=== PATIENT | male | born 1950 | race Caucasian/White ===

== ENCOUNTER 2022-09-22 05:49 | Emergency (ER) | payer MEDICARE, SELFPAY ==
[2022-09-22] VITALS (14 sets, daily range): BP systolic 133–162; BP diastolic 79–97; PULSE 65–88; RESP 12–24; TEMP 36.6; O2SAT 93–98; BMI 45.6
--- NOTE | 2022-09-22 06:15 | ECG_ITS ---
The [facility] Test Date: 2022-09-22 Pat Name: MARILY CARDOSO Department: Room: - Gender: Male Iridologist: : 1950 Requested By: [id number] Order Number: [id number] Reading MD: ELEONORA FLORIAN Measurements Intervals [place] Rate: 70 P: 51 [place]: 158 QRS: -50 QRSD: 110 T: 7 QT: 384 QTc: 406 Interpretive Statements 1100 Sinus rhythm 2440 Incomplete right bundle branch block 2630 Left anterior fascicular block 8003 Consistent with pulmonary disease 9150 abnormal ECG No previous ECG available for comparison Electronically Signed On 09-23-2022 6:56:20 EDT by ELEONORA FLORIAN
--- NOTE | 2022-09-22 06:27 | ED_ITS ---
Documented by User: Denice Llamas MD 09/23/22 04:42 HPI - Abdominal Pain General Chief Complaint: Abdominal Pain Time Seen by Provider: 09/22/22 06:21 Source: patient Mode of arrival: walk-in History of Present Illness HPI narrative: This 71-year-old male presents for evaluation of left upper quadrant abdominal pain And distention. The symptoms started in the middle of the night Around 3 AM.. He states that he has a history of a hiatal hernia and also had a twisted got . They twisted got was released with an NG tube. He has never had any abdominal surgery besides an umbilical hernia. He states that he took omeprazole and Maalox and Pepto-Bismol throughout the night. Pain is mostly located in the epigastrium and left upper quadrant with radiation into his back. He denies any chest pain. He denies shortness of breath but states he is breathing heavily because due to his abdominal pain. He had a normal bowel movement in the small bowel movement throughout the night and is passing small amounts of gas at this time. She denies any history of alcohol use or diabetes. He states he did recently start a GoLo diet which includes taking a dietary enzyme and following their diet. He hasnt lost any weight on this diet and in fact has gained weight. He has not had any diarrhea or dark tarry stools. PCP is Dr Marino Triana MD elicited complaint: Reports abdominal pain Onset (ago): hour(s) (3) Pain Consistency: Reports constant Location: Reports LUQ Quality: Reports fullness Radiation: Reports L flank Relieving factors: Reports nothing Associated symptoms: Reports nausea Related Data Home Medications Medication Instructions Recorded Confirmed aspirin 81 mg tablet,delayed 81 mg PO DAILY 09/22/22 09/22/22 release (Adult Aspirin Regimen) Previous Rx's Medication Instructions Recorded dicyclomine 10 mg capsule 10 mg PO TID #20 caps 09/22/22 ondansetron 4 mg disintegrating 4 mg PO Q6H PRN nausea and 09/22/22 tablet vomiting #20 tabs Allergies Allergy/AdvReac Type Severity Reaction Status Date / Time Unable to Assess Allergy Verified 09/22/22 06:02 Review of Systems ROS Status of ROS 10 or more systems reviewed and unremarkable except as noted in history and below PFSH PFSH Social History Smoking status: Former smoker Exam Constitutional Vital Signs - 24 hr 09/22/22 05:53 09/22/22 07:24 09/22/22 06:20 Temperature 97.9 F Pulse Rate 85 Pulse Rate [Monitor] 88 Respiratory Rate 18 20 Blood Pressure Blood Pressure [Right Arm] 145/97 H Pulse Oximetry 98 94 L Oxygen Delivery Method Room Air Nasal Cannula Oxygen Delivery Flow Rate 2 09/22/22 06:30 09/22/22 06:40 09/22/22 06:50 Temperature Pulse Rate 71 70 67 Pulse Rate [Monitor] Respiratory Rate 24 12 12 Blood Pressure Blood Pressure [Right Arm] Pulse Oximetry Oxygen Delivery Method Oxygen Delivery Flow Rate 09/22/22 07:00 09/22/22 07:09 09/22/22 07:10 Temperature Pulse Rate 78 70 65 Pulse Rate [Monitor] Respiratory Rate 20 13 15 Blood Pressure 133/86 H Blood Pressure [Right Arm] Pulse Oximetry 93 L 93 L Oxygen Delivery Method Oxygen Delivery Flow Rate 09/22/22 07:30 09/22/22 07:30 09/22/22 07:50 Temperature Pulse Rate 81 Pulse Rate [Monitor] Respiratory Rate 17 Blood Pressure 140/91 H 140/91 H 147/91 H Blood Pressure [Right Arm] Pulse Oximetry 95 Oxygen Delivery Method Oxygen Delivery Flow Rate 09/22/22 08:00 09/22/22 08:51 09/22/22 08:31 Temperature Pulse Rate 88 Pulse Rate [Monitor] Respiratory Rate 14 Blood Pressure 162/92 H 137/79 H Blood Pressure [Right Arm] Pulse Oximetry 96 95 96 Oxygen Delivery Method Room Air Oxygen Delivery Flow Rate Documenting provider has reviewed patient's vital signs: yes Common normals: oriented x3 and no limitations General appearance: cooperative and in distress Nutritional appearance: obese HENMT Common normals: normocephalic and head/scalp atraumatic Eye Common normals: PERRL, EOMs intact bilaterally, conjunctivae normal and no scleral icterus Chest Common normals: inspection of chest normal Respiratory Common normals: normal respiratory effort, no retractions, no use of accessory muscles and clear to auscultation bilaterally Effort & inspection: able to speak in complete sentences Cardio Common normals: regular rate, regular rhythm, S1 normal heart sound, S2 normal heart sound, no gallops, no clicks, no murmurs and no rub GI Common normals: soft to palpation (Abd is distended, soft with left upper quadrant and epigastric tendernes) and non-tender (LUQ and epigastric tenderness) Inspection: abdominal distension (Abdomen is distended with decreased bowel sounds) Auscultation: hypoactive bowel sounds Palpation: tender Details: epigastric and LUQ and pulsatile mass (Little distention and girth precludes evaluation of aorta) Back & Pelvis Common normals: no CVA tenderness and thoracic and lumbar spine normal to inspection Extremity Common normals: normal to inspection, full ROM, no clubbing, cyanosis or edema and no calf tenderness Neuro Common normals: oriented x3, CN's II-XII intact bilaterally, moves all extremities, no focal motor deficits and no sensory deficits noted Psych Common normals: mental status grossly normal Course Course Hospital Course: Patient presents for evaluation of acute onset of generalized abdominal pain and abdominal distention around 3 AM. He does have a history of a bowel of direction in the past that was treated conservatively with an NG tube. He has had an umbilical hernia repair but no other abdominal surgery. His abdomen is soft but distended. He is passing gas and has had 2 bowel movements. He is tender in the left upper quadrant. An IV was placed upon arrival and medicated with IV fluids, Zofran, Pepcid and Dilaudid. Routine labs and CT scan is pending at the time of signout. He will be signed out to Dr. Head at 7 AM. Vital Signs Vital signs: Vital Signs Temperature 97.9 F 09/22/22 05:53 Pulse Rate 88 09/22/22 05:53 Respiratory Rate 18 09/22/22 05:53 Blood Pressure 145/97 H 09/22/22 05:53 Pulse Oximetry 98 09/22/22 05:53 Oxygen Delivery Method Room Air 09/22/22 05:53 Temperature 97.9 F 09/22/22 05:53 Pulse Rate 88 09/22/22 08:00 Respiratory Rate 14 09/22/22 08:00 Blood Pressure 137/79 H 09/22/22 08:31 Pulse Oximetry 95 09/22/22 08:51 Oxygen Delivery Method Room Air 09/22/22 08:51 Oxygen Delivery Flow Rate 2 09/22/22 07:24 MDM - Abdominal Pain Lab Data Labs: Lab Results 09/22/22 Range/Units 06:05 WBC 7.1 (4.0-11.0) 10^3/uL RBC 4.68 L (4.70-6.10) 10^6/uL Hgb 14.3 (14.0-18.0) g/dL Hct 43.1 (42.0-54.0) % MCV 92.1 (80.0-94.0) fL MCH 30.6 (25.9-34.0) pg MCHC 33.2 (29.9-35.2) g/dL RDW 12.6 (11.0-15.0) % Plt Count 236 (150-450) 10^3/uL MPV 9.1 L (9.5-13.5) fL Neut % (Auto) 72.6 (43.0-75.0) % Lymph % (Auto) 17.0 L (20.5-60.0) % [place] % (Auto) 8.9 (1.7-12.0) % Eos % (Auto) 0.8 L (0.9-7.0) % Baso % (Auto) 0.6 (0.2-2.0) % Neut # (Auto) 5.1 (1.4-6.5) 10^3/uL Lymph # (Auto) 1.2 (1.2-3.8) 10^3/uL [place] # (Auto) 0.6 (0.3-0.8) 10^3/uL Eos # (Auto) 0.1 (0.0-0.7) 10^3/uL Baso # (Auto) 0.0 (0.0-0.1) 10^3/uL Abs Immat Gran (auto) 0.01 (0.00-0.03) 10^3/uL Imm/Tot Granulo (auto) 0.1 (0.0-0.5) % Sodium 141 (136-145) mmol/L Potassium 4.0 (3.5-5.1) mmol/L Chloride 104 (98-107) mmol/L Carbon Dioxide 30.7 (21.0-32.0) mmol/L Anion Gap 10.3 BUN 14.0 (7.0-18.0) mg/dL Creatinine 0.82 (0.70-1.30) mg/dL Est GFR ( Amer) >60 (>=60) Est GFR (Non-Af Amer) >60 (>=60) BUN/Creatinine Ratio 17.1 Glucose 136 H (74-106) mg/dL Lactate 2.0 (0.4-2.0) mmol/L Calcium 9.6 (8.5-10.1) mg/dL Total Bilirubin 0.3 (0.2-1.0) mg/dL Direct Bilirubin 0.1 (0.0-0.2) mg/dL AST 15 (15-37) U/L ALT 29 (16-63) U/L Alkaline Phosphatase 97 (46-116) U/L Troponin I High Sens 5.7 (4.0-76.1) pg/mL Total Protein 7.5 (6.4-8.2) g/dL Albumin 3.5 (3.4-5.0) g/dL Globulin 4.0 g/dL Albumin/Globulin Ratio 0.9 Lipase 158.0 (73.0-393.0) U/L ECG Data Attestation: I personally reviewed and interpreted this ECG as follows: (Sinus rhythm, complete right bundle-branch block, left anterior hemiblock, nonspecific ST changes, interpretation limited by patient movement, no acute ST segment heather vation or T-wave inversion) Discharge Plan Discharge Chief Complaint: Abdominal Pain Clinical Impression: Abdominal pain Patient Disposition: Home, Self-Care Time of Disposition Decision: 08:27 Condition: Good Mode of Transportation: Private Vehicle Prescriptions / Home Meds: New ondansetron 4 mg tablet,disintegrating 4 mg PO Q6H PRN (Reason: nausea and vomiting) Qty: 20 0RF dicyclomine 10 mg capsule 10 mg PO TID Qty: 20 0RF No Action aspirin [Adult Aspirin Regimen] 81 mg tablet,delayed release (DR/EC) 81 mg PO DAILY Print Language: New Zealander Instructions: Abdominal Pain (ED) Stand Alone Forms: Portal Instructions Referrals: MARINO TRIANA [Primary Care Provider] - 1 week Discharge Date/Time: 09/22/22 08:52 Documented by User: New Head MD 09/22/22 08:31 HPI - Abdominal Pain General Chief Complaint: Abdominal Pain Time Seen by Provider: 09/22/22 06:21 Related Data Home Medications Medication Instructions Recorded Confirmed aspirin 81 mg tablet,delayed 81 mg PO DAILY 09/22/22 09/22/22 release (Adult Aspirin Regimen) Previous Rx's Medication Instructions Recorded dicyclomine 10 mg capsule 10 mg PO TID #20 caps 09/22/22 ondansetron 4 mg disintegrating 4 mg PO Q6H PRN nausea and 09/22/22 tablet vomiting #20 tabs Allergies Allergy/AdvReac Type Severity Reaction Status Date / Time Unable to Assess Allergy Verified 09/22/22 06:02 PFS PFS Social History Smoking status: Former smoker Exam Constitutional Vital Signs - 24 hr 09/22/22 05:53 09/22/22 07:24 09/22/22 06:20 Temperature 97.9 F Pulse Rate 85 Pulse Rate [Monitor] 88 Respiratory Rate 18 20 Blood Pressure Blood Pressure [Right Arm] 145/97 H Pulse Oximetry 98 94 L Oxygen Delivery Method Room Air Nasal Cannula Oxygen Delivery Flow Rate 2 09/22/22 06:30 09/22/22 06:40 09/22/22 06:50 Temperature Pulse Rate 71 70 67 Pulse Rate [Monitor] Respiratory Rate 24 12 12 Blood Pressure Blood Pressure [Right Arm] Pulse Oximetry Oxygen Delivery Method Oxygen Delivery Flow Rate 09/22/22 07:00 09/22/22 07:09 09/22/22 07:10 Temperature Pulse Rate 78 70 65 Pulse Rate [Monitor] Respiratory Rate 20 13 15 Blood Pressure 133/86 H Blood Pressure [Right Arm] Pulse Oximetry 93 L 93 L Oxygen Delivery Method Oxygen Delivery Flow Rate 09/22/22 07:30 09/22/22 07:30 09/22/22 07:50 Temperature Pulse Rate 81 Pulse Rate [Monitor] Respiratory Rate 17 Blood Pressure 140/91 H 140/91 H 147/91 H Blood Pressure [Right Arm] Pulse Oximetry 95 Oxygen Delivery Method Oxygen Delivery Flow Rate 09/22/22 08:00 09/22/22 08:51 09/22/22 08:31 Temperature Pulse Rate 88 Pulse Rate [Monitor] Respiratory Rate 14 Blood Pressure 162/92 H 137/79 H Blood Pressure [Right Arm] Pulse Oximetry 96 95 96 Oxygen Delivery Method Room Air Oxygen Delivery Flow Rate Course Course Hospital Course: Patient presents for evaluation of acute onset of generalized abdominal pain and abdominal distention around 3 AM. He does have a history of a bowel of direction in the past that was treated conservatively with an NG tube. He has had an umbilical hernia repair but no other abdominal surgery. His abdomen is soft but distended. He is passing gas and has had 2 bowel movements. He is tender in the left upper quadrant. An IV was placed upon arrival and medicated with IV fluids, Zofran, Pepcid and Dilaudid. Routine labs and CT scan is pending at the time of signout. He will be signed out to Dr. Head at 7 AM. Vital Signs Vital signs: Vital Signs Temperature 97.9 F 09/22/22 05:53 Pulse Rate 88 09/22/22 05:53 Respiratory Rate 18 09/22/22 05:53 Blood Pressure 145/97 H 09/22/22 05:53 Pulse Oximetry 98 09/22/22 05:53 Oxygen Delivery Method Room Air 09/22/22 05:53 Temperature 97.9 F 09/22/22 05:53 Pulse Rate 88 09/22/22 08:00 Respiratory Rate 14 09/22/22 08:00 Blood Pressure 137/79 H 09/22/22 08:31 Pulse Oximetry 95 09/22/22 08:51 Oxygen Delivery Method Room Air 09/22/22 08:51 Oxygen Delivery Flow Rate 2 09/22/22 07:24 MDM - Abdominal Pain MDM Narrative Medical decision making narrative: CT scan shows incidental gallstones and no bowel obstruction. Blood work is all normal. He'll be treated symptomatically with Zofran and Bentyl. Treatment diagnosis and follow-up were discussed with the patient. Differential Diagnosis Differential diagnosis: Likely abdominal pain, constipation, diverticulitis, gastroenteritis, pancreatitis and small bowel obstruction Lab Data Attestation: I reviewed the patient's lab results. Labs: Lab Results 09/22/22 Range/Units 06:05 WBC 7.1 (4.0-11.0) 10^3/uL RBC 4.68 L (4.70-6.10) 10^6/uL Hgb 14.3 (14.0-18.0) g/dL Hct 43.1 (42.0-54.0) % MCV 92.1 (80.0-94.0) fL MCH 30.6 (25.9-34.0) pg MCHC 33.2 (29.9-35.2) g/dL RDW 12.6 (11.0-15.0) % Plt Count 236 (150-450) 10^3/uL MPV 9.1 L (9.5-13.5) fL Neut % (Auto) 72.6 (43.0-75.0) % Lymph % (Auto) 17.0 L (20.5-60.0) % [place] % (Auto) 8.9 (1.7-12.0) % Eos % (Auto) 0.8 L (0.9-7.0) % Baso % (Auto) 0.6 (0.2-2.0) % Neut # (Auto) 5.1 (1.4-6.5) 10^3/uL Lymph # (Auto) 1.2 (1.2-3.8) 10^3/uL [place] # (Auto) 0.6 (0.3-0.8) 10^3/uL Eos # (Auto) 0.1 (0.0-0.7) 10^3/uL Baso # (Auto) 0.0 (0.0-0.1) 10^3/uL Abs Immat Gran (auto) 0.01 (0.00-0.03) 10^3/uL Imm/Tot Granulo (auto) 0.1 (0.0-0.5) % Sodium 141 (136-145) mmol/L Potassium 4.0 (3.5-5.1) mmol/L Chloride 104 (98-107) mmol/L Carbon Dioxide 30.7 (21.0-32.0) mmol/L Anion Gap 10.3 BUN 14.0 (7.0-18.0) mg/dL Creatinine 0.82 (0.70-1.30) mg/dL Est GFR ( Amer) >60 (>=60) Est GFR (Non-Af Amer) >60 (>=60) BUN/Creatinine Ratio 17.1 Glucose 136 H (74-106) mg/dL Lactate 2.0 (0.4-2.0) mmol/L Calcium 9.6 (8.5-10.1) mg/dL Total Bilirubin 0.3 (0.2-1.0) mg/dL Direct Bilirubin 0.1 (0.0-0.2) mg/dL AST 15 (15-37) U/L ALT 29 (16-63) U/L Alkaline Phosphatase 97 (46-116) U/L Troponin I High Sens 5.7 (4.0-76.1) pg/mL Total Protein 7.5 (6.4-8.2) g/dL Albumin 3.5 (3.4-5.0) g/dL Globulin 4.0 g/dL Albumin/Globulin Ratio 0.9 Lipase 158.0 (73.0-393.0) U/L Discharge Plan Discharge Chief Complaint: Abdominal Pain Clinical Impression: Abdominal pain Patient Disposition: Home, Self-Care Time of Disposition Decision: 08:27 Condition: Good Mode of Transportation: Private Vehicle Prescriptions / Home Meds: New ondansetron 4 mg tablet,disintegrating 4 mg PO Q6H PRN (Reason: nausea and vomiting) Qty: 20 0RF dicyclomine 10 mg capsule 10 mg PO TID Qty: 20 0RF No Action aspirin [Adult Aspirin Regimen] 81 mg tablet,delayed release (DR/EC) 81 mg PO DAILY Print Language: [place]alander Instructions: Abdominal Pain (ED) Stand Alone Forms: Portal Instructions Referrals: MARINO TRIANA [Primary Care Provider] - 1 week Discharge Date/Time: 09/22/22 08:52
--- NOTE | 2022-09-22 06:27 | CT_ITS ---
[address] [address] Patient Name: MARILY CARDOSO MRN: [id number] date: 1950 Sex: M Assigned Patient Location: ER Current Patient Location: Accession/Order Number: [id number] Exam Date: 09/22/2022 07:30 Report Date: 09/22/2022 08:05 At the request of: MINNIE MARKER Procedure: CT abdomen pelvis w con EXAMINATION: CT abdomen pelvis w con HISTORY: abd pain, distention ; acute left upper quadrant pain radiating to back COMPARISON: CT abdomen pelvis 11/07/2021 TECHNIQUE: Axial, Coronal, and Sagittal images were obtained without and/or with IV contrast as indicated by examination type. Dose reduction techniques were achieved by using automated exposure control and/or adjustment of mA and/or kV according to patient size and/or use of iterative reconstruction technique. FINDINGS: LUNG BASES: No visible pulmonary or pleural disease. LIVER: No enlargement, atrophy, suspicious density, or significant focal lesion. BILIARY: A few tiny stones within noninflamed gallbladder. PANCREAS: No lesion, fluid collection, or abnormal duct dilatation. SPLEEN: No enlargement or focal lesion. ADRENALS: No mass or enlargement. KIDNEYS: Benign-appearing renal cysts bilaterally. No mass, obstruction, or calcification. BOWEL/MESENTERY: Small diverticula involving the sigmoid colon without acute inflammatory changes. No visible mass, obstruction, or bowel wall thickening. Normal appendix. AORTA/VASCULAR: No aneurysm or dissection. RETROPERITONEUM: No mass or adenopathy. LYMPH NODES: No adenopathy. URINARY BLADDER: No visible focal wall thickening, lesion, or calculus. PELVIC ORGANS: No visible mass. Pelvic organs appropriate for patient age. ABDOMINAL WALL: No mass or hernia. BONES: Scoliotic curvature and multilevel degenerative disc disease of thoracic and lumbar spine. OTHER: Negative. IMPRESSION: 1. No acute or suspicious findings to account for patient's left upper quadrant pain. 2. Cholelithiasis. 3. Noninflamed mild sigmoid diverticulosis. 4.Multilevel degenerative disc disease and scoliotic curvature of thoracic and lumbar spine. Electronically authenticated by: SEKOU GATES Date: 09/22/2022 08:05
[2022-09-22 06:44] LABS: Basophils Percent Auto 0.6 % (0.2-2.0); Eosinophils Absolute Auto 0.1 10^3/uL (0.0-0.7); Eosinophils Percent Auto 0.8 % (0.9-7.0); Hematocrit 43.1 % (42.0-54.0); Hemoglobin 14.3 g/dL (14.0-18.0); Immature Granulocytes Abs Auto 0.01 10^3/uL (0.00-0.03); Immature Granulocytes Pct Auto 0.1 % (0.0-0.5); Lymphocytes Absolute Auto 1.2 10^3/uL (1.2-3.8); Mean Corpuscular HGB Conc 33.2 g/dL (29.9-35.2); Mean Corpuscular Hemoglobin 30.6 pg (25.9-34.0); Mean Corpuscular Volume 92.1 fL (80.0-94.0); Mean Platelet Volume 9.1 fL (9.5-13.5); Monocytes Absolute Auto 0.6 10^3/uL (0.3-0.8); Monocytes Percent Auto 8.9 % (1.7-12.0); Neutrophils Absolute Auto 5.1 10^3/uL (1.4-6.5); Neutrophils Percent Auto 72.6 % (43.0-75.0); Platelet Count 236 10^3/uL (150-450); Red Blood Count 4.68 10^6/uL (4.70-6.10); Red Cell Distribution Width 12.6 % (11.0-15.0); White Blood Count 7.1 10^3/uL (4.0-11.0)
[2022-09-22] MEDS: FAMOTIDINE/PF 20 MG/2 ML VIAL IV (07:03)
[2022-09-22] MEDS: HYDROMORPHONE HCL 1 MG/ML CARTRIDGE IVP (07:03)
[2022-09-22] MEDS: ONDANSETRON PF 4 MG/2 ML VIAL IV (07:03)
[2022-09-22] MEDS: 0.9 % SODIUM CHLORIDE 1,000 ML 100 ML IV (07:03)
[2022-09-22 07:09] LABS: Alanine Aminotransferase 29 U/L (16-63); Albumin Globulin Ratio 0.9; Albumin Level 3.5 g/dL (3.4-5.0); Alkaline Phosphatase 97 U/L (46-116); Anion Gap 10.3; Aspartate Amino Transferase 15 U/L (15-37); BUN Creatinine Ratio 17.1; Bilirubin Direct 0.1 mg/dL (0.0-0.2); Bilirubin Total 0.3 mg/dL (0.2-1.0); Calcium 9.6 mg/dL (8.5-10.1); Carbon Dioxide 30.7 mmol/L (21.0-32.0); Chloride 104 mmol/L (98-107); Estimated GFR (African America >60 (>=60); Estimated GFR (Non-African Ame >60 (>=60); Glucose 136 mg/dL (74-106); Sodium 141 mmol/L (136-145); Total Protein 7.5 g/dL (6.4-8.2); Troponin I High Sensitivity 5.7 pg/mL (4.0-76.1)
== END 2022-09-22 08:52 | disposition home or self-care (01) ==
PROVIDERS: Emergency Medicine; Emergency Provider Emergency Medicine; PCP Family Medicine
DX: R10.9 Unspecified abdominal pain (principal); Z87.891 Personal history of nicotine dependence; Z79.82 Long term (current) use of aspirin
CPT/HCPCS: 36415; 74177; 80053; 80076; 83605; 83690; 84484; 84703; 85025; 93005; 96374; 96375; 99285; J1170; Q9967

== ENCOUNTER 2023-02-10 22:09 | Emergency (ER) | payer MEDICARE, SELFPAY ==
[2023-02-10] VITALS (16 sets, daily range): BP systolic 104–139; BP diastolic 59–92; PULSE 115–147; RESP 14–35; TEMP 36.6; O2SAT 88–96; BMI 43.2
--- NOTE | 2023-02-10 22:17 | ED_ITS ---
HPI - SOB/Dyspnea General Chief Complaint: Shortness of Breath/Dyspnea Stated Complaint: Shortness of Breath Time Seen by Provider: 02/10/23 22:17 History of Present Illness HPI Narrative: ex smoker. history of COPD. Does not wear 02 at home. Short of breath tonight. States legs felt tingly and he fell onto the sofa. [facility] gave him 02. States he was able to walk down 3 steps afterwards to get to [facility]. No chest pain or abdominal pain. No associated nausea , vomiting or fever. States he had not been ill MD elicited complaint: shortness of breath Pertinent past history: COPD Related Data Home Medications Medication Instructions Recorded Confirmed albuterol sulfate 90 mcg/actuation 1 inh inhalation DAILY 02/10/23 02/10/23 aerosol inhaler Allergies Allergy/AdvReac Type Severity Reaction Status Date / Time No Known Drug Allergies Allergy Verified 02/10/23 22:26 Review of Systems ROS Status of ROS 10 or more systems reviewed and unremarkable except as noted in history and below PFSH PFSH Social History Smoking status: Former smoker Exam Constitutional Vital Signs, click to edit/add: Last Vital Signs Temp 97.8 F 02/10/23 22:14 Pulse 101 H 02/11/23 04:10 Resp 17 02/11/23 04:10 BP 127/83 02/11/23 04:00 Pulse Ox 95 02/11/23 04:10 O2 Del Method Vapotherm 02/11/23 00:30 O2 Flow Rate 30 02/11/23 00:30 FiO2 40 02/11/23 00:30 Common normals: oriented x3 Other: mild dyspnea HENUT Common normals: normocephalic and head/scalp atraumatic Eye Common normals: PERRL, EOMs intact bilaterally and conjunctivae normal Chest Common normals: inspection of chest normal and palpation of chest normal Respiratory Effort & inspection: tachypneic Other: diminished breath sounds Cardio Rate: tachycardic GI Other: distended but nontender Extremity Common normals: normal to inspection and full ROM Neuro Common normals: oriented x3, CN's II-XII intact bilaterally, moves all extremities, no focal motor deficits and no sensory deficits noted Psych Appearance: grossly normal Course Vital Signs Vital signs: Vital Signs Temperature 97.8 F 02/10/23 22:14 Pulse Rate 129 H 02/10/23 22:14 Respiratory Rate 35 H 02/10/23 22:14 Blood Pressure 139/92 H 02/10/23 22:14 Pulse Oximetry 88 L 02/10/23 22:14 Oxygen Delivery Method Nasal Cannula 02/10/23 22:14 Oxygen Delivery Flow Rate 6 02/10/23 22:14 Temperature 97.8 F 02/10/23 22:14 Pulse Rate 101 H 02/11/23 04:10 Respiratory Rate 17 02/11/23 04:10 Blood Pressure 127/83 02/11/23 04:00 Pulse Oximetry 95 02/11/23 04:10 Oxygen Delivery Method Vapotherm 02/11/23 00:30 Oxygen Delivery Flow Rate 30 02/11/23 00:30 Fraction of Inspired Oxygen 40 02/11/23 00:30 MDM - SOB/Dyspnea MDM Narrative Medical decision making narrative: patient has history of COPD. Became short of breath at home. When [facility] arrived pulse ox was 74. He was placed on 6L02 and transferred to the ED. Arrived short of breath. No chest pain. EKG with RBBB and LAFB. sinsu tach. EKG 09/2022 with incomplete RBBB. Patient treated with duoneb and solumedrol. Labs demonstrated normal troponin at 64.9. Repeat troponin increased to 649. Heparin and asa order ed. Patient is currently on high flow 02 at 40% and resting comfortably. Discussed with Hospitalist at [facility] and patient accepted in transfer but he also requested CTA chest. CTA results returned just as he was leaving department with [facility] for transfer and it demonstrated bilat PEs Patient on Heparin bolus and drip as above. Transferred to [facility] Lab Data Labs: Lab Results 02/10/23 02/10/23 02/11/23 Range/Units 22:22 22:25 01:12 WBC 11.8 H (4.0-11.0) 10^3/uL RBC 4.93 (4.70-6.10) 10^6/uL Hgb 14.9 (14.0-18.0) g/dL Hct 48.2 (42.0-54.0) % MCV 97.8 H (80.0-94.0) fL MCH 30.2 (25.9-34.0) pg MCHC 30.9 (29.9-35.2) g/dL RDW 12.8 (11.0-15.0) % Plt Count 141 L (150-450) 10^3/uL MPV 9.8 (9.5-13.5) fL Neut % (Auto) 73.7 (43.0-75.0) % Lymph % (Auto) 14.5 L (20.5-60.0) % [place] % (Auto) 10.5 (1.7-12.0) % Eos % (Auto) 0.3 L (0.9-7.0) % Baso % (Auto) 0.4 (0.2-2.0) % Neut # (Auto) 8.7 H (1.4-6.5) 10^3/uL Lymph # (Auto) 1.7 (1.2-3.8) 10^3/uL [place] # (Auto) 1.2 H (0.3-0.8) 10^3/uL Eos # (Auto) 0.0 (0.0-0.7) 10^3/uL Baso # (Auto) 0.1 (0.0-0.1) 10^3/uL Abs Immat Gran (auto) 0.07 H (0.00-0.03) 10^3/uL Imm/Tot Granulo (auto) 0.6 H (0.0-0.5) % PT 11.1 (9.0-11.6) sec INR 1.05 APTT 30.0 (22.3-36.2) sec Sodium 130 L (136-145) mmol/L Potassium 4.3 (3.5-5.1) mmol/L Chloride 96 L (98-107) mmol/L Carbon Dioxide 20.4 L (21.0-32.0) mmol/L Anion Gap 17.9 BUN 21.0 H (7.0-18.0) mg/dL Creatinine 2.01 H (0.70-1.30) mg/dL Est GFR ( Amer) 40 L (>=60) Est GFR (Non-Af Amer) 33 L (>=60) BUN/Creatinine Ratio 10.4 Glucose 197 H (74-106) mg/dL Calcium 9.2 (8.5-10.1) mg/dL Troponin I High Sens 64.9 649.3 H* (4.0-76.1) pg/mL Adenovirus (PCR) Not detected (NOT DETECTE) C. pneumoniae DNA (PCR) Not detected (NOT DETECTE) Coronavirus Type OC43 Not detected (NOT DETECTE) Coronavirus Type HKU1 Not detected (NOT DETECTE) Coronavirus Type 229E Not detected (NOT DETECTE) Coronavirus Type NL63 Not detected (NOT DETECTE) Human Metapneumovir PCR Not detected (NOT DETECTE) M. pneumoniae (PCR) Not detected (NOT DETECTE) Parainfluenza PCR Not detected (NOT DETECTE) Parainfluenza 2 (PCR) Not detected (NOT DETECTE) Parainfluenza 3 (PCR) Not detected (NOT DETECTE) Parainfluenza 4 (PCR) Not detected (NOT DETECTE) RSV (RT-PCR) Not detected (NOT DETECTE) Entero/Rhino (PCR) Not detected (NOT DETECTE) SARS-CoV-2 (PCR) Not detected (NOT DETECTE) Bordetella pertussis (PCR) Not detected (NOT DETECTE) B parapertussis DNA PCR Not detected (NOT DETECTE) Influenza Type A (PCR) Not detected (NOT DETECTE) Influenza Type B (PCR) Not detected (NOT DETECTE) Critical Care Time Critical Care Time Critical Care Time: Yes Total Critical Care Time: 45 Attestation: critical care time provided including re evaluation of the patient several times. Discussion with accepting physician. Also comparison to old EKGs and management of supplement 02 vapotherm Discharge Plan Discharge Chief Complaint: Shortness of Breath/Dyspnea Clinical Impression: Non-ST elevation [place] (NSTEMI), Bilateral pulmonary embolism Patient Disposition: [facility] Discharge Date/Time: 02/11/23 04:46
--- NOTE | 2023-02-10 22:20 | XR_ITS ---
[address] [address] Patient Name: MARILY CARDOSO MRN: [id number] date: 1950 Sex: M Assigned Patient Location: ER Current Patient Location: ED.MAIN Accession/Order Number: [id number] Exam Date: 02/10/2023 22:35 Report Date: 02/10/2023 22:55 At the request of: RUSS BUSTAMANTE Procedure: XR chest 1V EXAMINATION: CHEST RADIOGRAPH (PORTABLE SINGLE VIEW AP) Exam Date/Time: 02/10/2023 10:35 PM EST Clinical History: short of breath Comparison: CTA chest 10/08/2018 RESULT: Lines, tubes, and devices: None. Lungs and pleura: No focal consolidation. No pneumothorax. No pleural effusion. Bibasal atelectasis. Cardiomediastinal silhouette: Stable cardiomediastinal silhouette. No significant atherosclerotic calcification. Other: No acute osseous process. XR/XR chest 1V IMPRESSION: No acute cardiopulmonary abnormality. Electronically authenticated by: DANII DILOLN Date: 02/10/2023 22:55
--- NOTE | 2023-02-10 22:20 | ECG_ITS ---
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: : 1950 Requested By: JS MENJIVAR Order Number: [id number] Reading MD: ELEONORA FLORIAN Measurements Intervals [place] Rate: 132 P: 222 NE: 180 QRS: -78 QRSD: 114 T: 66 QT: 312 QTc: 390 Interpretive Statements Sinus tachycardia 2450 Right bundle branch block 2630 Left anterior fascicular block 7400 S1-S2-S3 pattern, consistent with pulmonary disease, RVH, or normal variant 8003 Consistent with pulmonary disease 9150 abnormal ECG Compared to ECG 09/22/2022 06:10:37 Right bundle-branch block now present Right ventricular hypertrophy now present Sinus rhythm no longer present Incomplete right bundle-branch block no longer present Electronically Signed On 02-12-2023 18:20:57 EST by ELEONORA FLORIAN
[2023-02-10 22:31] LABS: Basophils Absolute Auto 0.1 10^3/uL (0.0-0.1); Basophils Percent Auto 0.4 % (0.2-2.0); Eosinophils Percent Auto 0.3 % (0.9-7.0); Hematocrit 48.2 % (42.0-54.0); Hemoglobin 14.9 g/dL (14.0-18.0); Immature Granulocytes Abs Auto 0.07 10^3/uL (0.00-0.03); Immature Granulocytes Pct Auto 0.6 % (0.0-0.5); Lymphocytes Absolute Auto 1.7 10^3/uL (1.2-3.8); Lymphocytes Percent Auto 14.5 % (20.5-60.0); Mean Corpuscular HGB Conc 30.9 g/dL (29.9-35.2); Mean Corpuscular Hemoglobin 30.2 pg (25.9-34.0); Mean Corpuscular Volume 97.8 fL (80.0-94.0); Mean Platelet Volume 9.8 fL (9.5-13.5); Monocytes Absolute Auto 1.2 10^3/uL (0.3-0.8); Monocytes Percent Auto 10.5 % (1.7-12.0); Neutrophils Absolute Auto 8.7 10^3/uL (1.4-6.5); Neutrophils Percent Auto 73.7 % (43.0-75.0); Platelet Count 141 10^3/uL (150-450); Red Blood Count 4.93 10^6/uL (4.70-6.10); Red Cell Distribution Width 12.8 % (11.0-15.0); White Blood Count 11.8 10^3/uL (4.0-11.0)
[2023-02-10 22:31] LABS: Adenovirus NOT DETECTED (NOT DETECTE); Bordetella parapertussis NOT DETECTED (NOT DETECTE); Coronavirus 229E NOT DETECTED (NOT DETECTE); Coronavirus HKU1 NOT DETECTED (NOT DETECTE); Coronavirus NL63 NOT DETECTED (NOT DETECTE); Coronavirus OC43 NOT DETECTED (NOT DETECTE); Human Metapneumovirus NOT DETECTED (NOT DETECTE); Human Rhinovirus/Enterovirus NOT DETECTED (NOT DETECTE); Influenza A NOT DETECTED (NOT DETECTE); Influenza B NOT DETECTED (NOT DETECTE); Mycoplasma pneumoniae NOT DETECTED (NOT DETECTE); Parainfluenza Virus 1 NOT DETECTED (NOT DETECTE); Parainfluenza Virus 2 NOT DETECTED (NOT DETECTE); Parainfluenza Virus 3 NOT DETECTED (NOT DETECTE); Parainfluenza Virus 4 NOT DETECTED (NOT DETECTE); Respiratory Syncytial Virus NOT DETECTED (NOT DETECTE); SARS-CoV-2 NOT DETECTED (NOT DETECTE)
[2023-02-10] MEDS: IPRATROPIUM/ALBUTEROL SULFATE 3 ML AMPUL.NEB IH (22:37)
[2023-02-10] MEDS: METHYLPREDNISOLONE SOD SUCC PF 125 MG/2 ML VIAL IVP (22:41)
[2023-02-10 22:51] LABS: Anion Gap 17.9; BUN Creatinine Ratio 10.4; Calcium 9.2 mg/dL (8.5-10.1); Carbon Dioxide 20.4 mmol/L (21.0-32.0); Chloride 96 mmol/L (98-107); Estimated GFR (African America 40 (>=60); Estimated GFR (Non-African Ame 33 (>=60); Glucose 197 mg/dL (74-106); Potassium 4.3 mmol/L (3.5-5.1); Sodium 130 mmol/L (136-145); Troponin I High Sensitivity 64.9 pg/mL (4.0-76.1)
--- NOTE | 2023-02-10 22:54 | PC.NURSE ---
Patient noticed he was SOB earlier today while he was out running errands with his . Patient states he chose to wait in the car. tonight while he was at home. patient was walking to his favorite chair, could not make it the whole way so he fell forward onto the couch and eased himself onto the ground until EMS arrived, approx 20min. denies any head injury. EMS states patient was 70's oxygen saturation. placed on 6L and only brought saturation to 88%. patient denies any recent illness, cough, flu symptoms. diagnosed with COPD does not use home oxygen. diminished lung sounds bilaterally, better on the left side.
[2023-02-11] VITALS (28 sets, daily range): BP systolic 109–159; BP diastolic 75–120; PULSE 98–119; RESP 16–25; O2SAT 92–97
[2023-02-11 01:43] LABS: Troponin I High Sensitivity 649.3 pg/mL (4.0-76.1)
--- NOTE | 2023-02-11 01:48 | PC.NURSE ---
critical troponin of 649.3, physician notifed.
[2023-02-11] MEDS: ASPIRIN 81 MG TAB.CHEW 324 MG PO (02:40)
[2023-02-11] MEDS: HEPARIN SODIUM,PORCINE/D5W 25,000 UNIT/500 ML IV.SOLN 31.832 UNIT IV (03:10)
[2023-02-11] MEDS: HEPARIN SODIUM (PORCINE) 5,000 UNIT/ML VIAL 4000 UNIT IV (03:10)
--- NOTE | 2023-02-11 03:30 | CT_ITS ---
The [address] [address] Patient Name: MARILY CARDOSO MRN: [id number] date: 1950 Sex: M Assigned Patient Location: Current Patient Location: [facility] Accession/Order Number: [id number] Exam Date: 02/11/2023 03:30 Report Date: 02/13/2023 21:47 At the request of: RUSS WILDE Procedure: CT angio chest EXAM: CT ANGIO CHEST HISTORY: Abnormal lab values. COMPARISON: None. TECHNIQUE: Axial CT images through the chest were obtained after the intravenous administration of 100 mL Omnipaque 350 contrast. Coronal and sagittal reformats were obtained. Dose reduction techniques were achieved by using automated exposure control and/or adjustment of mA and/or kV according to patient size and/or use of iterative reconstruction technique. FINDINGS: The study is technically adequate with a good contrast bolus to the pulmonary arteries. There are bilateral pulmonary emboli involving the distal main pulmonary arteries and extending throughout both lungs. The main pulmonary artery is mildly enlarged measuring up to 3.3 cm, not significantly changed compared to prior examination. There is enlargement of the right ventricle in relation to the left. There is bibasilar atelectasis. The central airways are patent. No pleural effusion or pneumothorax is seen. The thoracic aorta is normal in course and caliber without evidence of an aneurysm. There is no pericardial effusion. There is no mediastinal, hilar, or axillary lymphadenopathy by CT size criteria. Images through the upper abdomen reveal a left renal cyst. No suspicious or aggressive bone lesions are seen. No acute fracture is seen. CT/CT angio chest IMPRESSION: 1. Bilateral pulmonary emboli with enlargement of the right ventricle in relation to the left, concerning for right heart strain. The findings were discussed with Dr. Wilde by Dr. Fontaine at 4:26 AM ET on 02/11/2023. Electronically authenticated by: Breanna FONTAINE Date: 02/13/2023 21:47
[2023-02-11] MEDS: 0.9 % SODIUM CHLORIDE 500 ML IV (04:35)
[2023-02-11 05:22] LABS: INR 1.05; Prothrombin Time 11.1 sec (9.0-11.6)
== END 2023-02-11 04:46 | disposition short-term general hospital (02) ==
PROVIDERS: Emergency Provider Internal Medicine; PCP Family Medicine
DX: I21.4 Non-ST elevation (NSTEMI) myocardial infarction (principal); I26.99 Other pulmonary embolism without acute cor pulmonale; J44.9 Chronic obstructive pulmonary disease, unspecified; Z87.891 Personal history of nicotine dependence; Z79.899 Other long term (current) drug therapy; Z20.822 Contact with and (suspected) exposure to COVID-19
CPT/HCPCS: 0202U; 36415; 71045; 71275; 80048; 84484; 85025; 85610; 85730; 93005; 94640; 94799; 96374; 96375; 99285; J2930; Q9967

== ENCOUNTER 2024-06-21 12:10 | Outpatient (OUT) | payer MEDICARE, SELFPAY ==
--- OUTSIDE RECORDS SUMMARY | 2024-06-21 12:18 | XMS_ITS | CCD ---
Author Organization [facility] Care Team Providers Care Insurance Producer Name Role Phone ROSHAN YANG Admitting Unavailable RADHA PRATT Consulting Unavailable ROSHAN YANG Attending Unavailable TIARA, DR WEINSTEIN Primary Care Unavailable ROSHAN YANG Consulting Unavailable TIARA, DR WEINSTEIN Primary Care Unavailable AUGUSTA, DR ROBIN Mata Consulting Unavailable NADERER, DR MOLLY Wang Admitting Unavailable NADERER, DR MOLLY Wang Attending Unavailable NADERER, DR MOLLY Wang Consulting Unavailable HAY, DR GAMEZ Consulting Unavailable NILL, DR MOORE Consulting Unavailable NATASHA ARELLANO Consulting Unavailable ROBIN RAYA Consulting Unavailable MD Melissa Tejeda Admit Provider CATARINA Moya Primary Care Provider DO Sophie Tovar Other Provider [phone] DO Tobias James Attending Provider Sophie Tovar Consulting Unavailable Chloé Moya Primary Care Unavailable Tobias James Attending Unavailable Melissa Tejeda Admitting Unavailable Chloé Moya PA-C Primary Care Provider [phone] JS MENJIVAR Primary Care Physician Jesica Moe Consulting Unavailab Devorah Burgess Admitting Unavailable Devorah BLANCO Attending Unavailable MD Jesica Moe Consulting Jesica Slater Consulting Unavailab Edith Charles Attending Unavailable Radha Roche Attending UnavailEfren Oswald Attending Unavailable Js Menjivar MD Unavailable Js Menjivar MD Primary Care Provider CHLOÉ MOYA Attending Unavailable CHLOÉ MOYA Attending Unavailable GILBERTO MAGANA Attending Unavailable CHLOÉ MOYA Attending Unavailable CHLOÉ MOYA Attending Unavailable CHLOÉ MOYA Attending Unavailable CHLOÉ MOYA Attending Unavailable CHANDRIKA LEARY Attending Unavailable BRADLEY TOVAR Referring Unavailable CHLOÉ MOYA Primary Care Unavailable BRADLEY TOVAR Attending Unavailable CHANDRIKA LEARY Referring Unavailable CHLOÉ MOYA Primary Care Unavailable Dina Barajas Referring Unavailable Jesica Moe Attending UnavailDevorah Rogers Admitting Unavailable Richard CHAUDHARY Attending Unavailable Jesica Moe Consulting Unavailab Jesica Haley Consulting Unavailab Jesica Haley Consulting Unavailab le Allergies Allergy Classification Reported Allergen(s) Allergy Type Date of Onset Reaction(s) Facility (3 sources) Banana Extract; Translations: [BANANA] Drug Allergy 3 [facility] (3 sources) Famotidine; Translations: [FAMOTIDINE] Drug Allergy 3 [facility] Work Phone: (11 sources) clopidogrel; Translations: [clopidogrel] Drug Allergy 4 Cutaneous eruption (morphologic abnormality), Rash [facility] (9 sources) Warfarin; Translations: [Coumadin] Drug Allergy Cutaneous eruption (morphologic abnormality) [facility] (6 sources) Bananas Propensity to adverse reactions 3 [facility] (6 sources) Famotidine Allergy to substance 3 [facility] Work Phone: (2 sources) Warfarin; Translations: [WARFARIN] Drug Allergy 4 [facility] 3 Repository Medications Current Medications Medication Drug Class(es) Dates Sig (Normalized) Sig (Original) Acetaminophen (2 sources) Start: 11-19-2023 acetaminophen Oral, q6hr, Refills(s) 0 Start Date: 11/19/23 Status: Ordered albuterol 0.83 mg/ml inhalation solution (10 sources) beta2-Adrenergic Agonist Start: 11-19-2023 albuterol (2.5 MG/3ML) 0.083% nebulizer solution 11/19/2023 Active Start: 11-19-2023 End: 12-19-2023 take 2.5 mg by inhalation every two hours albuterol 0.083% Inh Jenn 3 mL 2.5 mg, 3 mL, Inhalation, q2hr Shortness of breath or wheezing for 30 day(s), 150 mL, Refill(s) 0, [facility]/pharmacy #[id number], 175, cm, 11/16/23 8:19:00 EDT, Height/Length Dosing, 132.8, kg, 11/16/23 8:19:00 EDT, Weight Dosing Start Date: 11/19/23 Stop Date: 12/19/23 Status: Ordered Start: 11-01-2022 take 2 puff(s) by in halation every four hours for wheezing albuterol 90 mcg/actuation inhaler Inhale 2 puffs every 4 hours if needed for wheezing. 11/01/2022 Active albuterol 0.833 mg/ml / ipratropium bromide 0.167 mg/ml inhalation solution (8 sources) Anticholinergic, beta2-Adrenergic Agonist Start: 11-19-2023 ipratropium-albuterol (Duo-Neb) 0.5-2.5 mg/3 mL nebulizer solution 11/19/2023 Active Start: 11-19-2023 End: 12-19-2023 take 3 mL by inhalation four times daily DuoNeb 2.5 mg-0.5 mg/3 mL Soln-Inh 3 mL, Inhalation, QID for 30 day(s), 360 mL, Refill(s) 0, [facility]/pharmacy #[id number], 175, cm, 11/16/23 8:19:00 EDT, Height/Length Dosing, 132.8, kg, 11/16/23 8:19:00 EDT, Weight Dosing Start Date: 11/19/23 Stop Date: 12/19/23 Status: Ordered aspirin 81 mg oral tablet (2 sources) Platelet Aggregation Inhibitor, Nonsteroidal Anti-inflammatory Drug Start: 09-04-2009 take 1 tablet by mouth once daily aspirin 81 mg oral tablet 81 mg = 1 tab(s), Oral, Daily, Refills(s) 0 Start Date: 09/04/09 Status: Ordered Breztri Aerosphere inhalation aerosol (2 sources) Start: 11-16-2023 take 2 puff(s) by inhalation twice daily Breztri Aerosphere inhalation aerosol 2 puff(s), Inhalation, BID, Refill(s) 0 Start Date: 11/16/23 Status: Ordered 120 actuat budesonide 0.16 mg/actuat / formoterol fumarate 0.0048 mg/actuat / glycopyrrolate 0.009 mg/actuat metered dose inhaler (4 sources) Corticosteroid, beta2-Adrenergic Agonist take 2 puff(s) by inhalation in the morning Budeson-Glycop yrrol-Formoter ol (Breztri Aerosphere) 160-9-4.8 MCG/ACT aerosol Inhale 2 puffs in the morning and 2 puffs before bedtime. Active take 2 puff(s) by in halation twice daily mpjrqzkkuo-gxqtzmug-cegkazaigu (Breztri Aerosphere) 160-9-4.8 mcg/actuation HFA aerosol inhaler Inhale 2 puffs 2 times a day. Active Centrum Silver Men's (4 sources) Start: 09-04-2009 Centrum Silver Men's Oral, Daily, Refill(s) 0 Start Date: 09/04/09 Status: Ordered docusate sodium 100 mg oral capsule (6 sources) Start: 11-22-2023 take 1 capsule by mouth twice daily as needed for constipation docusate sodium (Colace) 100 MG capsule TAKE 1 CAPSULE BY MOUTH TWICE A DAY NEEDED FOR CONSTIPATION 11/22/2023 Active famotidine 10 mg oral tablet (2 sources) Histamine-2 Receptor Antagonist Start: 04-08-2023 take 1 tablet by mouth twice daily famotidine 10 mg oral tablet 10 mg = 1 tab(s), Oral, BID, # 60 tab(s), Refills(s) 0 Start Date: 04/08/23 Status: Ordered Multiple Vitamins-Minerals (Centrum Men) tablet (6 sources) take 1 tablet by mouth once daily Multiple Vitamins-Minerals (Centrum Men) tablet Take 1 tablet by mouth 1 (one) time each day. Active multivitamin tablet (2 sources) take 1 tablet by mouth once daily multivitamin tablet Take 1 tablet by mouth once daily. Active take 1 tablet by mouth once huseyin y multivitamin tablet Take 1 tablet by mouth once daily. 0 Active omeprazole 20 mg delayed release oral capsule (14 sources) Proton Pump Inhibitor Start: 04-08-2023 take 1 capsule by mouth once daily omeprazole 10 mg Cap-EC 10 mg = 1 cap(s), Oral, Daily, # 30 cap(s), Refills(s) 0 Start Date: 04/08/23 Status: Ordered Start: 02-11-2023 End: 04-25-2024 take 1 capsule by mouth in the morning omeprazole (PriLOSEC) [address] capsule Indications: Gastroesophageal reflux disease without esophagitis Take 1 capsule (20 mg) by mouth in the morning. Do not crush or chew.. 90 capsule 3 04/26/2023 04/25/2024 Active End: 03-15-2023 take 1 capsule by mouth once daily before mealtime omeprazole (PriLOSEC) [address] capsule Take 1 capsule (40 mg) by mouth once daily in the morning. Take before meals. Do not crush or chew. 0 03/15/2023 Discontinued (Dose adjustment) polyethylene glycol 3350 77773 mg powder for oral solution (6 sources) Osmotic Laxative take 17 g by mouth every twenty-four hours as needed polyethylene glycol, PEG, 3350 (MiraLax) 17 GM/SCOOP powder Take 17 g by mouth Daily as needed. Active rivaroxaban 20 mg oral tablet (14 sources) Factor Xa Inhibitor Start: 02-15-20 End: 03-15-20 Xarelto 20 MG tablet 1 tablet 1 (one) time each day 02/14/2023 Active Start: 02-14-2023 take 1 tablet by tita twice daily at mealtime Rivaroxaban (Xarelto Dvt-Pe Treat 30d Start) 15 mg (42)- 20 mg (9) tablets,dose pack Active 0 PO .COMPLEX February 14, 2023 12:00am take one-15 mg tablet twice daily for 21 days, then one-20 mg tablet once daily; must take with meal/food saccharomyces boulardii 250 mg oral capsule (6 sources) take 1 capsule by mouth in the morning saccharomyces boulardii (Florastor) 250 MG capsule Take 250 mg by mouth in the morning and 250 mg before bedtime. Active Semaglutide-Weight Management (Wegovy) 0.25 MG/0.5ML solution auto-injector (6 sources) Start: 10-11-19 inject 0.25 mg by subcutaneous injection every week Semaglutide-Weight Management (Wegovy) 0.25 MG/0.5ML solution auto-injector Indications: Morbid obesity due to excess calories (CMS/HCC) Inject 0.25 mg under the skin 1 (one) time per week [facility] 10/11/2023 Active sennosides, assisted 8.6 mg oral tablet (6 sources) Start: 11-22-19 End: 12-02-19 take 2 tablets by mouth once daily at bedtime as needed for constipation [facility] Senna 8.6 MG tablet TAKE 2 TABLETS BY MOUTH ONCE A DAY AT BEDTIME NEEDED FOR CONSTIPATION FOR 10 DAYS 11/22/2023 Active sucralfate 1000 mg oral tablet (1 source) Aluminum Complex Start: 04-08-19 End: 04-15-19 take 1 tablet by mouth four times daily sucralfate 1 g Tab 1 gm = 1 tab(s), Oral, QID, X 7 day(s), # 28 tab(s), Refills(s) 0 Start Date: 04/08/23 Stop Date: 04/15/23 Status: Ordered triamcinolone acetonide 1 mg/ml topical cream (8 sources) Corticosteroid Start: 11-16-19 triamcinolone Top 0.1% Crm 15 gram 1 mary, Topical, TID, 15 gram, Refill(s) 0 Start Date: 11/16/23 Status: Ordered Start: 08-22-2023 triamcinolone (Kenalog) 0.1 % cream Indications: Other atopic dermatitis Apply to affected areas, up to twice a day when flared, do not use one the face, groin, or underarms, 30 day supply 454 g 3 08/22/2023 Active Completed/Discontinued Medications Medication Drug Class(es) Dates Sig (Normalized) Sig (Original) ##### (1 source) Start: 11-29-2023 ##### 1 EA, 0 Refill(s), INJECT 25 UNITS (0.25MG) SUBCUTANEOUSLY ONCE WEEKLY ON THE SAME DAY Start Date: 11/29/23 Status: Ordered dicyclomine hydrochloride 10 mg oral capsule (1 source) Anticholinergic Start: 09-22-2022 End: 03-15-2023 take 1 capsule by mouth three times daily dicyclomine (Bentyl) 10 mg capsule Take 1 capsule (10 mg) by mouth 3 times a day. 0 09/22/2022 03/15/2023 Discontinued (Therapy completed) loperamide hydrochloride 2 mg oral tablet (2 sources) Opioid Agonist Start: 11-15-2023 End: 11-27-2023 take 1 tablet by mouth four times daily as needed loperamide (Imodium A-D) 2 MG tablet Indications: Diarrhea, unspecified type Take 1-2 tablets (2-4 mg) by mouth 4 (four) times a day as needed for diarrhea for up to 5 days 40 tablet 11/15/2023 11/27/2023 Discontinued (Other) methocarbamol 500 mg oral tablet (4 sources) Muscle Relaxant Start: 11-19-2023 End: 11-27-2023 methocarbamol (Robaxin) 500 MG tablet 11/19/2023 11/27/2023 Discontinued (Other) ondansetron 4 mg disintegrating oral tablet (1 source) Serotonin-3 Receptor Antagonist Start: 09-22-2022 End: 03-15-2023 take 1 tablet by mouth every eight hours as needed ondansetron ODT (Zofran-ODT) 4 mg disintegrating tablet Take 1 tablet (4 mg) by mouth every 8 hours if needed. 0 09/22/2022 03/15/2023 Discontinued (Therapy completed) Problems Active Problems Problem Classification Problem Date Documented Da te Episodic/Chronic Abdominal hernia (6 sources) Inguinal hernia; Translations: [Intra-abdominal hernia] 06-14-2013 Episodic Acute myocardial infarction (3 sources) Myocardial infarction 06-15-2023 Chronic Allergic reactions (8 sources) Atopic dermatitis; Translations: [Atopic dermatitis, unspecified] Onset: 11-01-2022 11-01-2022 Chronic Anxiety disorders (8 sources) Anxiety; Translations: [Anxiety disorder, unspecified] Onset: 11-01-2022 11-01-2022 Chronic Biliary tract disease (8 sources) Biliary calculus; Translations: [Calculus of gallbladder without cholecystitis without obstruction] Onset: 11-01-2022 11-01-2022 Episodic Chronic obstructive pulmonary disease and bronchiectasis (15 sources) Chronic obstructive pulmonary disease, unspecified; Translations: [Chronic obstructive lung disease] Onset: 11-11-2021 02-11-2023 Chronic Disorders of lipid metabolism (8 sources) Hypertriglyceridemia ; Translations: [Pure hyperglyceridemia] Onset: 11-01-2022 11-01-2022 Chronic Diverticulosis and diverticulitis (8 sources) Diverticulosis of colon; Translations: [Diverticulosis of large intestine without perforation or abscess without bleeding] Onset: 11-01-2022 11-01-2022 Chronic Esophageal disorders (10 sources) Gastro-esophageal reflux disease without esophagitis; Translations: [Gastroesophageal reflux disease without esophagitis] Onset: 11-11-2021 Chronic Gastrointestinal hemorrhage (1 source) Melena; Translations: [Melena] Onset: 06-15-2023 Episodic Mood disorders (8 sources) Reactive depression (situational); Translations: [Major depressive disorder, single episode, unspecified] Onset: 11-01-2022 11-01-2022 Chronic Nonspecific chest pain (1 source) Chest pain; Translations: [Chest pain, unspecified] Onset: 04-08-2023 Episodic Osteoarthritis (8 sources) Arthritis of left knee; Translations: [Unilateral primary osteoarthritis, left knee] Onset: 11-01-2022 11-01-2022 Chronic Other aftercare (1 source) custodial (current) use of aspirin; Translations: [RESIDENTIAL CURRENT USE OF ASPIRIN] Onset: 11-11-2021 Episodic Other aftercare (1 source) 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; Translations: [OTH RESIDENTIAL CURRENT DRUG THERAPY] Onset: 11-11-2021 Episodic Other aftercare (15 sources) Long-term current use of anticoagulant; Translations: [custodial (current) use of anticoagulants] Onset: 03-15-2023 03-15-2023 Episodic Other disorders of stomach and duodenum (1 source) Nonulcer dyspepsia; Translations: [Functional dyspepsia] Onset: 06-15-2023 Episodic Other disorders of stomach and duodenum (3 sources) Indigestion 06-15-2023 Episodic Other endocrine disorders (8 sources) Disorder of adrenal gland, unspecified; Translations: [Unspecified disorder of adrenal glands] Onset: 11-01-2022 11-01-2022 Chronic Other gastrointestinal disorders (1 source) Abnormal feces; Translations: [Other fecal abnormalities] Onset: 04-08-2023 Episodic Other gastrointestinal disorders (3 sources) Dark stools 06-15-2023 Episodic Other liver diseases (8 sources) Steatosis of liver; Translations: [Fatty (change of) liver, not elsewhere classified] Onset: 11-01-2022 11-01-2022 Chronic Other lower respiratory disease (1 source) Hypoxemia; Translations: [Hypoxemia] Onset: 11-18-2023 Episodic Other lower respiratory disease (8 sources) Snoring; Translations: [Snoring] Onset: 04-04-2023 04-04-2023 Episodic Other lower respiratory disease (8 sources) Apnea; Translations: [Apnea, not elsewhere classified] Onset: 04-04-2023 04-04-2023 Episodic Other nervous system disorders (8 sources) Skin sensation disturbance; Translations: [Unspecified disturbances of skin sensation] Onset: 11-01-2022 11-01-2022 Episodic Other nutritional; endocrine; and metabolic disorders (5 sources) Body mass index (BMI) 40.0-44.9, adult; Translations: [BODY MASS INDEX BMI 40.0-44.9 ADULT] Onset: 11-11-2021 Chronic Other nutritional; endocrine; and metabolic disorders (1 source) Obesity, unspecified; Translations: [OBESITY UNSPECIFIED] Onset: 11-11-2021 Chronic Other nutritional; endocrine; and metabolic disorders (15 sources) Morbid obesity; Translations: [Morbid (severe) obesity due to excess calories] Onset: 11-01-2022 02-11-2023 Chronic Other nutritional; endocrine; and metabolic disorders (2 sources) Morbid (severe) obesity due to excess calories; Translations: [Morbid obesity] Onset: 02-11-2023 02-14-2023 Chronic Other nutritional; endocrine; and metabolic disorders (12 sources) Body mass index 40+ - severely obese; Translations: [Body mass index (BMI) 40.0-44.9, adult] Onset: 03-15-2023 03-15-2023 Chronic Phlebitis; thrombophlebitis and thromboembolism (14 sources) Personal history of other venous thrombosis and embolism; Translations: [Venous thrombosis] Onset: 11-11-2021 06-14-2013 Episodic Pulmonary heart disease (10 sources) Pulmonary hypertension; Translations: [Pulmonary hypertension, unspecified] Onset: 03-15-2023 03-15-2023 Chronic Pulmonary heart disease (20 sources) Pulmonary embolism; Translations: [Other pulmonary embolism without acute cor pulmonale] Onset: 02-11-2023 02-11-2023 Episodic Residual codes; unclassified (3 sources) Patient encounter status; Translations: [Other specified health status] Onset: 11-16-2023 Episodic Screening and history of mental health and substance abuse codes (9 sources) Personal history of nicotine dependence; Translations: [Ex-smoker] Onset: 11-11-2021 01-17-2024 Episodic Unclassified (1 source) CONTACT W/AND (SUSP) EXPOS COVID-19; Translations: [CONTACT W/AND (SUSP) EXPOS COVID-19] Onset: 11-11-2021 Past or Other Problems Problem Classification Problem Date Documented Da te Episodic/Chronic Abdominal pain (4 sources) Epigastric pain; Translations: [Epigastric pain] Onset: 09-22-2022 Episodic Fluid and electrolyte disorders (3 sources) Hypo-osmolality and or hyponatremia; Translations: [Hypo-osmolality and hyponatremia] Onset: 11-16-2023 Episodic Genitourinary symptoms and ill-defined conditions (3 sources) Dysuria; Translations: [DYSURIA] Onset: 12-07-2020 Episodic Intestinal obstruction without hernia (5 sources) Partial intestinal obstruction, unspecified as to cause; Translations: [Intestinal obstruction] Onset: 11-07-2021 Episodic Mood disorders (6 sources) Mood disorders Onset: 12-30-2022 Resolved: 01-17-2024 12-30-2022 Other aftercare (6 sources) Drug therapy finding; Translations: [custodial (current) use of anticoagulants] Onset: 02-20-2023 Resolved: 04-04-2023 04-04-2023 Episodic Other aftercare (2 sources) 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; Translations: [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] Onset: 03-15-2023 Episodic Other screening for suspected conditions (not mental disorders or infectious disease) (20 sources) Raised cardiac enzyme or marker; Translations: [Other specified abnormal findings of blood chemistry] Onset: 02-11-2023 02-11-2023 Episodic Respiratory failure; insufficiency; arrest (adult) (6 sources) Acute respiratory failure; Translations: [Acute respiratory failure with hypoxia] Onset: 02-11-2023 02-11-2023 Episodic Unclassified (2 sources) Onset: 03-15-2023 Resolved: 12-12-2023 03-15-2023 Urinary tract infections (1 source) Urinary tract infection, site not specified; Translations: [UTI SITE NOT SPECIFIED] Onset: 02-05-2021 Episodic Results Test Name Value Interpretation Reference Range Facility Trauma Office/Clinic Noteon 12-03-2023 Trauma Office/Clinic Note Trauma Office/Clinic Note Chief Complaint Wound check HPI Staff Yannick is a 72 y.o. male here for wound check Patient presented to [facility] [place] 11/16/23 with abdominal pain s/p SBO-bowel resection done 11/16/2023 Today patient states he is doing well. Gypsum remain in tact. Denies pain that is generalized. On occasion has soreness. Denies fever, chills, vomiting. History of Present Illness 73-year-old male status who presented with small bowel obstruction and is now post ex lap for bowel obstruction (no bowel resection) presenting today for staple removal. Patient states overall he is been doing well. Patient is tolerating regular diet, having regular bowel movements, no nausea or vomiting, no fevers or chills. Incision has been healing appropriately, no redness or drainage. Patient has been adhering to weight lifting restrictions. Review of Systems All organ systems are reviewed. Pertinent positive and negative findings as mentioned in the HPI. Physical Exam Vitals & Measurements T: 36.4 ?C(Oral) HR: 93(Peripheral) BP: 118/75 HT: 69 in HT: 175 cm WT: 131 kg WT: 288.2 lb BMI: 42.78 GENERAL: alert, pleasant, conversational. HEENT: normocephalic. oral mucosa moist. CARDIOVASCULAR: RRR. PULMONARY: CTAB. breathing comfortably on room air ABDOMINAL: abdomen is nontender, nondistended. Ex lap incision clean, dry, intact with deshaun in place, stable mood at bedside, patient tolerated well. EXTREMITIES: moves all extremities with equal strength NEUROLOGICAL: AxO x3 Assessment/Plan 73-year-old male status who presented with small bowel obstruction and is now post ex lap for bowel obstruction (no bowel resection) presenting today for staple removal. Ordered: senna, 17.2 mg = 2 tab(s), Oral, Once a day (at bedtime), PRN for constipation, X 10 day(s), # 20 tab(s), Refills(s) 0, Pharmacy: [facility]/pharmacy #[id number], 175, cm, 11/16/23 8:19:00 EDT, Height/Length Dosing, 132.8, kg, 11/16/23 8:19:00 EDT, Weight Dosing - Pt afebrile, VSS, incisions C/D/I without evidence of infection. Gypsum at bedside, patient tolerated well. - Pt advancing as expected, tolerating diet w/o N/V. Voiding spontaneously - Pt to follow with EGS clinic as needed, no indication for scheduled f/u iDna Barajas PA-C Trauma Surgery/Surgical Critical Care/Emergency General Surgery *For urgent issues arising after 4PM during the week or on weekends/holiday, please page the trauma/EGS attending child monitor. Problem List/Past Medical History Ongoing Abdominal pain Acute respiratory failure Black tarry stools Cardiac enzyme or marker above reference range Chronic obstructive lung disease History of pulmonary embolism Indigestion Long-term current use of anticoagulant Morbid obesity Morbid obesity due to excess calories Myocardial infarction Pulmonary embolism Pulmonary hypertension Historical Inguinal hernia Venous thrombosis Procedure/Surgical History Exploratory laparotomy (11/16/2023), Colonoscopy, Tonsillectomy and adenoidectomy. Medications #####, 0 acetaminophen, Oral, q6hr albuterol 0.083% Inh Jenn 3 mL, 2.5 mg= 3 mL, Inhalation, q2hr, PRN Breztri Aerosphere inhalation aerosol, 2 puff(s), Inhalation, BID Centrum Silver Men's, Oral, Daily Colace 100 mg Cap, 100 mg= 1 cap(s), Oral, BID, PRN DuoNeb 2.5 mg-0.5 mg/3 mL Soln-Inh, 3 mL, Inhalation, QID omeprazole 10 mg Cap-EC, 10 mg= 1 cap(s), Oral, Daily triamcinolone Top 0.1% Crm 15 gram, 1 mary, Topical, TID Xarelto 20 mg oral tablet Allergies Coumadin (Rash) Plavix (Rash) Social History Alcohol - Low Risk, 09/04/2009 Current, 04/08/2023 Substance Abuse - Denies Substance Abuse, 09/04/2009 Current, 04/08/2023 Tobacco Former smoker, quit more than 30 days ago Tobacco Use:., 11/29/2023 Family History Primary malignant neoplasm of bone: Brother. Primary malignant neoplasm of lung: Father. Immunizations Vaccine Date Status Comments influenza virus vaccine, inactivated - Not Given Patient Refuses influenza virus vaccine, inactivated 01/25/2021 Recorded SARS-CoV-2 (COVID-19) mRNA-1273 vaccine 07/03/2020 Recorded SARS-CoV-2 (COVID-19) mRNA-1273 vaccine 06/04/2020 Recorded influenza virus vaccine, inactivated 01/07/2020 Recorded influenza virus vaccine, inactivated 01/19/2019 Recorded pneumococcal 13-valent vaccine 02/01/2018 Recorded influenza virus vaccine, inactivated 02/01/2018 Recorded influenza virus vaccine, inactivated 01/31/2015 Recorded influenza virus vaccine, inactivated 01/07/2010 Recorded Normal [facility] Comment on above: Result Comment: Elec tronically Signed By: Jenn PATEL, Dina Mortensen\.br\Date and Time Signed: 12/02/23 14:26 EDT\.br\Electronically Co-Signed By: Tay RODRIGUEZ, Lloyd Rene\.br\Date and Time Co-Signed: 12/03/23 12:26 EDT ED Note-Physicianon 11-23-19 ED Note-Physician ED Note-Physician Basic Information Time Seen: Kevin Ramos PA-C 11/16/2023 08:18 Chief Complaint abdominal pain for 2 days, bloating, is passing gas. nausea due to gas pains but no vomiting. ozempic started 5 weeks ago for weight loss. History of Present Illness 72-year-old male comes to the ED for evaluation of abdominal pain. Over the last 2 days has had progressive abdominal pain, points to the left upper quadrant area of maximal tenderness. He feels bloated throughout his abdomen. He said nausea but no vomiting. Did have some diarrhea. Saw his PCP yesterday was given loperamide which has helped with the diarrhea. No fever or chills. No recent travel, sick contacts or bad food. Abdominal history significant only for previous remote inguinal hernia repair. Also states she was diagnosed with hiatal hernia in the past. He was able to drink some water today. Review of Systems A 10 point review of systems is negative except as noted above. Medical and Surgical History: Reviewed and noted Social history: Lives at home Tobacco: Denies Physical Exam Vitals & Measurements T: 37 ?C(Oral) HR: 110(Peripheral) RR: 20 BP: 156/89 SpO2: 93% HT: 175 cm WT: 132.8 kg BMI: 43.36 Nurses notes and vital signs reviewed and patient is not hypoxic. General: Patient appears uncomfortable Skin: Warm, dry. Head: Atraumatic. Neck: No JVD. Eye: Normal conjunctiva. Ears, Nose, Mouth, and Throat: Moist mucous membranes. Cardiovascular: Strong distal pulses. Chest wall: Respiratory: Respirations are nonlabored. Back: Normal range of motion. Musculoskeletal: Normal ROM with no gross deformity. Gastrointestinal: Distended abdomen. Globally tender, with maximal tenderness left upper quadrant. No guarding or rebound Urological: Neurological: Awake and alert. No focal deficits. Follows commands. Psychiatric: Cooperative. Medical Decision Making Laboratory studies reviewed and noted. CT scan read by radiologist. Findings consistent with small bowel obstruction. Case discussed with surgery who recommended NG tube and admission to medicine. Case discussed the hospitalist for admission. Assessment/Plan 1. SBO (small bowel obstruction) (K56.609: Unspecified intestinal obstruction, unspecified as to partial versus complete obstruction) Orders: morphine, 4 mg = 1 mL, Injection, IV Push, Once, Stop date 11/16/23 8:19:00 EDT, STAT, Start date 11/16/23 8:19:00 EDT, 11/16/23 8:19:00 EDT ondansetron, 4 mg = 2 mL, Injection, IV Push, Once, Stop date 11/16/23 8:19:00 EDT, STAT, Start date 11/16/23 8:19:00 EDT, 11/16/23 8:19:00 EDT Sodium Chloride 0.9% intravenous solution, 1,000 mL, Soln-IV, IV, Once, Stop date 11/16/23 8:19:00 EDT, STAT, Start date 11/16/23 8:19:00 EDT, Infuse over 61, minute(s) Basic Metabolic Panel CBC w/ Auto Diff Consult to General Surgery CT Abdomen/Pelvis w/ Contrast ED Physician consult Hospitalist for continued care eGFR Extra SST Tube Hepatic Function Panel Lipase Level Nasogastric/Orogastric Tube Insertion PT & PTT UA with Cult Rflx Urine Culture Medications Administered Given morphine 4 mg/mL Inj, 4 mg, IV Push NS 1000 ml Bolus, 1000 mL, IV ondansetron 4 mg/2 mL Inj, 4 mg, IV Push Disposition Plan Patient Discharge Condition Disposition: Admitted to the hospital Condition: Improved and stable Counseled: Patient and/or family were counseled to workup, results, treatment plan and follow-up recommendations Discharge Prescription List Prescriptions No active prescription medications Follow-up No qualifying data available Attestation I performed a substantive part of the MDM during the patient?s E/M visit. I personally made or approved the documented management plan and acknowledge its risk of complications. (Independent Interpretation) My (EKG/X-Ray/US/CT) interpretation as above. (Discussion) Management/test interpretation discussed with APC. This report was transcribed using voice recognition software. Every effort was made to ensure accuracy, however, inadvertently computerized switch tender mistakes may be present. Appropriate healthcare PPE was used in evaluating this patient. Problem List/Past Medical History Ongoing Abdominal pain Acute respiratory failure Black tarry stools Cardiac enzyme or marker above reference range Chronic obstructive lung disease Indigestion Long-term current use of anticoagulant Morbid obesity Myocardial infarction Pulmonary embolism Pulmonary hypertension Historical Inguinal hernia Venous thrombosis Procedure/Surgical History Colonoscopy, Tonsillectomy and adenoidectomy. Medications Inpatient morphine 4 mg/mL Inj, 4 mg= 1 mL, IV Push, Once NS 1000 ml Bolus, 1000 mL, IV, Once ondansetron 4 mg/2 mL Inj, 4 mg= 2 mL, IV Push, Once Home aspirin 81 mg oral tablet, 81 mg= 1 tab(s), Oral, Daily, Not taking Centrum Silver Men's, Oral, Daily famotidine 10 mg oral tablet, 10 mg= 1 tab(s), Oral, BID, Not (more content not included)... Normal [facility] Comment on above: Result Comment: Elec tronically Signed By: Kevin Ramos PA-C\.br\Date and Time Signed: 11/16/23 11:00 EDT\.br\Electronically Co-Signed By: Efren Lopes MD\.br\Date and Time Co-Signed: 11/23/23 21:54 EDT BMPon 11-19-2023 Anion gap [Moles/Vol] 12 mmol/L Normal 6-16 [facility] Comment on above: Performed By: #### 2 [id number] #### [facility] [address] [place] [address] Calcium [Mass/Vol] 9.2 mg/dL Normal 8.9-11.1 [facility] Comment on above: Performed By: #### 2 [id number] #### [facility] [address] [place] [address] Chloride [Moles/Vol] 96 mmol/L Low 101-111 [facility] Comment on above: Performed By: #### 2 [id number] #### [facility] [address] [place] [address] CO2 [Moles/Vol] 32 mmol/L High 21-31 [facility] Comment on above: Performed By: #### 2 [id number] #### [facility] [address] [place] [address] Creatinine [Mass/Vol] 0.7 mg/dL Normal 0.5-1.3 [facility] Comment on above: Performed By: #### 2 [id number] #### [facility] [address] [place] [address] Glucose [Mass/Vol] 89 mg/dL Normal 55-199 [facility] Comment on above: Performed By: #### 2 [id number] #### [facility] [address] [place] [address] Potassium [Moles/Vol] 3.8 mmol/L Normal 3.5-5.3 [facility] Comment on above: Performed By: #### 2 [id number] #### [facility] [address] [place] [address] Sodium [Moles/Vol] 136 mmol/L Normal 135-145 [facility] Comment on above: Performed By: #### 2 [id number] #### [facility] [address] [place] [address] Urea nitrogen [Mass/Vol] 14 mg/dL Normal 5-21 [facility] Comment on above: Performed By: #### 2 [id number] #### [facility] [address] [place] [address] Urea nitrogen/Creatinine [Mass ratio] 20 No Units Normal 10-20 [facility] Comment on above: Performed By: #### 2 [id number] #### [facility] [address] [place] [address] CBC w/ Auto Diffon 4 Basophils/100 WBC (Bld) 0.3 % Normal 0.0-2.0 [facility] Comment on above: Performed By: #### 2 [id number] #### [facility] [address] [place] [address] Basophils/Leukocytes Auto (Bld) [Pure # fraction] 0.0 E9/L Normal 0.0-0.2 [facility] Comment on above: Performed By: #### 2 [id number] #### [facility] [address] [place] [address] Eosinophils (Bld) [#/Vol] 0.3 E9/L Normal 0.0-0.5 [facility] Comment on above: Performed By: #### 2 [id number] #### [facility] [address] [place] [address] Eosinophils/100 WBC (Bld) 3.7 % Normal 0.0-8.0 [facility] Comment on above: Performed By: #### 2 [id number] #### [facility] [address] [place] [address] Erythrocyte distribution width (RBC) [Ratio] 13.4 % Normal 10.9-14.2 [facility] Comment on above: Performed By: #### 2 [id number] #### [facility] [address] [place] [address] Hematocrit (Bld) [Volume fraction] 42.7 % Normal 37.7-49.0 [facility] Comment on above: Performed By: #### 2 [id number] #### [facility] [address] [place] [address] Hemoglobin (Bld) [Mass/Vol] 14.2 g/dL Normal 13.5-17.5 [facility] Comment on above: Performed By: #### 2 [id number] #### [facility] [address] [place] [address] Lymphocytes (Bld) [#/Vol] 1.2 E9/L Normal 1.0-4.0 [facility] Comment on above: Performed By: #### 2 677105 #### [facility] [address] [place] [address] Lymphocytes/100 WBC (Bld) 14.5 % Normal 14.0-50.0 [facility] Comment on above: Performed By: #### 2 [id number] #### [facility] [address] [place] [address] MCH (RBC) [Entitic mass] 30.4 pg Normal 27.0-34.0 [facility] Comment on above: Performed By: #### 2 [id number] #### [facility] [address] [place] [address] MCHC (RBC) [Mass/Vol] 33.2 g/dL Normal 31.4-36.0 [facility] Comment on above: Performed By: #### 2 216842 #### [facility] [address] [place] [address] MCV (RBC) [Entitic vol] 91.5 fL Normal 80.0-100.0 [facility] Comment on above: Performed By: #### 2 [id number] #### [facility] [address] [place] [address] Monocytes (Bld) [#/Vol] 0.9 E9/L Normal 0.2-1.0 [facility] Comment on above: Performed By: #### 2 [id number] #### [facility] [address] [place] [address] Neutrophils (Bld) [#/Vol] 6.2 E9/L Normal 2.0-7.5 [facility] Comment on above: Performed By: #### 2 969762 #### [facility] [address] [place] [address] Neutrophils/100 WBC (Bld) 71.3 % Normal 36.0-75.0 [facility] Comment on above: Performed By: #### 2 [id number] #### [facility] [address] [place] [address] Platelet mean volume (Bld) [Entitic vol] 7.9 fL Normal 6.4-10.8 [facility] Comment on above: Performed By: #### 2 [id number] #### [facility] [address] [place] [address] Platelets (Bld) [#/Vol] 266.0 E9/L Normal 150. 0-500. 0 [facility] Comment on above: Performed By: #### 2 [id number] #### [facility] [address] [place] [address] RBC (Bld) [#/Vol] 4.7 E12/L Normal 4.3-5.9 [facility] Comment on above: Performed By: #### 2 [id number] #### [facility] [address] [place] [address] WBC corrected for nucl RBC Auto (Bld) [#/Vol] 8.6 E9/L Normal 4.0-11.0 [facility] Comment on above: Performed By: #### 2 [id number] #### [facility] [address] [place] [address] CHEMISTRYOrdered By: SYSTEM SYSTEM on 11-19-2023 Anion gap [Moles/Vol] 12 mmol/L Normal 6 - 16 mEq/L [facility] Calcium [Mass/Vol] 9.2 mg/dL Normal 8.9 - 11. 1 mg/dL [facility] Chloride [Moles/Vol] 96 mmol/L Low 101 - 1 11 mmol/L [facility] CO2 [Moles/Vol] 32 mmol/L High 21 - 31 mmol/L [facility] Creatinine [Mass/Vol] 0.7 mg/dL Normal 0.5 - 1.3 mg/dL [facility] eGFR 98 mL/min/1.73 m2 Normal >=59mL/min /1.73 m2 [facility] Glucose [Mass/Vol] 89 mg/dL Normal 55 - 199 mg/dL [facility] Magnesium [Mass/Vol] 1.6 mg/dL Normal 1.3 - 2 .4 mg/dL [facility] Potassium [Moles/Vol] 3.8 mmol/L Normal 3.5 - 5.3 mmol/L [facility] Sodium [Moles/Vol] 136 mmol/L Normal 135 - 145 mmol/L [facility] Urea nitrogen [Mass/Vol] 14 mg/dL Normal 5 - 21 mg/dL [facility] Urea nitrogen/Creatinine [Mass ratio] 20 mg/mg Normal 10 - 20 [facility] Discharge Note-Nursingon Discharge Note-Nursing Discharge Note-Nu rsing Pt refused to take home nebulizer. Pt was educated and still refused to take it. Normal [facility] Discharge Note-Nursing Discharge Note-Nu rsing YANNICK CARDOSO :1950 Visit Date:11/16/2023 Inpatient Discharge Instructions Your Care Team Admitting Physician - Devorah BLANCO MD Consulting Physician - Jesica Moe MD Reason for Your Visit bloating, constipation and abodminal pain Your Diagnosis SBO (small bowel obstruction) Hyponatremia Hypoxemia History of pulmonary embolism Morbid obesity due to excess calories No contraindication to deep vein thrombosis (DVT) prophylaxis Abdominal distention Abdominal pain Diarrhea Nausea Tests Performed CT Abdomen/Pelvis w/ Contrast This Is Your Medications List acetaminophen albuterol (albuterol 0.083% Inh Jenn 3 mL) albuterol-ipratropium (DuoNeb 2.5 mg-0.5 mg/3 mL Soln-Inh) budesonide/formoterol/glyc opyrrolate (Breztri Aerosphere inhalation aerosol) methocarbamol (Robaxin 500 mg Tab) multivitamin with minerals (Centrum Silver Men's) omeprazole (omeprazole 10 mg Cap-EC) rivaroxaban (Xarelto 20 mg oral tablet) triamcinolone topical (triamcinolone Top 0.1% Crm 15 gram) [Image Removed: STOP]Stop taking these medications [facility] [place] (SEMAGLUTIDE 1 MG/ML VIAL) aspirin (aspirin 81 mg oral tablet) famotidine (famotidine 10 mg oral tablet) Procedure History Exploratory laparotomy (11/16/2023), Colonoscopy, Tonsillectomy and adenoidectomy. Discharge Vitals Temperature (Axillary) 36.5 ?C Heart Rate (Monitored) 98 Respiratory Rate 18 Blood Pressure 120/81 Weight 130.1 kg What to do next Instructions From Your Doctor Event Name Event Result Pending Diagnostic Test Results None Discharge Instructions You may shower normally, no swimming or submerging until incision is healed and deshaun are removed. No lifting heavier than 15 pounds for 4 to 6 weeks. New Follow Up Appointments after Discharge Follow Up with trauma clinic When: 11/29/2023 09:15 AM EDT Comments: Call to schedule/confirm followup appointment Where: [address] [place] [address] 3, second floor, [address] [place] [address]- [phone] Follow Up with TIARA RODRIGUEZ, JS Wylie When: Within 3 to 5 days Where: [address] [place] [address]- Medications What How Much When Instructions Next Dose New acetaminophen By Mouth Every 6 hours 11/19/23 9pm New albuterol (albuterol 0.083% Inh Jenn 3 mL) 3 Milliliter Inhalation Every 2 hours as needed for Shortness of breath or wheezing Duration: 30 Days Pickup at [facility]/pharmacy #[id number] As needed New albuterol-ipratropium (DuoNeb 2.5 mg-0.5 mg/ 3 mL Soln-Inh) 3 Milliliter Inhalation 4 times a day Duration: 30 Days Pickup at [facility]/pharmacy #[id number] 11/19/23 8pm New methocarbamol (Robaxin 500 mg Tab) 1 Tablets By Mouth 4 times a day Duration: 5 Days Pickup at [facility]/pharmacy #[id number] 11/19/23 5pm Unchanged budesonide/ formoterol/ glycopyrrolate (Breztri Aerosphere inhalation aerosol) 2 Puffs Inhalation 2 times a day Resume Unchanged multivitamin with minerals (Centrum Silver Men's) By Mouth Every day Resume Unchanged omeprazole (omeprazole 10 mg Cap-EC) 1 Capsules By Mouth Every day Resume Unchanged rivaroxaban (Xarelto 20 mg oral tablet) Oral, 0 Refill(s) 11/20/23 9am `Unchanged triamcinolone topical (triamcinolone Top 0.1% Crm 15 gram) 1 Application Topical 3 times a day Resume Pharmacy Information [facility]/pharmacy #[id number]: [address], [place] [id number] [phone] What How Much When Comments Stop Taking aspirin (aspirin 81 mg oral tablet) 1 Tablets By Mouth Every day Stop Taking famotidine (famotidine 10 mg oral tablet) 1 Tablets By Mouth 2 times a day Stop Taking Misc Prescription (SEMAGLUTIDE 1 MG/ ML VIAL) 0 Every week Test Results CBC BMP WBC: 8.6 E9/L (11/19/23 05:56:00) Glucose Lvl: 89 mg/dL (11/19/23 05:56:00) RBC: 4.7 E12/L (11/19/23 05:56:00) BUN: 14 mg/dL (11/19/23 05:56:00) HGB: 14.2 gm/dL (11/19/23 05:56:00) Creatinine: 0.7 mg/dL (11/19/23 05:56:00) Hct: 42.7 % (11/19/23 05:56:00) BUN/Creat Ratio: 20 (11/19/23 05:56:00) MCV: 91.5 fL (11/19/23 05:56:00) Sodium Lvl: 136 mmol/L (11/19/23 05:56:00) MCH: 30.4 pg (11/19/23 05:56:00) Potassium Lvl: 3.8 mmol/L (11/19/23 05:56:00) MCHC: 33.2 gm/dL (11/19/23 05:56:00) Chloride: 96 mmol/L Low (11/19/23 05:56:00) RDW: 13.4 % (11/19/23 05:56:00) CO2: 32 mmol/L High (11/19/23 05:56:00) Platelet: 266 E9/L (11/19/23 05:56:00) AGAP: 12 mEq/L (11/19/23 05:56:00) MPV: 7.9 fL (11/19/23 05:56:00) Calcium Lvl: 9.2 mg/dL (11/19/23 05:56:00) Allergies Coumadin (Rash) Plavix (Rash) Problems Ongoing - Any problem that you are currently receiving treatment for. Abdominal pain Acute respiratory failure Black tarry stools Cardiac enzyme or marker above reference range Chronic obstructive lung disease History of pulmonary embolism Indigestion Long-term current use of anticoagulant Morbid obesity Morbid obesity due to excess calories Myocardial infarction Pulmonary (more content not included)... Normal [facility] HEMATOLOGYOrdered By: SYSTEM SYSTEM on 11-19-2023 Basophils/100 WBC (Bld) 0.3 % Normal 0.0 - 2.0 % [facility] Basophils/Leukocytes Auto (Bld) [Pure # fraction] 0.0 E9/L Normal 0.0 - 0.2 E9/L [facility] Eosinophils (Bld) [#/Vol] 0.3 E9/L Normal 0.0 - 0.5 E9/L [facility] Eosinophils/100 WBC (Bld) 3.7 % Normal 0.0 - 8.0 % [facility] Erythrocyte distribution width (RBC) [Ratio] 13.4 % Normal 10.9 - 14.2 % [facility] Hematocrit (Bld) [Volume fraction] 42.7 % Normal 37.7 - 49.0 % [facility] Hemoglobin (Bld) [Mass/Vol] 14.2 g/dL Normal 13.5 - 17.5 gm/dL [facility] Lymphocytes (Bld) [#/Vol] 1.2 E9/L Normal 1.0 - 4.0 E9/L [facility] Lymphocytes/100 WBC (Bld) 14.5 % Normal 14.0 - 50.0 % [facility] MCH (RBC) [Entitic mass] 30.4 pg Normal 27.0 - 34.0 pg [facility] MCHC (RBC) [Mass/Vol] 33.2 g/dL Normal 31.4 - 36.0 gm/dL [facility] MCV (RBC) [Entitic vol] 91.5 fL Normal 80.0 - 100.0 fL [facility] Monocytes (Bld) [#/Vol] 0.9 E9/L Normal 0.2 - 1.0 E9/L [facility] Monocytes/100 WBC (Bld) 10.2 % Normal 4.0 - 14.0 % [facility] Neutrophils (Bld) [#/Vol] 6.2 E9/L Normal 2.0 - 7.5 E9/L [facility] Neutrophils/100 WBC (Bld) 71.3 % Normal 36.0 - 75.0 % [facility] Platelet mean volume (Bld) [Entitic vol] 7.9 fL Normal 6.4 - 10.8 fL [facility] Platelets (Bld) [#/Vol] 266.0 E9/L Normal 150. 0 - 500.0 E9/L [facility] RBC (Bld) [#/Vol] 4.7 E12/L Normal 4.3 - 5.9 E12/L [facility] WBC corrected for nucl RBC Auto (Bld) [#/Vol] 8.6 E9/L Normal 4.0 - 11.0 E9/L [facility] Magnesiumon 11-19-2023 Magnesium [Mass/Vol] 1.6 mg/dL Normal 1.3-2.4 [facility] Comment on above: Performed By: #### 2 [id number] #### [facility] [address] [place] [address] eGFRon 11-19-2023 eGFR 98 mL/min/1.73 m2 Normal >=59 [facility] Comment on above: Order Comment: Order added by Discern Expert. Performed By: #### 1 [id number] #### [facility] [address] [place] [address] C Urineon 11-18-2023 Bacteria identified Cx Nom (U) Microbiology PROCEDURE: Urine Culture [R1] SOURCE: U CleanCatch BODY SITE: COLLECTED DATE/TIME: 11/16/2023 09:39 EDT RECEIVED DATE/TIME: 11/16/2023 12:09 EDT START DATE/TIME: 11/16/2023 12:09 EDT FREE TEXT SOURCE: Rachel PATEL, Kevin Ramos PA-C, Kevin FINAL REPORTS Final Report [] Verified Date/Time: 11/18/2023 10:10 EDT 1,000 cfu/ml Mixed skin contaminants Performing Locations R1: This test was performed at: [facility], [address] [place] [address], [phone] , [place], Normal [facility] Comment on above: Performed By: #### 2 [id number] #### [facility] [address] [place] [address] BMPon 11-17-2023 Anion gap [Moles/Vol] 13 mmol/L Normal 6-16 [facility] Comment on above: Performed By: #### 2 [id number] #### [facility] [address] [place] [address] Calcium [Mass/Vol] 9.4 mg/dL Normal 8.9-11.1 [facility] Comment on above: Performed By: #### 2 [id number] #### [facility] [address] [place] [address] Chloride [Moles/Vol] 98 mmol/L Low 101-111 [facility] Comment on above: Performed By: #### 2 [id number] #### [facility] [address] [place] [address] CO2 [Moles/Vol] 28 mmol/L Normal 21-31 [facility] Comment on above: Performed By: #### 2 [id number] #### [facility] [address] [place] [address] Creatinine [Mass/Vol] 1.1 mg/dL Normal 0.5-1.3 [facility] Comment on above: Performed By: #### 2 [id number] #### [facility] [address] [place] [address] Glucose [Mass/Vol] 125 mg/dL Normal 55-199 [facility] Comment on above: Performed By: #### 2 859126 #### [facility] [address] [place] [address] Potassium [Moles/Vol] 4.7 mmol/L Normal 3.5-5.3 [facility] Comment on above: Performed By: #### 2 [id number] #### [facility] [address] [place] [address] Sodium [Moles/Vol] 134 mmol/L Low 135-145 [facility] Comment on above: Performed By: #### 2 [id number] #### [facility] [address] [place] [address] Urea nitrogen [Mass/Vol] 16 mg/dL Normal 5-21 [facility] Comment on above: Performed By: #### 2 [id number] #### [facility] [address] [place] [address] Urea nitrogen/Creatinine [Mass ratio] 14 No Units Normal 10-20 [facility] Comment on above: Performed By: #### 2 [id number] #### [facility] [address] [place] [address] CBC w/ Auto Diffon 4 Basophils/100 WBC (Bld) 0.1 % Normal 0.0-2.0 [facility] Comment on above: Performed By: #### 2 [id number] #### [facility] [address] [place] [address] Basophils/Leukocytes Auto (Bld) [Pure # fraction] 0.0 E9/L Normal 0.0-0.2 [facility] Comment on above: Performed By: #### 2 [id number] #### [facility] [address] [place] [address] Eosinophils (Bld) [#/Vol] 0.0 E9/L Normal 0.0-0.5 [facility] Comment on above: Performed By: #### 2 [id number] #### [facility] [address] [place] [address] Eosinophils/100 WBC (Bld) 0.1 % Normal 0.0-8.0 [facility] Comment on above: Performed By: #### 2 [id number] #### [facility] [address] [place] [address] Erythrocyte distribution width (RBC) [Ratio] 13.9 % Normal 10.9-14.2 [facility] Comment on above: Performed By: #### 2 [id number] #### [facility] [address] [place] [address] Hematocrit (Bld) [Volume fraction] 43.0 % Normal 37.7-49.0 [facility] Comment on above: Performed By: #### 2 [id number] #### [facility] [address] [place] [address] Hemoglobin (Bld) [Mass/Vol] 14.6 g/dL Normal 13.5-17.5 [facility] Comment on above: Performed By: #### 2 [id number] #### [facility] [address] [place] [address] Lymphocytes (Bld) [#/Vol] 0.7 E9/L Low 1.0-4.0 [facility] Comment on above: Performed By: #### 2 [id number] #### [facility] [address] [place] [address] Lymphocytes/100 WBC (Bld) 5.4 % Low 14.0-50.0 [facility] Comment on above: Performed By: #### 2 [id number] #### [facility] [address] [place] [address] MCH (RBC) [Entitic mass] 30.7 pg Normal 27.0-34.0 [facility] Comment on above: Performed By: #### 2 [id number] #### [facility] [address] [place] [address] MCHC (RBC) [Mass/Vol] 33.9 g/dL Normal 31.4-36.0 [facility] Comment on above: Performed By: #### 2 [id number] #### [facility] [address] [place] [address] MCV (RBC) [Entitic vol] 90.6 fL Normal 80.0-100.0 [facility] Comment on above: Performed By: #### 2 [id number] #### [facility] [address] [place] [address] Monocytes (Bld) [#/Vol] 1.0 E9/L Normal 0.2-1.0 [facility] Comment on above: Performed By: #### 2 [id number] #### [facility] [address] [place] [address] Neutrophils (Bld) [#/Vol] 10.5 E9/L High 2.0-7.5 [facility] Comment on above: Performed By: #### 2 [id number] #### [facility] [address] [place] [address] Neutrophils/100 WBC (Bld) 86.3 % High 36.0-75.0 [facility] Comment on above: Performed By: #### 2 [id number] #### [facility] [address] [place] [address] Platelet 310.0 E9/L Normal 150.0-500. 0 [facility] Comment on above: Performed By: #### 2 [id number] #### [facility] [address] [place] [address] Platelet mean volume (Bld) [Entitic vol] 7.4 fL Normal 6.4-10.8 [facility] Comment on above: Performed By: #### 2 [id number] #### [facility] [address] [place] [address] RBC (Bld) [#/Vol] 4.8 E12/L Normal 4.3-5.9 [facility] Comment on above: Performed By: #### 2 [id number] #### [facility] [address] [place] [address] WBC corrected for nucl RBC Auto (Bld) [#/Vol] 12.2 E9/L High 4.0-11.0 [facility] Comment on above: Performed By: #### 2 [id number] #### [facility] [address] [place] [address] CHEMISTRYOrdered By: SYSTEM SYSTEM on 11-17-2023 Anion gap [Moles/Vol] 13 mmol/L Normal 6 - 16 mEq/L Remisol Chem Calcium [Mass/Vol] 9.4 mg/dL Normal 8.9 - 11. 1 mg/dL Remisol Chem Chloride [Moles/Vol] 98 mmol/L Low 101 - 1 11 mmol/L Remisol Chem CO2 [Moles/Vol] 28 mmol/L Normal 21 - 31 mmol/L Remisol Chem Creatinine [Mass/Vol] 1.1 mg/dL Normal 0.5 - 1.3 mg/dL Remisol Chem eGFR 71 mL/min/1.73 m2 Normal >=59mL/min /1.73 m2 Remisol Chem Glucose [Mass/Vol] 125 mg/dL Normal 55 - 199 mg/dL Remisol Chem Potassium [Moles/Vol] 4.7 mmol/L Normal 3.5 - 5.3 mmol/L Remisol Chem Sodium [Moles/Vol] 134 mmol/L Low 135 - 145 mmol/L Remisol Chem Urea nitrogen [Mass/Vol] 16 mg/dL Normal 5 - 21 mg/dL Remisol Chem Urea nitrogen/Creatinine [Mass ratio] 14 mg/mg Normal 10 - 20 Remisol Chem Coding Queryon 11-17-2023 Coding Query Coding Query From: Ranjan Carcamo RN To: Devorah BLANCO MD; Sent: 11/16/2023 14:02:25 EDT Subject: Coding Query Due Date/Time: 11/17/2023 14:02:00 EDT Caller Name: YANNICK CARDOSO; Caller Number: , Documentation in the medical record indicates this patient has been admitted with or diagnosed as having: The following is also documented in the medical record: SpO2: 85 rm air Respiratory rate: 20 Other: 11/15 Surg-PLAN: -In the ER patient found to be hypoxic with oxygen saturation around 85% upon arrival and borderline tachycardic, patient denies ever requiring oxygen in the past. Oxygen appropriately on 2 L nasal cannula Based on your medical judgment, can you further clarify the following? Select all that apply: [___]Hypoxemia [___]Other: In responding to this request, please exercise your independent professional judgement. The fact that a question is asked does not imply that any particular answer is desired or expected. Thank you![email or web address] [phone] From: Devorah BLANCO MD To: Dona JARVIS, Ranjan Wang; Sent: 11/17/2023 09:22:14 EDT Subject: RE: Coding Query Caller Name: YANNICK CARDOSO; Caller Number: Noelle , M pt with hypoxemia on admission likely secondary to atelctasis, encourage IS Normal [facility] HEMATOLOGYOrdered By: SYSTEM SYSTEM on 11-17-2023 Basophils/100 WBC (Bld) 0.1 % Normal 0.0 - 2.0 % Remisol Heme Basophils/Leukocytes Auto (Bld) [Pure # fraction] 0.0 E9/L Normal 0.0 - 0.2 E9/L Remisol Heme Eosinophils (Bld) [#/Vol] 0.0 E9/L Normal 0.0 - 0.5 E9/L Remisol Heme Eosinophils/100 WBC (Bld) 0.1 % Normal 0.0 - 8.0 % Remisol Heme Erythrocyte distribution width (RBC) [Ratio] 13.9 % Normal 10.9 - 14.2 % Remisol Heme Hematocrit (Bld) [Volume fraction] 43.0 % Normal 37.7 - 49.0 % Remisol Heme Hemoglobin (Bld) [Mass/Vol] 14.6 g/dL Normal 13.5 - 17.5 gm/dL Remisol Heme Lymphocytes (Bld) [#/Vol] 0.7 E9/L Low 1.0 - 4.0 E9/L Remisol Heme Lymphocytes/100 WBC (Bld) 5.4 % Low 14.0 - 50.0 % Remisol Heme MCH (RBC) [Entitic mass] 30.7 pg Normal 27.0 - 34.0 pg Remisol Heme MCHC (RBC) [Mass/Vol] 33.9 g/dL Normal 31.4 - 36.0 gm/dL Remisol Heme MCV (RBC) [Entitic vol] 90.6 fL Normal 80.0 - 100.0 fL Remisol Heme Monocytes (Bld) [#/Vol] 1.0 E9/L Normal 0.2 - 1.0 E9/L Remisol Heme Monocytes/100 WBC (Bld) 8.1 % Normal 4.0 - 14.0 % Remisol Heme Neutrophils (Bld) [#/Vol] 10.5 E9/L High 2.0 - 7.5 E9/L Remisol Heme Neutrophils/100 WBC (Bld) 86.3 % High 36.0 - 75.0 % Remisol Heme Platelet 310.0 E9/L Normal 150.0 - 500.0 E9/L Remisol Heme Platelet mean volume (Bld) [Entitic vol] 7.4 fL Normal 6.4 - 10.8 fL Remisol Heme RBC (Bld) [#/Vol] 4.8 E12/L Normal 4.3 - 5.9 E12/L Remisol Heme WBC corrected for nucl RBC Auto (Bld) [#/Vol] 12.2 E9/L High 4.0 - 11.0 E9/L Remisol Heme Interdisciplinary Note - Ankit e Manageron 11-17-2023 Interdisciplinary Note - Flatware Maker Interdisciplinary Note - Flatware Maker Patient is awake and alert in bed, previously rounded with Dr. Blanco. Pt will be staying in hospital today, Inpaatient status reviewed, Medicare rights reviewed, form signed , and original provided. Pt has NG tube and is NPO. currently on 2L , will need weaned off prior to DC. Pt is from home with francine and she will transport at DC. Declines any further concerns or DC needs. . PCP verified and insurance information reviewed and DME discussed. Contact information provided and white board updated. Normal [facility] Comment on above: Result Comment: Elec tronically Signed By: Zacarias JARVIS, Denice\.irina\Date and Time Signed: 11/17/23 12:32 EDT Main OR Intraoperative Recor don 11-17-2023 Main OR Intraoperative Record Main OR Intraoperative Record IntraOp Document Type FT Summary Primary Physician: Jesica Moe MD Finalized Date/Time: 11/17/23 11:55:19 Pt. Name: CHERYL CARDOSOJACKY Alvarez /Sex: 1950 Male Med Rec #: [id number] Physician: Devorah BLANCO MD Financial #: [id number] Pt. Type: I Room/Bed: S333/01 Admit/Disch: 11/16/23 08:10:12 - Institution: Case Times FT Entry 1 Patient Times In Room 11/16/23 16:36:00 Out Room 11/16/23 17:35:00 Procedure Times Start 11/16/23 16:59:00 Stop 11/16/23 17:26:00 Anesthesia Times Start 11/16/23 16:36:00 Stop 11/16/23 17:35:00 Last Modified By: Shahana Hendrix Ii F 11/16/23 17:41:01 General Comments: 11/17/23 Chart opened to review and send charges LRoth CSFA Case Attendance FT Entry 1 Entry 2 Entry 3 Case Attendee Payal RODRIGUEZ, Jesica Pollard HISTOLOGY ASSISTANT, Kelle Fierro LOCOMOTIVE ENGINEER, Melvin Del Toro Role Performed Surgeon - Primary HISTOLOGY ASSISTANT LOCOMOTIVE ENGINEER/SA Time In 11/16/23 16:36:00 11/16/23 16:36:00 11/16/23 16:36:00 Time Out 11/16/23 17:35:00 11/16/23 17:18:00 11/16/23 17:35:00 Procedure LAPAROTOMY EXPLORATORY LAPAROTOMY EXPLORATORY LAPAROTOMY EXPLORATORY Comments DR. GONSALEZ GAUGE AND WEIGH MACHINE ADJUSTER ASSIST Last Modified By: Shahana Hendrix Ii, Alfons Ii F Ruma Alfons Ii F 11/16/23 17:41:03 11/16/23 17:41:03 11/16/23 17:41:03 Entry 4 Entry 5 Entry 6 Case Attendee Teresita HARRY, Shahana Fajardo Ii, Jr., DO, Clyde G Role Performed Scrub - Primary Gaming Cashier - Primary Anesthesiologist of Record Time In 11/16/23 16:36:00 11/16/23 16:36:00 11/16/23 17:15:00 Time Out 11/16/23 17:35:00 11/16/23 17:35:00 11/16/23 17:35:00 Procedure LAPAROTOMY EXPLORATORY LAPAROTOMY EXPLORATORY LAPAROTOMY EXPLORATORY Comments RELIEF Last Modified By: Shahana Hendrix Ii F Angel Hendrixons Ii F Ruma, Alfons Ii F 11/16/23 17:41:03 11/16/23 17:41:03 11/16/23 17:41:03 Perioperative Protocols FT Pre-Care Text: Implements protective measures prior to operative or invasive procedure, confirms identity before the operative or invasive procedure, verifies operative procedure, surgical site, and laterality Entry 1 Procedure(s) LAPAROTOMY EXPLORATORY Patient Identity Birthday, Blood Band, Verified (select at ID Band Check, Patient least 2): Participation Consents / H and P Anesthesia Consent, Operative Site N/A Verified H&P, Surgery/Procedure Marking Verified Consent, Transfusion Consent Surgical Site Yes Laterality Verified Yes Verified Procedure Verified Yes Correct Patient Yes Position Verified Availability Equipment, Medication Prep Dry Yes Verified (If Applicable) PreOp Antibiotic Yes Time Out Payal RODRIGUEZ, Jesica Del Toro, Kelle Pollard CRNA, Vadim HARRY, Melvin Barrios Time Out Complete 11/16/23 16:59:00 Outcomes Met? Yes Last Modified By: Shahana Hendrix Ii 11/16/23 17:13:48 Post-Care Text: The patient is free from signs and symptoms of injury caused by extraneous objects Allergy Information FT Pre-Care Text: Verifies allergies Entry 1 Allergies Reviewed? Yes Allergies Reviewed Self/Patient With Outcomes Met? Yes Last Modified By: Shahana Hendrix Ii 11/16/23 17:13:54 Post-Care Text: The patient received appropriate medication(s) safely administered during the perioperative period Surgical Procedures FT Entry 1 Procedure Description Procedure LAPAROTOMY EXPLORATORY Surgeon Description EXPORATORY LAPAROTOMY Primary Procedure Yes Primary Surgeon Payal RODRIGUEZ, Jesica Del Toro Start 11/16/23 16:59:00 Stop 11/16/23 17:26:00 Anesthesia Type General Surgical Service General Wound Class 1 - Clean Last Modified By: Shahana Hendrix Ii 11/16/23 17:42:09 General Case Data FT Pre-Care Text: Classifies surgical wound, implements aseptic technique, initiates traffic control Entry 1 Case Information OR OR 2 FT Case Level Level 4 Wound Class 1 - Clean Specialty General ASA Class 4E Preop Diagnosis BOWEL OBSTRUCTION Postop Same As Preop Yes Postop Diagnosis BOWEL OBSTRUCTION Outcomes Met? Yes Last Modified By: Shahana Hendrix Ii 11/16/23 17:41:59 Post-Care Text: The patient is free from signs and symptoms of infection Skin Assessment (Pre Procedure) FT Pre-Care Text: Implements protective measures to prevent skin/ tissue injury due to thermal or mechanical sources Evaluates for signs and symptoms of physical injury to skin and tissue Entry 1 Skin Integrity Intact, [place], Warm, & Skin Abnormality No Dry Outcomes Met? Yes Last Modified By: Shahana Hendrix Ii 11/16/23 17:16:14 Post-Care Text: The patient is free from signs and symptoms of injury caused by extraneous objects Patient Positioning FT Pre-Care Text: Identifies physical alterations that require additional precautions for procedure-specific positioning, verifies presence of prosthetics or corrective devices, positions the patient, evaluates the patient for signs and symptoms of inj (more content not included)... Normal [facility] eGFRon 11-17-2023 eGFR 71 mL/min/1.73 m2 Normal >=59 [facility] Comment on above: Order Comment: Order added by Discern Expert. Performed By: #### 1 [id number] #### [facility] [address] [place] [address] ABO/Rhon 11-16-2023 ABO/Rh Positive Invalid Interpretation Code [facility] Comment on above: Performed By: #### 2 [id number] #### [facility] [address] [place] [address] ABO/Rh History Checkon 11-15 ABO/Rh History Check Verified Hx Blood Type Normal [facility] Comment on above: Performed By: #### 1 [id number] #### [facility] [address] [place] [address] ABSCon 11-16-2023 ABSC Gel Interp Negative Normal [facility] Comment on above: Performed By: #### 1 [id number] #### [facility] [address] [place] [address] BLOOD BANKOrdered By: Radha Hamilton on 11-16-2023 ABO/Rh Interp Positive Invalid Interpretation Code [facility] BB Subsection ABSC Gel Interp Negative (11/16/23 4:29 PM) Normal [facility] BB Subsection BMPon 11-16-2023 Anion gap [Moles/Vol] 13 mmol/L Normal 6-16 [facility] Comment on above: Performed By: #### 2 [id number] #### [facility] [address] [place] [address] Calcium [Mass/Vol] 10.9 mg/dL Normal 8.9-11.1 [facility] Comment on above: Performed By: #### 2 [id number] #### [facility] [address] [place] [address] Chloride [Moles/Vol] 98 mmol/L Low 101-[address] [facility] Comment on above: Performed By: #### 2 [id number] #### [facility] [address] [place] [address] CO2 [Moles/Vol] 27 mmol/L Normal 21-31 [facility] Comment on above: Performed By: #### 2 [id number] #### [facility] [address] [place] [address] Creatinine [Mass/Vol] 1.0 mg/dL Normal 0.5-1.3 [facility] Comment on above: Performed By: #### 2 [id number] #### [facility] [address] [place] [address] Glucose [Mass/Vol] 161 mg/dL Normal 55-199 [facility] Comment on above: Performed By: #### 2 [id number] #### [facility] [address] [place] [address] Potassium [Moles/Vol] 4.2 mmol/L Normal 3.5-5.3 [facility] Comment on above: Performed By: #### 2 [id number] #### [facility] [address] [place] [address] Sodium [Moles/Vol] 134 mmol/L Low 135-145 [facility] Comment on above: Performed By: #### 2 [id number] #### [facility] [address] [place] [address] Urea nitrogen [Mass/Vol] 13 mg/dL Normal 5-21 [facility] Comment on above: Performed By: #### 2 [id number] #### [facility] [address] [place] [address] Urea nitrogen/Creatinine [Mass ratio] 13 No Units Normal 10-20 [facility] Comment on above: Performed By: #### 2 [id number] #### [facility] [address] [place] [address] Blood Bank ID#on 11-16-2023 BBID# [id number] Invalid Interpretation Code [facility] Comment on above: Performed By: #### 1 [id number] #### [facility] [address] [place] [address] CBC w/ Auto Diffon 4 Basophils/100 WBC (Bld) 0.3 % Normal 0.0-2.0 [facility] Comment on above: Performed By: #### 2 [id number] #### [facility] [address] [place] [address] Basophils/Leukocytes Auto (Bld) [Pure # fraction] 0.0 E9/L Normal 0.0-0.2 [facility] Comment on above: Performed By: #### 2 [id number] #### [facility] [address] [place] [address] Eosinophils (Bld) [#/Vol] 0.2 E9/L Normal 0.0-0.5 [facility] Comment on above: Performed By: #### 2 [id number] #### [facility] [address] [place] [address] Eosinophils/100 WBC (Bld) 2.3 % Normal 0.0-8.0 [facility] Comment on above: Performed By: #### 2 [id number] #### [facility] [address] [place] [address] Erythrocyte distribution width (RBC) [Ratio] 13.6 % Normal 10.9-14.2 [facility] Comment on above: Performed By: #### 2 [id number] #### [facility] [address] [place] [address] Hematocrit (Bld) [Volume fraction] 47.9 % Normal 37.7-49.0 [facility] Comment on above: Performed By: #### 2 [id number] #### [facility] [address] [place] [address] Hemoglobin (Bld) [Mass/Vol] 16.0 g/dL Normal 13.5-17.5 [facility] Comment on above: Performed By: #### 2 [id number] #### [facility] [address] [place] [address] Lymphocytes (Bld) [#/Vol] 1.0 E9/L Normal 1.0-4.0 [facility] Comment on above: Performed By: #### 2 [id number] #### [facility] [address] [place] [address] Lymphocytes/100 WBC (Bld) 9.7 % Low 14.0-50.0 [facility] Comment on above: Performed By: #### 2 [id number] #### [facility] [address] [place] [address] MCH (RBC) [Entitic mass] 30.4 pg Normal 27.0-34.0 [facility] Comment on above: Performed By: #### 2 [id number] #### [facility] [address] [place] [address] MCHC (RBC) [Mass/Vol] 33.4 g/dL Normal 31.4-36.0 [facility] Comment on above: Performed By: #### 2 [id number] #### [facility] [address] [place] [address] MCV (RBC) [Entitic vol] 91.0 fL Normal 80.0-100.0 [facility] Comment on above: Performed By: #### 2 [id number] #### [facility] [address] [place] [address] Monocytes (Bld) [#/Vol] 0.6 E9/L Normal 0.2-1.0 [facility] Comment on above: Performed By: #### 2 [id number] #### [facility] [address] [place] [address] Neutrophils (Bld) [#/Vol] 8.0 E9/L High 2.0-7.5 [facility] Comment on above: Performed By: #### 2 [id number] #### [facility] [address] [place] [address] Neutrophils/100 WBC (Bld) 81.8 % High 36.0-75.0 [facility] Comment on above: Performed By: #### 2 [id number] #### [facility] [address] [place] [address] Platelet mean volume (Bld) [Entitic vol] 7.5 fL Normal 6.4-10.8 [facility] Comment on above: Performed By: #### 2 [id number] #### [facility] [address] [place] [address] Platelets (Bld) [#/Vol] 313.0 E9/L Normal 150. 0-500. 0 [facility] Comment on above: Performed By: #### 2 [id number] #### [facility] [address] [place] [address] RBC (Bld) [#/Vol] 5.3 E12/L Normal 4.3-5.9 [facility] Comment on above: Performed By: #### 2 [id number] #### [facility] [address] [place] [address] WBC corrected for nucl RBC Auto (Bld) [#/Vol] 9.8 E9/L Normal 4.0-11.0 [facility] Comment on above: Performed By: #### 2 [id number] #### [facility] [address] [place] [address] CHEMISTRYOrdered By: SYSTEM SYSTEM on 11-16-2023 Albumin [Mass/Vol] 4.4 g/dL Normal 3.3 - 5.0 gm/dL Remisol Chem Albumin/Globulin [Mass ratio] 1.2 {ratio} Normal 1.1 - 2.2 Remisol Chem ALP [Catalytic activity/Vol] 92 [iU]/d Normal 21 - 98 Int._Unit/ L Remisol Chem ALT No additional P-5'-P [Catalytic activity/Vol] 24 [iU]/d Normal 6 - 46 Int._Unit/ L Remisol Chem Anion gap [Moles/Vol] 13 mmol/L Normal 6 - 16 mEq/L Remisol Chem AST [Catalytic activity/Vol] 19 [iU]/d Normal 5 - 43 Int._Unit/ L Remisol Chem Bilirubin [Mass/Vol] 0.6 mg/dL Normal 0.0 - 1 .1 mg/dL Remisol Chem Bilirubin.direct [Mass/Vol] 0.0 mg/dL Normal 0.0 - 0.4 mg/dL Remisol Chem Bilirubin.indirect [Mass or moles/Vol] 0.6 mg/dL Normal 0.1 - 0.9 mg/dL Remisol Chem Calcium [Mass/Vol] 10.9 mg/dL Normal 8.9 - 11. 1 mg/dL Remisol Chem Chloride [Moles/Vol] 98 mmol/L Low 101 - 1 11 mmol/L Remisol Chem CO2 [Moles/Vol] 27 mmol/L Normal 21 - 31 mmol/L Remisol Chem Creatinine [Mass/Vol] 1.0 mg/dL Normal 0.5 - 1.3 mg/dL Remisol Chem eGFR 80 mL/min/1.73 m2 Normal >=59mL/min /1.73 m2 Remisol Chem Globulin (S) [Mass/Vol] 3.7 g/dL Normal 1.4 - 4.0 gm/dL Remisol Chem Glucose [Mass/Vol] 161 mg/dL Normal 55 - 199 mg/dL Remisol Chem Lipase [Catalytic activity/Vol] 24 U/L Normal 13 - 58 unit/L Remisol Chem Potassium [Moles/Vol] 4.2 mmol/L Normal 3.5 - 5.3 mmol/L Remisol Chem Protein [Mass/Vol] 8.1 g/dL High 6.0 - 7.8 gm/dL Remisol Chem Sodium [Moles/Vol] 134 mmol/L Low 135 - 145 mmol/L Remisol Chem Urea nitrogen [Mass/Vol] 13 mg/dL Normal 5 - 21 mg/dL Remisol Chem Urea nitrogen/Creatinine [Mass ratio] 13 mg/mg Normal 10 - 20 Remisol Chem COAGULATIONOrdered By: Liseth Sagastume on 11-16-2023 aPTT Coag (PPP) [Time] 48.3 s High 25.1 - 36.5 second(s) [facility] Comment on above: Interpretive Data: Kim pearson 15 days - 4 weeks 1 - 5 months 6 - 11 months 1 - 5 years 6 - 10 years 11 - 17 years PTT Mean: 35.4 (27.6-45.6) Mean: 33.5 (24.8-40.7) Mean: 32.4 (25.1-40.7) Mean: 31.6 (24.0-39.2) Mean: 31.6 (26.9-38.7) Mean: 31.0 (24.6-38.4) Pediatric Reference ranges were obtained from a study by last Kate prepared from 1437 samples obtained at 7 different centers using the same coagulation reagent and instrumentation as [facility]. Currently there are no coagulation studies available worldwide for children to 14 days, and no normal ranges. Heparin therapeutic range (represented by Anti-Factor Xa activity of 0.2 - 0.4 U/mL) corresponds to PTT of 56.6 - 109.0 sec. INR Coag (PPP) [Relative time] 1.79 {INR} Invalid Interpretation Code [facility] Comment on above: Interpretive Data: I NR results are specifically intended to assess patients stabilized on long-term Anticoagulation therapy suggested INR s Less Intensive Anticoagulation 2.0 3.0 Conventional Range 3.0 4.5 PT Coag (PPP) [Time] 20.2 s High 9.4 - 1 2.5 second(s) [facility] Comment on above: Interpretive Data: 1 5 days - 4 weeks 1 - 5 months 6 -11 months 1-5 years 6-10 years 11 -17 years Mean: 11.2 (9.5-12.6) Mean: 11.0 (9.7-12.8) Mean: 11.0 (9.8-13.0) Mean: 11.3 (9.9-13.4) Mean: 11.7 (10.0-14.6) Mean: 11.8 (10.0 - 14.1) Pediatric Reference ranges were obtained from a study by last Kate prepared from 1437 samples obtained at 7 different centers using the same coagulation reagent and instrumentation as [facility]. Currently there are no coagulation studies available worldwide for children to 14 days, and no normal ranges. CT Abdomen/Pelvis w/ Contras ton 11-16-2023 CT Abdomen/Pelvis w/ Contrast Exam Date/Time: 11/16/2023 09:36 EDT Reason for Exam: ABDOMINAL PAIN, ACUTE, NONLOCALIZED;Other (please specify) Report IMPRESSION: Findings concerning for high-grade small bowel obstruction as discussed. No associated pneumatosis or pneumoperitoneum. EXAMINATION: CT Abdomen/Pelvis w/ Contrast HISTORY: Abdominal pain for 2 days. Bloating. Passing some gas. Nausea. Recently started weight loss medication. TECHNIQUE: CT of the abdomen and pelvis was performed using standard technique with intravenous contrast, scanning from just above the dome of the diaphragm to the symphysis pubis. Including delayed images through the kidneys. Including sagittal and coronal reconstructions on both phases. Unless otherwise stated, incidental findings identified in this report do not require routine follow-up imaging. All CT scans at this facility use dose modulation, iterative reconstruction, and/or weight based dosing when appropriate to reduce radiation dose to as low as reasonably achievable. COMPARISON: None. RESULT: Liver: Diffuse hepatic steatosis. No suspicious liver lesions. Biliary: Gallbladder unremarkable. No biliary ductal dilation. Pancreas: No mass or duct dilation. Spleen: No mass or splenomegaly. Adrenals: No mass. Kidneys: No calculus or hydronephrosis. Multiple bilateral low-attenuation simple appearing exophytic renal cysts. Normal excreted contrast bilaterally on the delayed phase images. GI tract: Distention of the stomach with fluid and debris. Fluid-filled mildly dilated distal duodenum and other proximal small bowel loops. Fairly abrupt transition to decompressed loops of distal small bowel within the lower abdomen anteriorly near midline (coronal series 3 image 75), overall concerning for high-grade small bowel obstruction. No pneumatosis. Normal appendix. Diverticulosis Report of the normal caliber colon, without evidence for acute diverticulitis. Lymph nodes: No abdominal or pelvic lymphadenopathy. Mesentery/Peritoneum/Retro peritoneum: Small volume free fluid. No loculated collection. No pneumoperitoneum. Vasculature: The celiac axis and SMA are patent. The portal vein and branches, splenic vein, SMV, and hepatic veins are patent. Mild arterial atherosclerotic disease without aneurysm. IVC filter. Pelvis: No significant pelvic free fluid. Bladder decompressed. Bones: No acute osseous findings. Degenerative changes. S-shaped scoliosis. Underlying decreased bone mineral density. Soft tissues: Unremarkable. Lower thorax: Bibasilar scarring/atelectasis. Trace bilateral pleural thickening. Scattered coronary calcifications. Ordering Provider: Kevin Ramos FINAL REPORT Dictated: 11/16/2023 10:07 am Cullen Sanchez MD Signed (Electronic Signature): 11/16/2023 10:07 am Signed by: Cullen Sanchez MD Transcribed by: JASIEL Technologist: ROSS Technical Comments GFR (mL/min/1/73m2) >60 Contrast: Isovue 300 Contrast amount in ml's: 100 Rectal Contrast Given? No Normal [facility] Coding Queryon 11-16-2023 Coding Query Coding Query From: Ranjan Carcamo RN To: Devorah BLANCO MD; Sent: 11/16/2023 14:02:25 EDT Subject: Coding Query Due Date/Time: 11/17/2023 14:02:00 EDT Caller Name: JANAE YANNICK Alvarez; Caller Number: Noelle , M Documentation in the medical record indicates this patient has been admitted with or diagnosed as having: The following is also documented in the medical record: SpO2: 85 rm air Respiratory rate: 20 Other: 11/15 Surg-PLAN: -In the ER patient found to be hypoxic with oxygen saturation around 85% upon arrival and borderline tachycardic, patient denies ever requiring oxygen in the past. Oxygen appropriately on 2 L nasal cannula Based on your medical judgment, can you further clarify the following? Select all that apply: [___]Hypoxemia [___]Other: In responding to this request, please exercise your independent professional judgement. The fact that a question is asked does not imply that any particular answer is desired or expected. Thank you![email or web address] [id number] Normal [facility] ED Clinical Summaryon 2023 ED Clinical Summary ED Clinical Summary [place] [id number] ED Clinical Summary Person Information Name: YANNICK CARDOSO [facility] Age: 72 Years : 1950 Sex: Male Language: Jordanian PCP: JS MENJIVAR MD Marital Status: Visit Id: Visit Reason: Diarrhea; Nausea; Abdominal distention; Abdominal pain; ABD PAIN Speciality: Acuity: 3 Enc Type: Inpatient Med Service: Emergency Arrival: 11/16/2023 08:10:12 Discharge: LOS: 000 03:38 Checkin: 11/16/2023 08:10:12 Checkout: 11/16/2023 11:48:43 Dispo Type: Admitted as IP to this [facility] EVENTS: Event Name Event Status Request Date/Time Start Date/Time Complete Date/Time Arrive Complete 11/16/2023 08:10:12 11/16/2023 08:10:12 11/16/2023 08:10:12 Document Home Meds Request 11/16/2023 08:10:12 Triage Complete 11/16/2023 08:10:12 11/16/2023 08:19:23 11/16/2023 08:19:23 Bed Assign Complete 11/16/2023 08:11:35 11/16/2023 08:11:35 11/16/2023 08:11:35 Dr Exam Complete 11/16/2023 08:11:35 11/16/2023 08:18:49 11/16/2023 08:18:49 RN Exam Complete 11/16/2023 08:11:35 11/16/2023 08:37:55 11/16/2023 08:37:55 Registration Complete 11/16/2023 08:12:54 11/16/2023 08:12:54 11/16/2023 08:12:54 Reg Complete Request 11/16/2023 08:12:54 Reg Bed Request Complete 11/16/2023 08:12:54 11/16/2023 08:12:54 11/16/2023 08:12:54 Registration Complete 11/16/2023 08:18:49 11/16/2023 11:04:05 11/16/2023 11:04:05 CT Complete 11/16/2023 08:19:53 11/16/2023 09:04:22 11/16/2023 09:36:42 Meds Admin Complete 11/16/2023 08:19:53 11/16/2023 08:28:33 Pending Labs Complete 11/16/2023 08:19:53 11/16/2023 09:51:44 Lab Complete 11/16/2023 08:19:53 11/16/2023 08:59:51 Pending Labs Complete 11/16/2023 08:33:21 11/16/2023 08:33:21 11/16/2023 08:59:51 Lab Complete 11/16/2023 08:33:21 11/16/2023 08:33:21 11/16/2023 08:59:51 Pending Labs Complete 11/16/2023 08:36:20 11/16/2023 08:36:20 11/16/2023 08:36:21 Fall Risk Request 11/16/2023 08:37:55 Pending Labs Collected 11/16/2023 09:51:44 11/16/2023 09:51:44 Lab Collected 11/16/2023 09:51:44 11/16/2023 09:51:44 Consult Request 11/16/2023 10:23:56 Hospitalist Consult Request 11/16/2023 10:23:56 Patient Care Request 11/16/2023 10:41:28 Consult Request 11/16/2023 10:44:54 Bed Request Request 11/16/2023 10:44:57 Reg Bed Request Complete 11/16/2023 10:44:57 11/16/2023 11:04:05 11/16/2023 11:04:05 Admit Request 11/16/2023 10:44:57 Patient Care Request 11/16/2023 11:04:06 Patient Care Request 11/16/2023 11:04:06 Patient Care Request 11/16/2023 11:04:06 Patient Care Request 11/16/2023 11:04:07 Medicare Form Complete 11/16/2023 11:04:07 11/16/2023 11:43:43 Patient Care Request 11/16/2023 11:04:08 Patient Care Request 11/16/2023 11:04:08 Patient Care Request 11/16/2023 11:31:20 NPO Request 11/16/2023 11:31:20 Meds Admin Request 11/16/2023 11:31:20 Pending Labs Request 11/16/2023 11:31:20 Lab Request 11/16/2023 11:31:20 RT Request 11/16/2023 11:31:20 RT Tx/ABG Request 11/16/2023 11:31:20 Meds Admin Request 11/16/2023 11:37:08 ADDRESS: [address] [place] [id number] PHYS DOC NOTES: MEDICAL INFORMATION: Prescriptions Given: Medications to Continue with No Changes Other Medications aspirin (aspirin 81 mg oral tablet) 1 Tablets By Mouth every day. famotidine (famotidine 10 mg oral tablet) 1 Tablets By Mouth 2 times a day. Refills: 0. multivitamin with minerals (Centrum Silver Men's) By Mouth every day. omeprazole (omeprazole 10 mg Cap-EC) 1 Capsules By Mouth every day. Refills: 0. rivaroxaban (Xarelto 20 mg oral tablet) Oral, 0 Refill(s). PATIENT EDUCATION INFORMATION: Instructions: Follow up: DIAGNOSIS: 1:SBO (small bowel obstruction) Normal [facility] ED Patient Education Noteon 11-16-2023 ED Patient Education Note ED Patient Education Note Normal [facility] ED Patient Summaryon ED Patient Summary ED Patient Summary [place] [id number] Patient Discharge Instructions Person Information Name: YANNICK CARDOSO Age: 72 Years Arrival Date: 11/16/2023 08:10:12 Discharge Diagnosis: 1:SBO (small bowel obstruction) Primary Care Physician: JS MENJIVAR MD Provider Information Primary Provider: Advanced Nuclear Operator:Kevin Ramos PA-C The exam and treatment you received in the Emergency Department were for an urgent problem and are not intended as complete care. It is important that you follow up with a doctor, nurse practitioner, or physician?s public services assistant for ongoing care. If your symptoms become worse or you do not improve as expected and you are unable to reach your usual health care provider, you should return to the Emergency Department. We are available 24 hours a day. YANNICK CARDOSO has been given the following list of patient education materials, prescriptions and follow-up instructions: Follow-up Instructions: In the event that this physician does not participate in your insurance network, please consult with your insurance company to find a nearby participating provider. Patient Education Materials: A MESSAGE TO ALL PATIENTS REGARDING OPIOIDS PRESCRIPTION OPIOIDS: WHAT YOU NEED TO KNOW Prescription opioids can be used to help relieve kvxcvnft-eh-rvuepe pain and are often prescribed following a surgery or injury, or for certain health conditions. These medications can be an important part of the treatment but also come with serious risks. It is important to work with your healthcare provider to make sure you are getting the safest, most effective care. WHAT ARE THE RISKS AND SIDE EFFECTS OF OPIOID USE? Prescription opioids carry serious risks of addiction and overdose, especially with prolonged use. An opioid overdose, often marked by slowed breathing, can cause sudden . The use of prescription opioids can have a number of side effects as well, even when taken as directed: ? Tolerance?meaning you might need to take more of the medication for the same pain relief ? Physical dependence?meaning you have symptoms of withdrawal when a medication is stopped ? Increased sensitivity to pain ? Constipation ? Nausea, vomiting, and dry mouth ? Sleepiness and dizziness ? Confusion ? Depression ? Low levels of testosterone that can result in lower sex drive, energy, and strength ? Itching and sweating RISKS ARE GREATER WITH: ? History of drug misuse, substance use disorder, or overdose ? Mental health conditions (such as depression or anxiety) ? Sleep apnea ? Older age (65 years and older) ? Avoid alcohol while taking prescription opioids. Also, unless specifically advised by your health care provider, medications to avoid include: ? Benzodiazepines (such as Xanax or Valium) ? Muscle relaxants (such as Soma or Flexeril) ? Hypnotics (such as Ambien or Lunesta) ? Other prescription opioids KNOW YOUR OPTIONS Talk to your health care provider about ways to manage your pain that don?t involve prescription opioids. Some of these options may actually work better and have fewer risks and side effects. Options may include: ? Pain relievers such as acetaminophen, ibuprofen, and naproxen ? Some medication that are also used for depression or seizures ? Physical therapy and exercise ? Cognitive behavioral therapy, a psychological, goal-directed approach, in which patients learn how to modify physical, behavioral, and emotional triggers of pain and stress. IF YOU ARE PRESCRIBED OPIOIDS FOR PAIN: ? Never take opioids in greater amounts or more often than prescribed. ? Follow up with your primary health care provider. o Work together to create a plan on how to manage your pain. o Talk about ways to help manage your pain that don?t involve prescription opioids. o Talk about any and all concerns and side effects. ? Help prevent misuse and abuse o Never sell or share prescription opioids. o Never use another person?s prescription opioids. ? Store prescription opioids in a secure place and out of reach of others (this may include visitors, children, friends, and family). ? Safely dispose of unused prescription opioids: Find your community drug take-back program or your pharmacy mail-back program, or flush them down the toilet, following guidance from the Food and Drug Administration (www.fda.gov/Drugs/Resourc esForYou). ? Visit www.cdc.gov/drugoverdose to learn about the risks of opioids abuse and overdose. ? If you believe you may be struggling with addiction, tell your health ostomy care nurse and ask for guidance or call [facility] National Helpline at 9-818-122-ZXSA. j Source: US Department of Health and Human Services/Center for Disease Control & Prevention [facility] Medications Given: Medication Do (more content not included)... Normal [facility] HEMATOLOGYOrdered By: SYSTEM SYSTEM on 11-16-2023 Basophils/100 WBC (Bld) 0.3 % Normal 0.0 - 2.0 % Remisol Heme Basophils/Leukocytes Auto (Bld) [Pure # fraction] 0.0 E9/L Normal 0.0 - 0.2 E9/L Remisol Heme Eosinophils (Bld) [#/Vol] 0.2 E9/L Normal 0.0 - 0.5 E9/L Remisol Heme Eosinophils/100 WBC (Bld) 2.3 % Normal 0.0 - 8.0 % Remisol Heme Erythrocyte distribution width (RBC) [Ratio] 13.6 % Normal 10.9 - 14.2 % Remisol Heme Hematocrit (Bld) [Volume fraction] 47.9 % Normal 37.7 - 49.0 % Remisol Heme Hemoglobin (Bld) [Mass/Vol] 16.0 g/dL Normal 13.5 - 17.5 gm/dL Remisol Heme Lymphocytes (Bld) [#/Vol] 1.0 E9/L Normal 1.0 - 4.0 E9/L Remisol Heme Lymphocytes/100 WBC (Bld) 9.7 % Low 14.0 - 50.0 % Remisol Heme MCH (RBC) [Entitic mass] 30.4 pg Normal 27.0 - 34.0 pg Remisol Heme MCHC (RBC) [Mass/Vol] 33.4 g/dL Normal 31.4 - 36.0 gm/dL Remisol Heme MCV (RBC) [Entitic vol] 91.0 fL Normal 80.0 - 100.0 fL Remisol Heme Monocytes (Bld) [#/Vol] 0.6 E9/L Normal 0.2 - 1.0 E9/L Remisol Heme Monocytes/100 WBC (Bld) 5.9 % Normal 4.0 - 14.0 % Remisol Heme Neutrophils (Bld) [#/Vol] 8.0 E9/L High 2.0 - 7.5 E9/L Remisol Heme Neutrophils/100 WBC (Bld) 81.8 % High 36.0 - 75.0 % Remisol Heme Platelet mean volume (Bld) [Entitic vol] 7.5 fL Normal 6.4 - 10.8 fL Remisol Heme Platelets (Bld) [#/Vol] 313.0 E9/L Normal 150. 0 - 500.0 E9/L Remisol Heme RBC (Bld) [#/Vol] 5.3 E12/L Normal 4.3 - 5.9 E12/L Remisol Heme WBC corrected for nucl RBC Auto (Bld) [#/Vol] 9.8 E9/L Normal 4.0 - 11.0 E9/L Remisol Heme Hep Func Panelon 11-16-2023 Albumin [Mass/Vol] 4.4 g/dL Normal 3.3-5.0 [facility] Comment on above: Performed By: #### 2 [id number] #### [facility] [address] [place] [address] Albumin/Globulin (S) [Mass conc ratio] 1.2 Normal 1.1-2.2 [facility] Comment on above: Performed By: #### 2 [id number] #### [facility] [address] [place] [address] ALP [Catalytic activity/Vol] 92 Int._Unit/L Normal 21-98 [facility] Comment on above: Performed By: #### 2 [id number] #### [facility] [address] [place] [address] ALT No additional P-5'-P [Catalytic activity/Vol] 24 Int._Unit/L Normal 6-46 [facility] Comment on above: Performed By: #### 2 [id number] #### [facility] [address] [place] [address] AST [Catalytic activity/Vol] 19 Int._Unit/L Normal 5-43 [facility] Comment on above: Performed By: #### 2 [id number] #### [facility] [address] [place] [address] Bilirubin [Mass/Vol] 0.6 mg/dL Normal 0.0-1.1 [facility] Comment on above: Performed By: #### 2 [id number] #### [facility] [address] [place] [address] Bilirubin.direct [Mass/Vol] 0.0 mg/dL Normal 0.0-0.4 [facility] Comment on above: Performed By: #### 2 [id number] #### [facility] [address] [place] [address] Bilirubin.indirect [Mass or moles/Vol] 0.6 mg/dL Normal 0.1-0.9 [facility] Comment on above: Performed By: #### 2 [id number] #### [facility] [address] [place] [address] Globulin (S) [Mass/Vol] 3.7 g/dL Normal 1.4-4.0 [facility] Comment on above: Performed By: #### 2 [id number] #### [facility] [address] [place] [address] Protein [Mass/Vol] 8.1 g/dL High 6.0-7.8 [facility] Comment on above: Performed By: #### 2 [id number] #### [facility] [address] [place] [address] Laboratory - Microbiology an d Antimicrobial susceptibilityOrdered By: Sofia Gutierrez on 11-16-2023 Bacteria identified Cx Nom (U) 1,000 cfu/ml Mixed skin contaminants [facility] Lipase Levelon 11-16-2023 Lipase [Catalytic activity/Vol] 24 U/L Normal 13-58 [facility] Comment on above: Performed By: #### 2 [id number] #### [facility] [address] [place] [address] Main OR Intraoperative Recor don 11-16-2023 Main OR Intraoperative Record Main OR Intraoperative Record IntraOp Document Type FT Summary Primary Physician: Payal RODRIGUEZ, Jesica Del Toro Finalized Date/Time: 11/16/23 17:43:09 Pt. Name: SUZANNAMABELYANNICK D.O.B./Sex: 1950 Male Med Rec #: [id number] Physician: Devorah BLANCO MD Financial #: [id number] Pt. Type: I [facility] Admit/Disch: 11/16/23 08:10:12 - Institution: Case Times FT Entry 1 Patient Times In Room 11/16/23 16:36:00 Out Room 11/16/23 17:35:00 Procedure Times Start 11/16/23 16:59:00 Stop 11/16/23 17:26:00 Anesthesia Times Start 11/16/23 16:36:00 Stop 11/16/23 17:35:00 Last Modified By: Shahana Hendrix Ii 11/16/23 17:41:01 Case Attendance FT Entry 1 Entry 2 Entry 3 Case Attendee Payal RODRIGUEZ, Jesica Pollard HISTOLOGY ASSISTANT, Kelle Fierro LOCOMOTIVE ENGINEER, Melvin Del Toro Role Performed Surgeon - Primary HISTOLOGY ASSISTANT LOCOMOTIVE ENGINEER/SA Time In 11/16/23 16:36:00 11/16/23 16:36:00 11/16/23 16:36:00 Time Out 11/16/23 17:35:00 11/16/23 17:18:00 11/16/23 17:35:00 Procedure LAPAROTOMY EXPLORATORY LAPAROTOMY EXPLORATORY LAPAROTOMY EXPLORATORY Comments DR. GONSALEZ GAUGE AND WEIGH MACHINE ADJUSTER ASSIST Last Modified By: Shahana Hendrix Ii Gabi Hendrix Alfons Ii F Ruma, Alfons Ii F 11/16/23 17:41:03 11/16/23 17:41:03 11/16/23 17:41:03 Entry 4 Entry 5 Entry 6 Case Attendee Teresita HARRY, Shahana Fajardo Ii, Jr., DO, Clyde G Role Performed Scrub - Primary Gaming Cashier - Primary Anesthesiologist of Record Time In 11/16/23 16:36:00 11/16/23 16:36:00 11/16/23 17:15:00 Time Out 11/16/23 17:35:00 11/16/23 17:35:00 11/16/23 17:35:00 Procedure LAPAROTOMY EXPLORATORY LAPAROTOMY EXPLORATORY LAPAROTOMY EXPLORATORY Comments RELIEF Last Modified By: Shahana Hendrix Ii Angel Amandaons Ii F Karlyjeannette, Alfons Ii F 11/16/23 17:41:03 11/16/23 17:41:03 11/16/23 17:41:03 Perioperative Protocols FT Pre-Care Text: Implements protective measures prior to operative or invasive procedure, confirms identity before the operative or invasive procedure, verifies operative procedure, surgical site, and laterality Entry 1 Procedure(s) LAPAROTOMY EXPLORATORY Patient Identity Birthday, Blood Band, Verified (select at ID Band Check, Patient least 2): Participation Consents / H and P Anesthesia Consent, Operative Site N/A Verified H&P, Surgery/Procedure Marking Verified Consent, Transfusion Consent Surgical Site Yes Laterality Verified Yes Verified Procedure Verified Yes Correct Patient Yes Position Verified Availability Equipment, Medication Prep Dry Yes Verified (If Applicable) PreOp Antibiotic Yes Time Out Payal RODRIGUEZ, Atul Mariee CRNA, Brandy J., Boyer CST, Melvin Barrios Time Out Complete 11/16/23 16:59:00 Outcomes Met? Yes Last Modified By: Shahana Hendrix Ii F 11/16/23 17:13:48 Post-Care Text: The patient is free from signs and symptoms of injury caused by extraneous objects Allergy Information FT Pre-Care Text: Verifies allergies Entry 1 Allergies Reviewed? Yes Allergies Reviewed Self/Patient With Outcomes Met? Yes Last Modified By: Shahana Hendrix Ii 11/16/23 17:13:54 Post-Care Text: The patient received appropriate medication(s) safely administered during the perioperative period Surgical Procedures FT Entry 1 Procedure Description Procedure LAPAROTOMY EXPLORATORY Surgeon Description EXPORATORY LAPAROTOMY Primary Procedure Yes Primary Surgeon Jesica Moe MD Start 11/16/23 16:59:00 Stop 11/16/23 17:26:00 Anesthesia Type General Surgical Service General Wound Class 1 - Clean Last Modified By: Shahana Hendrix Ii 11/16/23 17:42:09 General Case Data FT Pre-Care Text: Classifies surgical wound, implements aseptic technique, initiates traffic control Entry 1 Case Information OR OR 2 FT Case Level Level 4 Wound Class 1 - Clean Specialty General ASA Class 4E Preop Diagnosis BOWEL OBSTRUCTION Postop Same As Preop Yes Postop Diagnosis BOWEL OBSTRUCTION Outcomes Met? Yes Last Modified By: Shahana Hendrix Ii 11/16/23 17:41:59 Post-Care Text: The patient is free from signs and symptoms of infection Skin Assessment (Pre Procedure) FT Pre-Care Text: Implements protective measures to prevent skin/ tissue injury due to thermal or mechanical sources Evaluates for signs and symptoms of physical injury to skin and tissue Entry 1 Skin Integrity Intact, [place], Warm, & Skin Abnormality No Dry Outcomes Met? Yes Last Modified By: Shahana Hendrix Ii 11/16/23 17:16:14 Post-Care Text: The patient is free from signs and symptoms of injury caused by extraneous objects Patient Positioning FT Pre-Care Text: Identifies physical alterations that require additional precautions for procedure-specific positioning, verifies presence of prosthetics or corrective devices, positions the patient, evaluates the patient for signs and symptoms of injury as a result of positioning Entry 1 Procedure LAPAROTOMY EXPLORATORY Body (more content not included)... Normal [facility] Main OR PACU I Recordon 11-01 Main OR PACU I Record Main OR PACU I Rec ord PACU Phase I Document Type FT Summary Primary Physician: Jesica Moe MD Finalized Date/Time: 11/16/23 19:16:18 Pt. Name: YANNICK CARDOSO Kim Bautista./Sex: 1950 Male Med Rec #: [id number] Physician: Devorah BLANCO MD Financial #: [id number] Pt. Type: I Room/Bed: S333/01 Admit/Disch: 11/16/23 08:10:12 - Institution: Case Times PACU I FT Pre-Care Text: Identifies barriers to communication and implements measures to provide psychological support Develops individualized plan of care, and ensures continuity of care Maintains patient's dignity and privacy, and maintains patient confidentiality Identifies and reports philosophical, cultural, and spiritual beliefs and values Identifies individual values and wishes concerning care Implements aseptic technique, and administers prescribed antibiotic therapy and immunizing agents as ordered Evaluates postoperative tissue perfusion Implements thermoregulation measures, and monitors body temperature Evaluates postoperative respiratory status Evaluates postoperative cardiac status Evaluates postoperative neurological status Assesses pain control, collaborated in initiating patient-controlled analgesia and implements alternative methods of pain control Verifies allergies, administers prescribed medications and solutions, evaluates response to medications Entry 1 In PACU I 11/16/23 17:36:00 Discharge from PACU 11/16/23 18:37:00 I Outcomes Met? Yes Last Modified By: Medina Reyez RN 11/16/23 19:15:55 Post-Care Text: The patient demonstrates knowledge of the expected response to the operative or invasive procedure The patient's care is consistent with the individualized perioperative plan of care The patient's right to privacy is maintained The patient's value system, lifestyle, ethnicity, and culture are considered, respected, and incorporated into the perioperative plan of care The patient participates in decisions affecting his or her perioperative plan of care The patient is free from signs and symptoms of infection The patient has wound/tissue perfusion consistent with or improved from baseline levels established preoperatively The patient is at or returning to normothermia at the conclusion of the immediate postoperative period The patient's respiratory function is consistent with or improved from baseline levels established preoperatively The patient's cardiovascular status is consistent with or improved from baseline levels established preoperatively The patient's cardiovascular status is consistent with or improved from baseline levels established preoperatively The patient demonstrates and/or reports adequate pain control throughout the perioperative period The patient received appropriate medication(s), safely administered during the perioperative period Acuity Level PACU I FT Entry 1 Start Time 11/16/23 17:36:00 Stop Time 11/16/23 18:37:00 Acuity Level Acuity Level I Last Modified By: Medina Reyez RN 11/16/23 19:16:11 Finalized By: Medina Reyez RN Document Signatures Signed By: Medina Reyez RN 11/16/23 19:16 Normal [facility] Main OR Preoperative Recordo n 11-16-2023 Main OR Preoperative Record Main OR Preoperative Record PreOp Document Type FT Summary Primary Physician: Jesica Moe MD Finalized Date/Time: 11/16/23 17:02:42 Pt. Name: YANNICK CARDOSO Kim /Sex: 1950 Male Med Rec #: [id number] Physician: Devorah BLANCO MD Financial #: [id number] Pt. Type: I Room/Bed: [place] [address] Admit/Disch: 11/16/23 08:10:12 - Institution: Case Times PreOp FT Pre-Care Text: Verifies consent for planned procedure, identifies individual values and wishes concerning care, includes family members in perioperative teaching Entry 1 Patient Times. In Pre Surgery 11/16/23 16:00:00 Out Pre Surgery 11/16/23 16:34:00 Outcomes Met? Yes Last Modified By: Shahana Hendrix Ii 11/16/23 17:02:41 Post-Care Text: The patient participates in decisions affecting his or her perioperative plan of care Finalized By: Shahana Hendrix Ii Document Signatures Signed By: Shahana Hendrix Ii 11/16/23 17:02 Normal [facility] Operative Reporton Operative Report Operative Report Indication for Surgery 72 y/o male presents with abdominal distention and vomiting. CT scans shows abrupt transition point and high grade bowel obstruction. focal tenderness and no flatus. To OR for exploration. Informed consent obtained, risks and benefits discussed. Preoperative Diagnosis BOWEL OBSTRUCTION Postoperative Diagnosis BOWEL OBSTRUCTION Operation Exploratory laparotomy Surgeon(s) Jesica Moe MD (Surgeon - Primary) Support Team Assoc Melvin Fierro, LOCOMOTIVE ENGINEER/SA Anesthesia General Rc Gonsalez Jr., DO (Sample Hand) Funni HISTOLOGY ASSISTANT, Kelle J. (Other) Estimated Blood Loss 10.0 mL Findings abrupt twist in the bowel with associated mesenteric hemorrhagic changes suspect due to internal hernia within the omentum, clear transition between dilated bowel to complete decompression. Easy passage of air and succus into decompressed section after reduction Specimen(s) none Complications Patient brought to the OR and placed in sitting position on the OR table. SCDs were in place, preoperative antibiotics given. Patient has deviated nasal septum and did not tolerate multiple attempts at NG placement preoperatively. Given bowel obstruction and ozempic use, patient was intubated in sitting up position by anesthesia without issue. NG was then able to be placed through right nare, left nare met resistance. Immediately 1000 cc output. Hartman placed. patient was placed in supine position and abdomen prepped and draped in usual sterile fashion. Midline vertical incision made in the supraumbilical region. Incision made large enough to reach hand into abdomen. Subcutaneous tissue dissected with electrocautery. Facia incised sharply and abdomen entered bluntly. Reactive ascites present with dilated loops of bowel. Omentum swept away, and bowel brought up through the midline. A clear transition point was noted in the small bowel from dilated to decompressed, with associated hemorrhagic changes of the mesentery. The omentum had an opening through the center that appeared to the cause of the twist/internal hernia. This was released and the air and stool passed through the bowel without difficulty. No other abnormalities noted within the abdomen. NG was confirmed within stomach in correct position. Fascia was then closed with 0 PDS running suture. 2% lidocaine with epinephrine was injected around fascia and skin. The wound was irrigated and the skin closed with deshaun. Gauze and tape applied to wound. Sponge and instrument counts were correct x 2. He was extubated without issue and taken to the PACU in stable condition. NG and hartman left in place. No family present to update post operatively. I performed all aspects of the procedure Normal [facility] Comment on above: Result Comment: Elec tronically Signed By: Payal RODRIGUEZ, Jesica Del Toro\.irina\Date and Time Signed: 11/16/23 18:55 EDT PT & PTTon 11-16-2023 aPTT Coag (PPP) [Time] 48.3 second(s) High 25.1-36.5 [facility] Comment on above: Result Comment: Para meter 15 days - 4 weeks 1 - 5 months 6 - 11 months 1 - 5 years 6 - 10 years 11 - 17 years PTT Mean: 35.4 (27.6-45.6) Mean: 33.5 (24.8-40.7) Mean: 32.4 (25.1-40.7) Mean: 31.6 (24.0-39.2) Mean: 31.6 (26.9-38.7) Mean: 31.0 (24.6-38.4) Pediatric Reference ranges were obtained from a study by tarun Kate al. prepared from 1437 samples obtained at 7 different centers using the same coagulation reagent and instrumentation as [facility]. Currently there are no coagulation studies available worldwide for children to 14 days, and no normal ranges. Heparin therapeutic range (represented by Anti-Factor Xa activity of 0.2 - 0.4 U/mL) corresponds to PTT of 56.6 - 109.0 sec. Performed By: #### 1 [id number] #### [facility] [address] [place] [address] INR Coag (PPP) [Relative time] 1.79 {INR} Invalid Interpretation Code [facility] Comment on above: Result Comment: INR results are specifically intended to assess patients stabilized on long-term Anticoagulation therapy suggested INR?s ?Less Intensive Anticoagulation? 2.0 ? 3.0 Conventional Range 3.0 ? 4.5 Performed By: #### 1 [id number] #### [facility] [address] [place] [address] PT Coag (PPP) [Time] 20.2 second(s) High 9.4-12.5 [facility] Comment on above: Result Comment: 15 d ays - 4 weeks 1 - 5 months 6 -11 months 1-5 years 6-10 years 11 -17 years Mean: 11.2 (9.5-12.6) Mean: 11.0 (9.7-12.8) Mean: 11.0 (9.8-13.0) Mean: 11.3 (9.9-13.4) Mean: 11.7 (10.0-14.6) Mean: 11.8 (10.0 - 14.1) Pediatric Reference ranges were obtained from a study by tarun Kate al. prepared from 1437 samples obtained at 7 different centers using the same coagulation reagent and instrumentation as [facility]. Currently there are no coagulation studies available worldwide for children to 14 days, and no normal ranges. Performed By: #### 1 [id number] #### [facility] [address] [place] [address] UA with Cult Rflxon 11-16-19 24 Bilirubin Ql (U) Negative Normal Negative [facility] Comment on above: Performed By: #### 4 [id number] #### [facility] [address] [place] [address] Clarity (U) Clear Normal Clear [facility] Comment on above: Performed By: #### 4 [id number] #### [facility] [address] [place] [address] Color (U) Yellow Normal Yellow [facility] Comment on above: Result Comment: Micr oscopic readings are only performed on those samples that meet specific criteria set forth by [facility]. Performed By: #### 4 [id number] #### [facility] [address] [place] [address] Epithelial cells.squamous Auto (Urine sed) [#/Area] 3-4 Invalid Interpretation Code [facility] Comment on above: Performed By: #### 4 [id number] #### [facility] [address] [place] [address] Glucose Ql (U) Negative Normal Negative [facility] Comment on above: Performed By: #### 4 [id number] #### [facility] [address] [place] [address] Hemoglobin Auto test strip (U) [Mass/Vol] Negative Normal Negative [facility] Comment on above: Performed By: #### 4 [id number] #### [facility] [address] [place] [address] Hyaline casts LM Ql (Urine sed) 4-10 Abnormal 0-3 [facility] Comment on above: Performed By: #### 4 [id number] #### [facility] [address] [place] [address] Ketones Auto test strip Ql (U) Negative Normal Negative [facility] Comment on above: Performed By: #### 4 [id number] #### [facility] [address] [place] [address] Leukocyte esterase Auto test strip Ql (U) 25 Allie/uL Normal Negative [facility] Comment on above: Performed By: #### 4 [id number] #### [facility] [address] [place] [address] Mucus Auto Ql (U) 2+ CD:[id number] Abnormal Negative [facility] Comment on above: Performed By: #### 4 [id number] #### [facility] [address] [place] [address] Nitrite Auto test strip Ql (U) Negative Normal Negative [facility] Comment on above: Performed By: #### 4 [id number] #### [facility] [address] [place] [address] pH (U) 5.5 [pH] Invalid Interpretation Code 5.0-9.0 [facility] Comment on above: Performed By: #### 4 [id number] #### [facility] [address] [place] [address] Protein Ql (U) 1+ mg/dL Abnormal Negative [facility] Comment on above: Performed By: #### 4 [id number] #### [facility] [address] [place] [address] RBC Ql (U) 0-3 Normal 0-3 [facility] Comment on above: Performed By: #### 4 [id number] #### [facility] [address] [place] [address] Specific gravity (U) [Rel density] 1.046 Invalid Interpretation Code 1.005-1.03 0 [facility] Comment on above: Performed By: #### 4 [id number] #### [facility] [address] [place] [address] Urobilinogen (U) [Mass/Vol] Negative Normal Negative [facility] Comment on above: Performed By: #### 4 [id number] #### [facility] [address] [place] [address] WBC Auto (Urine sed) [#/Area] 6-15 Abnormal 0-5 [facility] Comment on above: Performed By: #### 4 [id number] #### [facility] [address] [place] [address] Type of Urine collection method Clean Catch Normal [facility] Comment on above: Performed By: #### 4 [id number] #### [facility] [address] [place] [address] URINALYSISOrdered By: Nicolas Levine on 11-16-2023 Bilirubin Ql (U) Negative Normal Negativemg /dL [facility] UA Auto SS Clarity (U) Clear (11/16/23 4:50 PM) Normal Clear [facility] UA Auto SS Color (U) Yellow 1 (11/16/23 4:50 PM) Normal Yellow [facility] UA Auto SS Comment on above: Interpretive Data: M icroscopic readings are only performed on those samples that meet specific criteria set forth by [facility]. Epithelial cells.squamous Auto (Urine sed) [#/Area] 0-2 graded/HPF Invalid Interpretation Code [facility] UA Auto SS Glucose Ql (U) Negative Normal Negativemg /dL [facility] UA Auto SS Hemoglobin Auto test strip (U) [Mass/Vol] Negative (11/16/23 4:50 PM) Normal Negative [facility] UA Auto SS Ketones Auto test strip Ql (U) Negative Normal Negativemg /dL [facility] UA Auto SS Leukocyte esterase Auto test strip Ql (U) 25 Allie/uL (11/16/23 4:50 PM) Normal Negative [facility] UA Auto SS Mucus Auto Ql (U) 1+ *ABN* (11/16/23 4:50 PM) Invalid Interpretation Code Negative [facility] UA Auto SS Nitrite Auto test strip Ql (U) Negative Normal Negativemg /dL [facility] UA Auto SS pH (U) 5.5 *NA* (11/16/23 4:50 PM) Invalid Interpretation Code 5.0 - 9.0 [facility] UA Auto SS Protein Ql (U) Trace mg/dL Invalid Interpretation Code Negativemg /dL [facility] UA Auto SS RBC Ql (U) 0-3 graded/HPF Normal 0-3graded/ HPF [facility] UA Auto SS Specific gravity (U) [Rel density] OVER Invalid Interpretation Code 1.005 - 1.030 [facility] UA Auto SS Urobilinogen (U) [Mass/Vol] Negative Normal Negativemg /dL [facility] UA Auto SS WBC Auto (Urine sed) [#/Area] 0-5 graded/HPF Normal 0-5graded/ HPF [facility] UA Auto SS URINALYSISOrdered By: Shahana Hendrix on 11-16-2023 UA Spec Desc Hartman (11/16/23 4:50 PM) Normal [facility] UA Auto SS URINALYSISOrdered By: SYSTEM SYSTEM on 11-16-2023 Bilirubin Ql (U) Negative Normal Negativemg /dL [facility] UA Auto SS Clarity (U) Clear (11/16/23 9:39 AM) Normal Clear [facility] UA Auto SS Color (U) Yellow 2 (11/16/23 9:39 AM) Normal Yellow [facility] UA Auto SS Comment on above: Interpretive Data: M icroscopic readings are only performed on those samples that meet specific criteria set forth by [facility]. Epithelial cells.squamous Auto (Urine sed) [#/Area] 3-4 graded/HPF Invalid Interpretation Code [facility] UA Auto SS Glucose Ql (U) Negative Normal Negativemg /dL [facility] UA Auto SS Hemoglobin Auto test strip (U) [Mass/Vol] Negative Normal Negativemg /dL [facility] UA Auto SS Hyaline casts LM Ql (Urine sed) 4-10 graded/LPF Invalid Interpretation Code 0-3graded/ LPF [facility] UA Auto SS Ketones Auto test strip Ql (U) Negative Normal Negativemg /dL [facility] UA Auto SS Leukocyte esterase Auto test strip Ql (U) 25 Allie/uL Allie/uL Normal NegativeLe u/uL [facility] UA Auto SS Mucus Auto Ql (U) 2+ graded/LPF Invalid Interpretation Code Negativegr aded/LPF [facility] UA Auto SS Nitrite Auto test strip Ql (U) Negative Normal Negativemg /dL [facility] UA Auto SS pH (U) 5.5 *NA* (11/16/23 9:39 AM) Invalid Interpretation Code 5.0 - 9.0 [facility] UA Auto SS Protein Ql (U) 1+ mg/dL Invalid Interpretation Code Negativemg /dL [facility] UA Auto SS RBC Ql (U) 0-3 graded/HPF Normal 0-3graded/ HPF [facility] UA Auto SS Specific gravity (U) [Rel density] 1.046 *NA* (11/16/23 9:39 AM) Invalid Interpretation Code 1.005 - 1.030 [facility] UA Auto SS Urobilinogen (U) [Mass/Vol] Negative Normal Negativemg /dL [facility] UA Auto SS WBC Auto (Urine sed) [#/Area] 6-15 graded/HPF Invalid Interpretation Code 0-5graded/ HPF [facility] UA Auto SS URINALYSISOrdered By: Kevin Ramos on 11-16-2023 UA Spec Desc Clean Catch (11/16/23 9:39 AM) Normal [facility] UA Auto SS Work Phone: Urinalysis with Microon 11-01 Bilirubin Ql (U) Negative Normal Negative [facility] Comment on above: Performed By: #### 4 [id number] #### [facility] [address] [place] [address] Clarity (U) Clear Normal Clear [facility] Comment on above: Performed By: #### 4 [id number] #### [facility] [address] [place] [address] Color (U) Yellow Normal Yellow [facility] Comment on above: Result Comment: Micr oscopic readings are only performed on those samples that meet specific criteria set forth by [facility]. Performed By: #### 4 [id number] #### [facility] [address] [place] [address] Epithelial cells.squamous Auto (Urine sed) [#/Area] 0-2 Invalid Interpretation Code [facility] Comment on above: Performed By: #### 4 [id number] #### [facility] [address] [place] [address] Glucose Ql (U) Negative Normal Negative [facility] Comment on above: Performed By: #### 4 [id number] #### [facility] [address] [place] [address] Hemoglobin Auto test strip (U) [Mass/Vol] Negative Normal Negative [facility] Comment on above: Performed By: #### 4 [id number] #### [facility] [address] [place] [address] Ketones Auto test strip Ql (U) Negative Normal Negative [facility] Comment on above: Performed By: #### 4 [id number] #### [facility] [address] [place] [address] Leukocyte esterase Auto test strip Ql (U) 25 Allie/uL Normal Negative [facility] Comment on above: Performed By: #### 4 [id number] #### [facility] [address] [place] [address] Mucus Auto Ql (U) 1+ Abnormal Negative [facility] Comment on above: Performed By: #### 4 [id number] #### [facility] [address] [place] [address] Nitrite Auto test strip Ql (U) Negative Normal Negative [facility] Comment on above: Performed By: #### 4 [id number] #### [facility] [address] [place] [address] pH (U) 5.5 [pH] Invalid Interpretation Code 5.0-9.0 [facility] Comment on above: Performed By: #### 4 [id number] #### [facility] [address] [place] [address] Protein Ql (U) Trace Abnormal Negative [facility] Comment on above: Performed By: #### 4 [id number] #### [facility] [address] [place] [address] RBC Ql (U) 0-3 Normal 0-3 [facility] Comment on above: Performed By: #### 4 [id number] #### [facility] [address] [place] [address] Specific gravity (U) [Rel density] OVER Invalid Interpretation Code 1.005-1.03 0 [facility] Comment on above: Performed By: #### 4 [id number] #### [facility] [address] [place] [address] Urobilinogen (U) [Mass/Vol] Negative Normal Negative [facility] Comment on above: Performed By: #### 4 [id number] #### [facility] [address] [place] [address] WBC Auto (Urine sed) [#/Area] 0-5 Normal 0-5 [facility] Comment on above: Performed By: #### 4 [id number] #### [facility] [address] [place] [address] Type of Urine collection method Hartman Normal [facility] Comment on above: Performed By: #### 4 [id number] #### [facility] [address] [place] [address] eGFRon 11-16-2023 eGFR 80 mL/min/1.73 m2 Normal >=59 [facility] Comment on above: Order Comment: Order added by Discern Expert. Performed By: #### 1 [id number] #### [facility] [address] [place] [address] Gastroenterology Office/Clin ic Noteon 06-15-2023 Gastroenterology Office/Clinic Note Chief Complaint idigestion and black tarry stools HPI Staff Patient is a 72 year old male who presents today for a f/u from [facility] 04/08/23 for indigestion and black tarry stools. He was taking pepto bismol - he stopped and it is back to normal. Takes Omeprazole 20mg daily. Only has heartburn when he eats spicy foods. Has a lot of stomach gurgling and has bloating. Takes Xarelto daily. XR chest 04/08/23: IMPRESSION: NO RADIOGRAPHIC EVIDENCE OF ACUTE INTRATHORACIC PROCESS. CTA chest 04/08/23: IMPRESSION: NO PULMONARY EMBOLISM OR ACUTE INTRATHORACIC PROCESS. EVIDENCE OF CORONARY ARTERY DISEASE. HEPATIC STEATOSIS. Laboratory Results CBC CMP PT PTT Basophil Absolute: 0.1 E9/L (04/08/23) A/G Ratio: 1.3 (04/08/23) INR: 1.5 (04/08/23) PTT: 49.5 second(s) High (04/08/23) Basophil Auto: 0.9 % (04/08/23) AGAP: 11 mEq/L (04/08/23) PT: 17.4 second(s) High (04/08/23) Eos Absolute: 0.1 E9/L (04/08/23) Albumin Lvl: 4.2 gm/dL (04/08/23) Eos Auto: 1.1 % (04/08/23) Alk Phos: 80 Int._Unit/L (04/08/23) Hct: 45.2 % (04/08/23) ALT: 20 Int._Unit/L (04/08/23) HGB: 14.7 gm/dL (04/08/23) AST: 15 Int._Unit/L (04/08/23) Lymph Absolute: 1.2 E9/L (04/08/23) Bili Total: 0.2 mg/dL (04/08/23) Lymph Auto: 16.9 % (04/08/23) BUN: 16 mg/dL (04/08/23) MCH: 29.7 pg (04/08/23) BUN/Creat Ratio: 16 (04/08/23) MCHC: 32.5 gm/dL (04/08/23) Calcium Lvl: 9.6 mg/dL (04/08/23) MCV: 91.4 fL (04/08/23) Chloride: 103 mmol/L (04/08/23) [place] Absolute: 0.7 E9/L (04/08/23) CO2: 31 mmol/L (04/08/23) [place] Auto: 9.4 % (04/08/23) Creatinine: 1 mg/dL (04/08/23) MPV: 8.1 fL (04/08/23) Globulin: 3.2 gm/dL (04/08/23) Neutro Absolute: 5.2 E9/L (04/08/23) Glucose Lvl: 95 mg/dL (04/08/23) Neutro Auto: 71.7 % (04/08/23) Potassium Lvl: 4 mmol/L (04/08/23) Platelet: 272 E9/L (04/08/23) Sodium Lvl: 141 mmol/L (04/08/23) RBC: 5 E12/L (04/08/23) Total Protein: 7.4 gm/dL (04/08/23) RDW: 13.7 % (04/08/23) WBC: 7.3 E9/L (04/08/23) History of Present Illness His symptoms resolved completely, but he wanted to come and make sure everything is okay He reports occasional heartburn, he takes omeprazole in the morning, helps controlling his symptoms for the most part Reports mostly acid burning after eating spicy food at dinner, no nocturnal symptoms No regurgitation No signs or symptoms of GI bleed Review of Systems PHQ Score Initial Depression Screen Score: 0 SCORE Physical Exam Vitals & Measurements HR: 70(Peripheral) RR: 18 BP: 136/88 HT: 69 in HT: 175 cm WT: 138 kg WT: 303.6 lb BMI: 45.06 Assessment/Plan 1. Indigestion (K30: Functional dyspepsia) Resolved, discussed switching omeprazole to before dinnertime Not interested in EGD for Gonsalez's esophagus screening or GERD evaluation Lifestyle modifications for GERD 2. Black tarry stools (K92.1: Melena) Likely related to Pepto-Bismol, no signs of GI bleeding, hemoglobin above 14 3. Screening for colon cancer He reported he had colonoscopy with polyps that were benign per his report years ago He had a Cologuard that was negative about 5 years ago and since then has been declining any further evaluation for screenings Still like to avoid any endoscopy right now Return to clinic as needed Follow-up No qualifying data available Problem List/Past Medical History Ongoing Abdominal pain Acute respiratory failure Black tarry stools Cardiac enzyme or marker above reference range Chronic obstructive lung disease Indigestion Long-term current use of anticoagulant Morbid obesity Myocardial infarction Pulmonary embolism Pulmonary hypertension Historical Inguinal hernia Venous thrombosis Procedure/Surgical History Colonoscopy, Tonsillectomy and adenoidectomy. Medications aspirin 81 mg oral tablet, 81 mg= 1 tab(s), Oral, Daily, Not taking Centrum Silver Men's, Oral, Daily famotidine 10 mg oral tablet, 10 mg= 1 tab(s), Oral, BID, Not taking omeprazole 10 mg Cap-EC, 10 mg= 1 cap(s), Oral, Daily Xarelto 20 mg oral tablet Allergies Coumadin (Rash) Plavix (Rash) Social History Alcohol - Low Risk, 09/04/2009 Current, 04/08/2023 Substance Abuse - Denies Substance Abuse, 09/04/2009 Current, 04/08/2023 Tobacco Former smoker, quit more than 30 days ago Tobacco Use:., 06/15/2023 Current, Cigarettes, 15 per day. 18 year(s). Started age 40.0 Years. Previous treatment: Hypnosis, Medications. Ready to change: No. Household tobacco concerns: No., 09/04/2009 Immunizations Vaccine Date Status Comments influenza virus vaccine, inactivated - Not Given Patient Refuses influenza virus vaccine, inactivated 01/25/2021 Recorded SARS-CoV-2 (COVID-19) mRNA-1273 vaccine 07/03/2020 Recorded SARS-CoV-2 (COVID-19) mRNA-1273 vaccine 06/04/2020 Recorded influenza virus vaccine, inactivated 01/07/2020 Recorded influenza virus vaccine, inactivated 01/19/2019 Recorded pneumococcal 13-valent vaccine 02/01/2018 Recorded influenza vi (more content not included)... Normal [facility] Comment on above: Result Comment: Elec tronically Signed By: Melchor RODRIGUEZ, Radha Hamilton\.br\Date and Time Signed: 06/15/23 14:48 EDT CTA Cheston 04-09-2023 CTA Chest Exam Date/Time: 04/08/2023 19:12 EST Reason for Exam: Pulmonary embolism (PE) suspected, high prob;Other (please specify) Report IMPRESSION: NO PULMONARY EMBOLISM OR ACUTE INTRATHORACIC PROCESS. EVIDENCE OF CORONARY ARTERY DISEASE. HEPATIC STEATOSIS. EXAM: CTA Chest History: Pulmonary embolism. Chest pressure. Technique: Multiple axial images were obtained of the thorax from the thoracic inlet through the upper abdomen With IV contrast. Multiplanar reformats were obtained including coronal maximum intensity projection images (MIPS). Comparison: Chest radiograph performed earlier on the same date Findings: Visualized portion of the thyroid gland is within normal limits. No axillary, mediastinal, or hilar lymphadenopathy. No thoracic aortic aneurysm or dissection. No filling defect within the pulmonary arteries. Heart size is within normal limits. No significant pericardial effusion. Coronary artery calcifications are identified. Esophagus is within normal limits. No pulmonary nodule or mass. No consolidation, pleural effusion, or pneumothorax. Linear bilateral lung base scarring and/or atelectasis. Visualized upper abdomen demonstrates no acute abnormality. Hepatic steatosis. No acute osseous abnormality. Degenerative changes of the spine. All CT scans at this facility use dose modulation, iterative reconstruction, and/or weight based dosing when appropriate to reduce radiation dose to as low as reasonably achievable. Ordering Provider: Urban Tucker FINAL REPORT Dictated: 04/09/2023 8:36 am Stanislav New DO Signed (Electronic Signature): 04/09/2023 8:36 am Signed by: Stanislav New DO Transcribed by: JASIEL Technologist: DARI Technical Comments GFR (mL/min/1/73m2) >60 Contrast: Isovue 370 Contrast amount in ml's: 83 Normal [facility] ED Note-Physicianon 04-09-19 ED Note-Physician Basic Information Time Seen: Urban Tucker PA-C 04/08/2023 17:27 Chief Complaint dark tarry stools since this am x 2. is on xarelto for hx PEs. Also took a large amount of pepto bismal two days ago for indigestion. c/o a pressure in left chest. History of Present Illness 72-year-old male presents ED with complaint of dark starry stools as well as indigestion. Patient reports that he has had indigestion over the last 2 or 3 days, has been taking large amount of Pepto-Bismol. Patient is on Xarelto for history of PEs. Patient is also complaining of some chest pressure which began shortly before presenting to the ED, though he does state that this is normal ongoing complaint for him where he experiences chest pressure occasionally. Patient is complaining of a left-sided chest pressure. Patient denies any history of heart disease that he knows of. Patient denies any history of hypertension or hyperlipidemia. Patient reports that he is a non-smoker of many years. Patient denies any shortness of breath. Patient has any cough, congestion, fevers. Patient endorses abdominal bloating, denies any significant abdominal pain. Patient denies any history of GI bleed, does endorse a history of esophagitis and GERD. Review of Systems Full 10 system ROS performed. Pt denies symptoms except as noted above in the HPI. Physical Exam Vitals & Measurements T: 36.6 ?C(Oral) HR: 98(Peripheral) RR: 20 BP: 135/76 SpO2: 94% HT: 175 cm WT: 139 kg BMI: 45.39 VITALS: I have reviewed the triage vital signs. GENERAL: Well developed, well appearing adult in no acute distress. NEURO: Alert and oriented. Moves all extremities. Face is symmetric and expressive. EYES: PERRL. No scleral icterus or conjunctival injection. No discharge. HENT: Normocephalic, atraumatic. Hearing is grossly intact. Nares grossly patent and without discharge. Mucous membranes moist. NECK: No JVD. Patient moves neck without restriction. CARDIO: Rhythm regular. Normal rate. No murmur, rub, or gallop. Pulses equal bilaterally in the upper and lower extremity. No lower extremity edema. PULM: Lungs clear to auscultation in all junior. No wheezes, rales, or rhonchi. No conversational dyspnea. No splinting, stridor, or accessory muscle use. GI/: Abdomen is soft and non-tender. Normoactive bowel sounds. EXTREMITIES: Symmetric muscle bulk. No joint swelling. No clubbing, cyanosis, or deformity. SKIN: Warm and dry. Normal turgor. No rash or lesions appreciated. PSYCH: Mood, affect, and interaction is appropriate to the setting. Medical Decision Making MEDICAL DECISION MAKING Number and Complexity of Problems Differential Diagnosis: [] [facility] Data External documents reviewed: [] My EKG interpretation: Consistent with previous My CT interpretation: CTA negative for findings suggestive of PE or other acute process. My X-ray interpretation: No acute findings on chest x-ray My Ultrasound interpretation: [] Decision rules/scores evaluated: Heart Score for Major Cardiac Event History: Example factors for history - pattern of chest pain, onset, duration, relation with exercise, stress or cold, localization, concominant symptoms. reaction to sublingual nitrates, [] Highly suspicious +2 [] Moderately suspicious +1 [x] Slightly suspicious 0 EKG: [] Significant ST-Depression +2 [] Non specific repolarization disturbance +1 [x] Normal 0 (consistent with previous) Age: [x] >= 65 +2 [] 45-65 + 1 [] <45 0 Risk Factors: (HLD, HTN, DM, Cigarette Smoking, Pos Family Hx, Obesity) [] >3 risk factors or hx of atheroslerotic disease + 2 [x] 1-2 risk factors + 1 (obesity) [] No risk factors known 0 Troponin: [] >= 3X normal + 2 [] 1-3X normal + 1 [x] <= Normal 0 Discussed with: [] Treatment and Disposition ED Course: Patient on Xarelto for history of PEs presents to ED with complaint of dark stool and indigestion. Patient declined a rectal exam for occult stool blood. Workup in ED reviewed and noted. Patient is not anemic. CTA performed due to history of PEs and chest pain, this was negative for PE or other acute process. Initial and 3-hour troponins were negative. Due to concern for GI bleed on Xarelto as well as chest pain, did recommend admission for patient. Patient was adamant that he wanted to return home, follow-up with GI in the outpatient setting. Given the fact the patient is hemodynamically stable, has not been tachycardic or hypotensive, is not anemic on his labs, I do not think this is an unreasonable option. Patient chest pain is reported to be chronic in nature. Despite age and obesity, patient does lack other serious risk factors, his heart score is only 3 indicating relatively low risk for major adverse cardiac event. I did discuss return precautions extensively with this patient. I also reiterated my offer of admission. Patient vehemently declined this. Return precautions discussed. Patient questions answered. Patient discharged home with follow- (more content not included)... Normal [facility] Comment on above: Result Comment: Elec tronically Signed By: Urban Tucker PA-C\.br\Date and Time Signed: 04/08/23 21:07 EST\.br\Electronically Co-Signed By: Edith Shaikh M.D.\.br\Date and Time Co-Signed: 04/09/23 07:01 EST XR Chest Single Viewon 04-09 XR Chest Single View Exam Date/Time: 04/08/2023 17:54 EST Reason for Exam: Chest pain Report IMPRESSION: NO RADIOGRAPHIC EVIDENCE OF ACUTE INTRATHORACIC PROCESS. EXAM: XR Chest Single View History: Chest pain Technique: Portable AP view of the chest. Comparison: None available Findings: Suboptimal inspiration. The cardiomediastinal silhouette is within normal limits. No pneumothorax, pleural effusion, or consolidation. No acute osseous abnormality. Ordering Provider: Urban Tucker FINAL REPORT Dictated: 04/09/2023 8:04 am Stanislav New DO Signed (Electronic Signature): 04/09/2023 8:04 am Signed by: Stanislav New DO Transcribed by: JASIEL Technologist: ZAYRA Technical Comments Radiation Dose: Ka,r in mGy = na DAP = na Normal [facility] ABO/Rhon 04-08-2023 ABO/Rh Positive Invalid Interpretation Code [facility] Comment on above: Performed By: #### 1 [id number], [id number], [id number], [id number] ####[facility] [address] [place] [address] ABO/Rh History Checkon 04-08 ABO/Rh History Check Patient discharged prior Normal [facility] Comment on above: Performed By: #### 1 [id number], [id number], [id number], 9867133 ####[facility] [address] [address] ABSCon 04-08-2023 ABSC Gel Interp Negative Normal [facility] Comment on above: Performed By: #### 1 [id number], [id number], 14487799, 8024587 ####[facility] [address] [place] [address] Auto Diffon 04-08-2023 Basophils/100 WBC (Bld) 0.9 % Normal 0.0-2.0 F [facility] Comment on above: Order Comment: Order Added by Discern Expert. Performed By: #### 1 9815127, 1740982, 87340802, 1800735, 23694266, 6187693, 7408170, 2139012 ####[facility] [address] [address] Basophils/Leukocytes Auto (Bld) [Pure # fraction] 0.1 E9/L Normal 0.0-0.2 [facility] Comment on above: Order Comment: Order Added by Discern Expert. Performed By: #### 1 2564216, 0114786, 08773980, 4007387, 86041190, 6421295, 2309306, 7401940 ####[place] [address] [place] [address] Eosinophils/100 WBC (Bld) 1.1 % Normal 0.0-8.0 [facility] Comment on above: Order Comment: Order Added by Discern Expert. Performed By: #### 1 4471911, 8695827, 03372053, 0021798, 45922247, 2392738, 4397774, 8037786 ####[address] [place] [address] Eosinophils/Leukocytes Auto (Bld) [Pure # fraction] 0.1 E9/L Normal 0.0-0.5 [facility] Comment on above: Order Comment: Order Added by Discern Expert. Performed By: #### 1 9812266, 5728681, 04881506, 6394932, 91138015, 0624773, 5176731, 6688474 ####[address] [address] Lymphocytes/100 WBC (Bld) 16.9 % Normal 14.0-50.0 [facility] Comment on above: Order Comment: Order Added by Discern Expert. Performed By: #### 1 4945454, 7026454, 62427240, 1540567, 25555013, 7427205, 5869141, 8446289 ####[address] [address] Lymphocytes/Leukocytes Auto (Bld) [Pure # fraction] 1.2 E9/L Normal 1.0-4.0 [facility] Comment on above: Order Comment: Order Added by Discern Expert. Performed By: #### 1 5277011, 7985077, 10324884, 4429552, 81657712, 9501438, 1265832, 2649359 ####[address] [address] Monocytes/100 WBC (Bld) 9.4 % Normal 4.0-14.0 [facility] Comment on above: Order Comment: Order Added by Discern Expert. Performed By: #### 1 9001911, 6051374, 46084183, 2813447, 88890538, 6753249, 2224017, 7891142 ####[facility] [address] [place] [address] Monocytes/Leukocytes Auto (Bld) [Pure # fraction] 0.7 E9/L Normal 0.2-1.0 [facility] Comment on above: Order Comment: Order Added by Discern Expert. Performed By: #### 1 8122285, 2484460, 28581919, 2389063, 26530964, 2137970, 5796707, 0124412 ####[facility] [address] [place] [address] Neutrophils/100 WBC (Bld) 71.7 % Normal 36.0-75.0 [facility] Comment on above: Order Comment: Order Added by Discern Expert. Performed By: #### 1 2508246, 2499763, 02532281, 7734710, 06483083, 7245014, 0242374, 1256047 ####[facility] [address] [place] [address] Neutrophils/Leukocytes Auto (Bld) [Pure # fraction] 5.2 E9/L Normal 2.0-7.5 [facility] Comment on above: Order Comment: Order Added by Discern Expert. Performed By: #### 1 5439981, 8617411, 74041289, 0875357, 74169233, 6444436, 2330383, 4725657 ####[address] [place] [address] BLOOD BANKOrdered By: Lynn Guevara on 04-08-2023 ABO/Rh Interp Positive Invalid Interpretation Code [facility] BB Subsection ABSC Gel Interp Negative (04/08/23 5:45 PM) Normal [facility] BB Subsection BMPon 04-08-2023 Anion gap [Moles/Vol] 11 mmol/L Normal 6-16 [facility] Comment on above: Performed By: #### 1 0821656, 6227058, 74830406, 7492880, 42252698, 8904986, 8885236, 6918858 ####[facility] [address] [place] [address] BUN/Creat Ratio 16 No Units Normal 10-20 [facility] Comment on above: Performed By: #### 1 0547465, 2485046, 78890886, 0251398, 95311687, 9854247, 9285146, 9609039 ####[facility] [address] [place] [address] Calcium [Mass/Vol] 9.6 mg/dL Normal 8.9-11.1 [facility] Comment on above: Performed By: #### 1 0174889, 0807829, 57464933, 5908276, 59399900, 5769178, 4304537, 3734194 ####[facility] [address] [place] [address] Chloride [Moles/Vol] 103 mmol/L Normal 101-111 [facility] Comment on above: Performed By: #### 1 8177207, 7672185, 75821023, 3681234, 71712896, 7479413, 0256415, 6477773 ####[facility] [address] [place] [address] CO2 [Moles/Vol] 31 mmol/L Normal 21-31 [facility] Comment on above: Performed By: #### 1 5814991, 0293412, 90852221, 8220358, 75860764, 5218770, 2022062, 8489197 ####[facility] [address] [place] [address] Creatinine [Mass/Vol] 1.0 mg/dL Normal 0.5-1.3 [facility] Comment on above: Performed By: #### 1 0740740, 1800686, 20258938, 1519369, 25034973, 0678683, 9668858, 8791636 ####[facility] [address] [place] [address] Glucose [Mass/Vol] 95 mg/dL Normal 55-199 [facility] Comment on above: Performed By: #### 1 8320513, 0633951, 75978993, 0414300, 10771496, 1395002, 1378468, 9697364 ####[facility] [address] [place] [address] Potassium [Moles/Vol] 4.0 mmol/L Normal 3.5-5.3 [facility] Comment on above: Performed By: #### 1 3536420, 7384443, 87279227, 5527921, 42349172, 7483025, 2063937, 9611504 ####[facility] [address] [place] [address] Sodium [Moles/Vol] 141 mmol/L Normal 135-145 [facility] Comment on above: Performed By: #### 1 6451688, 5516663, 36118389, 6733155, 42521593, 2317409, 6137001, 8541591 ####[address] [place] [address] Urea nitrogen [Mass/Vol] 16 mg/dL Normal 5-21 [facility] Comment on above: Performed By: #### 1 8687794, 8720332, 63981351, 8621964, 98487560, 4113869, 6627957, 1621257 ####[address] [place] [address] Blood Bank ID#on 04-08-2023 BBID# [id number] Invalid Interpretation Code [facility] Comment on above: Performed By: #### 1 9739767, 45531731, 47142519, 2366441 ####[address] [place] [address] CBC w/ Auto Diffon 4 Erythrocyte distribution width (RBC) [Ratio] 13.7 % Normal 10.9-14.2 [facility] Comment on above: Performed By: #### 1 4741159, 4630067, 21966875, 6161968, 41817857, 3271491, 9374347, 3866968 ####[address] [place] [address] Hematocrit (Bld) [Volume fraction] 45.2 % Normal 37.7-49.0 [facility] Comment on above: Performed By: #### 1 2923138, 2171375, 84025912, 6075027, 07781120, 2311411, 2165085, 2958870 ####[address] [place] [address] Hemoglobin (Bld) [Mass/Vol] 14.7 g/dL Normal 13.5-17.5 [facility] Comment on above: Performed By: #### 1 7370568, 4189752, 63269468, 2588552, 71277824, 2681205, 9975329, 5412162 ####[place] [address] MCH (RBC) [Entitic mass] 29.7 pg Normal 27.0-34.0 [facility] Comment on above: Performed By: #### 1 4513992, 0124606, 84420663, 2873163, 70008882, 3464215, 2164080, 2676322 ####[address] [place] [address] MCHC (RBC) [Mass/Vol] 32.5 g/dL Normal 31.4-36.0 [facility] Comment on above: Performed By: #### 1 6770324, 1700070, 62522919, 1225028, 54065034, 1540310, 4232642, 2290482 ####[address] [place] [address] MCV (RBC) [Entitic vol] 91.4 fL Normal 80.0-100.0 F [facility] Comment on above: Performed By: #### 1 7679641, 7313936, 59143025, 0397344, 66818465, 9998277, 1919551, 0904453 ####[address] [address] Platelet mean volume (Bld) [Entitic vol] 8.1 fL Normal 6.4-10.8 [facility] Comment on above: Performed By: #### 1 2841758, 9517590, 10108702, 8235892, 10039996, 5602650, 3960327, 8248204 ####[facility] [address] [place] [address] Platelets (Bld) [#/Vol] 272.0 E9/L Normal 150. 0-500. 0 [facility] Comment on above: Performed By: #### 1 2388407, 3899098, 54466781, 8337916, 36772631, 9483314, 6902687, 6478430 ####[facility] [address] [place] [address] RBC (Bld) [#/Vol] 5.0 E12/L Normal 4.3-5.9 [facility] Comment on above: Performed By: #### 1 5572523, 4559952, 62027503, 7385854, 85378706, 4388449, 8851411, 6933067 ####[facility] [address] [place] [address] WBC corrected for nucl RBC Auto (Bld) [#/Vol] 7.3 E9/L Normal 4.0-11.0 [facility] Comment on above: Performed By: #### 1 5750067, 7864387, 80045820, 8226960, 31775445, 9046404, 1754141, 2180640 ####[facility] [address] [place] [address] CHEMISTRYOrdered By: SYSTEM SYSTEM on 04-08-2023 Troponin 4.60 pg/mL Low 15.90 - 38.40 pg/mL [facility] Comment on above: Interpretive Data: T he 95% CI (Confidence Interval) PPV (Positive Predictive Value) for myocardial infarction in females is 38 pg/mL, in males 51 pg/mL. The results should be used in conjunction with clinical conditions of myocardial infarction. (Access High Sensitivity Troponin I Instructions For Use, Jad Ana Paula, November 2017) Albumin [Mass/Vol] 4.2 g/dL Normal 3.3 - 5.0 gm/dL [facility] Albumin/Globulin [Mass ratio] 1.3 {ratio} Normal 1.1 - 2.2 [facility] Alk Phos 80 [iU]/d Normal 21 - 98 Int._Unit/ L [facility] ALT 20 [iU]/d Normal 6 - 46 Int._Unit/ L [facility] Anion gap [Moles/Vol] 11 mmol/L Normal 6 - 16 mEq/L [facility] AST 15 [iU]/d Normal 5 - 43 Int._Unit/ L [facility] Bili Direct 0.1 mg/dL Normal 0.0 - 0.4 mg/dL [facility] Bili Indirect 0.1 mg/dL Normal 0.1 - 0.9 mg/dL [facility] Bili Total 0.2 mg/dL Normal 0.0 - 1.1 mg/dL [facility] Calcium [Mass/Vol] 9.6 mg/dL Normal 8.9 - 11. 1 mg/dL [facility] Chloride [Moles/Vol] 103 mmol/L Normal 101 - 1 11 mmol/L [facility] CO2 [Moles/Vol] 31 mmol/L Normal 21 - 31 mmol/L [facility] Creatinine [Mass/Vol] 1.0 mg/dL Normal 0.5 - 1.3 mg/dL [facility] eGFR mL/min/1.73 m2 Normal >=59mL/min /1.73 m2 [facility] Globulin (S) [Mass/Vol] 3.2 g/dL Normal 1.4 - 4.0 gm/dL [facility] Glucose [Mass/Vol] 95 mg/dL Normal 55 - 199 mg/dL [facility] Lipase Lvl 28 unit/L Normal 13 - 58 unit/L [facility] Potassium [Moles/Vol] 4.0 mmol/L Normal 3.5 - 5.3 mmol/L [facility] Protein [Mass/Vol] 7.4 g/dL Normal 6.0 - 7.8 gm/dL [facility] Sodium [Moles/Vol] 141 mmol/L Normal 135 - 145 mmol/L [facility] Troponin 4.80 pg/mL Low 15.90 - 38.40 pg/mL [facility] Comment on above: Interpretive Data: T юлия 95% CI (Confidence Interval) PPV (Positive Predictive Value) for myocardial infarction in females is 38 pg/mL, in males 51 pg/mL. The results should be used in conjunction with clinical conditions of myocardial infarction. (Access High Sensitivity Troponin I Instructions For Use, Jad Laura, November 2017) Urea nitrogen [Mass/Vol] 16 mg/dL Normal 5 - 21 mg/dL [facility] Urea nitrogen/Creatinine [Mass ratio] 16 mg/mg Normal 10 - 20 [facility] COAGULATIONOrdered By: Mariana Obrien on 04-08-2023 aPTT Coag (PPP) [Time] 49.5 s High 25.1 - 36.5 second(s) [facility] Auto Coag Comment on above: Interpretive Data: Kim pearson 15 days - 4 weeks 1 - 5 months 6 - 11 months 1 - 5 years 6 - 10 years 11 - 17 years PTT Mean: 35.4 (27.6-45.6) Mean: 33.5 (24.8-40.7) Mean: 32.4 (25.1-40.7) Mean: 31.6 (24.0-39.2) Mean: 31.6 (26.9-38.7) Mean: 31.0 (24.6-38.4) Pediatric Reference ranges were obtained from a study by Arvin Lopez et al. prepared from 1437 samples obtained at 7 different centers using the same coagulation reagent and instrumentation as [facility]. Currently there are no coagulation studies available worldwide for children to 14 days, and no normal ranges. Heparin therapeutic range (represented by Anti-Factor Xa activity of 0.2 - 0.4 U/mL) corresponds to PTT of 56.6 - 109.0 sec. INR Coag (PPP) [Relative time] 1.5 {INR} Invalid Interpretation Code [facility] Auto Coag Comment on above: Interpretive Data: I NR results are specifically intended to assess patients stabilized on long-term Anticoagulation therapy suggested INR s Less Intensive Anticoagulation 2.0 3.0 Conventional Range 3.0 4.5 PT Coag (PPP) [Time] 17.4 s High 9.4 - 1 2.5 second(s) [facility] Auto Coag Comment on above: Interpretive Data: 1 5 days - 4 weeks 1 - 5 months 6 -11 months 1 5 years 6 10 years 11 -17 years Mean: 11.2 (9.5 12.6) Mean: 11.0 (9.7 12.8) Mean: 11.0 (9.8 13.0) Mean: 11.3 (9.9 13.4) Mean: 11.7 (10.0 14.6) Mean: 11.8 (10.0 - 14.1) Pediatric Reference ranges were obtained from a study by Arvin Lopez et al. prepared from 1437 samples obtained at 7 different centers using the same coagulation reagent and instrumentation as [facility]. Currently there are no coagulation studies available worldwide for children to 14 days, and no normal ranges. Consent for Treatmenton Consent for Treatment [id number] Normal [facility] Discharge Instructionson Discharge Instructions [id number] Normal [facility] ED Clinical Summaryon 2023 ED Clinical Summary (Inserted Image. Toyin ble to display) [place] [id number] ED Clinical Summary Person Information Name: YANNICK CARDOSO [facility] Age: 72 Years : 1950 Sex: Male Language: Jordanian PCP: JS MENJIVAR MD Marital Status: Visit Id: Visit Reason: Dizziness; GI bleeding; Chest pain; POSSIBLY INTERNAL BLEEDING Speciality: Acuity: 2 Enc Type: Emergency Med Service: Emergency Arrival: 04/08/2023 17:06:19 Discharge: 04/08/2023 21:21:40 LOS: 000 04:15 Checkin: 04/08/2023 17:06:19 Checkout: 04/08/2023 21:21:40 Dispo Type: Home (Routine DC) EVENTS: Event Name Event Status Request Date/Time Start Date/Time Complete Date/Time Arrive Complete 04/08/2023 17:06:19 04/08/2023 17:06:19 04/08/2023 17:06:19 Document Home Meds Request 04/08/2023 17:06:19 Triage Complete 04/08/2023 17:06:19 04/08/2023 17:30:16 04/08/2023 17:30:16 Registration Complete 04/08/2023 17:11:54 04/08/2023 17:11:54 04/08/2023 17:11:54 Reg Complete Request 04/08/2023 17:11:54 Reg Bed Request Complete 04/08/2023 17:11:55 04/08/2023 17:11:55 04/08/2023 17:11:55 Bed Assign Complete 04/08/2023 17:23:39 04/08/2023 17:23:39 04/08/2023 17:23:39 Dr Exam Complete 04/08/2023 17:23:39 04/08/2023 17:27:31 04/08/2023 17:27:31 RN Exam Complete 04/08/2023 17:23:39 04/08/2023 17:44:05 04/08/2023 17:44:05 EKG Complete 04/08/2023 17:25:41 04/08/2023 17:34:54 Registration Request 04/08/2023 17:27:31 Dr Exam Complete 04/08/2023 17:31:06 04/08/2023 17:31:06 04/08/2023 17:31:06 Pending Labs Request 04/08/2023 17:41:44 Lab Request 04/08/2023 17:41:44 Urine Collect Request 04/08/2023 17:41:44 Patient Care Request 04/08/2023 17:41:44 RT Request 04/08/2023 17:41:44 X-Ray Complete 04/08/2023 17:41:44 04/08/2023 17:45:43 04/08/2023 17:54:56 Blood Collect Request 04/08/2023 17:41:44 Fall Risk Request 04/08/2023 17:44:05 Pending Labs Complete 04/08/2023 17:51:22 04/08/2023 17:51:22 04/08/2023 18:15:34 Lab Complete 04/08/2023 17:51:22 04/08/2023 17:51:22 04/08/2023 18:15:34 Wet Read Request 04/08/2023 17:54:56 Pending Labs Complete 04/08/2023 18:05:04 04/08/2023 18:05:04 04/08/2023 18:05:12 Lab Complete 04/08/2023 18:05:04 04/08/2023 18:05:04 04/08/2023 18:05:12 CT Complete 04/08/2023 18:38:47 04/08/2023 19:00:52 04/08/2023 19:12:48 Pending Labs Complete 04/08/2023 19:36:02 04/08/2023 19:36:02 04/08/2023 19:36:02 Discharge Complete 04/08/2023 21:05:18 04/08/2023 21:21:45 04/08/2023 21:21:45 Transfer Complete 04/08/2023 21:21:45 04/08/2023 21:21:45 04/08/2023 21:21:45 ADDRESS: [address] [place] [id number] PHYS DOC NOTES: MEDICAL INFORMATION: Prescriptions Given: New Medications Printed Prescriptions famotidine (famotidine 10 mg oral tablet) 1 Tablets By Mouth 2 times a day. Refills: 0. omeprazole (omeprazole 10 mg Cap-EC) 1 Capsules By Mouth every day. Refills: 0. sucralfate (sucralfate 1 g Tab) 1 Tablets By Mouth 4 times a day for 7 Days. Refills: 0. Medications to Continue with No Changes Other Medications aspirin (aspirin 81 mg oral tablet) 1 Tablets By Mouth every day. multivitamin with minerals (Centrum Silver Men's) By Mouth every day. PATIENT EDUCATION INFORMATION: Instructions: Indigestion Follow up: With: Address: When: Radha Johnson, [address], [address] [address] [phone] Business (1) In 3 days 04/11/2023 Comments: Follow-up for ongoing issues with indigestion as well as dark stool in the context of Xarelto With: Address: When: JS MENJIVAR [address] [place] [id number] Business (1) In 3 days 04/11/2023 Comments: Call the office of your primary care doctor to arrange for follow-up within the above-stated timeframe. Follow-up with your primary care doctor about this ED visit. You should review your labs, imaging, and diagnoses from this ED visit with your primary care physician. If you were prescribed medications you should discuss possible side-effects and drug interactions with your pharmacist. Call 911 or go to the nearest Emergency Department if you develop any new or worsening symptoms. DIAGNOSIS: Chest pain; Dark stools; Dyspepsia Normal [facility] ED Patient Education Noteon 04-08-2023 ED Patient Education Note Gastroenterology Indigestion Indigestion is a feeling of pain, discomfort, burning, or fullness in the upper part of your abdomen. It can come and go. It may occur frequently or rarely. Indigestion tends to occur while you are eating or right after you have finished eating. It may be worse at night and while bending over or lying down. Indigestion may be a symptom of an underlying digestive condition. Follow these instructions at home: Eating and drinking ? Follow an eating plan as recommended by your health care provider. ? Avoid certain foods and drinks as told by your health care provider. This may include: ? Chocolate and cocoa. ? Peppermint and mint flavorings. ? Garlic and onions. ? Horseradish. ? Spicy and acidic foods, including peppers, chili powder, meraz powder, vinegar, hot sauces, and barbecue sauce. ? [place] fruits, such as oranges, yaya, and limes. ? Tomato-based foods, such as red sauce, chili, salsa, and pizza with red sauce. ? Fried and fatty foods, such as donuts, czech fries, potato chips, and high-fat dressings. ? High-fat meats, such as hot dogs and fatty cuts of red and white meats, such as rib eye steak, sausage, ham, and winn. ? High-fat dairy items, such as whole milk, butter, and cream cheese. ? Coffee and tea, with or without caffeine. ? Drinks that contain alcohol. ? Energy drinks and sports drinks. ? Carbonated drinks or sodas. ? [place] fruit juices. ? Eat small, frequent meals instead of large meals. ? Avoid drinking large amounts of liquid with your meals. ? Avoid eating meals during the 2?3 hours before bedtime. ? Avoid lying down right after you eat. ? Avoid exercise for 2 hours after you eat. Lifestyle ? Maintain a healthy weight. Ask your health care provider what weight is healthy for you. If you need to lose weight, work with your health care provider to do so safely. ? Exercise for at least 30 minutes on 5 or more days each week, or as told by your health care provider. Avoid exercises that include bending forward. This can make your symptoms worse. ? Wear loose-fitting clothing. Do not wear anything tight around your waist that causes pressure on your abdomen. ? Do not use any products that contain nicotine or tobacco. These products include cigarettes, chewing tobacco, and vaping devices, such as e-cigarettes. These can make symptoms worse. If you need help quitting, ask your health care provider. ? Raise (elevate) the head of your bed about 6 inches (15 cm) when you sleep. You can use a wedge to do this. ? Try to reduce your stress, such as with yoga or meditation. If you need help reducing stress, ask your health care provider. General instructions ? Take yhjv-ixx-nhtosyd and prescription medicines only as told by your health care provider. ? Do not take aspirin or NSAIDs, such as ibuprofen, unless your health care provider told you to take them. ? Pay attention to any changes in your symptoms. ? Keep all follow-up visits. This is important. Contact a health care provider if: ? You have new symptoms. ? You have unexplained weight loss. ? You have difficulty swallowing, or it hurts to swallow. ? Your symptoms do not improve with treatment. ? Your symptoms last for more than 2 days. ? You have a fever. ? You vomit. Get help right away if: ? You suddenly have pain in your arms, neck, jaw, teeth, or back. ? You suddenly feel sweaty, dizzy, or light-headed. ? You faint. ? You have chest pain or shortness of breath. ? You cannot stop vomiting, or you vomit blood. ? Your stool is bloody or black. ? You have severe pain in your abdomen. These symptoms may represent a serious problem that is an emergency. Do not wait to see if the symptoms will go away. Get medical help right away. Call your local emergency services (911 in the [place] Do not drive yourself to the hospital. Summary ? Indigestion is a feeling of pain, discomfort, burning, or fullness in the upper part of your abdomen. It tends to occur while you are eating or right after you have finished eating. ? Follow an eating plan and other lifestyle changes as told by your health care provider. ? Take pzef-psg-ebtkjxd and prescription medicines only as told by your health care provider. Do not take aspirin or NSAIDs, such as ibuprofen, unless your health care provider told you to do so. ? Contact your health care provider if your symptoms do not get better or they get worse. Some symptoms may represent a serious problem that is an emergency. Do not wait to see if the symptoms will go away. Get medical help right away. This information is not intended to replace advice given to you by your health care provider. Make sure you discuss any questions you have with your health care provider. Document Revised: 09/23/2020 Document Reviewed: 09/23/2020 Elsevier Patient Education ? 2022 (more content not included)... Normal [facility] ED Patient Summaryon 024 ED Patient Summary (Inserted Image. Toyin ble to display) [place] [address] Patient Discharge Instructions Person Information Name: YANNICK CARDOSO Age: 72 Years Arrival Date: 04/08/2023 17:06:19 Discharge Diagnosis: Chest pain; Dark stools; Dyspepsia Primary Care Physician: JS MENJIVAR MD Provider Information Primary Provider: Edith Shaikh M.D. Advanced Nuclear Operator:Urban Tucker PA-C The exam and treatment you received in the Emergency Department were for an urgent problem and are not intended as complete care. It is important that you follow up with a doctor, nurse practitioner, or physician?s public services assistant for ongoing care. If your symptoms become worse or you do not improve as expected and you are unable to reach your usual health care provider, you should return to the Emergency Department. We are available 24 hours a day. YANNICK CARDOSO has been given the following list of patient education materials, prescriptions and follow-up instructions: Follow-up Instructions: With: Address: When: Radha Johnson, [address], [address] [address] [phone] Business (1) In 3 days 04/11/2023 Comments: Follow-up for ongoing issues with indigestion as well as dark stool in the context of Xarelto With: Address: When: JS MENJIVAR [address] [place] [address] Business (1) In 3 days 04/11/2023 Comments: Call the office of your primary care doctor to arrange for follow-up within the above-stated timeframe. Follow-up with your primary care doctor about this ED visit. You should review your labs, imaging, and diagnoses from this ED visit with your primary care physician. If you were prescribed medications you should discuss possible side-effects and drug interactions with your pharmacist. Call 911 or go to the nearest Emergency Department if you develop any new or worsening symptoms. In the event that this physician does not participate in your insurance network, please consult with your insurance company to find a nearby participating provider. Patient Education Materials: Indigestion A MESSAGE TO ALL PATIENTS REGARDING OPIOIDS PRESCRIPTION OPIOIDS: WHAT YOU NEED TO KNOW Prescription opioids can be used to help relieve idsfulgm-ja-zlplwm pain and are often prescribed following a surgery or injury, or for certain health conditions. These medications can be an important part of the treatment but also come with serious risks. It is important to work with your healthcare provider to make sure you are getting the safest, most effective care. WHAT ARE THE RISKS AND SIDE EFFECTS OF OPIOID USE? Prescription opioids carry serious risks of addiction and overdose, especially with prolonged use. An opioid overdose, often marked by slowed breathing, can cause sudden . The use of prescription opioids can have a number of side effects as well, even when taken as directed: ? Tolerance?meaning you might need to take more of the medication for the same pain relief ? Physical dependence?meaning you have symptoms of withdrawal when a medication is stopped ? Increased sensitivity to pain ? Constipation ? Nausea, vomiting, and dry mouth ? Sleepiness and dizziness ? Confusion ? Depression ? Low levels of testosterone that can result in lower sex drive, energy, and strength ? Itching and sweating RISKS ARE GREATER WITH: ? History of drug misuse, substance use disorder, or overdose ? Mental health conditions (such as depression or anxiety) ? Sleep apnea ? Older age (65 years and older) ? Avoid alcohol while taking prescription opioids. Also, unless specifically advised by your health care provider, medications to avoid include: ? Benzodiazepines (such as Xanax or Valium) ? Muscle relaxants (such as Soma or Flexeril) ? Hypnotics (such as Ambien or Lunesta) ? Other prescription opioids KNOW YOUR OPTIONS Talk to your health care provider about ways to manage your pain that don?t involve prescription opioids. Some of these options may actually work better and have fewer risks and side effects. Options may include: ? Pain relievers such as acetaminophen, ibuprofen, and naproxen ? Some medication that are also used for depression or seizures ? Physical therapy and exercise ? Cognitive behavioral therapy, a psychological, goal-directed approach, in which patients learn how to modify physical, behavioral, and emotional triggers of pain and stress. IF YOU ARE PRESCRIBED OPIOIDS FOR PAIN: ? Never take opioids in greater amounts or more often than prescribed. ? Follow up with your primary health care provider. o Work together to create a plan on how to manage your pain. o Talk about ways to help manage your pain that don?t involve prescription opioids. o Talk about any and all concerns and side effects. ? Help prevent misuse and abuse o Never sell (more content not included)... Normal [facility] HEMATOLOGYOrdered By: SYSTEM SYSTEM on 04-08-2023 Basophils/100 WBC (Bld) 0.9 % Normal 0.0 - 2.0 % [facility] Basophils/Leukocytes Auto (Bld) [Pure # fraction] 0.1 E9/L Normal 0.0 - 0.2 E9/L [facility] Eosinophils/100 WBC (Bld) 1.1 % Normal 0.0 - 8.0 % [facility] Eosinophils/Leukocytes Auto (Bld) [Pure # fraction] 0.1 E9/L Normal 0.0 - 0.5 E9/L [facility] Lymphocytes/100 WBC (Bld) 16.9 % Normal 14.0 - 50.0 % [facility] Lymphocytes/Leukocytes Auto (Bld) [Pure # fraction] 1.2 E9/L Normal 1.0 - 4.0 E9/L [facility] Monocytes/100 WBC (Bld) 9.4 % Normal 4.0 - 14.0 % [facility] Monocytes/Leukocytes Auto (Bld) [Pure # fraction] 0.7 E9/L Normal 0.2 - 1.0 E9/L [facility] Neutrophils/100 WBC (Bld) 71.7 % Normal 36.0 - 75.0 % [facility] Neutrophils/Leukocytes Auto (Bld) [Pure # fraction] 5.2 E9/L Normal 2.0 - 7.5 E9/L [facility] HEMATOLOGYOrdered By: Lynn Guevara on 04-08-2023 Erythrocyte distribution width (RBC) [Ratio] 13.7 % Normal 10.9 - 14.2 % [facility] Hematocrit (Bld) [Volume fraction] 45.2 % Normal 37.7 - 49.0 % [facility] Hemoglobin (Bld) [Mass/Vol] 14.7 g/dL Normal 13.5 - 17.5 gm/dL [facility] MCH (RBC) [Entitic mass] 29.7 pg Normal 27.0 - 34.0 pg [facility] MCHC (RBC) [Mass/Vol] 32.5 g/dL Normal 31.4 - 36.0 gm/dL [facility] MCV (RBC) [Entitic vol] 91.4 fL Normal 80.0 - 100.0 fL [facility] Platelet mean volume (Bld) [Entitic vol] 8.1 fL Normal 6.4 - 10.8 fL [facility] Platelets (Bld) [#/Vol] 272.0 E9/L Normal 150. 0 - 500.0 E9/L [facility] RBC (Bld) [#/Vol] 5.0 E12/L Normal 4.3 - 5.9 E12/L [facility] WBC corrected for nucl RBC Auto (Bld) [#/Vol] 7.3 E9/L Normal 4.0 - 11.0 E9/L [facility] Hep Func Panelon 04-08-2023 Albumin [Mass/Vol] 4.2 g/dL Normal 3.3-5.0 [facility] Comment on above: Performed By: #### 1 [id number], 6544947, 38873222, 3469995, 17754978, 0127527, 8624499, 4669895 ####[facility] [address] [place] [address] Albumin/Globulin [Mass ratio] 1.3 {ratio} Normal 1.1-2.2 [facility] Comment on above: Performed By: #### 1 6640076, 4296260, 67605347, 6438261, 08167821, 3460888, 2205356, 8397772 ####[place] [address] [place] [address] Alk Phos 80 Int._Unit/L Normal 21-98 [facility] Comment on above: Performed By: #### 1 9270474, 5010538, 08500423, 4738455, 01118691, 9746180, 1025136, 2287755 ####[address] [address] ALT 20 Int._Unit/L Normal 6-46 [facility] Comment on above: Performed By: #### 1 0254664, 8985064, 22798490, 8070687, 28167849, 8432734, 5812227, 3108109 ####[place] [address] [place] [address] AST 15 Int._Unit/L Normal 5-43 [facility] Comment on above: Performed By: #### 1 8243219, 4324494, 30727662, 2648530, 79581186, 2026207, 4321224, 2443539 ####[place] [address] [place] [address] Bili Direct 0.1 mg/dL Normal 0.0-0.4 [facility] Comment on above: Performed By: #### 1 5376527, 3194778, 39523291, 7026063, 05148527, 5356489, 3642992, 1321739 ####[facility] [address] [place] [address] Bili Indirect 0.1 mg/dL Normal 0.1-0.9 [facility] Comment on above: Performed By: #### 1 2876026, 9025400, 15254013, 2003917, 60001592, 9434099, 8123928, 2588210 ####[facility] [address] [place] [address] Bili Total 0.2 mg/dL Normal 0.0-1.1 [facility] Comment on above: Performed By: #### 1 8003381, 6207669, 31500198, 7024303, 89385181, 1069279, 2961946, 7989657 ####[place] [address] [place] [address] Globulin (S) [Mass/Vol] 3.2 g/dL Normal 1.4-4.0 [facility] Comment on above: Performed By: #### 1 2067694, 4958301, 61174788, 5612107, 31440572, 4066309, 1914611, 2381140 ####[place] [address] [place] [address] Protein [Mass/Vol] 7.4 g/dL Normal 6.0-7.8 [facility] Comment on above: Performed By: #### 1 8796140, 4193248, 00247780, 9314879, 80675016, 9194494, 7995938, 3461468 ####[facility] [address] [place] [address] Lipase Levelon 04-08-2023 Lipase Lvl 28 unit/L Normal 13-58 [facility] Comment on above: Performed By: #### 1 8925604, 7768642, 82334247, 0648846, 09095219, 7406865, 3727591, 5636750 ####[facility] [address] [place] [address] Monitor Recordon 04-08-2023 Monitor Record [id number]#1.00TIFF Normal [facility] Monitor Record [id number]#1.00TIFF Normal [facility] Monitor Record [id number]#1.00TIFF Normal [facility] Monitor Record [id number]#1.00TIFF Normal [facility] Monitor Record [id number]#1.00TIFF Normal [facility] PT & PTTon 04-08-2023 aPTT Coag (PPP) [Time] 49.5 second(s) High 25.1-36.5 [facility] Comment on above: Result Comment: Para meter 15 days - 4 weeks 1 - 5 months 6 - 11 months 1 - 5 years 6 - 10 years 11 - 17 years PTT Mean: 35.4 (27.6-45.6) Mean: 33.5 (24.8-40.7) Mean: 32.4 (25.1-40.7) Mean: 31.6 (24.0-39.2) Mean: 31.6 (26.9-38.7) Mean: 31.0 (24.6-38.4) Pediatric Reference ranges were obtained from a study by Arvin Lopez et al. prepared from 1437 samples obtained at 7 different centers using the same coagulation reagent and instrumentation as [facility]. Currently there are no coagulation studies available worldwide for children to 14 days, and no normal ranges. Heparin therapeutic range (represented by Anti-Factor Xa activity of 0.2 - 0.4 U/mL) corresponds to PTT of 56.6 - 109.0 sec. Performed By: #### 1 0535250, 5502124, 13112120, 6275460, 23691116, 3375214, 5504790, 7410117 ####[facility] [address] [place] [address] INR Coag (PPP) [Relative time] 1.5 {INR} Invalid Interpretation Code [facility] Comment on above: Result Comment: INR results are specifically intended to assess patients stabilized on long-term Anticoagulation therapy suggested INR?s ?Less Intensive Anticoagulation? 2.0 ? 3.0 Conventional Range 3.0 ? 4.5 Performed By: #### 1 1060990, 3493310, 30854184, 2954530, 68944490, 2246115, 2482243, 8703832 ####[facility] [address] [place] [address] PT Coag (PPP) [Time] 17.4 second(s) High 9.4-12.5 [facility] Comment on above: Result Comment: 15 d ays - 4 weeks 1 - 5 months 6 -11 months 1 ? 5 years 6 ? 10 years 11 -17 years Mean: 11.2 (9.5 ? 12.6) Mean: 11.0 (9.7 ? 12.8) Mean: 11.0 (9.8 ? 13.0) Mean: 11.3 (9.9 ? 13.4) Mean: 11.7 (10.0 ? 14.6) Mean: 11.8 (10.0 - 14.1) Pediatric Reference ranges were obtained from a study by Arvin Lopez et al. prepared from 1437 samples obtained at 7 different centers using the same coagulation reagent and instrumentation as [facility]. Currently there are no coagulation studies available worldwide for children to 14 days, and no normal ranges. Performed By: #### 1 4134446, 7386519, 24444040, 4906575, 76006036, 0381796, 3530659, 0083833 ####[facility] [address] [place] [address] RAD - Preliminary Cat Scan R eporton 04-08-2023 RAD - Preliminary Cat Scan Report [id number]#1.00TIFF Normal [facility] Troponin 0 Hr.on 04-08-2023 Troponin 4.80 pg/mL Low 15.90-38.4 0 [facility] Comment on above: Result Comment: The 95% CI (Confidence Interval) PPV (Positive Predictive Value) for myocardial infarction in females is 38 pg/mL, in males 51 pg/mL. The results should be used in conjunction with clinical conditions of myocardial infarction. (Access High Sensitivity Troponin I Instructions For Use, [employer], November 2017) Performed By: #### 1 0905558, 4176153, 62122899, 4044597, 22580023, 6850154, 8309008, 6190988 ####[facility] [address] [place] [address] Troponin 3 Hr.on 04-08-2023 Troponin 4.60 pg/mL Low 15.90-38.4 0 [facility] Comment on above: Result Comment: The 95% CI (Confidence Interval) PPV (Positive Predictive Value) for myocardial infarction in females is 38 pg/mL, in males 51 pg/mL. The results should be used in conjunction with clinical conditions of myocardial infarction. (Access High Sensitivity Troponin I Instructions For Use, [employer], November 2017) Performed By: #### 1 [id number] ####[facility] [address] [place] [address] eGFRon 04-08-2023 GFR/1.73 sq M.predicted among non-blacks MDRD (S/P/Bld) [Vol rate/Area] mL/min/{1.73_m2} Normal >=59 [facility] Comment on above: Order Comment: Order added by Discern Expert. Performed By: #### 1 4395305, 1180839, 97238760, 3145708, 77194317, 0871867, 8060898, 6329769 ####[facility] [address] [place] [address] Activated partial thrombopla stin time (aPTT) in platelet poor plasma by coagulation aOrdered By: Melissa Tejeda on 02-14-2023 aPTT Coag (PPP) [Time] 31.2 s 25.1-36.5 [facility] Comment on above: A hematocrit value g reater than 55% may lead to inaccurate results in coagulation testing. Patients having hematocrit values >55% require a special collection tube for coagulation studies. Please contact the laboratory at [phone] for redraw instructions. Basophils Auto (Bld) [#/Vol] Ordered By: Melissa Tejeda on 02-14-2023 Basophils (Bld) [#/Vol] 0.0 10*3/uL 0.0-0.2 [facility] Basophils/100 WBC Auto (Bld) Ordered By: Melissa Tejeda on 02-14-2023 Basophils/100 WBC (Bld) 0.7 % . [facility] Complete Blood Count Auto Di ffon 02-14-2023 Basophils (Bld) [#/Vol] 0.0 10*3/uL Normal 0.0-0.2 [facility] Comment on above: Result Comment: PERF ORMED BY: [place] [address] PATHOLOGIST ASSOCIATE PROFESSOR OF [employer] M.D. Performed By: #### B MP, MG, LIPID #### [address] Basophils/100 WBC (Bld) 0.7 % Normal . [facility] Comment on above: Performed By: #### B MP, MG, LIPID #### [facility] [address] [place] [address] Eosinophils (Bld) [#/Vol] 0.1 10*3/uL Normal 0.0-0.45 [facility] Comment on above: Performed By: #### B MP, MG, LIPID #### [address] Eosinophils/100 WBC (Bld) 2.1 % Normal . [facility] Comment on above: Performed By: #### B MP, MG, LIPID #### [facility] [address] [place] [address] Erythrocyte distribution width (RBC) [Ratio] 13.6 % Normal 12.0-14.8 [facility] Comment on above: Performed By: #### B MP, MG, LIPID #### [facility] [address] [place] [address] Hematocrit (Bld) [Volume fraction] 39.5 % Normal 38.8-50.0 [facility] Comment on above: Performed By: #### B MP, MG, LIPID #### [address] Hemoglobin (Bld) [Mass/Vol] 13.0 g/dL Normal 13.0-17.0 [facility] Comment on above: Performed By: #### B MP, MG, LIPID #### [address] Lymphocytes (Bld) [#/Vol] 1.2 10*3/uL Normal 1.00-4.8 [facility] Comment on above: Performed By: #### B MP, MG, LIPID #### [address] Lymphocytes/100 WBC (Bld) 20.0 % Normal . [facility] Comment on above: Performed By: #### B MP, MG, LIPID #### [address] MCH (RBC) [Entitic mass] 30.2 pg Normal 27.5-35.2 [facility] Comment on above: Performed By: #### B MP, MG, LIPID #### [address] MCV (RBC) [Entitic vol] 92.1 fL Normal 83.5-101 [facility] Comment on above: Performed By: #### B MP, MG, LIPID #### [address] Mean Corpuscular HGB Conc 32.8 g/dL Normal 32.5-35.6 [facility] Comment on above: Performed By: #### B MP, MG, LIPID #### [place] [address] [place] Monocytes (Bld) [#/Vol] 0.7 10*3/uL Normal 0.0-0.8 [facility] Comment on above: Performed By: #### B MP, MG, LIPID #### [address] Monocytes/100 WBC (Bld) 11.9 % Normal . [facility] Comment on above: Performed By: #### B MP, MG, LIPID #### [facility] [address] [place] [address] [place] Neutrophils (Bld) [#/Vol] 3.8 10*3/uL Normal 1.8-7.7 [facility] Comment on above: Performed By: #### B MP, MG, LIPID #### [facility] [address] [place] [address] [place] Neutrophils/100 WBC (Bld) 65.3 % Normal . [facility] Comment on above: Performed By: #### B MP, MG, LIPID #### [facility] [address] NRBC% 0.1 /100{WBC} Normal 0-0.5 [facility] Comment on above: Performed By: #### B MP, MG, LIPID #### [facility] [address] Platelet mean volume (Bld) [Entitic vol] 8.1 fL Normal 6.6-10.1 [facility] Comment on above: Performed By: #### B MP, MG, LIPID #### [facility] [address] [place] [address] [place] Platelets (Bld) [#/Vol] 143 10*3/uL Low 150-450 [facility] Comment on above: Performed By: #### B MP, MG, LIPID #### [facility] [address] [place] [address] [place] RBC (Bld) [#/Vol] 4.29 10*6/uL Normal 3.90-5.60 [facility] Comment on above: Performed By: #### B MP, MG, LIPID #### [facility] [address] [place] [address] [place] WBC (Bld) [#/Vol] 5.8 10*3/uL Normal 4.1-10.5 [facility] Comment on above: Performed By: #### B MP, MG, LIPID #### [facility] [address] [place] [address] [place] Eosinophils Auto (Bld) [#/Vo l]Ordered By: Melissa Tejeda on 02-14-2023 Eosinophils (Bld) [#/Vol] 0.1 10*3/uL 0.0-0.45 [facility] [facility] Eosinophils/100 WBC Auto (Bl d)Ordered By: Melissa Tejeda on 02-14-2023 Eosinophils/100 WBC (Bld) 2.1 % . [facility] Erythrocyte distribution wid th Auto (RBC) [Ratio]Ordered By: Melissa Tejeda on 02-14-2023 Erythrocyte distribution width (RBC) [Ratio] 13.6 % 12.0-14.8 [facility] Hematocrit Auto (Bld) [Volum e fraction]Ordered By: Melissa Tejeda on 02-14-2023 Hematocrit (Bld) [Volume fraction] 39.5 % 38.8-50.0 [facility] Hemoglobin [Mass/volume] in BloodOrdered By: Melissa Tejeda on 02-14-2023 Hemoglobin (Bld) [Mass/Vol] 13.0 g/dL 13.0-17.0 [facility] INR in Platelet poor plasma by Coagulation assayOrdered By: Melissa Tejeda on 02-14-2023 INR Coag (PPP) [Relative time] 1.4 {INR} [facility] Comment on above: INR Therapeutic Rang e A) Pre- and Peroperative OAT started two weeks before surgery. NOT HIP SURGERY: 1.5 - 2.5 HIP SURGERY: 2 - 3B) Primary and secondary prevention of venous THROMBOSIS: 2 - 3C) Active venous thrombosis, pulmonary embolismand prevention of recurrent venous thrombosis: 2 - 3D) Prevention of arterial thromboembolismincluding patients with mechanical heart valves: 3 - 4.5 Leukocytes [#/volume] correc stevenson for nucleated erythrocytes in Blood by Automated counOrdered By: Melissa Tejeda on 02-14-2023 WBC corrected for nucl RBC Auto (Bld) [#/Vol] 5.8 10*3/uL 4.1-10.5 [facility] Lymphocytes Auto (Bld) [#/Vo l]Ordered By: Melissa Tejeda on 02-14-2023 Lymphocytes (Bld) [#/Vol] 1.2 10*3/uL 1.00-4.8 [facility] Lymphocytes/100 WBC Auto (Bl d)Ordered By: Melissa Tejeda on 02-14-2023 Lymphocytes/100 WBC (Bld) 20.0 % . [facility] MCH Auto (RBC) [Entitic mass ]Ordered By: Melissa Tejeda on 02-14-2023 MCH (RBC) [Entitic mass] 30.2 pg 27.5-35.2 [facility] MCHC Auto (RBC) [Mass/Vol]Or dered By: Melissa Tejeda on 02-14-2023 MCHC (RBC) [Mass/Vol] 32.8 g/dL 32.5-35.6 [facility] MCV Auto (RBC) [Entitic vol] Ordered By: Melissa Tejeda on 02-14-2023 MCV (RBC) [Entitic vol] 92.1 fL 83.5-101 [facility] Monocytes Auto (Bld) [#/Vol] Ordered By: Melissa Tejeda on 02-14-2023 Monocytes (Bld) [#/Vol] 0.7 10*3/uL 0.0-0.8 [facility] Monocytes/100 WBC Auto (Bld) Ordered By: Melissa Tejeda on 02-14-2023 Monocytes/100 WBC (Bld) 11.9 % . [facility] Neutrophils Auto (Bld) [#/Vo l]Ordered By: Melissa Tejeda on 02-14-2023 Neutrophils (Bld) [#/Vol] 3.8 10*3/uL 1.8-7.7 [facility] Neutrophils/100 WBC Auto (Bl d)Ordered By: Melissa Tejeda on 02-14-2023 Neutrophils/100 WBC (Bld) 65.3 % . [facility] Nucleated erythrocytes [Pres ence] in Blood by Automated countOrdered By: Melissa Tejeda on 02-14-2023 Nucleated RBC Auto Ql (Bld) 0.1 /100{WBC} 0-0.5 [facility] Partial Thromboplastin Timeo n 02-14-2023 aPTT Coag (Bld) [Time] 31.2 s Normal 25.1-36.5 [facility] Comment on above: Result Comment: A he matocrit value greater than 55% may lead to inaccurate results in coagulation testing. Patients having hematocrit values >55% require a special collection tube for coagulation studies. Please contact the laboratory at [phone] for redraw instructions. PERFORMED BY: [place] [id number] PATHOLOGIST ASSOCIATE PROFESSOR OF [employer] M.D. Performed By: #### B MP, MG, LIPID #### [place] [id number] [facility] Platelet mean volume Auto (B ld) [Entitic vol]Ordered By: Melissa Tejeda on 02-14-2023 Platelet mean volume (Bld) [Entitic vol] 8.1 fL 6.6-10.1 [facility] Platelets Auto (Bld) [#/Vol] Ordered By: Melissa Tejeda on 02-14-2023 Platelets (Bld) [#/Vol] 143 10*3/uL 150-450 [facility] Prothrombin Time INRon 02-14 INR Coag (PPP) [Relative time] 1.4 {INR} Normal [facility] Comment on above: Result Comment: INR Therapeutic Range A) Pre- and Peroperative OAT started two weeks before surgery. NOT HIP SURGERY: 1.5 - 2.5 HIP SURGERY: 2 - 3 B) Primary and secondary prevention of venous THROMBOSIS: 2 - 3 C) Active venous thrombosis, pulmonary embolism and prevention of recurrent venous thrombosis: 2 - 3 D) Prevention of arterial thromboembolism including patients with mechanical heart valves: 3 - 4.5 Performed By: #### B MP, MG, LIPID #### [place] [id number] [facility] PT Coag (PPP) [Time] 16.5 s High 9.0-12.9 [facility] Comment on above: Result Comment: A he matocrit value greater than 55% may lead to inaccurate results in coagulation testing. Patients having hematocrit values >55% require a special collection tube for coagulation studies. Please contact the laboratory at [phone] for redraw instructions. Performed By: #### B MP, MG, LIPID #### [address] [address] [facility] Prothrombin time (PT)Ordered By: Melissa Tejeda on 02-14-2023 PT Coag (PPP) [Time] 16.5 s 9.0-12.9 [facility] Comment on above: A hematocrit value g reater than 55% may lead to inaccurate results in coagulation testing. Patients having hematocrit values >55% require a special collection tube for coagulation studies. Please contact the laboratory at [phone] for redraw instructions. RBC Auto (Bld) [#/Vol]Ordere d By: Melissa Tejeda on 02-14-2023 RBC (Bld) [#/Vol] 4.29 10*6/uL 3.90-5.60 [facility] WBC Auto (Bld) [#/Vol]Ordere d By: Melissa Tejeda on 02-14-2023 WBC (Bld) [#/Vol] 5.8 10*3/uL 4.1-10.5 [facility] Basic Metabolic Panelon 02-01 Anion gap [Moles/Vol] 11.4 mmol/L Normal 6.0-15.0 [facility] Comment on above: Performed By: #### B MP, MG, LIPID #### [facility] [address] [place] [id number] [facility] Calcium [Mass/Vol] 9.2 mg/dL Normal 8.6-10.3 [facility] Comment on above: Performed By: #### B MP, MG, LIPID #### [facility] [address] [place] [id number] [place] Chloride [Moles/Vol] 103 mmol/L Normal 98-107 [facility] Comment on above: Performed By: #### B MP, MG, LIPID #### [facility] [address] [place] [address] [place] CO2 [Moles/Vol] 29.8 mmol/L Normal 21.0-31.0 [facility] Comment on above: Performed By: #### B MP, MG, LIPID #### [facility] [address] [place] [id number] [place] Creatinine [Mass/Vol] 0.84 mg/dL Normal 0.70-1.30 [facility] Comment on above: Performed By: #### B MP, MG, LIPID #### [facility] [address] [place] [address] [place] Creatinine Clr Calc Pharmacy 110.[address] [facility] Comment on above: Result Comment: PERF ORMED BY: [place] [address] PATHOLOGIST ASSOCIATE PROFESSOR OF [employer] M.D. Performed By: #### B MP, MG, LIPID #### [facility] [address] [place] [address] [place] GFR/1.73 sq M.predicted MDRD (S/P/Bld) [Vol rate/Area] mL/min/{1.73_m2} Normal [facility] Comment on above: Performed By: #### B MP, MG, LIPID #### [address] Glucose [Mass/Vol] 99 mg/dL Normal 70-100 [facility] Comment on above: Result Comment: [facility] Glucose Reference Range is dependent on time and content of last meal. Glucose of more than 200 mg/dL in a nonstressed, ambulatory subject supports the diagnosis of Diabetes Mellitus. ADA recommended reference range Performed By: #### B MP, MG, LIPID #### [place] [address] [place] Potassium [Moles/Vol] 4.2 mmol/L Normal 3.5-5.1 [facility] Comment on above: Performed By: #### B MP, MG, LIPID #### [facility] [address] [place] [address] [place] Sodium [Moles/Vol] 140 mmol/L Normal 136-145 [facility] Comment on above: Performed By: #### B MP, MG, LIPID #### [facility] [address] [place] [address] [place] Urea nitrogen [Mass/Vol] 19 mg/dL Normal 7-25 [facility] Comment on above: Performed By: #### B MP, MG, LIPID #### [facility] [address] Calcium [Mass/volume] in Ser um or PlasmaOrdered By: Cornelio Padilla on 02-13-2023 Calcium [Mass/Vol] 9.2 mg/dL 8.6-10.3 [facility] Carbon dioxide, total [Moles /volume] in Serum or PlasmaOrdered By: Cornelio Padilla on 02-13-2023 CO2 [Moles/Vol] 29.8 mmol/L 21.0-31.0 [facility] Chloride [Moles/volume] in S maliha or PlasmaOrdered By: Corneliosven Padilla on 02-13-2023 Chloride [Moles/Vol] 103 mmol/L 98-107 [facility] Complete Blood Count Auto Di ffon 02-13-2023 Basophils (Bld) [#/Vol] 0.0 10*3/uL Normal 0.0-0.2 [facility] Comment on above: Result Comment: PERF ORMED BY: [place] [address] PATHOLOGIST ASSOCIATE PROFESSOR [employer] M.D. Performed By: #### B MP, MG, LIPID #### [facility] [address] [place] [address] Basophils/100 WBC (Bld) 0.7 % Normal . [facility] Comment on above: Performed By: #### B MP, MG, LIPID #### [facility] [address] [place] [address] [place] Eosinophils (Bld) [#/Vol] 0.2 10*3/uL Normal 0.0-0.45 [facility] Comment on above: Performed By: #### B MP, MG, LIPID #### [facility] [address] [place] [address] [place] Eosinophils/100 WBC (Bld) 2.6 % Normal . [facility] Comment on above: Performed By: #### B MP, MG, LIPID #### [facility] [address] [place] [address] Erythrocyte distribution width (RBC) [Ratio] 13.6 % Normal 12.0-14.8 [facility] Comment on above: Performed By: #### B MP, MG, LIPID #### [address] Hematocrit (Bld) [Volume fraction] 40.5 % Normal 38.8-50.0 [facility] Comment on above: Performed By: #### B MP, MG, LIPID #### [address] Hemoglobin (Bld) [Mass/Vol] 13.3 g/dL Normal 13.0-17.0 [facility] Comment on above: Performed By: #### B MP, MG, LIPID #### [address] Lymphocytes (Bld) [#/Vol] 1.5 10*3/uL Normal 1.00-4.8 [facility] Comment on above: Performed By: #### B MP, MG, LIPID #### [address] Lymphocytes/100 WBC (Bld) 23.9 % Normal . [facility] Comment on above: Performed By: #### B MP, MG, LIPID #### [address] MCH (RBC) [Entitic mass] 30.3 pg Normal 27.5-35.2 [facility] Comment on above: Performed By: #### B MP, MG, LIPID #### [address] MCV (RBC) [Entitic vol] 92.5 fL Normal 83.5-101 [facility] Comment on above: Performed By: #### B MP, MG, LIPID #### [address] Mean Corpuscular HGB Conc 32.7 g/dL Normal 32.5-35.6 [facility] Comment on above: Performed By: #### B MP, MG, LIPID #### [address] Monocytes (Bld) [#/Vol] 0.6 10*3/uL Normal 0.0-0.8 [facility] Comment on above: Performed By: #### B MP, MG, LIPID #### [facility] [address] Monocytes/100 WBC (Bld) 10.2 % Normal . [facility] Comment on above: Performed By: #### B MP, MG, LIPID #### [facility] [address] Neutrophils (Bld) [#/Vol] 3.9 10*3/uL Normal 1.8-7.7 [facility] Comment on above: Performed By: #### B MP, MG, LIPID #### [address] Neutrophils/100 WBC (Bld) 62.6 % Normal . [facility] Comment on above: Performed By: #### B MP, MG, LIPID #### [facility] [address] [place] [address] NRBC% 0.0 /100{WBC} Normal 0-0.5 [facility] Comment on above: Performed By: #### B MP, MG, LIPID #### [address] Platelet mean volume (Bld) [Entitic vol] 8.7 fL Normal 6.6-10.1 [facility] Comment on above: Performed By: #### B MP, MG, LIPID #### [facility] [address] [place] [address] Platelets (Bld) [#/Vol] 131 10*3/uL Low 150-450 [facility] Comment on above: Performed By: #### B MP, MG, LIPID #### [facility] [address] [place] [address] RBC (Bld) [#/Vol] 4.38 10*6/uL Normal 3.90-5.60 [facility] Comment on above: Performed By: #### B MP, MG, LIPID #### [address] [place] [address] [facility] WBC (Bld) [#/Vol] 6.3 10*3/uL Normal 4.1-10.5 [facility] Comment on above: Performed By: #### B MP, MG, LIPID #### [facility] [address] Creatinine [Mass/volume] in Serum or PlasmaOrdered By: Cornelio Padilla on 02-13-2023 Creatinine [Mass/Vol] 0.84 mg/dL 0.70-1.30 [facility] Glucose [Mass/volume] in Ser um or PlasmaOrdered By: Cornelio Padilla on 02-13-2023 Glucose [Mass/Vol] 99 mg/dL 70-100 [facility] Comment on above: ADA recommended refe rence rangeRandom Glucose Reference Range is dependent on time and content of last meal. Glucose of more than 200 mg/dL in a nonstressed, ambulatory subject supports the diagnosis of Diabetes Mellitus. No Panel InformationOrdered By: Cornelio Padilla on 02-13-2023 Estimated GFR (CKD-EPI) > 60.0 mL/Min [facility] Creatinine Clearance (Chem 110.50 [facility] Partial Thromboplastin Timeo n 02-13-2023 aPTT Coag (Bld) [Time] 69.8 s High 25.1-36.5 [facility] Comment on above: Order Comment: FASTI NG Y draw at 0530 per rn draw at 0530 per rn draw at 0530 per rn Result Comment: A he matocrit value greater than 55% may lead to inaccurate results in coagulation testing. Patients having hematocrit values >55% require a special collection tube for coagulation studies. Please contact the laboratory at [phone] for redraw instructions. PERFORMED BY: [facility] [address] [place] [address] PATHOLOGIST ASSOCIATE PROFESSOR OF [employer] M.D. Performed By: #### B MP, MG, LIPID #### [facility] [address] [place] [id number] [facility] aPTT Coag (Bld) [Time] 61.8 s High 25.1-36.5 [facility] Comment on above: Order Comment: LORENA UMANZOR Y draw at 0530 per rn draw at 0530 per rn draw at 0530 per rn Result Comment: A he matocrit value greater than 55% may lead to inaccurate results in coagulation testing. Patients having hematocrit values >55% require a special collection tube for coagulation studies. Please contact the laboratory at [phone] for redraw instructions. PERFORMED BY: [address] [place] [address] PATHOLOGIST ASSOCIATE PROFESSOR OF [employer] M.D. Performed By: #### B MP, MG, LIPID #### [facility] [address] [place] [id number] [facility] aPTT Coag (Bld) [Time] 100.2 s Off scale high 25.1-36.5 [facility] Comment on above: Result Comment: Resu lts called at 0716 on 02/13/23 A hematocrit value greater than 55% may lead to inaccurate results in coagulation testing. Patients having hematocrit values >55% require a special collection tube for coagulation studies. Please contact the laboratory at [phone] for redraw instructions. PERFORMED BY: [address] [id number] PATHOLOGIST ASSOCIATE PROFESSOR [employer] M.D. Performed By: #### B MP, MG, LIPID #### [facility] [address] [place] [id number] [facility] Potassium [Moles/volume] in Serum or PlasmaOrdered By: Cornelio Padilla on 02-13-2023 Potassium [Moles/Vol] 4.2 mmol/L 3.5-5.1 [facility] Prothrombin Time INRon 02-13 INR Coag (PPP) [Relative time] 1.0 {INR} Normal [facility] Comment on above: Result Comment: INR Therapeutic Range A) Pre- and Peroperative OAT started two weeks before surgery. NOT HIP SURGERY: 1.5 - 2.5 HIP SURGERY: 2 - 3 B) Primary and secondary prevention of venous THROMBOSIS: 2 - 3 C) Active venous thrombosis, pulmonary embolism and prevention of recurrent venous thrombosis: 2 - 3 D) Prevention of arterial thromboembolism including patients with mechanical heart valves: 3 - 4.5 Performed By: #### B MP, MG, LIPID #### [facility] [address] PT Coag (PPP) [Time] 12.3 s Normal 9.0-12.9 [facility] Comment on above: Result Comment: A he matocrit value greater than 55% may lead to inaccurate results in coagulation testing. Patients having hematocrit values >55% require a special collection tube for coagulation studies. Please contact the laboratory at [phone] for redraw instructions. Performed By: #### B MP, MG, LIPID #### [place] [id number] [facility] Serum or plasma anion gap de terminationOrdered By: Cornelio Padilla on 02-13-2023 Anion gap [Moles/Vol] 11.4 mmol/L 6.0-15.0 [facility] Sodium [Moles/volume] in Ser um or PlasmaOrdered By: Cornelio Padilla on 02-13-2023 Sodium [Moles/Vol] 140 mmol/L 136-145 [facility] Urea nitrogen [Mass/volume] in Serum or PlasmaOrdered By: Cornelio Padilla on 02-13-2023 Urea nitrogen [Mass/Vol] 19 mg/dL 7-25 [facility] A1C with Estimated Average G luon 02-12-2023 Glucose [Mass/Vol] 137 mg/dL Normal [facility] Comment on above: Order Comment: FASTI NG Y draw at 0530 per rn draw at 0530 per rn draw at 0530 per rn Result Comment: PERF ORMED BY: [address] [place] [address] PATHOLOGIST ASSOCIATE PROFESSOR [employer] M.D. Performed By: #### B MP, MG, LIPID #### [facility] [address] [place], [place] [id number] [facility] HbA1c (Bld) [Mass fraction] 6.4 % High 4.3-5.6 [facility] Comment on above: Order Comment: FASTI NG Y draw at 0530 per rn draw at 0530 per rn draw at 0530 per rn Result Comment: Incr eased risk for diabetes: 5.7 - 6.4 diabetes: >6.4 glycemic control for adults with diabetes: <7.0 Performed By: #### B MP, MG, LIPID #### [facility] [address] Basic Metabolic Panelon 02-01 Anion gap [Moles/Vol] 12.1 mmol/L Normal 6.0-15.0 [facility] Comment on above: Order Comment: FASTI NG Y draw at 0530 per rn draw at 0530 per rn draw at 0530 per rn Performed By: #### B MP, MG, LIPID #### [address] Calcium [Mass/Vol] 9.2 mg/dL Normal 8.6-10.3 [facility] Comment on above: Order Comment: FASTI NG Y draw at 0530 per rn draw at 0530 per rn draw at 0530 per rn Performed By: #### B MP, MG, LIPID #### [facility] [address] [place] [address] Chloride [Moles/Vol] 104 mmol/L Normal 98-107 [facility] Comment on above: Order Comment: FASTI NG Y draw at 0530 per rn draw at 0530 per rn draw at 0530 per rn Performed By: #### B MP, MG, LIPID #### [facility] [address] CO2 [Moles/Vol] 27.4 mmol/L Normal 21.0-31.0 [facility] Comment on above: Order Comment: FASTI NG Y draw at 0530 per rn draw at 0530 per rn draw at 0530 per rn Performed By: #### B MP, MG, LIPID #### [address] Creatinine [Mass/Vol] 0.94 mg/dL Normal 0.70-1.30 [facility] Comment on above: Order Comment: FASTI NG Y draw at 0530 per rn draw at 0530 per rn draw at 0530 per rn Performed By: #### B MP, MG, LIPID #### [address] Creatinine Clr Calc Pharmacy 98.[address] [facility] Comment on above: Order Comment: FASTI NG Y draw at 0530 per rn draw at 0530 per rn draw at 0530 per rn Performed By: #### B MP, MG, LIPID #### [place] [address] [place] GFR/1.73 sq M.predicted MDRD (S/P/Bld) [Vol rate/Area] mL/min/{1.73_m2} [facility] Comment on above: Order Comment: FASTI NG Y draw at 0530 per rn draw at 0530 per rn draw at 0530 per rn Performed By: #### B MP, MG, LIPID #### [address] Glucose [Mass/Vol] 114 mg/dL High 70-100 [facility] Comment on above: Order Comment: FASTI NG Y draw at 0530 per rn draw at 0530 per rn draw at 0530 per rn Result Comment: [facility] Glucose Reference Range is dependent on time and content of last meal. Glucose of more than 200 mg/dL in a nonstressed, ambulatory subject supports the diagnosis of Diabetes Mellitus. ADA recommended reference range Performed By: #### B MP, MG, LIPID #### [address] Potassium [Moles/Vol] 4.5 mmol/L Normal 3.5-5.1 [facility] Comment on above: Order Comment: FASTI NG Y draw at 0530 per rn draw at 0530 per rn draw at 0530 per rn Performed By: #### B MP, MG, LIPID #### [address] Sodium [Moles/Vol] 139 mmol/L Normal 136-145 [facility] Comment on above: Order Comment: FASTI NG Y draw at 0530 per rn draw at 0530 per rn draw at 0530 per rn Performed By: #### B MP, MG, LIPID #### [facility] [address] Urea nitrogen [Mass/Vol] 24 mg/dL Normal 7-25 [facility] Comment on above: Order Comment: LORENA Whitman draw at 0530 per rn draw at 0530 per rn draw at 0530 per rn Performed By: #### B MP, MG, LIPID #### [facility] [address] [place] [id number] [facility] CT abdomen pelvis w conon CT abdomen pelvis w con [facility] [place] [address] [place] [address] CT Scan Report Signed Patient: Yannick Cardoso MR#: [id number] 0 : 1950 Acct:[id number] Age/Sex: 72 / M ADM Date: 02/11/23 Loc: Room: [address] [place] [address] Type: ADM IN Attending Dr: Cornelio Padilla MD Copies to: Cornelio Padilla MD Ordering Provider: Cornelio Padilla MD Date of Service: 02/12/23 CT/CT abdomen pelvis w con: Assess IVC Filter for clots CT ABDOMEN AND PELVIS WITH CONTRAST CLINICAL DATA: Study to assess or clot associated with IVC filter. PE and DVT. COMPARISON: None Spiral images were obtained through the abdomen and pelvis following 90 mL Isovue-300. This CT exam was performed using one or more following dose reduction techniques: Automated exposure control, adjustment of the mA and/or kV according to patient size, or use of iterative reconstruction technique. Limited cuts through the lung bases show scarring or atelectasis. There is prominent pericardial the paraesophageal fat. Fatty infiltration of the liver is present. No calcified gallstones are seen. The spleen, pancreas and adrenal glands show no acute findings. There are symmetric bilateral renal nephrograms, without hydronephrosis. There are multiple bilateral renal cysts, greater on the left. There is mild atherosclerotic plaque at the aorta. There is no aneurysm. Patient has an IVC filter. The IVC shows better opacification above the renal veins. Below the renal veins, through the filter and down to the iliac veins, there is uniform attenuation, without focal expansion to suggest caval thrombus. No lymphadenopathy or ascites is seen. The small bowel loops are normal caliber. There is mild right-sided colonic stool. The left colon is underdistended. There is S- shaped thoracolumbar scoliotic curvature as well as degenerative changes involving the spine. Images through the pelvis show no appendiceal inflammation. There are normal caliber small bowel loops. There is a small amount of distal colonic stool. There might be a few sigmoid diverticula. No active inflammation is seen. The prostate is normal size. There are no bladder abnormalities for the degree of distention. Small inguinal lymph nodes are present. There is prior right inguinal hernia repair. No ascites is seen. 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 CT/CT abdomen pelvis w con IMPRESSION: FATTY LIVER. RENAL CYSTS. NO BOWEL OR URINARY TRACT OBSTRUCTION. IVC FILTER, WITHOUT DEFINITE ASSOCIATED THROMBUS. Impression dictated by: Chloé Burgess M.D.02/12/2023 10:33 AM Dictation Location: [place] [address] Transcribed By: [facility] 02/12/23 1033 Dictated By: Chloé Burgess MD 02/12/23 1015 Signed By: 02/12/23 1033 Normal [facility] Cholesterol [Mass/volume] in Serum or PlasmaOrdered By: Cornelio Padilla on 02-12-2023 Cholesterol [Mass/Vol] 157 mg/dL 140-200 [facility] Comment on above: Chol less than 200 m g/dl low riskChol 201-239 mg/dl borderline riskChol 240 mg/dl and greater high risk Cholesterol in LDL Calc [Mas s/Vol]Ordered By: Cornelio Padilla on 02-12-2023 Cholesterol in LDL [Mass/Vol] 88 mg/dL 0-100 [facility] Comment on above: LDL ATP III CLASSIFI CATIONLDL less than 100 mg/dL OptimalLDL 100-129 mg/dL Near or above optimalLDL 130-159 mg/dL Borderline highLDL 160-189 mg/dL HighLDL greater than 189 mg/dL Very high Cholesterol in VLDL Calc [Ma ss/Vol]Ordered By: Cornelio Padilla on 02-12-2023 Cholesterol in VLDL [Mass/Vol] 27 mg/dL [facility] Complete Blood Count Auto Di ffon 02-12-2023 Basophils (Bld) [#/Vol] 0.0 10*3/uL Normal 0.0-0.2 [facility] Comment on above: Order Comment: draw at 0530 per rn draw at 0530 per rn draw at 0530 per rn draw at 0530 per rn Result Comment: PERF ORMED BY: [place] [address] PATHOLOGIST ASSOCIATE PROFESSOR OF [employer] M.D. Performed By: #### C BC #### [address] Basophils/100 WBC (Bld) 0.4 % Normal . [facility] Comment on above: Order Comment: draw at 0530 per rn draw at 0530 per rn draw at 0530 per rn draw at 0530 per rn Performed By: #### C BC #### [address] Eosinophils (Bld) [#/Vol] 0.1 10*3/uL Normal 0.0-0.45 [facility] Comment on above: Order Comment: draw at 0530 per rn draw at 0530 per rn draw at 0530 per rn draw at 0530 per rn Performed By: #### C BC #### [address] Eosinophils/100 WBC (Bld) 0.5 % Normal . [facility] Comment on above: Order Comment: draw at 0530 per rn draw at 0530 per rn draw at 0530 per rn draw at 0530 per rn Performed By: #### C BC #### [address] Erythrocyte distribution width (RBC) [Ratio] 13.7 % Normal 12.0-14.8 [facility] Comment on above: Order Comment: draw at 0530 per rn draw at 0530 per rn draw at 0530 per rn draw at 0530 per rn Performed By: #### C BC #### [address] Hematocrit (Bld) [Volume fraction] 40.5 % Normal 38.8-50.0 [facility] Comment on above: Order Comment: draw at 0530 per rn draw at 0530 per rn draw at 0530 per rn draw at 0530 per rn Performed By: #### C BC #### [address] Hemoglobin (Bld) [Mass/Vol] 13.3 g/dL Normal 13.0-17.0 [facility] Comment on above: Order Comment: draw at 0530 per rn draw at 0530 per rn draw at 0530 per rn draw at 0530 per rn Performed By: #### C BC #### [address] Lymphocytes (Bld) [#/Vol] 1.4 10*3/uL Normal 1.00-4.8 [facility] Comment on above: Order Comment: draw at 0530 per rn draw at 0530 per rn draw at 0530 per rn draw at 0530 per rn Performed By: #### C BC #### [address] Lymphocytes/100 WBC (Bld) 11.1 % Normal . [facility] Comment on above: Order Comment: draw at 0530 per rn draw at 0530 per rn draw at 0530 per rn draw at 0530 per rn Performed By: #### C BC #### [address] MCH (RBC) [Entitic mass] 30.2 pg Normal 27.5-35.2 [facility] Comment on above: Order Comment: draw at 0530 per rn draw at 0530 per rn draw at 0530 per rn draw at 0530 per rn Performed By: #### C BC #### [address] MCV (RBC) [Entitic vol] 92.0 fL Normal 83.5-101 [facility] Comment on above: Order Comment: draw at 0530 per rn draw at 0530 per rn draw at 0530 per rn draw at 0530 per rn Performed By: #### C BC #### [facility] [address] Mean Corpuscular HGB Conc 32.8 g/dL Normal 32.5-35.6 [facility] Comment on above: Order Comment: draw at 0530 per rn draw at 0530 per rn draw at 0530 per rn draw at 0530 per rn Performed By: #### C BC #### [facility] [address] [place] [address] [place] Monocytes (Bld) [#/Vol] 1.3 10*3/uL High 0.0-0.8 [facility] Comment on above: Order Comment: draw at 0530 per rn draw at 0530 per rn draw at 0530 per rn draw at 0530 per rn Performed By: #### C BC #### [address] Monocytes/100 WBC (Bld) 10.1 % Normal . [facility] Comment on above: Order Comment: draw at 0530 per rn draw at 0530 per rn draw at 0530 per rn draw at 0530 per rn Performed By: #### C BC #### [place] [address] [place] Neutrophils (Bld) [#/Vol] 9.9 10*3/uL High 1.8-7.7 [facility] Comment on above: Order Comment: draw at 0530 per rn draw at 0530 per rn draw at 0530 per rn draw at 0530 per rn Performed By: #### C BC #### [place] [address] [place] Neutrophils/100 WBC (Bld) 77.9 % Normal . [facility] Comment on above: Order Comment: draw at 0530 per rn draw at 0530 per rn draw at 0530 per rn draw at 0530 per rn Performed By: #### C BC #### [place] [address] [place] NRBC% 0.0 /100{WBC} Normal 0-0.5 [facility] Comment on above: Order Comment: draw at 0530 per rn draw at 0530 per rn draw at 0530 per rn draw at 0530 per rn Performed By: #### C BC #### [address] Platelet mean volume (Bld) [Entitic vol] 7.8 fL Normal 6.6-10.1 [facility] Comment on above: Order Comment: draw at 0530 per rn draw at 0530 per rn draw at 0530 per rn draw at 0530 per rn Performed By: #### C BC #### [address] Platelets (Bld) [#/Vol] 132 10*3/uL Low 150-450 [facility] Comment on above: Order Comment: draw at 0530 per rn draw at 0530 per rn draw at 0530 per rn draw at 0530 per rn Performed By: #### C BC #### [address] RBC (Bld) [#/Vol] 4.40 10*6/uL Normal 3.90-5.60 [facility] Comment on above: Order Comment: draw at 0530 per rn draw at 0530 per rn draw at 0530 per rn draw at 0530 per rn Performed By: #### C BC #### [address] WBC (Bld) [#/Vol] 12.8 10*3/uL High 4.1-10.5 [facility] Comment on above: Order Comment: draw at 0530 per rn draw at 0530 per rn draw at 0530 per rn draw at 0530 per rn Performed By: #### C BC #### [address] Glucose mean value [Mass/vol ume] in Blood Estimated from glycated hemoglobinOrdered By: Cornelio Padilla on 02-12-2023 Average glucose Estimated from glycated hemoglobin (Bld) [Mass/Vol] 137 mg/dL [facility] Hemoglobin A1c percentageOrd ered By: Cornelio Padilla on 02-12-2023 HbA1c (Bld) [Mass fraction] 6.4 % 4.3-5.6 [facility] Comment on above: Increased risk for d iabetes: 5.7 - 6.4diabetes: >6.4glycemic control for adults with diabetes: <7.0 Lipid Panelon 02-12-2023 Cholesterol [Mass/Vol] 157 mg/dL Normal 140-200 [facility] Comment on above: Order Comment: FASTI NG Y draw at 0530 per rn draw at 0530 per rn draw at 0530 per rn Result Comment: Chol less than 200 mg/dl low risk Chol 201-239 mg/dl borderline risk Chol 240 mg/dl and greater high risk Performed By: #### B MP, MG, LIPID #### [facility] [address] Cholesterol in HDL [Mass/Vol] 42 mg/dL Normal 23-92 [facility] Comment on above: Order Comment: FASTI NG Y draw at 0530 per rn draw at 0530 per rn draw at 0530 per rn Result Comment: HDL CHOL ATP-III CLASSIFICATION Cardiovascular Risk HDL > or equal to 60 mg/dL LOW HDL < 40 mg/dL HIGH Performed By: #### B MP, MG, LIPID #### [facility] [address] Cholesterol.total/Chiquita sterol in HDL [Mass ratio] 3.7 {ratio} Normal <5.0 [facility] Comment on above: Order Comment: FASTI NG Y draw at 0530 per rn draw at 0530 per rn draw at 0530 per rn Result Comment: PERF ORMED BY: [place] [address] PATHOLOGIST ASSOCIATE PROFESSOR [employer] M.D. Performed By: #### B MP, MG, LIPID #### [facility] [address] [place] [id number] [facility] LDL Cholesterol,Calculated 88 mg/dL Normal 0-100 [facility] Comment on above: Order Comment: FASTI NG Y draw at 0530 per rn draw at 0530 per rn draw at 0530 per rn Result Comment: LDL ATP III CLASSIFICATION LDL less than 100 mg/dL Optimal LDL 100-129 mg/dL Near or above optimal LDL 130-159 mg/dL Borderline high LDL 160-189 mg/dL High LDL greater than 189 mg/dL Very high Performed By: #### B MP, MG, LIPID #### [facility] [address] Triglyceride w/Reflex 135 mg/dL Normal 0-149 [facility] Comment on above: Order Comment: FASTI NG Y draw at 0530 per rn draw at 0530 per rn draw at 0530 per rn Result Comment: TRIG ATP III CLASSIFICATION TRIG less than 150 mg/dL Normal TRIG 150-199 mg/dL Borderline high TRIG 200-500 mg/dL High TRIG greater than 500 mg/dL Very high Standard traceable to the Center for Disease Conrtrol and Prevention (CDC) test method. Performed By: #### B MP, MG, LIPID #### [address] VLDL CHOLESTEROL 27 mg/dL Normal [facility] Comment on above: Order Comment: FASTI NG Y draw at 0530 per rn draw at 0530 per rn draw at 0530 per rn Performed By: #### B MP, MG, LIPID #### [address] Magnesiumon 02-12-2023 Magnesium [Mass/Vol] 1.9 mg/dL Normal 1.9-2.7 [facility] Comment on above: Order Comment: FASTI NG Y draw at 0530 per rn draw at 0530 per rn draw at 0530 per rn Performed By: #### B MP, MG, LIPID #### [facility] [address] [place] [address] Magnesium [Mass/volume] in S maliha or PlasmaOrdered By: Cornelio Padilla on 02-12-2023 Magnesium [Mass/Vol] 1.9 mg/dL 1.9-2.7 [facility] Partial Thromboplastin Timeo n 02-12-2023 aPTT Coag (Bld) [Time] 64.6 s High 25.1-36.5 [facility] Comment on above: Order Comment: FASTI NG Y draw at 0530 per rn draw at 0530 per rn draw at 0530 per rn Result Comment: A he matocrit value greater than 55% may lead to inaccurate results in coagulation testing. Patients having hematocrit values >55% require a special collection tube for coagulation studies. Please contact the laboratory at [phone] for redraw instructions. PERFORMED BY: [address] [place] [address] PATHOLOGIST ASSOCIATE PROFESSOR [employer] M.D. Performed By: #### B MP, MG, LIPID #### [address] aPTT Coag (Bld) [Time] 88.0 s High 25.1-36.5 [facility] Comment on above: Order Comment: FASTI NG Y draw at 0530 per rn draw at 0530 per rn draw at 0530 per rn Result Comment: A he matocrit value greater than 55% may lead to inaccurate results in coagulation testing. Patients having hematocrit values >55% require a special collection tube for coagulation studies. Please contact the laboratory at [phone] for redraw instructions. PERFORMED BY: [address] [place] [address] PATHOLOGIST ASSOCIATE PROFESSOR [employer] M.D. Performed By: #### B MP, MG, LIPID #### [place] [id number] [facility] aPTT Coag (Bld) [Time] 52.9 s High 25.1-36.5 [facility] Comment on above: Result Comment: A he matocrit value greater than 55% may lead to inaccurate results in coagulation testing. Patients having hematocrit values >55% require a special collection tube for coagulation studies. Please contact the laboratory at [phone] for redraw instructions. PERFORMED BY: [address] [place] [address] PATHOLOGIST ASSOCIATE PROFESSOR [employer] M.D. Performed By: #### P TT #### [address] Prothrombin Time INRon 02-12 INR Coag (PPP) [Relative time] 1.1 {INR} Normal [facility] Comment on above: Order Comment: FASTI NG Y draw at 0530 per rn draw at 0530 per rn draw at 0530 per rn Result Comment: INR Therapeutic Range A) Pre- and Peroperative OAT started two weeks before surgery. NOT HIP SURGERY: 1.5 - 2.5 HIP SURGERY: 2 - 3 B) Primary and secondary prevention of venous THROMBOSIS: 2 - 3 C) Active venous thrombosis, pulmonary embolism and prevention of recurrent venous thrombosis: 2 - 3 D) Prevention of arterial thromboembolism including patients with mechanical heart valves: 3 - 4.5 Performed By: #### B MP, MG, LIPID #### [facility] [address] [place] [address] [facility] PT Coag (PPP) [Time] 12.7 s Normal 9.0-12.9 [facility] Comment on above: Order Comment: FASTI NG Y draw at 0530 per rn draw at 0530 per rn draw at 0530 per rn Result Comment: A he matocrit value greater than 55% may lead to inaccurate results in coagulation testing. Patients having hematocrit values >55% require a special collection tube for coagulation studies. Please contact the laboratory at [phone] for redraw instructions. Performed By: #### B MP, MG, LIPID #### [facility] [address] [place] [id number] [facility] Serum or plasma high density lipoprotein (HDL) cholesterol measurementOrdered By: Cornelio Padilla on 02-12-2023 Cholesterol in HDL [Mass/Vol] 42 mg/dL 23-92 [facility] Comment on above: HDL CHOL ATP-III CLA SSIFICATION Cardiovascular RiskHDL > or equal to 60 mg/dL LOWHDL < 40 mg/dL HIGH Serum or plasma total choles terol/high density lipoprotein (HDL) cholesterol mass ratOrdered By: Cornelio Padilla on 02-12-2023 Cholesterol.total/Chiquita sterol in HDL [Mass ratio] 3.7 {ratio} <5.0 [facility] Triglyceride [Mass/volume] i n Serum or PlasmaOrdered By: Cornelio Padilla on 02-12-2023 Triglyceride [Mass/Vol] 135 mg/dL 0-149 [facility] Comment on above: TRIG ATP III CLASSIF ICATIONTRIG less than 150 mg/dL NormalTRIG 150-199 mg/dL Borderline highTRIG 200-500 mg/dL High TRIG greater than 500 mg/dL Very highStandard traceable to the Center for Disease Conrtrol and Prevention (CDC) test method. B-Type Natriuretic Peptideon 02-11-2023 Natriuretic peptide B (Bld) [Mass/Vol] 91.0 pg/mL Normal 5-100 [facility] Comment on above: Result Comment: PERF ORMED BY: [place] [address] PATHOLOGIST ASSOCIATE PROFESSOR [employer] M.D. Performed By: #### B MP, MG, LIPID #### [address] Basic Metabolic Panelon 02-01 Anion gap [Moles/Vol] 14.4 mmol/L Normal 6.0-15.0 [facility] Comment on above: Performed By: #### B MP, MG, LIPID #### [facility] [address] [place] [address] Calcium [Mass/Vol] 9.5 mg/dL Normal 8.6-10.3 [facility] Comment on above: Performed By: #### B MP, MG, LIPID #### [facility] [address] [place] [address] Chloride [Moles/Vol] 100 mmol/L Normal 98-107 [facility] Comment on above: Performed By: #### B MP, MG, LIPID #### [facility] [address] [place] [address] CO2 [Moles/Vol] 26.4 mmol/L Normal 21.0-31.0 [facility] Comment on above: Performed By: #### B MP, MG, LIPID #### [facility] [address] [place] [address] [place] Creatinine [Mass/Vol] 1.31 mg/dL High 0.70-1.30 [facility] Comment on above: Performed By: #### B MP, MG, LIPID #### [facility] [address] [place] [address] [place] Creatinine Clr Calc Pharmacy 70.33 Normal [facility] Comment on above: Result Comment: PERF ORMED BY: [place] [address] PATHOLOGIST ASSOCIATE PROFESSOR [employer] M.D. Performed By: #### B MP, MG, LIPID #### [place] [address] [place] GFR/1.73 sq M.predicted MDRD (S/P/Bld) [Vol rate/Area] 58.195 mL/min/{1.73_m2} [facility] Comment on above: Performed By: #### B MP, MG, LIPID #### [address] Glucose [Mass/Vol] 155 mg/dL High 70-100 [facility] Comment on above: Result Comment: [facility] Glucose Reference Range is dependent on time and content of last meal. Glucose of more than 200 mg/dL in a nonstressed, ambulatory subject supports the diagnosis of Diabetes Mellitus. ADA recommended reference range Performed By: #### B MP, MG, LIPID #### [address] Potassium [Moles/Vol] 4.8 mmol/L Normal 3.5-5.1 [facility] Comment on above: Performed By: #### B MP, MG, LIPID #### [place] [address] [place] Sodium [Moles/Vol] 136 mmol/L Normal 136-145 [facility] Comment on above: Performed By: #### B MP, MG, LIPID #### [place] [address] [place] Urea nitrogen [Mass/Vol] 22 mg/dL Normal 7-25 [facility] Comment on above: Performed By: #### B MP, MG, LIPID #### [address] Complete Blood Count Auto Di ffon 02-11-2023 Basophils (Bld) [#/Vol] 0.0 10*3/uL Normal 0.0-0.2 [facility] Comment on above: Result Comment: PERF ORMED BY: [place] [address] PATHOLOGIST ASSOCIATE PROFESSOR [employer] M.D. Performed By: #### C BC, PT, PTT #### [facility] [address] [place] [address] Basophils/100 WBC (Bld) 0.1 % Normal . [facility] Comment on above: Performed By: #### C BC, PT, PTT #### [address] Eosinophils (Bld) [#/Vol] 0.0 10*3/uL Normal 0.0-0.45 [facility] Comment on above: Performed By: #### C BC, PT, PTT #### [facility] [address] [place] [address] Eosinophils/100 WBC (Bld) 0.0 % Normal . [facility] Comment on above: Performed By: #### C BC, PT, PTT #### [facility] [address] [place] [address] Erythrocyte distribution width (RBC) [Ratio] 13.7 % Normal 12.0-14.8 [facility] Comment on above: Performed By: #### C BC, PT, PTT #### [address] Hematocrit (Bld) [Volume fraction] 42.6 % Normal 38.8-50.0 [facility] Comment on above: Performed By: #### C BC, PT, PTT #### [address] Hemoglobin (Bld) [Mass/Vol] 14.2 g/dL Normal 13.0-17.0 [facility] Comment on above: Performed By: #### C BC, PT, PTT #### [facility] [address] [place] [address] Lymphocytes (Bld) [#/Vol] 0.5 10*3/uL Low 1.00-4.8 [facility] Comment on above: Performed By: #### C BC, PT, PTT #### [facility] [address] [place] [address] [place] Lymphocytes/100 WBC (Bld) 5.3 % Normal . [facility] Comment on above: Performed By: #### C BC, PT, PTT #### [facility] [address] [place] [address] [place] MCH (RBC) [Entitic mass] 30.5 pg Normal 27.5-35.2 [facility] Comment on above: Performed By: #### C BC, PT, PTT #### [facility] [address] MCV (RBC) [Entitic vol] 91.8 fL Normal 83.5-101 [facility] Comment on above: Performed By: #### C BC, PT, PTT #### [facility] [address] Mean Corpuscular HGB Conc 33.2 g/dL Normal 32.5-35.6 [facility] Comment on above: Performed By: #### C BC, PT, PTT #### [facility] [address] [place] [address] [place] Monocytes (Bld) [#/Vol] 0.1 10*3/uL Normal 0.0-0.8 [facility] Comment on above: Performed By: #### C BC, PT, PTT #### [facility] [address] [place] [address] [place] Monocytes/100 WBC (Bld) 1.4 % Normal . [facility] Comment on above: Performed By: #### C BC, PT, PTT #### [facility] [address] [place] [id number] [place] Neutrophils (Bld) [#/Vol] 8.0 10*3/uL High 1.8-7.7 [facility] Comment on above: Performed By: #### C BC, PT, PTT #### [facility] [address] [place] [id number] [place] Neutrophils/100 WBC (Bld) 93.2 % Normal . [facility] Comment on above: Performed By: #### C BC, PT, PTT #### [facility] [address] NRBC% 0.1 /100{WBC} Normal 0-0.5 [facility] Comment on above: Performed By: #### C BC, PT, PTT #### [facility] [address] Platelet mean volume (Bld) [Entitic vol] 7.7 fL Normal 6.6-10.1 [facility] Comment on above: Performed By: #### C BC, PT, PTT #### [facility] [address] Platelets (Bld) [#/Vol] 153 10*3/uL Normal 150-450 [facility] Comment on above: Performed By: #### C BC, PT, PTT #### [facility] [address] RBC (Bld) [#/Vol] 4.64 10*6/uL Normal 3.90-5.60 [facility] Comment on above: Performed By: #### C BC, PT, PTT #### [facility] [address] WBC (Bld) [#/Vol] 8.6 10*3/uL Normal 4.1-10.5 [facility] Comment on above: Performed By: #### C BC, PT, PTT #### [facility] [address] [facility] echo transthoracicon [facility] echo transthoracic [facility] [place] [address] [place] [address] Echocardiogram Signed Patient: Yannick Cardoso MR#: [id number] 0 : 1950 Acct:[id number] Age/Sex: 72 / M ADM Date: 02/11/23 Loc: Room: [address] [place] [address] Type: ADM IN Attending Dr: Cornelio Padilla MD Ordering Provider: Melissa Tejeda MD Date of Service: 02/11/2302/23/550 [facility] echo transthoracic: evalaute for right heart strain. Bilateral PE Copies to: Jesús Baugh MD, [facility] Melissa Tejeda MD BSA: 2.4 m2 BP: 107/74 mmHg HR: 90 Reason For Study: evalaute for right heart strain. Bilateral PE History: COPD, IVC filter, morbid obesity, former smoker, DVT Interpretation Summary Mild concentric left ventricular hypertrophy. Ejection Fraction = 60-65%. A variety of Doppler measurements indicate impaired left ventricular relaxation, which is associated with grade I/IV or mild diastolic dysfunction. The right ventricle is moderately dilated. Moderate right ventricular systolic dysfunction. There is trace tricuspid regurgitation. The right ventricular systolic pressure is 48 mmHg. Right ventricular systolic pressure is consistent with moderate pulmonary hypertension. There is no prior echocardiogram noted for this patient. Procedure/Quality: A two-dimensional transthoracic echocardiogram with color flow, Doppler and injection of contrast agent Definity was performed. The study was technically good in quality. There is no prior echocardiogram noted for this patient. Left Ventricle: Mild concentric left ventricular hypertrophy. Left ventricular systolic function is normal. Ejection Fraction = 60-65%. A variety of Doppler measurements indicate impaired left ventricular relaxation, which is associated with grade I/IV or mild diastolic dysfunction. Left Atrium: The left atrium appears normal in size. The atrial septum appears normal. Right Atrium: The right atrium appears normal in size. Right Ventricle: The right ventricle is moderately dilated. Moderate right ventricular systolic dysfunction. Aortic Valve: The aortic valve is mildly sclerotic. Mitral Valve: The mitral valve is mildly sclerotic. Tricuspid Valve: The tricuspid valve is normal. There is trace tricuspid regurgitation. The right ventricular systolic pressure is 48 mmHg. Right ventricular systolic pressure is consistent with moderate pulmonary hypertension. Pulmonic Valve: The pulmonic valve is not well visualized. Arteries: The aortic root is normal size. Pericardium/Pleura: No pericardial effusion seen. There is no pleural effusion. IVC/Hepatic Viens: The IVC is normal in size with an inspiratory collapse of greater then 50%, suggesting normal right atrial pressure. Miscellaneous: No thrombus, vegetation or mass is seen. Measurements with Normals IVSd: 1.4 cm (0.7-1.1 cm)LVIDd: 3.5 cm (3.7-5.4 cm) LVPWd: 1.3 cm (0.7-1.1 cm)LVIDs: 3.2 cm (2.3-3.6 cm) LA dimension: 3.0 cm (2.3-4.0 cm)Ao root diam: 3.4 cm(2.0-3.6 cm) asc Aorta Diam: 3.1 cm(2.1-3.4cm) Doppler with Normals RVSP(TR): 48.8 mmHg (18-35mmHg) MV E max viji: 48.8 cm/sec(0.8-1.3m/s) MV A max viji: 91.7 cm/sec(0.0-0.0m/s) MV E/A: 0.53 (<1.5) MMode/2D Measurements Calculations RVDd: 4.3 cm RV Base: 4.5 cm FS: 9.4 % Ao root area: TAPSE: 2.7 cm RV Mid: 3.9 cm EDV(Teich): 9.0 cm2 RV S Viji: RV Length: 7.5 cm 50.8 ml 10.9 cm/sec ESV(Teich): 40.0 ml EF(Teich): 21.3 % __ LVOT diam: 2.1 cm LVLd ap4: 8.3 cm SV(MOD-sp4): LVOT area: 3.6 cm2 EDV(MOD-sp4): 54.8 ml 78.7 ml LVLs ap4: 6.3 cm ESV(MOD-sp4): 23.9 ml EF(MOD-sp4): 69.6 % Doppler Measurements Calculations E/E' lat: 5.7 TV max P.0 mmHg TR max viji: 330.8 cm/sec E/E' med: 8.6 TR max P.8 mmHg RAP systole: 5.0 mmHg Transcribed By: THEODORE Performed At: 02/11/23 0809 Signed By: Jesús Baugh MD, [facility] 02/11/23 1213 Normal [facility] Natriuretic peptide B [Mass/ Vol]Ordered By: Melissa Tejeda on 02-11-2023 Natriuretic peptide B (Bld) [Mass/Vol] 91.0 pg/mL 5-100 [facility] [facility] Partial Thromboplastin Timeo n 02-11-2023 aPTT Coag (Bld) [Time] 66.2 s High 25.1-36.5 [facility] Comment on above: Result Comment: A he matocrit value greater than 55% may lead to inaccurate results in coagulation testing. Patients having hematocrit values >55% require a special collection tube for coagulation studies. Please contact the laboratory at [phone] for redraw instructions. PERFORMED BY: [place] [address] PATHOLOGIST ASSOCIATE PROFESSOR OF [employer] FAROOQ LIVE M.D. Performed By: #### P TT #### [facility] [address] [place] [id number] [facility] aPTT Coag (Bld) [Time] 113.3 s Off scale high 25.1-36.5 [facility] Comment on above: Result Comment: Resu lts called at 1449 on 02/11/23 A hematocrit value greater than 55% may lead to inaccurate results in coagulation testing. Patients having hematocrit values >55% require a special collection tube for coagulation studies. Please contact the laboratory at [phone] for redraw instructions. PERFORMED BY: [address] [address] PATHOLOGIST ASSOCIATE PROFESSOR OF [employer] F[employer]IVE M.D. Performed By: #### P TT #### [facility] [address] [place], [place] [id number] [facility] aPTT Coag (Bld) [Time] 35.0 s Normal 25.1-36.5 [facility] Comment on above: Result Comment: A he matocrit value greater than 55% may lead to inaccurate results in coagulation testing. Patients having hematocrit values >55% require a special collection tube for coagulation studies. Please contact the laboratory at [phone] for redraw instructions. PERFORMED BY: [place] [address] PATHOLOGIST ASSOCIATE PROFESSOR [employer] M.D. Performed By: #### C BC, PT, PTT #### [address] Prothrombin Time INRon 02-11 INR Coag (PPP) [Relative time] 1.1 {INR} Normal [facility] Comment on above: Result Comment: INR Therapeutic Range A) Pre- and Peroperative OAT started two weeks before surgery. NOT HIP SURGERY: 1.5 - 2.5 HIP SURGERY: 2 - 3 B) Primary and secondary prevention of venous THROMBOSIS: 2 - 3 C) Active venous thrombosis, pulmonary embolism and prevention of recurrent venous thrombosis: 2 - 3 D) Prevention of arterial thromboembolism including patients with mechanical heart valves: 3 - 4.5 Performed By: #### C BC, PT, PTT #### [place] [id number] [facility] PT Coag (PPP) [Time] 13.5 s High 9.0-12.9 [facility] Comment on above: Result Comment: A he matocrit value greater than 55% may lead to inaccurate results in coagulation testing. Patients having hematocrit values >55% require a special collection tube for coagulation studies. Please contact the laboratory at [phone] for redraw instructions. Performed By: #### C BC, PT, PTT #### [address] Troponin I High Sensitivityo n 02-11-2023 Troponin I High Sensitivity 464.1 pg/mL Off scale high 0.0-20.0 [facility] Comment on above: Result Comment: Crit ical Result : Called to and read back by: ARIS JEFFRIES at: 02/11/2023 08:16:51 by:[id number] PERFORMED BY: [place] [address] PATHOLOGIST ASSOCIATE PROFESSOR OF [employer] JIANLAN SUN M.D. Performed By: #### B MP, MG, LIPID #### [facility] [address] [id number] [facility] Troponin I.cardiac [Mass/vol ume] in Serum or Plasma by Detection limit <= 0.01 ng/Ordered By: Melissa Tejeda on 02-11-2023 Troponin I.cardiac DL <= 0.01 ng/mL [Mass/Vol] 464.1 pg/mL 0.0-20.0 [facility] Comment on above: Critical Result : Ca lled to and read back by: ARIS JEFFRIES at: 02/11/2023 08:16:51 by:[id number] US venous duplex LE BIon US venous duplex LE BI [facility] Main [place] [address] [place] [address] Ultrasound Report Signed Patient: Yannick Cardoso MR#: [id number] 0 : 1950 Acct:[id number] Age/Sex: 72 / M ADM Date: 02/11/23 Loc: Room: [address] [place] [address] Type: ADM IN Attending Dr: Cornelio Padilla MD Ordering Provider: Melissa Tejeda MD Date of Service: 02/11/23 US/US venous duplex LE BI: leg pain, PE Copies to: MD Melissa Anand MD Bilateral Lower Extremity Venous Duplex examination Indication for study: Leg pain PROCEDURE: Color-flow duplex scanning is used to interrogate the venous anatomy of both lower extremities. There are no prior images for comparison. On today's examination there is noted to be bilateral deep vein thrombosis. In the patient's right leg the common femoral vein is compressible and shows normal color flow. There is incompressibility of the right femoral vein and the popliteal vein with diminished color flow. In the patient's left leg the common femoral vein is compressible with good color flow. In the mid and distal femoral vein there is incompressibility with diminished color flow and the popliteal vein also is partially compressible with diminished color flow. US/US venous duplex LE BI IMPRESSION: This examination is positive for bilateral deep vein thrombosis involving the femoral vein and popliteal vein of both lower extremities Impression dictated by: Chon Pal M.D.02/11/2023 8:58 AM Dictation Location: [place] [address] Tech: Kim Hayes Transcribed By: JEVON 02/11/23857 Dictated By: Chon Pal MD 02/11/2355 Signed By: 02/11/[address] [facility] XR abdomen 1Von 02-11-2023 XR abdomen 1V [facility] [place] [address] XRay Report Signed Patient: Yannick Cardoso MR#: [id number] 0 : 1950 Acct:[id number] Age/Sex: 72 / M ADM Date: 02/11/23 Loc: Room: [address] [place] [address] Type: ADM IN Attending Dr: Cornelio Padilla MD Copies to: Cornelio Padilla MD Ordering Provider: Cornelio Padilla MD Date of Service: 02/11/23 XR/XR abdomen 1V: Assess if IVC filter is in place PORTABLE SINGLE VIEW ABDOMEN CLINICAL DATA: Assess for IVC filter. COMPARISON: None Supine view of the abdomen was obtained. Assessment is slightly limited by body habitus. An IVC filter is visualized overlying the lumbar spine at the L2-3 level. There is air within nondistended small and large bowel. There is no significant colonic stool in the field of view. There is scoliotic curvature and degenerative change at the spine. XR/XR abdomen 1V IMPRESSION: CONFIRMATION OF AN IVC FILTER. Impression dictated by: Chloé Burgess M.D.02/11/2023 1:24 PM Dictation Location: [place] [address] Transcribed By: JEVON 02/11/231323 Dictated By: Chloé Burgess MD 02/11/231322 Signed By: 02/11/231323 [facility] CBC AUTO DIFFon 11-08-2021 BASO # 0.0 103/ul Normal 0.0-0.1 [facility] Comment on above: Performed By: #### C BC #### [facility] [address] [place] [address] Dr. Enma Chaves Basophils/100 WBC (Bld) 0.4 % Normal 0.2-2.0 [facility] Comment on above: Performed By: #### C BC #### [facility] [address] [place] [address] Dr. Enma Chaves EO # 0.1 103/ul Normal 0.0-0.7 [facility] Comment on above: Performed By: #### C BC #### [facility] [address] [place] [address] Dr. Enma Chaves Eosinophils/100 WBC (Bld) 1.1 % Normal 0.9-7.0 [facility] Comment on above: Performed By: #### C BC #### [facility] [address] [place] [address] Dr. Enma Chaves Erythrocyte distribution width (RBC) [Ratio] 12.7 % Normal 11.0-15.0 [facility] Comment on above: Performed By: #### C BC #### [facility] [address] [place] [address] Dr. Enma Chaves Hematocrit (Bld) [Volume fraction] 42.6 % Normal 42.0-54.0 [facility] Comment on above: Performed By: #### C BC #### [facility] [address] [place] [address] Dr. Enma Chaves Hemoglobin (Bld) [Mass/Vol] 13.8 g/dL Critically low 14.0-18.0 [facility] Comment on above: Performed By: #### C BC #### [facility] [address] [place] [address] Dr. Enma Chaves IG # 0.01 10e3/ul Normal 0.00-0.03 [facility] Comment on above: Performed By: #### C BC #### [facility] [address] [place] [address] Dr. Enma Chaves IG % 0.1 % Normal 0.0-0.5 [facility] Comment on above: Performed By: #### C BC #### [facility] [address] [place] [address] Dr. Enma Chaves LYMPH # 1.0 103/ul Critically low 1.2-3.8 [facility] Comment on above: Performed By: #### C BC #### [facility] [address] [place] [address] Dr. Enma Chaves Lymphocytes/100 WBC (Bld) 12.0 % Critically low 20.5-60.0 [facility] Comment on above: Performed By: #### C BC #### [facility] [address] [place] [address] Dr. Enma Chaves MANUAL DIFF REQ NO Normal [facility] Comment on above: Performed By: #### C BC #### [facility] [address] [place] [address] Dr. Enma Chaevs MCH (RBC) [Entitic mass] 30.2 pg Normal 25.9-34.0 [facility] Comment on above: Performed By: #### C BC #### [facility] [address] [place] [address] Dr. Enma Chaves MCHC (RBC) [Mass/Vol] 32.4 g/dL Normal 29.9-35.2 [facility] Comment on above: Performed By: #### C BC #### [facility] [address] [place] [address] Dr. Enma Chaves MCV (RBC) [Entitic vol] 93.2 fL Normal 80.0-94.0 [facility] Comment on above: Performed By: #### C BC #### [facility] [address] [place] [address] Dr. Enma Chaves MONO # 0.7 103/ul Normal 0.3-0.8 [facility] Comment on above: Performed By: #### C BC #### [facility] [address] [place] [address] Dr. Enma Chaves Monocytes/100 WBC (Bld) 8.8 % Normal 1.7-12.0 [facility] Comment on above: Performed By: #### C BC #### [facility] [address] [place] [address] [address] Enma Chaves NEUT # 6.3 103/ul Normal 1.4-6.5 [facility] Comment on above: Performed By: #### C BC #### [facility] [address] [place] [address] Dr. Enma Chaves Neutrophils/100 WBC (Bld) 77.6 % Critically high 43.0-75.0 [facility] Comment on above: Performed By: #### C BC #### [facility] [address] [place] [address] Dr. Enma Chaves Platelet mean volume (Bld) [Entitic vol] 9.7 fL Normal 9.5-13.5 [facility] Comment on above: Performed By: #### C BC #### [facility] [address] [place] [address] Dr. Enma Chaves PLT 219 103/ul Normal 150-450 [facility] Comment on above: Performed By: #### C BC #### [facility] [address] [place] [address] Dr. Enma Chaves RBC 4.57 106/ul Critically low 4.70-6.10 [facility] Comment on above: Performed By: #### C BC #### [facility] [address] [place] [address] Dr. Enma Chaves WBC 8.2 103/ul Normal 4.0-11.0 [facility] Comment on above: Performed By: #### C BC #### [facility] [address] [place] [address] Dr. Enma Chaves PROF 14(COMP METB)on 022 Albumin [Mass/Vol] 3.2 g/dL Critically low 3.4-5.0 [facility] Comment on above: Performed By: #### C MP #### [facility] [address] [place] [address] Dr. Enma Chaves Albumin/Globulin [Mass ratio] 1.0 {ratio} Normal [facility] Comment on above: Performed By: #### C MP #### [facility] [address] [place] [address] Dr. Enma Chaves ALP [Catalytic activity/Vol] 84 U/L Normal 46-116 [facility] Comment on above: Performed By: #### C MP #### [facility] [address] [place] [address] Dr. Enma Chaves ALT [Catalytic activity/Vol] 27 U/L Normal 16-63 [facility] Comment on above: Performed By: #### C MP #### [facility] [address] [place] [address] Dr. Enma Chaves Anion gap [Moles/Vol] 9.5 mmol/L Normal [facility] Comment on above: Performed By: #### C MP #### [facility] [address] [place] [address] Dr. Enma Chaves AST [Catalytic activity/Vol] 16 U/L Normal 15-37 [facility] Comment on above: Performed By: #### C MP #### [facility] [address] [place] [address] Dr. Enma Chaves Bilirubin [Mass/Vol] 0.5 mg/dL Normal 0.2-1.0 [facility] Comment on above: Performed By: #### C MP #### [facility] [address] [place] [address] Dr. Enma Chaves Calcium [Mass/Vol] 8.9 mg/dL Normal 8.5-10.1 [facility] Comment on above: Performed By: #### C MP #### [facility] [address] [place] [address] Dr. Enma Chaves Chloride [Moles/Vol] 105 mmol/L Normal 98-107 [facility] Comment on above: Performed By: #### C MP #### [facility] [address] [place] [address] Dr. Enma Chaves CO2 [Moles/Vol] 30.3 mmol/L Normal 21.0-32.0 [facility] Comment on above: Performed By: #### C MP #### [facility] [address] [place] [address] Dr. Enma Chaves Creatinine [Mass/Vol] 0.85 mg/dL Normal 0.70-1.30 [facility] Comment on above: Performed By: #### C MP #### [facility] [address] [place] [address] [address] Enma Chaves EGFR-AF SAO TOMEAN >60 Normal >=60 [facility] Comment on above: Performed By: #### C MP #### [facility] [address] [place] [address] [address] Enma Chaves EGFR-NON AF SAO TOMEAN >60 Normal >=60 [facility] Comment on above: Performed By: #### C MP #### [facility] [address] [place] [address] [address] Enma Chaves Globulin (S) [Mass/Vol] 3.1 g/dL Normal [facility] Comment on above: Performed By: #### C MP #### [facility] [address] [place] [address] Dr. Enma Chaves Glucose [Mass/Vol] 107 mg/dL Critically high 74-106 [facility] Comment on above: Performed By: #### C MP #### [facility] [address] [place] [address] [address] Enma Chaves Potassium [Moles/Vol] 3.8 mmol/L Normal 3.5-5.1 [facility] Comment on above: Performed By: #### C MP #### [facility] [address] [place] [address] [address] Enma Chaves Protein [Mass/Vol] 6.3 g/dL Critically low 6.4-8.2 [facility] Comment on above: Performed By: #### C MP #### [facility] [address] [place] [address] [address] Enma Chaves Sodium [Moles/Vol] 141 mmol/L Normal 136-145 [facility] Comment on above: Performed By: #### C MP #### [facility] [address] [place] [address] [address] Enma Chaves Urea nitrogen [Mass/Vol] 11.0 mg/dL Normal 7.0-18.0 [facility] Comment on above: Performed By: #### C MP #### [facility] [address] [place] [address] Dr. Enma Chaves Urea nitrogen/Creatinine [Mass ratio] 12.9 mg/mg Normal [facility] Comment on above: Performed By: #### C MP #### [facility] [address] [place] [address] Dr. Enma Chaves XR SMALL BOWEL FOLLOW THOUGH on 11-08-2021 XR SMALL BOWEL FOLLOW THOUGH EXAMINATION: XR SMALL BOWEL FOLLOW THOUGH HISTORY: GENERALIZED ABDOMINAL PAIN COMPARISON: No relevant comparison available. TECHNIQUE: Small bowel series was performed in the usual manner. No 911 telecommunicator abdominal radiograph was performed. The procedure was performed with the patient on the floor, no fluoroscopy. FINDINGS: DUODENUM: Limited, grossly normal JEJUNUM: Limited, dilated loops measuring up to 4 cm ILEUM: Limited, dilated loops measuring up to 4 cm OTHER: Passage of contrast into the colon identified at 30 minutes. The rectum is visualized at 90 minutes. IMPRESSION: No obstruction, visualization of the rectum at 90 minutes Dilated small bowel loops suggesting enteritis or ileus Electronically authenticated by: ROBIN SIMPSON Date: 2021-11-08 11:00 Normal [facility] AMYLASEon 11-07-2021 Amylase [Catalytic activity/Vol] 59 U/L Normal 25-115 [facility] Comment on above: Performed By: #### C MP #### [facility] [address] [place] [address] Dr. Enma Chaves CBC W MANUAL DIFFon 11-08-19 22 ATYPICAL LYMPH # Normal [facility] Comment on above: Performed By: #### C SUSIEMAN #### [facility] [address] [place] [address] Dr. Enma Chaves ATYPICAL LYMPH % Normal [facility] Comment on above: Performed By: #### C ELENA #### [facility] [address] [place] [address] Dr. Enma Chaves BAND # 0.1 103/ul Normal 0.0-0.3 [facility] Comment on above: Performed By: #### C ELENA #### [facility] [address] [place] [address] Dr. Enma Chaves BAND % 1 % Normal 0-5 [facility] Comment on above: Performed By: #### C BCTHADDEUS #### [facility] [address] [place] [address] [address] Enma Chaves BASOM # 0.00 103/ul Normal 0.00-0.10 [facility] Comment on above: Performed By: #### C BCTHADDEUS #### [facility] [address] [place] [address] [address] Enma Chaves BASOM % 0.0 % Critically low 0.2-2.0 [facility] Comment on above: Performed By: #### C BCTHADDEUS #### [facility] [address] [place] [address] Dr. Enma Chaves BLAST # Normal [facility] Comment on above: Performed By: #### C ELENA #### [facility] [address] [place] [address] Dr. Enma Chaves BLAST % Normal [facility] Comment on above: Performed By: #### C ELENA #### [facility] [address] [place] [address] Dr. Enma Chaves CORRECTED WBC Normal 4.0-11.0 [facility] Comment on above: Performed By: #### C BCTHADDEUS #### [facility] [address] [place] [address] Dr. Enma Chaves EOS # 0.00 103/ul Normal 0.00-0.70 [facility] Comment on above: Performed By: #### C ELENA #### [facility] [address] [place] [address] Dr. Enma Chaves EOS% 0.0 % Critically low 0.9-7.0 [facility] Comment on above: Performed By: #### C BCTHADDEUS #### [facility] [address] [place] [address] Dr. Enma Chaves HCT 48.4 % Normal 42.0-54.0 [facility] Comment on above: Performed By: #### C ELENA #### [facility] [address] [place] [address] Dr. Enma Chaves HGB 15.9 g/dl Normal 14.0-18.0 [facility] Comment on above: Performed By: #### C BCTHADDEUS #### [facility] [address] [place] [address] Dr. Enma Chaves LYMPHM # 1.39 103/ul Normal 1.20-3.80 [facility] Comment on above: Performed By: #### C ELENA #### [facility] [address] [place] [address] Dr. Enma Chaves LYMPHM% 11.0 % Critically low 20.5-60.0 [facility] Comment on above: Performed By: #### C ELENA #### [facility] [address] [place] [address] Dr. Enma Chaves MCH 30.3 pg Normal 25.9-34.0 [facility] Comment on above: Performed By: #### C ELENA #### [facility] [address] [place] [address] Dr. Enma Chaves MCHC 32.9 g/dl Normal 29.9-35.2 [facility] Comment on above: Performed By: #### C ELENA #### [facility] [address] [place] [address] Dr. Enma Chaves MCV 92.4 fL Normal 80.0-94.0 [facility] Comment on above: Performed By: #### C ELENA #### [facility] [address] [place] [address] Dr. Enma Chaves METAMYELOCYTE # Normal [facility] Comment on above: Performed By: #### C ELENA #### [facility] [address] [place] [address] Dr. Enma Chaves METAMYELOCYTE % Normal [facility] Comment on above: Performed By: #### C ELENA #### [facility] [address] [place] [address] Dr. Enma Chaves MONOM# 0.50 103/ul Normal 0.30-0.80 [facility] Comment on above: Performed By: #### C ELENA #### [facility] [address] [place] [address] Dr. Enma Chaves MONOM% 4.0 % Normal 1.7-12.0 [facility] Comment on above: Performed By: #### C ELENA #### [facility] [address] [place] [address] Dr. Enma Chaves MPV 9.0 fL Critically low 9.5-13.5 [facility] Comment on above: Performed By: #### C ELENA #### [facility] [address] [place] [address] Dr. Enma Chaves MYELOCYTE # Normal [facility] Comment on above: Performed By: #### C ELENA #### [facility] [address] [place] [address] Dr. Enma Chaves MYELOCYTE % Normal [facility] Comment on above: Performed By: #### C ELENA #### [facility] [address] [place] [address] Dr. Enma Chaves NRBC Normal [facility] Comment on above: Performed By: #### C ELENA #### [facility] [address] [place] [address] Dr. Enma Chaves PLT 264 103/ul Normal 150-450 [facility] Comment on above: Performed By: #### C ELENA #### [facility] [address] [place] [address] Dr. Enma Chaves RBC 5.24 106/ul Normal 4.70-6.10 [facility] Comment on above: Performed By: #### C ELENA #### [facility] [address] [place] [address] Dr. Enma Chaves RDW 12.5 % Normal 11.0-15.0 [facility] Comment on above: Performed By: #### C ELENA #### [facility] [address] [place] [address] Dr. Enma Chaves SEG # 10.58 103/ul Critically high 1.40-6.50 [facility] Comment on above: Performed By: #### C ELENA #### [facility] [address] [place] [address] Dr. Enma Chaves SEG % 84.0 % Critically high 43.0-75.0 [facility] Comment on above: Performed By: #### C ELENA #### [facility] [address] [place], [place] [address] Dr. Enma Chaves WBC 12.6 103/ul Critically high 4.0-11.0 [facility] Comment on above: Performed By: #### C ELENA #### [facility] [address] [place], [place] [address] ABD/PELV W CONon 11-08-19 CT ABD/PELV W CON CT ABD/PELV W CON CLINICAL: Generalized abdominal pain. COMPARISON: No prior studies are available. TECHNIQUE: High-resolution axial images were obtained from diaphragms to pubic symphysis after administration of IV contrast. Dose reduction: mA and/or kV are were adjusted by automated exposure control software based upon patients height and weight. FINDINGS: Lung bases show pleural based densities consistent with scarring or atelectasis, most prominent at the lateral left base and anteromedial right middle lobe. No consolidation or effusion. The liver is diffusely and mildly decreased in density. Gallbladder shows small calcified gallstones. No CT evidence of acute biliary obstruction or calcified intraductal stone in the common bile duct. Spleen, pancreas and adrenals are unremarkable except for 1.6 cm left adrenal nodule which is indeterminate by density measurement but statistically most likely to be a small adenoma. The kidneys bilaterally show no calculus or hydronephrosis. There are benign-appearing bilateral renal cysts of up to 4.2 cm on the left, showing density consistent with simple fluid. Urinary bladder shows no calculus. Prostate is upper normal in size. No ascites or abdominal adenopathy. Infrarenal IVC filter is in place. The small bowel loops in the central abdomen are distended and show air-fluid levels, measuring up to 4.2 cm diameter. Dilated segments are within the proximal to mid jejunum. The distal ileal segments are nondistended. Transition point appears to be in the central abdomen just to the left of midline, without evidence of local mass or mesenteric inflammatory process (axial series 4 image 81 the colon is nondistended, and the appendix appears unremarkable. Terminal ileum shows no surrounding inflammation. There is slight thickening of the right paracolic peritoneal reflection without significant fluid collection. No evidence of swirling of the mesenteric vessels. There is mild haziness in the anterocentral mesentery without discrete mass or fluid collection. There is diverticulosis of the sigmoid colon without CT evidence of diverticulitis. No ascites or abdominal adenopathy. Osseous structures show no acute traumatic or destructive lesion. Delayed images through the bladder show no evidence of filling defect. IMPRESSION: 1. Moderately dilated proximal small bowel loops containing air-fluid levels, predominantly representing the jejunum, with transition point at approximately the jejunal-ileal junction, consistent with small bowel obstruction versus ileus. No evidence of obstructing mass, localized small bowel mucosal thickening or focal mesenteric inflammatory process, however there is haziness within the mesenteric fat centrally consistent with ongoing mild mesenteric inflammation. 2. Mild diffuse hepatic steatosis. Cholelithiasis without evidence of biliary obstruction. 3. Benign-appearing bilateral renal cysts without evidence of urinary obstruction. 4. 1.6 cm left adrenal nodule, indeterminate but statistically most likely to be a small adenoma. Follow-up to assure stability or nonemergent adrenal protocol MRI may be considered as warranted. Electronically authenticated by: ROBIN RAYA Date: 2021-11-07 13:36 Normal [facility] Covid-19 PCR ([facility])on SARS-CoV-2 (COVID-19) RNA AVEL+probe Ql (Unsp spec) Not detected Normal NOT DETECTED [facility] Comment on above: Result Comment: When diagnostic testing is negative, the possibility of a false negative should be considered in the context of a patient's recent exposures and the presence of clinical signs and symptoms consistent with SARS-CoV-2. This test is not yet approved or cleared by the [place] FDA. When there are no FDA-approved or cleared tests available, and other criteria are met, FDA can make tests available under an emergency access mechanism called an Emergency Use Authorization (EUA). The EUA for this test is supported by the 5Th Grade Teacher of Health and Human Service's declaration that circumstances exist to justify the emergency use of in vitro diagnostics for the detection and/or diagnosis of the virus that causes COVID-19. This EUA will remain in effect for the duration of the COVID-19 declaration justifying emergency of IVDs, unless it is terminated or revoked by the FDA (after which the test may no longer be used). Performed By: #### C [facility] #### [facility] [address] [place] [address] Dr. Enma Chaves LIPASEon 11-07-2021 Lipase [Catalytic activity/Vol] 114.0 U/L Normal 73.0-393.0 [facility] Comment on above: Performed By: #### L IPA, CMP, RENÉE #### [facility] [address] [place] [address] Dr. Enma Chaves PROF 14(COMP METB)on 022 Albumin [Mass/Vol] 4.1 g/dL Normal 3.4-5.0 [facility] Comment on above: Performed By: #### L IPA, CMP, RENÉE #### [facility] [address] [place] [address] Dr. Enma Chaves Albumin/Globulin [Mass ratio] 1.0 {ratio} Normal [facility] Comment on above: Performed By: #### L IPA, CMP, RENÉE #### [facility] [address] [place] [address] Dr. Enma Chaves ALP [Catalytic activity/Vol] 101 U/L Normal 46-116 [facility] Comment on above: Performed By: #### L IPA, CMP, RENÉE #### [facility] [address] [place] [address] Dr. Enma Chaves ALT [Catalytic activity/Vol] 25 U/L Normal 16-63 [facility] Comment on above: Performed By: #### L IPA, CMP, RENÉE #### [facility] [address] [place] [address] Dr. Enma Chaves Anion gap [Moles/Vol] 14.8 mmol/L Normal [facility] Comment on above: Performed By: #### L IPA, CMP, RENÉE #### [facility] [address] [place] [address] Dr. Enma Chaves AST [Catalytic activity/Vol] 17 U/L Normal 15-37 [facility] Comment on above: Performed By: #### L IPA, CMP, RENÉE #### [facility] [address] [place] [address] Dr. Enma Chaves Bilirubin [Mass/Vol] 0.4 mg/dL Normal 0.2-1.0 [facility] Comment on above: Performed By: #### L IPA, CMP, RENÉE #### [facility] [address] [place] [address] Dr. Enma Chaves Calcium [Mass/Vol] 9.9 mg/dL Normal 8.5-10.1 [facility] Comment on above: Performed By: #### L IPA, CMP, RENÉE #### [facility] [address] [place] [address] Dr. Enma Chaves Chloride [Moles/Vol] 101 mmol/L Normal 98-107 [facility] Comment on above: Performed By: #### L IPA, CMP, RENÉE #### [facility] [address] [place] [address] Dr. Enma Chaves CO2 [Moles/Vol] 28.1 mmol/L Normal 21.0-32.0 [facility] Comment on above: Performed By: #### L IPA, CMP, RENÉE #### [facility] [address] [place] [address] Dr. Enma Chaves Creatinine [Mass/Vol] 1.09 mg/dL Normal 0.70-1.30 [facility] Comment on above: Performed By: #### L IPA, CMP, RENÉE #### [facility] [address] [place] [address] Dr. Enma Chaves EGFR-AF SAO TOMEAN >60 Normal >=60 [facility] Comment on above: Performed By: #### L IPA, CMP, RENÉE #### [facility] [address] [place] [address] Dr. Enma Chaves EGFR-NON AF SAO TOMEAN >60 Normal >=60 [facility] Comment on above: Performed By: #### L IPA, CMP, RENÉE #### [facility] [address] [place] [address] Dr. Enma Chaves Globulin (S) [Mass/Vol] 4.0 g/dL Normal [facility] Comment on above: Performed By: #### L IPA, CMP, RENÉE #### [facility] [address] [place] [address] Dr. Enma Chaves Glucose [Mass/Vol] 130 mg/dL Critically high 74-106 [facility] Comment on above: Performed By: #### L IPA CMP, RENÉE #### [facility] [address] [place] [address] Dr. Enma Chaves Potassium [Moles/Vol] 3.9 mmol/L Normal 3.5-5.1 [facility] Comment on above: Performed By: #### L IPA CMP, RENÉE #### [facility] [address] [place] [address] Dr. Enma Chaves Protein [Mass/Vol] 8.1 g/dL Normal 6.4-8.2 [facility] Comment on above: Performed By: #### L IPA CMP, RENÉE #### [facility] [address] [place] [address] Dr. Enma hCaves Sodium [Moles/Vol] 140 mmol/L Normal 136-145 [facility] Comment on above: Performed By: #### L IPA CMP, RENÉE #### [facility] [address] [place] [address] Dr. Enma Chaves Urea nitrogen [Mass/Vol] 14.0 mg/dL Normal 7.0-18.0 [facility] Comment on above: Performed By: #### L IPA CMP, RENÉE #### [facility] [address] [place] [address] Dr. Enma Chaves Urea nitrogen/Creatinine [Mass ratio] 12.8 mg/mg Normal [facility] Comment on above: Performed By: #### L IPA CMP, RENÉE #### [facility] [address] [place] [address] Dr. Enma Chaves UA RANDOMon 11-07-2021 Bilirubin Ql (U) Negative Normal NEGATIVE [facility] Comment on above: Performed By: #### C MP #### [facility] [address] [place] [address] Dr. Enma Chaves Clarity (U) CLEAR Normal CLEAR [facility] Comment on above: Performed By: #### C MP #### [facility] [address] [place] [address] Dr. Enma Chaves Color (U) YELLOW Normal YELLOW [facility] Comment on above: Performed By: #### C MP #### [facility] [address] [place] [address] Dr. Enma Chaves Glucose Ql (U) Negative Normal NEGATIVE [facility] Comment on above: Performed By: #### C MP #### [facility] [address] [place] [address] Dr. Enma Chaves Hemoglobin Ql (U) Negative Normal NEGATIVE [facility] Comment on above: Performed By: #### C MP #### [facility] [address] [address] [address] Enma Chaves Ketones Ql (U) Negative Normal NEGATIVE [facility] Comment on above: Performed By: #### C MP #### [facility] [address] [place] [address] Dr. Enma Chaves LEUKOCYTES Negative Normal NEGATIVE [facility] Comment on above: Performed By: #### C MP #### [facility] [address] [place] [address] Dr. Enma Chaves Nitrite Ql (U) Negative Normal NEGATIVE [facility] Comment on above: Performed By: #### C MP #### [facility] [address] [place] [address] Dr. Enma Chaves pH (U) 5.0 [pH] Normal 5-9 [facility] Comment on above: Performed By: #### C MP #### [facility] [address] [place] [address] Dr. Enma Chaves SPEC GRAVITY >=1.030 Abnormal 1.005-<=1. 025 [facility] Comment on above: Performed By: #### C MP #### [facility] [address] [place] [address] Dr. Enma Chaves UA PROTEIN Negative Normal NEGATIVE/ TRACE [facility] Comment on above: Performed By: #### C MP #### [facility] [address] [place] [address] Dr. Enma Chaves Urobilinogen Qn (U) 0.2 {Steve'U}/dL Normal 0.2 - 1. 0 [facility] Comment on above: Performed By: #### C MP #### [facility] [address] [place], [place] [address] Dr. Enma Chaves XR KUB 1 VIEWon 11-07-2021 XR KUB 1 VIEW EXAM: XR KUB 1 VIEW HISTORY: Nasogastric tube in situ COMPARISON: CT of the abdomen and pelvis from 11/07/2021 TECHNIQUE: Supine radiograph of the abdomen and pelvis. FINDINGS: Enteric tube tip and side-port over the stomach. IVC filter in place. Multiple dilated loops of small bowel measuring up to 4.9 cm. There is contrast within the bladder. Multilevel osteophytes of the lumbar spine. Joint space loss of the left hip. Enthesophytes iliac crests. IMPRESSION: 1. Enteric tube tip and side-port at the stomach. 2. Multiple dilated loops of small bowel correlating to the small bowel obstruction on prior CT. Electronically authenticated by: DAMIAN MAJANO Date: 2021-11-07 15:32 Normal [facility] Complete Blood Count with Au to Diffon 04-20-2021 Basophils (Bld) [#/Vol] 0.04 10*3/uL Normal 0.00-0.20 [facility] [employer] Comment on above: Performed By: #### C BCAD, CMP, LIPD #### [facility] [address], [place] [id number] Basophils/100 WBC (Bld) 0.6 % Normal [facility] Comment on above: Performed By: #### C BCAD, CMP, LIPD #### [facility] [address], [place] [id number] Eosinophils (Bld) [#/Vol] 0.08 10*3/uL Normal 0.02-0.50 [facility] [employer] Sound Technician Comment on above: Performed By: #### C BCAD, CMP, LIPD #### [facility] [address], [place] [id number] Eosinophils/100 WBC (Bld) 1.3 % Normal [facility] Mechanical Sound Technician Comment on above: Performed By: #### C BCAD, CMP, LIPD #### [facility] [address], [place] [id number] Erythrocyte distribution width (RBC) [Ratio] 12.6 % Normal 11.0-15.0 [facility] Specialist Comment on above: Performed By: #### C BCAD, CMP, LIPD #### [facility] [address], [place] [id number] Hematocrit (Bld) [Volume fraction] 45.9 % Normal 38.5-50.0 [facility] Special[facility] Comment on above: Performed By: #### C BCAD, CMP, LIPD #### [facility] [address], [place] [id number] Hemoglobin (Bld) [Mass/Vol] 14.7 g/dL Normal 13.0-17.1 [facility] Special[facility] Comment on above: Performed By: #### C BCAD, CMP, LIPD #### [facility] [address], [place] [id number] Lymphocytes (Bld) [#/Vol] 1.7 10*3/uL Normal 0.9-3.9 [facility] Special[facility] Comment on above: Performed By: #### C BCAD, CMP, LIPD #### [facility] [address], [place] [id number] Lymphocytes/100 WBC (Bld) 26.4 % Normal [facility] Specialist Comment on above: Performed By: #### C BCAD, CMP, LIPD #### [facility] [address], [place] [id number] MCH (RBC) [Entitic mass] 30.0 pg Normal 27.0-33.0 [facility] Specialist Comment on above: Performed By: #### C BCAD, CMP, LIPD #### [facility] [address], [place] [id number] MCHC (RBC) [Mass/Vol] 32.0 g/dL Normal 32.0-36.0 [facility] Specialist Comment on above: Performed By: #### C BCAD, CMP, LIPD #### [facility] [address], [place] [id number] MCV (RBC) [Entitic vol] 94 fL Normal 80-100 N [facility] Specialist Comment on above: Performed By: #### C BCAD, CMP, LIPD #### [facility] [address], [place] [id number] Monocytes (Bld) [#/Vol] 0.6 10*3/uL Normal 0.2-0.9 [facility] Comment on above: Performed By: #### C BCAD, CMP, LIPD #### [facility] [address], [place] [id number] Monocytes/100 WBC (Bld) 10.2 % [facility] on above: Performed By: #### C BCAD, CMP, LIPD #### [facility] [address], [place] [id number] Neutrophils (Bld) [#/Vol] 3.9 10*3/uL Normal 1.5-7.8 [facility] Comment on above: Performed By: #### C BCAD, CMP, LIPD #### [facility] [address], [place] [id number] Neutrophils/100 WBC (Bld) 61.3 % Normal [facility] Comment on above: Performed By: #### C BCAD, CMP, LIPD #### [facility] [address], [place] [id number] Platelet mean volume (Bld) [Entitic vol] 9.50 fL Normal 7.50-12.50 [facility] Comment on above: Performed By: #### C BCAD, CMP, LIPD #### [facility] [address], [place] [id number] Platelets (Bld) [#/Vol] 270 10*3/uL Normal 140-400 [facility] Comment on above: Performed By: #### C BCAD, CMP, LIPD #### [facility] [address], [place] [id number] RBC (Bld) [#/Vol] 4.90 10*6/uL Normal 4.20-5.80 [facility] Comment on above: Performed By: #### C BCAD, CMP, LIPD #### [facility] [address], [place] [id number] RDW-SD 43.8 fL Normal 37.0-50.0 [facility] Specialist Comment on above: Performed By: #### C BCAD, CMP, LIPD #### [facility] [address], [place] [id number] WBC (Bld) [#/Vol] 6.3 10*3/uL Normal 3.8-11.0 Jory jarvis [place] Mechanical [employer] Technician Comment on above: Performed By: #### C BCAD, CMP, LIPD #### [facility] [address], [place] [id number] Comprehensive Metabolic Pane lacho 04-20-2021 Albumin [Mass/Vol] 4.8 g/dL Normal 3.6-5.1 Jory jarvis [place] [employer] Techn[employer] Comment on above: Performed By: #### C BCAD, CMP, LIPD #### [facility] [address], [place] [id number] Albumin/Globulin [Mass ratio] 1.8 {ratio} Normal 1.0-2.5 [facility] Specialist Comment on above: Performed By: #### C BCAD, CMP, LIPD #### [facility] [address], [place] [id number] ALP [Catalytic activity/Vol] 110 U/L Normal 40-129 [facility] Specialist Comment on above: Performed By: #### C BCAD, CMP, LIPD #### [facility] [address], [place] [id number] ALT [Catalytic activity/Vol] 19 U/L Normal 9-46 [facility] Special[facility] Comment on above: Result Comment: 03/03 Female reference range changed. Performed By: #### C BCAD, CMP, LIPD #### [facility] [address], [place] [id number] Anion gap [Moles/Vol] 18 mmol/L Normal 12-20 [facility] Comment on above: Result Comment: Effe ctive 04/08/2019 reference range changed. Performed By: #### C BCAD, CMP, LIPD #### [facility] [address], [place] [id number] AST [Catalytic activity/Vol] 20 U/L Normal 10-40 [facility] Specialist Comment on above: Performed By: #### C BCAD, CMP, LIPD #### [facility] [address], [place] [id number] Bilirubin [Mass/Vol] 0.46 mg/dL Normal 0.30-1.20 [facility] Comment on above: Performed By: #### C BCAD, CMP, LIPD #### [facility] [address], [place] [id number] BUN/CREA 13 Ratio Normal 6-22 [facility] Comment on above: Performed By: #### C BCAD, CMP, LIPD #### [facility] [address], [place] [id number] Calcium [Mass/Vol] 10.0 mg/dL Normal 8.6-10.2 [facility] Comment on above: Performed By: #### C BCAD, CMP, LIPD #### [facility] [address], [place] [id number] Chloride [Moles/Vol] 98 mmol/L Normal 98-107 [facility] Comment on above: Performed By: #### C BCAD, CMP, LIPD #### [facility] [address], [place] [id number] CO2 [Moles/Vol] 24 mmol/L Normal 20-31 [facility] Comment on above: Performed By: #### C BCAD, CMP, LIPD #### [facility] [address], [place] [id number] Creatinine [Mass/Vol] 0.9 mg/dL Normal 0.7-1.4 [facility] Comment on above: Performed By: #### C BCAD, CMP, LIPD #### [facility] [address], [place] [id number] eGFRAA 99 mL/min/1.73m2 Normal >60 [facility] Comment on above: Performed By: #### C BCAD, CMP, LIPD #### [facility] [address], [place] [id number] eGFRNAA 82 mL/min/1.73m2 Normal >60 [facility] Comment on above: Performed By: #### C BCAD, CMP, LIPD #### [facility] [address], [place] [id number] Globulin (S) [Mass/Vol] 2.6 g/dL Normal 1.9-3.7 [facility] [place] [facility] [employer] Comment on above: Performed By: #### C BCAD, CMP, LIPD #### [facility] [address], [place] [id number] Glucose [Mass/Vol] 86 mg/dL Normal 65-99 Jory jarvis [place] [employer] Technician Comment on above: Result Comment: For FASTING Glucose --- ADA reference ranges: Normal 65-99 mg/dl Prediabetes 100-125 Diabetes >/= 126 Performed By: #### C BCAD, CMP, LIPD #### [facility] [address], [place] [id number] Potassium [Moles/Vol] 4.3 mmol/L Normal 3.5-5.5 [facility] Mechanical Sound Technician Comment on above: Performed By: #### C BCAD, CMP, LIPD #### [facility] [address], [place] [id number] Protein [Mass/Vol] 7.4 g/dL Normal 6.1-8.1 Jory [facility] Mechanical Sound Technician Comment on above: Performed By: #### C BCAD, CMP, LIPD #### [facility] [address], [place] [id number] Sodium [Moles/Vol] 136 mmol/L Normal 135-146 [facility] Comment on above: Performed By: #### C BCAD, CMP, LIPD #### [facility] [address], [place] [id number] Urea nitrogen [Mass/Vol] 12 mg/dL Normal 7-25 [facility] Mechanical Sound Technician Comment on above: Performed By: #### C BCAD, CMP, LIPD #### [facility] [address], [place] [id number] Lipid Panelon 04-20-2021 Cholesterol [Mass/Vol] 203 mg/dL High 125-200 No [facility] Mechanical Sound Technician Comment on above: Result Comment: Low risk < 200mg/dL Borderline risk 201-239 mg/dl High risk > or equal to 240 Performed By: #### C BCAD, CMP, LIPD #### [facility] [address], [place] [id number] Cholesterol in HDL [Mass/Vol] 47 mg/dL Normal >40 [facility] Specialist Comment on above: Result Comment: High Cardiovascular Risk HDL <40 mg/dL Low Cardiovascular Risk HDL > or equal to 60 mg/dl Performed By: #### C BCAD, CMP, LIPD #### [facility] [address], [place] [id number] Cholesterol in LDL [Mass/Vol] 130 mg/dL Normal [facility] Specialist Comment on above: Result Comment: LDL ATP III CLASSIFICATION LDL less than 100 mg/dl Optimal LDL 100-129 mg/dl Near or above optimal LDL 130-159 Borderline high LDL 160-189 High LDL greater than 189 mg/dl Very High Performed By: #### C BCAD, CMP, LIPD #### [facility] [address], [place] [id number] Cholesterol in VLDL [Mass/Vol] 26 mg/dL Normal [facility] Mechanical Sound Technician Comment on above: Performed By: #### C BCAD, CMP, LIPD #### [facility] [address], [place] [id number] Cholesterol.total/Chiquita sterol in HDL [Mass ratio] 4 {ratio} Normal [facility] Specialist Comment on above: Performed By: #### C BCAD, CMP, LIPD #### [facility] [address], [place] [id number] Triglyceride [Mass/Vol] 131 mg/dL Normal 30-150 N [facility] Specialist Comment on above: Result Comment: TRIG ATPIII CLASSIFICATIONS TRIG less than 150 mg/dl Normal TRIG 150-199 mg/dl Borderline High TRIG 200-500 mg/dl High TRIG greather than 500 mg/dl Very High Performed By: #### C BCAD, CMP, LIPD #### [facility] [address], [place] [id number] Prostatic Specific Antigen, Totalon 04-20-2021 PSA, TOTAL 0.59 ng/mL Normal < OR = 4.00 [facility] Mechanical Sound Technician Comment on above: Order Comment: [facility] performed at: QPT, [facility], [address], [address] [place], [address], Conveyor System Dispatcher: David Ware MD [facility] Collection Date/Time: [facility] Results Received Date/Time: [facility] Reported Date/Time: Result Comment: The total PSA value from this assay system is standardized against the WHO standard. The test result will be approximately 20% lower when compared to the equimolar-standardized total PSA (Jad Ana Paula). Comparison of serial PSA results should be interpreted with this fact in mind. This test was performed using the Siemens chemiluminescent method. Values obtained from different assay methods cannot be used interchangeably. PSA levels, regardless of value, should not be interpreted as absolute evidence of the presence or absence of disease. Performed By: #### P SA #### [facility] [address] [place] [address] Q - CULTURE,URINE,ROUTINEon 04-20-2021 CULTURE, URINE, ROUTINE SEE NOTE Abnormal N orthern [place] Mechanical Sound Technician Comment on above: Order Comment: [facility] performed at: QPT, [facility], [address] [place] [address], [address] [place] [address], [phone], Conveyor System Dispatcher: Davdi Ware MD [facility] Date/Time: [facility] Results Received Date/Time: [id number] [facility] Reported Date/Time: [id number] Result Comment: CULT URE, URINE, ROUTINE Micro Number: [id number] Test Status: Final Specimen Source: Not given Specimen Quality: Adequate Result: 10,000-49,000 CFU/mL of Staphylococcus epidermidis Comment: May represent colonizers from external and internal genitalia. No further testing (including susceptibility) will be performed. Performed By: #### 6 [id number] #### [facility] [address] [place] [address] CULTURE URINEon 12-07-2020 CULTURE URINE Culture Observations : MARTI TO FOLLOW. Isolate 1 Escherichia coli >100,000 cfu/mL of Normal [facility] Comment on above: Performed By: #### U RCX #### [facility] [address] [place], [place] [address] Nathalia LINDER URINE PROFILEon 1 Bilirubin Ql (U) Negative Normal NEGATIVE [facility] Comment on above: Performed By: #### C MP #### [facility] [address] [place] [address] Dr. Enma Chaves Clarity (U) CLEAR Normal CLEAR [facility] Comment on above: Performed By: #### C MP #### [facility] [address] [place] [address] Dr. Enma Chaves Color (U) LT. YELLOW Normal YELLOW [facility] Comment on above: Performed By: #### C MP #### [facility] [address] [place] [address] Dr. Enma Chaves ERUSHELLIE A micrscopic examina tion will be performed if indicated. Normal [facility] Comment on above: Performed By: #### C MP #### [facility] [address] [place] [address] Dr. Enma Chaves Glucose Ql (U) Negative Normal NEGATIVE [facility] Comment on above: Performed By: #### C MP #### [facility] [address] [place] [address] Dr. Enma Chaves Hemoglobin Ql (U) LARGE Abnormal NEGATIVE [facility] Comment on above: Performed By: #### C MP #### [facility] [address] [place] [address] Dr. Enma Chaves Ketones Ql (U) Negative Normal NEGATIVE [facility] Comment on above: Performed By: #### C MP #### [facility] [address] [place] [address] Dr. Enma Chaves LEUKOCYTES MODERATE Abnormal NEGATIVE [facility] Comment on above: Performed By: #### C MP #### [facility] [address] [place] [address] Dr. Enma Chaves Nitrite Ql (U) Negative Normal NEGATIVE [facility] Comment on above: Performed By: #### C MP #### [facility] [address] [place] [address] Dr. Enma Chaves pH (U) 7.5 [pH] Normal 5-9 [facility] Comment on above: Performed By: #### C MP #### [facility] [address] [place] [address] Dr. Enma Chaves Protein (U) [Mass/Vol] 100 mg/dL Abnormal NEGAT ALBINO/ TRACE [facility] Comment on above: Performed By: #### C MP #### [facility] [address] [place] [address] Dr. Enma Chaves SPEC GRAVITY 1.020 Normal 1.005-<=1. 025 [facility] Comment on above: Performed By: #### C MP #### [facility] [address] [place] [address] Dr. Enma Chaves UR MICRO IND INDICATED Normal [facility] Comment on above: Performed By: #### C MP #### [facility] [address] [place] [address] Dr. Enma Chaves Urobilinogen Qn (U) 0.2 {Steve'U}/dL Normal 0.2 - 1. 0 [facility] Comment on above: Performed By: #### C MP #### [facility] [address] [place] [address] Dr. Enma Chaves URINE MICROSCOPIC ONLYon BACTERIA TRACE Abnormal NONE SEEN [facility] Comment on above: Performed By: #### C MP #### [facility] [address] [place] [address] Dr. Enma Chaves Bacteria identified Cx Nom (U) INDICATED Normal [facility] Comment on above: Performed By: #### C MP #### [facility] [address] [place] [address] Dr. Enma Chaves CAST NONE SEEN Normal NONE SEEN [facility] Comment on above: Performed By: #### C MP #### [facility] [address] [place] [address] Dr. Enma Chaves Crystals LM Nom (Urine sed) NONE SEEN Normal NONE SEEN [facility] Comment on above: Performed By: #### C MP #### [facility] [address] [place] [address] Dr. Enma Chaves Epithelial cells LM Ql (Urine sed) RARE Normal NONE SEEN /RARE [facility] Comment on above: Performed By: #### C MP #### [facility] [address] [place] [address] [address] Enma Chaves MUCOUS NONE SEEN Normal NONE SEEN [facility] Comment on above: Performed By: #### C MP #### [facility] [address] [address] [address] Enma Chaves RBC 50-75 Abnormal 0-2 [facility] Comment on above: Performed By: #### C MP #### [facility] [address] [address] [address] Enma Chaves WBC 20-50 Abnormal NONE SEEN [facility] Comment on above: Performed By: #### C MP #### [facility] [address] [address] [address] Enma Chaves Vital Signs Date Time Vital Sign Value Performing Clinician Facility 01-17-2024 11:14040 Body height 172.7 cm Chloé Hemmer PA Work Phone: [facility] 01-17-2024 11:14040 Body mass index (BMI) [Ratio] 44.73 kg/m2 Chloé Hemmer PA Work Phone: [facility] 01-17-2024 11:14040 Body weight 133.45 kg Chloé Hemmer PA Work Phone: [facility] 01-17-2024 11:14-0400 Diastolic blood pressure 88 mm[Hg] Chloé Hemmer PA Work Phone: [facility] 01-17-2024 11:14-0400 Heart rate 76 /min Chloé Hemmer PA Work Phone: [facility] 01-17-2024 11:14-0400 Respiratory rate 18 /min Chloé Hemmer PA Work Phone: [facility] 01-17-2024 11:14-0400 SaO2% (BldA) [Mass fraction] 98 % Chloé Hemmer PA Work Phone: [facility] 01-17-2024 11:14-0400 Systolic blood pressure 132 mm[Hg] Chloé Hemmer PA Work Phone: [facility] 12-12-2023 11:21-0400 Body height 175.3 cm Bradley Tovar DO Work Phone: [facility] 12-12-2023 11:21-0400 Body mass index (BMI) [Ratio] 43.27 kg/m2 Bradley Tovar DO Work Phone: [facility] 12-12-2023 11:21040 Body weight 132.9 kg Bradley Tovar DO Work Phone: [facility] 12-12-2023 11:21-0400 Diastolic blood pressure 84 mm[Hg] Bradley Tovar DO Work Phone: [facility] 12-12-2023 11:21-040 Heart rate 86 /min Bradley Tovar DO Work Phone: [facility] 12-12-2023 11:21-0400 Systolic blood pressure 112 mm[Hg] Bradley Tovar DO Work Phone: [facility] 11-29-2023 09:15-0400 Body temperature 97.52 [degF] Jesica Robenstine [facility] 11-29-2023 09:15-0400 Diastolic blood pressure 75 mm[Hg] Jesica Robenstine [facility] 11-29-2023 09:15-0400 Heart rate 93 /min Jesica Robenstine [facility] 11-29-2023 09:15-0400 Systolic blood pressure 118 mm[Hg] Jesica Robenstine [facility] 11-27-2023 15:10-0400 Body height 172.7 cm Chloé Hemmer PA Work Phone: [facility] 11-27-2023 15:10-0400 Body mass index (BMI) [Ratio] 44.7 kg/m2 Chloé Hemmer PA Work Phone: [facility] 11-27-2023 15:10-0400 Body weight 133.36 kg Chloé Hemmer PA Work Phone: [facility] 11-27-2023 15:10-0400 Diastolic blood pressure 74 mm[Hg] Chloé Hemmer PA Work Phone: [facility] 11-27-2023 15:10-0400 Heart rate 101 /min Chloé Hemmer PA Work Phone: [facility] 11-27-2023 15:10-0400 Respiratory rate 18 /min Chloé Hemmer PA Work Phone: [facility] 11-27-2023 15:10-0400 SaO2% (BldA) [Mass fraction] 98 % Chloé Hemmer PA Work Phone: [facility] 11-27-2023 15:10-0400 Systolic blood pressure 126 mm[Hg] Chloé Hemmer PA Work Phone: [facility] 11-19-2023 14:05-0400 Hourly Rounding Hasan AMIR [facility] 11-19-2023 14:05-0400 Promise to Return Hasan AMIR [facility] 11-19-2023 13:05-0400 Hourly Rounding Hasan AMIR [facility] 11-19-2023 13:05-0400 Promise to Return Hasan AMIR [facility] 11-19-2023 12:07-0400 Hourly Rounding Hasan AMIR [facility] 11-19-2023 12:07-0400 Promise to Return Hasan AMIR [facility] 11-19-2023 11:56-0400 Heart rate 98 /min Hasan AMIR [facility] 11-19-2023 11:56-0400 Respiratory rate 18 /min Hasan AMIR [facility] 11-19-2023 11:56-0400 SaO2% (BldA) [Mass fraction] 97 % Hasan AMIR [facility] 11-19-2023 11:48-0400 Heart rate 94 /min Hasan AMIR [facility] 11-19-2023 11:48-0400 Respiratory rate 18 /min Hasan AMIR [facility] 11-19-2023 11:48-0400 SaO2% (BldA) [Mass fraction] 95 % Hasan AMIR [facility] 11-19-2023 10:48-0400 Heart rate 96 /min Hasan AMIR [facility] 11-19-2023 10:48-0400 SaO2% (BldA) [Mass fraction] 94 % Hasan AMIR [facility] 11-19-2023 10:48-0400 Diastolic blood pressure 81 mm[Hg] Hasan AMIR [facility] 11-19-2023 10:48-0400 Mean blood pressure 94 mm[Hg] Hasan AMIR [facility] 11-19-2023 10:48-0400 Systolic blood pressure 120 mm[Hg] Hasan AMIR [facility] 11-19-2023 10:48-0400 Body temperature 97.7 [degF] Hasan AMIR [facility] 11-19-2023 08:13-0400 Diastolic blood pressure 84 mm[Hg] Hasan AMIR [facility] 11-19-2023 08:13-0400 Mean blood pressure 98 mm[Hg] Hasan AMIR [facility] 11-19-2023 08:13-0400 Systolic blood pressure 125 mm[Hg] Hasan AMIR [facility] 11-19-2023 08:13-0400 Body temperature 97.88 [degF] Hasan AMIR [facility] 11-19-2023 04:45-0400 Blood Pressure Location Hasan AMIR [facility] 11-19-2023 04:45-0400 Body temperature 97.7 [degF] Hasan [facility] 11-19-2023 04:45-0400 Diastolic blood pressure 83 mm[Hg] Hasan [facility]IR [facility] 11-19-2023 04:45-0400 Mean blood pressure 98 mm[Hg] Hasan [facility] 11-19-2023 04:45-0400 Systolic blood pressure 128 mm[Hg] Hasan [facility]IR [facility] 11-18-2023 18:49-0400 Mean blood pressure 82 mm[Hg] Hasan AMIR [facility] 11-18-2023 18:48-0400 Body temperature 97.7 [degF] Hasan [facility]IR [facility] 11-18-2023 06:15-0400 Blood Pressure Location Hasan AMIR [facility] 11-18-2023 06:15-0400 Body temperature 98.24 [degF] Hasan [facility] 11-18-2023 06:15-0400 Mean blood pressure 113 mm[Hg] Hasan [facility] 11-17-2023 16:00-0400 Body temperature 97.88 [degF] Hasan [facility] 11-17-2023 01:00-0400 Mean blood pressure 103 mm[Hg] Hasan [facility] 11-16-2023 18:35-0400 Body temperature 97.52 [degF] Hasan [facility] 11-16-2023 18:35-0400 Respiratory rate 20 /min Hasan [facility] 11-16-2023 18:25-0400 Respiratory rate 18 /min Hasan [facility] 11-16-2023 18:10-0400 Respiratory rate 14 /min Hasan [facility] 11-16-2023 17:36-0400 Body temperature 97.34 [degF] [facility]an [facility] 11-16-2023 11:45-0400 Heart rate 85 /min Hasan [facility] 11-16-2023 08:12-0400 Heart rate 110 /min Hasan [facility] 06-15-2023 14:15-0400 Blood Pressure Location Garcia Sarmini [facility] 06-15-2023 14:15-0400 Diastolic blood pressure 88 mm[Hg] Garcia Sarmini [facility] 06-15-2023 14:15-0400 Heart rate 70 /min Garcia Sarmini [facility] 06-15-2023 14:15-0400 Respiratory rate 18 /min Garcia Sarmini [facility] 06-15-2023 14:15-0400 Systolic blood pressure 136 mm[Hg] Radha Roche [facility] 04-08-2023 21:00-0500 Diastolic blood pressure 89 mm[Hg] [facility] 04-08-2023 21:00-0500 Heart rate 73 /min [facility] 04-08-2023 21:00-0500 Mean blood pressure 105 mm[Hg] [facility] 04-08-2023 21:00-0500 SaO2% (BldA) [Mass fraction] 95 % [facility] 04-08-2023 21:00-0500 Systolic blood pressure 136 mm[Hg] [facility] 04-08-2023 20:00-0500 Diastolic blood pressure 88 mm[Hg] [facility] 04-08-2023 20:00-0500 Heart rate 85 /min [facility] 04-08-2023 20:00-0500 Respiratory rate 15 /min [facility] 04-08-2023 20:00-0500 SaO2% (BldA) [Mass fraction] 96 % [facility] 04-08-2023 20:00-0500 Systolic blood pressure 138 mm[Hg] [facility] 04-08-2023 19:00-0500 Diastolic blood pressure 97 mm[Hg] [facility] 04-08-2023 19:00-0500 Heart rate 80 /min [facility] 04-08-2023 19:00-0500 Mean blood pressure 117 mm[Hg] [facility] 04-08-2023 19:00-0500 Respiratory rate 21 /min [facility] 04-08-2023 19:00-0500 Systolic blood pressure 156 mm[Hg] [facility] 04-08-2023 17:25-0500 Body temperature 97.88 [degF] [facility] 04-08-2023 17:25-0500 Heart rate 98 /min [facility] 04-08-2023 17:25-0500 Respiratory rate 20 /min [facility] 03-15-2023 15:11-0500 Diastolic blood pressure 68 mm[Hg] Chandrika Leary [employer] MARKETING [employer]IST-[employer]RESTING GE[employer] OFFICER Work Phone: [facility] 03-15-2023 15:11-0500 Systolic blood pressure 112 mm[Hg] Chandrika Leary [employer]OR[employer] MARKETING SPECIALIST-[employer]ULT AND ARRESTING GEAR OFFICER Work Phone: [facility] 03-15-2023 14:57-0500 Body height 177.8 cm Chandrika Leary [employer]ORTS MARKETING SPECIALIST-CAT[employer]ULT AND ARRESTING GEAR OFFICER Work Phone: [facility] 03-15-2023 14:57-0500 Body mass index (BMI) [Ratio] 42.18 kg/m2 Chandrika Leary [employer]OR[employer] MARKETING SPECIALIST-[employer] AND ARRESTING GEAR OFFICER Work Phone: [facility] 03-15-2023 14:57-0500 Body weight 133.36 kg Chandrika Leary [employer]OR[employer] MARKETING SPECIALIST-CAT[employer] AND ARRESTING GEAR OFFICER Work Phone: [facility] 03-15-2023 14:57-0500 Heart rate 88 /min Chandrika Leary [employer] MARKETING SPECIALIST-CAT[employer] AND ARRESTING GEAR OFFICER Work Phone: [facility] 02-14-2023 15:53-0500 Body temperature 98.4 [degF] MD Melissa Tejead Work Phone: [facility] 02-14-2023 15:53-0500 Diastolic blood pressure 70 mm[Hg] MD Melissa Tejeda Work Phone: [facility] 02-14-2023 15:53-0500 Heart rate 78 /min MD Melisas Tejeda Work Phone: [facility] 02-14-2023 15:53-0500 Respiratory rate 20 /min MD Melissa Tejeda Work Phone: [facility] 02-14-2023 15:53-0500 SaO2% (BldA) [Mass fraction] 94 % MD Melissa Tejeda Work Phone: [facility] 02-14-2023 15:53-0500 Systolic blood pressure 110 mm[Hg] MD Melissa Tejeda Work Phone: [facility] 02-14-2023 08:15-0500 Inhaled oxygen flow rate 2 L/min MD Melissa Tejeda Work Phone: [facility] 02-14-2023 06:00-0500 Body weight 135.8 kg MD Melissa Tejeda Work Phone: [facility] 02-13-2023 15:09-0500 Body height 175.26 cm MD Melissa Tejeda Work Phone: [facility] Encounters Encounter Date Encounter Type Care Provider Facility Start: 01-17-2024 End: 01-17-2024 Bamboo flowsheet Chloé GARCIA Work Phone: [facility] Start: 01-17-2024 End: 01-17-2024 Bamboo flowsheet Chloé GARCIA Work Phone: [facility] Start: 01-17-2024 End: 01-17-2024 Patient encounter procedure Chloé GARCIA Work Phone: [facility] Comment on above: Medicare annual well ness visit, subsequent (Primary Dx); ACP (advance care planning); Former smoker; Fatty liver; Hypertriglyceridemia (CMS/HCC); 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; Screening for malignant neoplasm of prostate; Skin sensation disturbance; Chronic obstructive pulmonary disease, unspecified COPD type (CMS/HCC); Snoring; Witnessed episode of apnea; Chronic pulmonary embolism without acute cor pulmonale, unspecified pulmonary embolism type (CMS/HCC); Calculus of gallbladder without cholecystitis without obstruction; Diverticular disease of colon; Gastroesophageal reflux disease without esophagitis; Nodular adrenal cortex (CMS/HCC); Arthritis of left knee; BMI 40.0-44.9, adult (CMS/HCC); Morbid obesity due to excess calories (CMS/HCC); Atopic dermatitis, unspecified type; Abnormal echocardiogram; Anxiety; History of DVT (deep vein thrombosis); Reactive depression (CMS/HCC) Start: 01-17-2024 End: 01-17-2024 ambulatory CLHOÉ MOYA Not Available Start: 12-12-2023 End: 12-12-2023 Office outpatient visit 15 minutes [facility] Work Phone: [facility] Comment on above: Pulmonary embolism, unspecified chronicity, unspecified pulmonary embolism type, unspecified whether acute cor pulmonale present (Multi); History of DVT (deep vein thrombosis); 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; BMI 40.0-44.9, adult (Multi) Start: 12-12-2023 End: 12-12-2023 ambulatory [facility] Start: 11-29-2023 End: 11-29-2023 ambulatory Dina Barajas [place] Start: 11-29-2023 End: 11-29-2023 Patient encounter procedure Jesica Moe [facility] Start: 11-27-2023 End: 11-27-2023 Transitional care manage srvc 14 day discharge Chloé GARCIA Work Phone: [facility] Comment on above: Internal hernia (Maura cope Dx); Hyponatremia Start: 11-27-2023 End: 11-27-2023 ambulatory CHLOÉ MOYA Not Available Start: 11-27-2023 End: 11-27-2023 Bamboo flowsheet Chloé GARCIA Work Phone: [facility] Start: 11-27-2023 End: 11-27-2023 Bamboo flowsheet Chloé GARCIA Work Phone: [facility] Start: 11-16-2023 End: 11-19-2023 Evaluation and management of inpatient Jesica Moe [place] Start: 11-16-2023 Emergency department patient visit Efren Lopes Facility[place] Start: 11-16-2023 End: 11-19-2023 Evaluation and management of inpatient Devorah BLANCO [facility] Start: 11-15-2023 End: 11-15-2023 ambulatory CHLOÉ Wylie HEMMER Not Available Start: 10-10-2023 End: 10-10-2023 ambulatory CHOLÉ Wylie HEMMER Not Available Start: 08-22-2023 End: 08-22-2023 ambulatory GILBERTO MAGALLANESI Not Available Start: 06-15-2023 End: 06-15-2023 ambulatory Radha Roche Facility:[facility] Start: 06-15-2023 End: 06-15-2023 [facility] Start: 04-11-2023 ambulatory Edith Shaikh Facility :[facility] Start: 04-08-2023 End: 04-08-2023 Emergency department patient visit Lydiasari Drake Neel [facility] Start: 04-04-2023 End: 04-04-2023 ambulatory CHLOÉ Wylie HEMMER Not Available Start: 03-15-2023 End: 03-15-2023 Office outpatient visit 15 minutes Chandrika Leary [employer] MARKET[employer]IST-[employer] AND [employer]ING GE[employer] OFFICER Work Phone: [facility] Comment on above: 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 (Primary Dx); Pulmonary embolism, unspecified chronicity, unspecified pulmonary embolism type, unspecified whether acute cor pulmonale present (CMS/HCC); Pulmonary hypertension (CMS/HCC); Abnormal echocardiogram; BMI 40.0-44.9, adult (CMS/HCC) Start: 03-15-2023 End: 03-15-2023 ambulatory CHANDRIKA [facility] Start: 02-20-2023 End: 02-20-2023 ambulatory CHLOÉ Wylie HEMMER Not Available Start: 02-11-2023 End: 02-14-2023 Evaluation and management of inpatient Sophie Tovar Facility:[facility] Start: 02-11-2023 End: 02-14-2023 Evaluation and management of inpatient MD Melissa Tejeda Work Phone: [facility] Work Phone: Start: 11-07-2021 End: 11-08-2021 Evaluation and management of inpatient DR JS MENJIVAR Facility:[facility] Start: 12-07-2020 End: 12-07-2020 ambulatory ROSHAN TREY Facility:[facility] Procedures Date Procedure Procedure Detail Performing Clinician Start: 11-16-2023 Exploratory laparotomy Devorah BLANCO Start: 03-15-2023 FOLLOW UP IN CARDIOLOGY CHANDRIKA LEARY Start: 02-12-2023 Computed tomography of abdomen and pelvis with contrast MD Melissa Tejeda Work Phone: Start: 02-11-2023 Diagnostic radiograp hy of abdomen MD Melissa Tejeda Work Phone: Start: 02-11-2023 Duplex scan of lower limb veins MD Melissa Tejeda Work Phone: Start: 12-30-2022 Lipid 1996 panel - S maliha or Plasma Chandrika Leary [employer] MARKETING SPECIALIST-CAT[employer] AND ARRESTING GEAR OFFICER Work Phone: Colonoscopy [facility] Tonsillectomy and adenoidectomy Astrit [facility]ee Plan of Treatment Date Care Activity Detail Author Start: 12-31-2027 Lipid panel Lipid Panel [facility] Start: 01-16-2025 Medicare Annual Wellness (AWV) Medicare Annual Wellness (AWV) [facility] Start: 08-22-2024 End: 08-22-2024 Patient encounter procedure 08/22/2024 10:30 AM EDT Office Visit [facility] [address] [place] [address] Gilberto Magana MD [address] [place] [address] [facility] Start: 01-25-2024 Pneumococcal Vaccine: 65+ Years (2 of 2 - PPSV23 or PCV20) Pneumococcal Vaccine: 65+ Years (2 of 2 - PPSV23 or PCV20) [facility] Comment on above: Postponed from 03/29/2018 (Patient Refus ed) Start: 01-25-2024 Screening for malignant neoplasm of colon Colorectal Cancer Screening [facility] Comment on above: Postponed from 1951 (Patient Refus ed) Start: 01-17-2024 End: 01-16-2025 CBC W Auto Differential panel - Blood CBC and differential Lab Routine Medicare annual wellness visit, subsequent Hypertriglyceridemia (CMS/HCC) 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 Expected: 01/17/2024 (Approximate), Expires: 01/16/2025 [facility] Comment on above: Expected: 01/17/2024 (Approximate), Expi res: 01/16/2025 Start: 01-17-2024 End: 01-16-2025 Comprehensive metabolic 2000 panel - Serum or Plasma Comprehensive metabolic panel Lab Routine Medicare annual wellness visit, subsequent Fatty liver Hypertriglyceridemia (CMS/HCC) Expected: 01/17/2024 (Approximate), Expires: 01/16/2025 [facility] Comment on above: Expected: 01/17/2024 (Approximate), Expi res: 01/16/2025 Start: 01-17-2024 End: 01-16-2025 CT Chest for screening WO contrast CT lung screening low dose Imaging Routine Former smoker Expected: 01/17/2024, Expires: 01/16/2025 [facility] Work Phone: Comment on above: Expected: 01/17/2024, Expires: Start: 01-17-2024 End: 01-16-2025 Lipid 1996 panel - Serum or Plasma Lipid panel Lab Routine Medicare annual wellness visit, subsequent Hypertriglyceridemia (CMS/HCC) Expected: 01/17/2024 (Approximate), Expires: 01/16/2025 [facility] Comment on above: Expected: 01/17/2024 (Approximate), Expi res: 01/16/2025 Start: 01-17-2024 End: 01-16-2025 Prostate specific Ag [Mass/volume] in Serum or Plasma PSA Lab Routine Medicare annual wellness visit, subsequent Screening for malignant neoplasm of prostate Expected: 01/17/2024 (Approximate), Expires: 01/16/2025 [facility] Comment on above: Expected: 01/17/2024 (Approximate), Expi res: 01/16/2025 Start: 01-17-2024 End: 01-17-2024 Patient encounter procedure 01/17/2024 11:00 AM EDT Office Visit [facility] [address] [place] [address] Chloé Moya PA [address] [place] [address] Arrived [facility] Comment on above: Arrived Start: 12-31-2023 Medicare Annual Wellness (AWV) Medicare Annual Wellness (AWV) [facility] Start: 12-12-2023 End: 12-12-2023 Patient encounter procedure 12/12/2023 3:30 PM EDT Office Visit [facility] [address] [place] [address] Bradley Tovar DO [address] [place], [place] [id number] [facility] Start: 12-03-2023 COVID-19 Vaccine ( season) COVID-19 Vaccine ( season) [facility] Start: 12-03-2023 Influenza vaccination Influenza Vaccine (#1) [facility] Start: 11-27-2023 End: 11-27-2023 Patient encounter procedure 11/27/2023 3:00 PM EDT Office Visit [facility] [address] [place] [address] Chloé Moya PA [address] [place] [address] Arrived [facility] Comment on above: Arrived Start: 03-21-2023 COVID-19 Vaccine (3 - Moderna series) COVID-19 Vaccine (3 - Moderna series) [facility] Start: 02-14-2023 [facility] Start: 02-11-2023 Consultation [facility] Start: 02-11-2023 Hospital admission [facility] Start: 04-16-2022 Screening for malignant neoplasm of colon FIT-DNA [facility] Start: 03-29-2018 Pneumococcal Vaccine: 65+ Years (2 - PPSV23 or PCV20) Pneumococcal Vaccine: 65+ Years (2 - PPSV23 or PCV20) [facility] Start: 03-29-2018 Pneumococcal Vaccine: 65+ Years (2 of 2 - PPSV23 or PCV20) Pneumococcal Vaccine: 65+ Years (2 of 2 - PPSV23 or PCV20) [facility] Start: 11-30-2016 Abdominal aortic aneurysm screening Abdominal Aortic Aneurysm (AAA) Screening [facility] Start: 2011 Hepatitis B Vaccines (1 of 3 - Risk 3-dose series) Hepatitis B Vaccines (1 of 3 - Risk 3-dose series) [facility] Start: 2011 RSV patients and/or patients aged 60+ years (1 - 1-dose 60+ series) RSV patients and/or patients aged 60+ years (1 - 1-dose 60+ series) [facility] Start: 11-30-2001 Zoster Vaccines (1 of 2) Zoster Vaccines (1 of 2) [facility] Start: 11-30-1973 DTaP/Tdap/Td Vaccines (1 - Tdap) DTaP/Tdap/Td Vaccines (1 - Tdap) [facility] Start: 11-30-1970 Hepatitis A Vaccines (1 of 2 - Risk 2-dose series) Hepatitis A Vaccines (1 of 2 - Risk 2-dose series) [facility] Start: 11-30-1969 Diabetes mellitus screening Diabetes Screening [facility] Start: 11-30-1969 Hepatitis C screening Hepatitis C Screening [facility] Start: 1950 Medicare Annual Wellness Visit Medicare Annual Wellness Visit (AWV) [facility] Start: 1950 Screening for malignant neoplasm of colon [facility] Patient referral [facility] Work Phone: Immunizations Immunization Date Immunization Notes Care Provider Fa cility 02-01-2023 COVID-19 (Pfizer) MD Melissa Tejeda Work Phone: [facility] 02-01-2023 influenza virus vaccine, unspecified formulation MD Melissa Tejeda Work Phone: [facility] 01-24-2023 Influenza, Seasonal, Quadrivalent, Adjuvanted Chloé Hemmer PA Work Phone: [facility] 01-24-2023 SARS-COV-2 (COVID-19 ) vaccine, mRNA, spike protein, LNP, PF, 50 mcg/0.5 mL Chloé Hemmer PA Work Phone: [facility] 01-24-2023 influenza virus vaccine, unspecified formulation Chloé Hemmer PA Work Phone: [facility] 01-25-2021 influenza virus vaccine, unspecified formulation Garcia Sarmini [facility] 01-25-2021 influenza, high dose seasonal, preservative-free Chloé Hemmer PA Work Phone: [facility] 07-03-2020 SARS-CoV-2 (COVID-19 ) mRNA-1273 vaccine Garcia Sarmini [facility] 06-04-2020 SARS-CoV-2 (COVID-19 ) mRNA-1273 vaccine Garcia Sarmini [facility] 01-07-2020 influenza virus vaccine, unspecified formulation Garcia Sarmini [facility] 01-07-2020 Influenza, High-dose Seasonal, Quadrivalent, Preservative Free Chloé Hemmer PA Work Phone: [facility] 01-19-2019 influenza virus vaccine, unspecified formulation Garcia Sarmini [facility] 01-19-2019 Influenza, High-dose Seasonal, Quadrivalent, Preservative Free Chloé Hemmer PA Work Phone: [facility] 02-01-2018 influenza virus vaccine, unspecified formulation Garcia Sarmini [facility] 02-01-2018 Influenza, High-dose Seasonal, Quadrivalent, Preservative Free Chloé Hemmer PA Work Phone: [facility] 02-01-2018 pneumococcal conjugate vaccine, 13 valent Garcia Sarmini [facility] 01-31-2015 influenza virus vaccine, unspecified formulation Garcia Sarmini [facility] 01-31-2015 influenza, seasonal, injectable, preservative free Chloé Hemmer PA Work Phone: [facility] 01-07-2010 influenza virus vaccine, unspecified formulation Garcia Sarmini [facility] 01-07-2010 influenza, seasonal, injectable Chloé Hemmer PA Work Phone: [facility] NEGATED: Highlighted row has not occurred!06-15-2023 influenza virus vaccine, unspecified formulation Garcia Sarmini [facility] Payers Date Payer Category Payer Medicare [id number] 2023 Self-pay 2021 Medicare [id number] 2021 Medicare (Managed Care) [employer] [id number] 1959 Unknown [id number] 1950 Unknown [id number] 2.16.840.1.456861.3.579. 2.593 1951 Unknown [id number] 2.16.840.1.878391.3.579. 2.593 1950 Unknown [id number] 2.16.840.1.849260.3.579. 2.727 1950 Unknown [id number] 2.16.840.1.200375.3.579. 2.727 1951 Unknown [id number] 2.16.840.1.630346.3.579. 2.727 1951 Unknown [id number] 2.16.840.1.403715.3.579. 2.727 1951 Unknown [id number] 2.16.840.1.762086.3.579. 2.727 1951 Unknown [id number] 2.16.840.1.944196.3.579. 2.727 1951 Unknown [id number] 2.16.840.1.779439.3.579. 2.727 1951 Unknown [id number] 2.16.840.1.075949.3.579. 2.1259 1951 Unknown [id number] 2.16.840.1.303930.3.579. 2.1259 1951 Unknown [id number] 2.16.840.1.485410.3.579. 2.1259 1951 Unknown [id number] 2.16.840.1.243622.3.579. 2.1259 1951 Unknown [id number] 2.16.840.1.683022.3.579. 2.1259 1951 Unknown [id number] 2.16.840.1.311249.3.579. 2.1259 1951 Unknown [id number] 2.16.840.1.447535.3.579. 2.1259 1951 Unknown [id number] 2.16.840.1.515600.3.579. 2.1244 1951 Unknown [id number] 2.16.840.1.539068.3.579. 2.1244 1951 Unknown [id number] 2.16.840.1.691272.3.579. 2.727 1950 Unknown [id number] 2.16.840.1.690654.3.579. 2.727 Unknown [id number] 2.16.840.1.124081.3.579. 2.531 Social History Date Type Detail Facility Start: 01-04-2023 End: 02-13-2023 Tobacco smoking status NHIS Ex-smoker (finding) [facility] Start: 1950 Sex Assigned At Male [facility] Start: 04-03-1989 End: 09-10-2019 History of tobacco use Current smoker [facility] Work Phone: Start: 04-03-1989 End: 09-10-2019 History of tobacco use Cigarette Smoker [facility] Work Phone: Start: 01-04-2023 End: 03-15-2023 Tobacco use and exposure Smokeless tobacco non-user [facility] Work Phone: Start: 03-15-2023 End: 12-12-2023 Alcohol intake Lifetime non-drinker (finding) [facility] Work Phone: Start: 12-28-2022 End: 03-15-2023 History of Social function [facility] Work Phone: Start: 12-28-2022 End: 03-15-2023 Tobacco use panel [facility] Start: 1950 Sex Assigned At Not on file [facility] Work Phone: Start: 03-05-2023 End: 12-12-2023 Exposure to SARS-CoV-2 (event) Not sure [facility] Start: 11-16-2023 End: 11-27-2023 Alcoholic beverage intake Ex-drinker (finding) [facility] How often do you nee d to have someone help you when you read instructions, pamphlets, or other written material from your doctor or pharmacy [SILS] Never [facility] Within the last year , have you been afraid of your partner or ex-partner? No [facility] Are you now , , , , never or living with a partner? Living with partner [facility] How often to you hav e a drink containing alcohol? Never [facility] How hard is it for y ou to pay for the very basics like food, housing, medical care, and heating Not very hard [facility] Do you feel stress - tense, restless, nervous, or anxious, or unable to sleep at night because your mind is troubled all the time - these days [OSQ] Not at all [facility] (I/We) worried wheclaudia er (my/our) food would run out before (I/we) got money to buy more. Never true [facility] Start: 12-29-2022 Tobacco Comment Last smoked : 1- 5 years [facility] Start: 12-29-2022 Alcohol Comment Caffeine intak e : 3-4 cups per day [facility] Goals Date Patient Goal Desired Activity /State Functional Status Date Assessment Result Facility 11-16-2023 Functional Status N/A [facility] 11-16-2023 Functional Status [facility] 06-15-2023 Functional Status N/A [facility] 04-08-2023 Functional Status N/A [facility] 02-14-2023 Functional status Patient at Baseline [facility] Work Phone: Mental Status Date Assessment Result Facility 02-14-2023 Cognitive function Cognitive Sta tus Patient at Baseline [facility] Work Phone: Clinical Notes 02-11-2023 to 01-17-2024 Chloé Moya, RADHA - 01/17/2024 11:00 AM Pilar Tovar DO - 12/12/2023 11:30 AM EDTPatient InstructionsAttachmentsRADHA Hobbs - 11/27/2023 3:00 PM EDT Note Date & Type Note Facility 01-17-2024 History of Present illness Narrative Images from the original note were not included. Subjective : Chief Complaint: Yannick Cardoso is an 73 y.o. male here for an annual wellness visit. Goes to the gym three days a week. I have reviewed and reconciled the history and medication list with the patient today. Current Outpatient Medications on File Prior to Visit Medication Sig Dispense Refill albuterol (2.5 MG/3ML) 0.083% nebulizer solution Vxelonu-Nncfmomzvcr-Uqakmnandi (Breztri Aerosphere) 160-9-4.8 MCG/ACT aerosol Inhale 2 puffs in the morning and 2 puffs before bedtime. [facility] Senna 8.6 MG tablet TAKE 2 TABLETS BY MOUTH ONCE A DAY AT BEDTIME NEEDED FOR CONSTIPATION FOR 10 DAYS docusate sodium (Colace) 100 MG capsule TAKE 1 CAPSULE BY MOUTH TWICE A DAY NEEDED FOR CONSTIPATION ipratropium-albuterol (Duo-Neb) 0.5-2.5 mg/3 mL nebulizer solution Multiple Vitamins-Minerals (Centrum Men) tablet Take 1 tablet by mouth 1 (one) time each day. omeprazole (PriLOSEC) [address] capsule Take 1 capsule (20 mg) by mouth in the morning. Do not crush or chew.. 90 capsule 3 polyethylene glycol, PEG, 3350 (MiraLax) 17 GM/SCOOP powder Take 17 g by mouth Daily as needed. saccharomyces boulardii (Florastor) 250 MG capsule Take 250 mg by mouth in the morning and 250 mg before bedtime. Semaglutide-Weight Management (Wegovy) 0.25 MG/0.5ML solution auto-injector Inject 0.25 mg under the skin 1 (one) time per week [facility] (Patient not taking: Reported on 01/17/2024) triamcinolone (Kenalog) 0.1 % cream Apply to affected areas, up to twice a day when flared, do not use one the face, groin, or underarms, 30 day supply 454 g 3 Xarelto 20 MG tablet 1 tablet 1 (one) time each day No current facility-administered medications on file prior to visit. Allergies Allergen Reactions Banana Rash Famotidine Rash Social History Tobacco Use Smoking status: Former Current packs/day: 0.00 Average packs/day: 1 pack/day for 30.4 years (30.4 ttl pk-yrs) Types: Cigarettes Start date: 1989 Quit date: 09/10/2019 Years since quittin.3 Smokeless tobacco: Never Tobacco comments: Last smoked : 1- 5 years Substance Use Topics Alcohol use: Not Currently Comment: Caffeine intake : 3-4 cups per day Drug use: Never Family History Problem Relation Name Age of Onset Cancer Father Melanoma Neg Hx Past Medical History: Diagnosis Date Acid reflux COPD (chronic obstructive pulmonary disease) (CMS/HCC) H/O CT scan 11/07/2021 Moderately dilated proximal small bowel loop containing air fluid levels, no mass, mild diffuse hepatic steatosis, choleclithlasis without evidence of ballary obstruction. benign appearing billateral renal cysts without evidence of billary obstruction.1.6 cm left adrenal nodule History of being hospitalized 11/16/2023 SBO History of blood clots LT LE Personal history of other medical treatment 06/22/2020 Moderate volume of stool throughout the colon , mild diverticulosis. No inflammation or obstruction Personal history of other medical treatment 11/08/2021 SBFT no obstruction. dilated small bowel lopps suggesting enteritis or ileus Sinusitis Spider veins Past Surgical History: Procedure Laterality Date LEG SURGERY Left 2006 Blood clot OTHER SURGICAL HISTORY Right 2009 inguinal PARTIAL HYSTERECTOMY 11/08/2021 VT TONSILLECTOMY & ADENOIDECTOMY <AGE 13 UMBILICAL HERNIA REPAIR 2018 WISDOM TOOTH EXTRACTION Review of Systems Constitutional: Negative for chills, fatigue and fever. HENT: Negative for congestion, ear pain, rhinorrhea, sinus pressure and sore throat. Eyes: Negative for pain, discharge and redness. Respiratory: Negative for cough, shortness of breath and wheezing. Cardiovascular: Negative for chest pain, palpitations and leg swelling. Gastrointestinal: Negative for abdominal pain, constipation, diarrhea, nausea and vomiting. Genitourinary: Negative for dysuria, frequency and urgency. Musculoskeletal: Negative for arthralgias and back pain. Skin: Negative for rash. Neurological: Negative for dizziness, numbness and headaches. Psychiatric/Behavioral: Negative for confusion, dysphoric mood and sleep disturbance. List of current healthcare providers: Patient Care Team: Js Menjivar MD as PCP - General (Family Medicine) Js Menjivar MD as PCP - [place] Medicare Annual Visit Over the past 2 weeks, how often have you been bothered by any of the following problems? Little interest or pleasure in doing things: Not at all Feeling down, depressed, or hopeless: Not at all Patient Health Questionnaire-2 Score: 0 Over the past 2 weeks, how often have you been bothered by any of the following problems? Trouble falling or staying asleep, or sleeping too much: Not at all Feeling tired or having little energy: Not at all Poor appetite or overeating: Not at all Feeling bad about yourself - or that you are a failure or have let yourself or your family down: Not at all Trouble concentrating on things, such as reading the newspaper or watching television: Not at all Moving or speaking so slowly that other people could have noticed? Or the opposite - being so fidgety or restless that you have been moving around a lot more than usual.: Not at all Thoughts that you would be better off or hurting yourself in some way: Not at all Patient Health Questionnaire-9 Score: 0 Espinoza Fall Risk History of Falling, Immediate or Within 3 Months: No Health Risk Assessment Form Do you need help eating, bathing, using the toilet, dressing, or getting around your home?: No Can you prepare your own meals?: Yes Can you do your own housework without help?: Yes Can you shop for groceries or clothes without help?: Yes Do you exercise for about 20 minutes 3 or more days a week?: Yes How confident are you that you can control and manage most of your health problems?: Very confident Can you mange your money, credit cards and accounts, pay bills and taxes?: Yes Vision Screening: Yes, no gross abnormalities Hearing Screening: Yes, no gross abnormalities Cognitive Screening Self Assessment: No overt cognitive deficiency is apparent by direct observation Three Word Registration: Leader, Season, Table Clock Drawing: Normal Clock - 2 Three Word Recall: All 3 words correct - 3 Total Score (0-5 Points): 5 Pain Assessment Pain Score: 1 Advance Care Planning Do you have a living will?: Yes Do you have a medical power of divorce attorney?: Yes Objective : BP 132/88 Pulse 76 Resp 18 Ht 5' 8 Wt 294 lb 3.2 oz SpO2 98% BMI 44.73 kg/m No results found. Physical Exam Constitutional: General: He is not in acute distress. Appearance: He is obese. HENT: Head: Normocephalic and atraumatic. Right Ear: Tympanic membrane normal. Left Ear: Tympanic membrane and ear canal normal. Ears: Comments: Mild cerumen right ear Nose: Nose normal. Mouth/Throat: Mouth: Mucous membranes are moist. Pharynx: Oropharynx is clear. Eyes: General: No scleral icterus. Extraocular Movements: Extraocular movements intact. Conjunctiva/sclera: Conjunctivae normal. Pupils: Pupils are equal, round, and reactive to light. Neck: Vascular: No carotid bruit. Cardiovascular: Rate and Rhythm: Normal rate and regular rhythm. Pulses: Normal pulses. Pulmonary: Effort: Pulmonary effort is normal. Breath sounds: Normal breath sounds. No wheezing, rhonchi or rales. Abdominal: General: Abdomen is protuberant. Bowel sounds are normal. There is no distension. Palpations: Abdomen is soft. Tenderness: There is no abdominal tenderness. There is no guarding. Musculoskeletal: General: No swelling, tenderness, deformity or signs of injury. Normal range of motion. Cervical back: Normal range of motion. No tenderness. Lymphadenopathy: Cervical: No cervical adenopathy. Skin: General: Skin is warm and dry. Findings: No erythema. Neurological: General: No focal deficit present. Mental Status: He is alert and oriented to person, place, and time. Cranial Nerves: No cranial nerve deficit. Sensory: No sensory deficit. Motor: No weakness. Coordination: Coordination normal. Gait: Gait abnormal (Straight cane for ambulation). Psychiatric: Mood and Affect: Mood normal. Behavior: Behavior normal. Thought Content: Thought content normal. Judgment: Judgment normal. Assessment/Plan : The following health maintenance schedule was reviewed with the patient and provided in printed form in the after visit summary: Health Maintenance Topic Date Due Medicare Annual Wellness (AWV) 12/31/2023 Pneumococcal Vaccine: 65+ Years (2 of 2 - PPSV23 or PCV20) 01/25/2024 (Originally 03/29/2018) Colorectal Cancer Screening 01/25/2024 (Originally 1950) Influenza Vaccine Completed Advance Care Planning Has ACP in place. Orders Placed This Encounter Procedures CT lung screening low dose Standing Status: Future Standing Expiration Date: 01/16/2025 Scheduling Instructions: PLEASE CALL PATIENT TO SCHEDULE Order Specific Question: Reason for exam: Answer: former smoker Order Specific Question: Is the patient claustrophobic? Answer: Not Claustrophic Order Specific Question: Does the patient show any signs or symptoms of lung cancer? Answer: No Order Specific Question: Is this the first (baseline) CT or an annual exam? Answer: Annual [2] Order Specific Question: Is there documentation of shared decision making? Answer: Yes CBC and differential Standing Status: Future Number of Occurrences: 1 Standing Expiration Date: 01/16/2025 Order Specific Question: Print requisition? Answer: No Comprehensive metabolic panel Standing Status: Future Number of Occurrences: 1 Standing Expiration Date: 01/16/2025 Order Specific Question: Print requisition? Answer: No Lipid panel Standing Status: Future Number of Occurrences: 1 Standing Expiration Date: 01/16/2025 PSA Standing Status: Future Number of Occurrences: 1 Standing Expiration Date: 01/16/2025 Order Specific Question: Print requisition? Answer: No 1. Medicare annual wellness visit, subsequent (Primary) Reviewed all relevant preventative screenings with the patient in detail. Medicare Wellness form completed and will be scanned into patient's chart. All needed testing was ordered. Will continue with yearly Medicare Wellness exams. - CBC and differential - Comprehensive metabolic panel - Lipid panel - PSA 2. ACP (advance care planning) Patient willing to discuss ACP. Pt has Living Will and DPOA in place. 3. Former smoker The patient was counseled on the importance of maintaining cigarette smoking abstinence. The patient continues to refrain from smoking and is committed to avoiding tobacco use. CT ordered for screening. - CT lung screening low dose; Future 4. Fatty liver This is a chronic medical condition that is stable since last assessment. No changes in treatment are suggested at this time. Will continue to monitor with routine labs. - Comprehensive metabolic panel 5. Hypertriglyceridemia (CMS/HCC) This is a chronic medical condition that is stable since last assessment. No changes in treatment are suggested at this time. Will continue to monitor with routine labs. - CBC and differential - Comprehensive metabolic panel - Lipid panel 6. 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 No changes in treatment are suggested at this time. - CBC and differential 7. Screening for malignant neoplasm of prostate Will recheck PSA with today's labs. Will continue to monitor yearly. - PSA 8. Skin sensation disturbance This is a chronic medical condition that is stable since last assessment. No changes in treatment are suggested at this time. 9. Chronic obstructive pulmonary disease, unspecified COPD type ([facility]) This is a chronic medical condition that is stable since last assessment. No changes in treatment are suggested at this time. 10. Snoring This is a chronic medical condition that is stable since last assessment. No changes in treatment are suggested at this time. 11. Witnessed episode of apnea This is a chronic medical condition that is stable since last assessment. No changes in treatment are suggested at this time. 12. Chronic pulmonary embolism without acute cor pulmonale, unspecified pulmonary embolism type ([facility]/HCC) The patient is seeing a er medical technician for this condition, treatment is deferred to that specialist. Correspondence from that specialist and any available testing were reviewed during today's visit. 13. Calculus of gallbladder without cholecystitis without obstruction This is a chronic medical condition that is stable since last assessment. No changes in treatment are suggested at this time. 14. Diverticular disease of colon This is a chronic medical condition that is stable since last assessment. No changes in treatment are suggested at this time. 15. Gastroesophageal reflux disease without esophagitis This is a chronic medical condition that is stable since last assessment. No changes in treatment are suggested at this time. 16. Nodular adrenal cortex ([facility]) This is a chronic medical condition that is stable since last assessment. No changes in treatment are suggested at this time. 17. Arthritis of left knee This is a chronic medical condition that is stable since last assessment. No changes in treatment are suggested at this time. 18. BMI 40.0-44.9, adult ([facility]) Encouraged portion control, decrease simple sugars and carbohydrates, gradually increase activity level. Aim for gradual steady weight loss. 19. Morbid obesity due to excess calories ([facility]) Encouraged portion control, decrease simple sugars and carbohydrates, gradually increase activity level. Aim for gradual steady weight loss. 20. Atopic dermatitis, unspecified type This is a chronic medical condition that is stable since last assessment. No changes in treatment are suggested at this time. 21. Abnormal echocardiogram The patient is seeing a er medical technician for this condition, treatment is deferred to that specialist. Correspondence from that specialist and any available testing were reviewed during today's visit. 22. Anxiety This is a chronic medical condition that is stable since last assessment. No changes in treatment are suggested at this time. 23. History of DVT (deep vein thrombosis) The patient is seeing a er medical technician for this condition, treatment is deferred to that specialist. Correspondence from that specialist and any available testing were reviewed during today's visit. 24. Reactive depression (CMS/HCC) This is a chronic medical condition that is stable since last assessment. No changes in treatment are suggested at this time. Follow up in about 6 months (around 07/17/2024) for COPD. Electronically signed by Chloé Moya PA-C on January 17, 2024 documented in this encounter [facility] 12-12-2023 History of Present illness Narrative Subjective Yannick Cardoso is a 73 y.o. male Chief Complaint Follow-up 73-year-old gentleman returns for 9-month follow-up, he is doing well he denies any bleeding or recurrent thromboembolic events. He recently underwent abdominal surgery for incarcerated inguinal hernia at [facility] without any sequela or complications. He remains on lifelong Xarelto therapy. He sustained small unilateral, peripheral PE of the right lower lobe and middle lobe segments in February 2023 with concomitant DVTs and underwent conservative management. He has had previous history of DVT and IVC filter placement years ago. Details of my consult note are reviewed. He has persistent obesity, simply remains on Xarelto and omeprazole and inhalers. Recommendations, continue lifelong DOAC therapy, follow-up as needed, continue to follow with primary care at this juncture will be available for any future cardiopulmonary/thrombotic issues Review of Systems Respiratory: Positive for shortness of breath. All other systems reviewed and are negative. Vitals: 12/12/23 1121 BP: 112/84 BP Location: Right arm Patient Position: Sitting Pulse: 86 Weight: 133 kg (293 lb) Height: 1.753 m (5' 9 ) Objective Physical Exam Constitutional: Appearance: Normal appearance. HENT: Nose: Nose normal. Neck: Vascular: No carotid bruit. Cardiovascular: Rate and Rhythm: Normal rate. Pulses: Normal pulses. Heart sounds: Normal heart sounds. Pulmonary: Effort: Pulmonary effort is normal. Abdominal: General: Bowel sounds are normal. Palpations: Abdomen is soft. Musculoskeletal: General: Normal range of motion. Cervical back: Normal range of motion. Right lower leg: No edema. Left lower leg: No edema. Skin: General: Skin is warm and dry. Neurological: General: No focal deficit present. Mental Status: He is alert. Psychiatric: Mood and Affect: Mood normal. Behavior: Behavior normal. Thought Content: Thought content normal. Judgment: Judgment normal. Allergies Banana, Clopidogrel, Famotidine, and Warfarin Current Medications Current Outpatient Medications: albuterol 90 mcg/actuation inhaler, Inhale 2 puffs every 4 hours if needed for wheezing., Disp: , Rfl: xpzslrukfg-benvyjvq-mjoyuyjhzf (Breztri Aerosphere) 160-9-4.8 mcg/actuation HFA aerosol inhaler, Inhale 2 puffs 2 times a day., Disp: , Rfl: multivitamin tablet, Take 1 tablet by mouth once daily., Disp: , Rfl: omeprazole (PriLOSEC) [address] capsule, Take 1 capsule (20 mg) by mouth once daily in the morning. Take before meals. Do not crush or chew., Disp: , Rfl: rivaroxaban (Xarelto) 20 mg tablet, Take 1 tablet (20 mg) by mouth once daily in the evening. Take with meals. Take with food., Disp: , Rfl: Assessment/Plan 1. Pulmonary embolism, unspecified chronicity, unspecified pulmonary embolism type, unspecified whether acute cor pulmonale present (Multi) Follow Up In Cardiology 2. 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 BMI 40.0-44.9, adult (Multi) Scribe Attestation By signing my name below, Amanda Lopes LPN , Scribe attest that this documentation has been prepared under the direction and in the presence of Bradley Tovar DO. Provider Attestation - Scribe documentation All medical record entries made by the Scribe were at my direction and personally dictated by me. I have reviewed the chart and agree that the record accurately reflects my personal performance of the history, physical exam, discussion and plan. documented in this encounter [facility] Work Phone: 12-12-2023 Instructions Amanda Jauregui LPN - 12/12/2023 11:30 AM EDT Please bring all medicines, vitamins, and herbal supplements with you when you come to the office. Prescriptions will not be filled unless you are compliant with your follow up appointments or have a follow up appointment scheduled as per instruction of your physician. Refills should be requested at the time of your visit. BMI was above normal measurement. Current weight: 133 kg (293 lb) Weight change since last visit (-) denotes wt loss -1 lbs Weight loss needed to achieve BMI 25: 124.1 Lbs Weight loss needed to achieve BMI 30: 90.3 Lbs Provided instructions on dietary changes Provided instructions on exercise. Follow up ordered as needed only The following attachments cannot be sent through Care Everywhere.Heart Healthy Diet (Jordanian)documented in this encounter [facility] Work Phone: 11-27-2023 History of Present illness Narrative Images from the original note were not included. Subjective Patient ID: Yannick Cardoso is a 72 y.o. male who presents for hospital follow up. Flowsheet Row Patient Outreach from 11/20/2023 in [facility] [employer] with Agnes Fleming LPN Discharge Information ED, Hospital or Intermediate Facility Discharge? Hospital Patient has been contacted within two business days of discharge Yes Discharge Date 11/19/23 Discharge [facility] Discharged To: Home Setting Engagement Call Start Time 1410 Medications Discharge medications reviewed and reconciled from hospital? Yes Is the patient having any side effects they believe may be caused by any medication additions or changes? No Does the patient have all medications ordered at discharge? Yes Is the patient taking all medications as directed (includes completed medication regime)? Yes Appointments Does the patient have a primary care provider? Yes Has the patient kept scheduled appointments due by today? Yes Self Management Has all Durable Medical Equipment (DME) been delivered? Yes [the hospital insisted he needed Oxygen. He has concentrator at home, it is not being used.] Patient Teaching Does the patient have access to their discharge instructions? Yes What is the patient's perception of their health status since discharge? Same Is the patient/caregiver able to teach back the hierarchy of who to call/visit for symptoms/problems? PCP, Specialist, Home Health nurse, Urgent Care, ED, 911 Yes Wrap Up Is the patient/caregiver familiar with Advance Care Planning? Yes Would the patient like more information on Advance Care Planning? No Wrap Up Additional Comments Pt is unsure if he has HH, he states the hospital was not very informative to him about pretty much anything. He had to request that they get someone in to explain to him what was going on. He shares he just recently started eating food and stil lhas not had a BM, he is afraid that if he doesn't go, something bad will happen. He currently has 8 deshaun in his abdomen. He scheduled a follow up but it needs to be in the afternoon so the soonest appt with Chloé was 11/26. Call End Time 1433 He states his bowels was twisted and not blocked. He gets his deshaun out Monday. He is feeling really good. Is done with PT as of today. States his BM's have been much improved. Current Outpatient Medications on File Prior to Visit Medication Sig Dispense Refill [facility] Senna 8.6 MG tablet TAKE 2 TABLETS BY MOUTH ONCE A DAY AT BEDTIME NEEDED FOR CONSTIPATION FOR 10 DAYS docusate sodium (Colace) 100 MG capsule TAKE 1 CAPSULE BY MOUTH TWICE A DAY NEEDED FOR CONSTIPATION albuterol (2.5 MG/3ML) 0.083% nebulizer solution ipratropium-albuterol (Duo-Neb) 0.5-2.5 mg/3 mL nebulizer solution Multiple Vitamins-Minerals (Centrum Men) tablet Take 1 tablet by mouth 1 (one) time each day. omeprazole (PriLOSEC) [address] capsule Take 1 capsule (20 mg) by mouth in the morning. Do not crush or chew.. 90 capsule 3 polyethylene glycol, PEG, 3350 (MiraLax) 17 GM/SCOOP powder Take 17 g by mouth Daily as needed. saccharomyces boulardii (Florastor) 250 MG capsule Take 250 mg by mouth in the morning and 250 mg before bedtime. Semaglutide-Weight Management (Wegovy) 0.25 MG/0.5ML solution auto-injector Inject 0.25 mg under the skin 1 (one) time per week [facility] (Patient not taking: Reported on 11/27/2023) triamcinolone (Kenalog) 0.1 % cream Apply to affected areas, up to twice a day when flared, do not use one the face, groin, or underarms, 30 day supply 454 g 3 Xarelto 20 MG tablet 1 tablet 1 (one) time each day [DISCONTINUED] loperamide (Imodium A-D) 2 MG tablet Take 1-2 tablets (2-4 mg) by mouth 4 (four) times a day as needed for diarrhea for up to 5 days 40 tablet 0 [DISCONTINUED] methocarbamol (Robaxin) 500 MG tablet No current facility-administered medications on file prior to visit. Allergies Allergen Reactions Banana Rash Famotidine Rash Social History Tobacco Use Smoking status: Former Current packs/day: 0.00 Average packs/day: 1 pack/day for 30.4 years (30.4 ttl pk-yrs) Types: Cigarettes Start date: 1989 Quit date: 09/10/2019 Years since quittin.2 Smokeless tobacco: Never Tobacco comments: Last smoked : 1- 5 years Substance Use Topics Alcohol use: Not Currently Comment: Caffeine intake : 3-4 cups per day Drug use: Never Family History Problem Relation Name Age of Onset Cancer Father Melanoma Neg Hx Past Medical History: Diagnosis Date Acid reflux COPD (chronic obstructive pulmonary disease) (CMS/HCC) H/O CT scan 11/07/2021 Moderately dilated proximal small bowel loop containing air fluid levels, no mass, mild diffuse hepatic steatosis, choleclithlasis without evidence of ballary obstruction. benign appearing billateral renal cysts without evidence of billary obstruction.1.6 cm left adrenal nodule History of being hospitalized 11/16/2023 SBO History of blood clots LT LE Personal history of other medical treatment 06/22/2020 Moderate volume of stool throughout the colon , mild diverticulosis. No inflammation or obstruction Personal history of other medical treatment 11/08/2021 SBFT no obstruction. dilated small bowel lopps suggesting enteritis or ileus Sinusitis Spider veins Past Surgical History: Procedure Laterality Date LEG SURGERY Left 2006 Blood clot OTHER SURGICAL HISTORY Right 2009 inguinal PARTIAL HYSTERECTOMY 11/08/2021 VT TONSILLECTOMY & ADENOIDECTOMY <AGE 13 UMBILICAL HERNIA REPAIR 2018 WISDOM TOOTH EXTRACTION Visit Vitals BP 126/74 Pulse 101 Resp 18 Ht 5' 8 Wt 294 lb SpO2 98% BMI 44.70 kg/m Smoking Status Former BSA 2.53 m Review of Systems Constitutional: Negative for chills, fatigue and fever. Respiratory: Negative for cough, shortness of breath and wheezing. Cardiovascular: Negative for chest pain, palpitations and leg swelling. Gastrointestinal: Positive for abdominal pain (Improving). Negative for constipation, diarrhea, nausea and vomiting. Skin: Negative for rash. Objective Physical Exam Constitutional: General: He is not in acute distress. Appearance: He is obese. HENT: Head: Normocephalic and atraumatic. Eyes: General: No scleral icterus. Cardiovascular: Rate and Rhythm: Normal rate and regular rhythm. Heart sounds: No murmur heard. Pulmonary: Effort: Pulmonary effort is normal. No respiratory distress. Breath sounds: Normal breath sounds. No wheezing, rhonchi or rales. Abdominal: General: Abdomen is protuberant. Bowel sounds are normal. Musculoskeletal: General: No swelling. Skin: General: Skin is warm and dry. Neurological: General: No focal deficit present. Mental Status: He is alert and oriented to person, place, and time. Gait: Gait abnormal. Comments: Straight cane for ambulation Psychiatric: Mood and Affect: Mood normal. Behavior: Behavior normal. Assessment/Plan Diagnoses and all orders for this visit: Internal hernia The patient was seen today in follow up of recent hospital stay. All available hospital records were reviewed and discussed with the patient. Hospital discharge meds were reviewed. Patient is feeling much better at this time. Encouraged pt to keep follow up with surgeon as scheduled for staple removal. Hyponatremia Improved over the course of patient's hospitalization. Follow up in about 6 weeks (around 01/08/2024) for Medicare Wellness Visit. documented in this encounter [facility] 11-23-2023 Note Discharge Summary Admission and Discharge Information Admit Date/Time:11/16/2023 11:03 Admitting Physician - FRANCIS RODRIGUEZ, Devorah Consulting Physician - Payal RODRIGUEZ, Jesica Del Toro Admitting Diagnoses: Discharge Diagnoses 1. SBO (small bowel obstruction), 11/16/2023 2. Hyponatremia, 11/16/2023 3. Hypoxemia, 11/18/2023 4. History of pulmonary embolism, 11/16/2023 5. Morbid obesity due to excess calories, 11/16/2023 6. No contraindication to deep vein thrombosis (DVT) prophylaxis, 11/16/2023 Yannick Cardoso is a 72-year-old male with past medical history positive for chronic GERD, pulmonary embolism on Xarelto, and morbid obesity. He was admitted on 11/16/2023 after presenting to emergency room with abdominal plaints. Abdominal discomfort started 2 days prior to arrival, had diarrhea. His PCP recommended Imodium and with that patient experienced increased abdominal distention. He had not been passing flatus. He does have history of abdominal surgery in the past for prior umbilical hernia. Imaging in the ER concerning for high-grade small bowel obstruction. NG tube was placed and he was seen by [facility]. He underwent exploratory laparotomy on 11/16/[address] Moe. Findings of abrupt twist in the bowel with associated mesenteric hemorrhagic changes due to internal hernia within the omentum and suction was decompressed after reduction. He had NG to suction postoperatively. 2 days postop he began to pass gas. He was started on clear liquid diet on 11/17. On 11/18 he tolerated regular diet. He was cleared per surgeon for discharge with follow-up in 2 weeks with surgical team for staple removal. He was instructed not to take Ozempic x 4 weeks. Of note, he did have hypoxemia present on admission felt to be related to atelectasis on imaging. He had a desaturation study on 11/19/2023 which showed he did require 2 L via nasal cannula with ambulation, to assist with ADLs His O2 sat was 92% on room air at rest, 83 with exertion. He was sent home with supplemental oxygen. Incentive spirometry education was provided and he will FU with PCP for re-evaluation to assess further duration of therapy. Of note, he does have history of remote PE and his Xarelto was resumed postoperatively. Procedure History Exploratory laparotomy (11/16/2023), Colonoscopy, Tonsillectomy and adenoidectomy. Hospital Course Procedures and Treatment Provided OR 11/16/23 Findings abrupt twist in the bowel with associated mesenteric hemorrhagic changes suspect due to internal hernia within the omentum, clear transition between dilated bowel to complete decompression. Easy passage of air and succus into decompressed section after reduction [1] Services Consulted Consult to General Surgery - Ordered -- 11/16/23 10:44:00 EDT, SBO, Consult and Co-manage Physical Exam Vitals & Measurements T: 36.5 ?C(Axillary) TMIN: 36.5 ?C(Axillary) TMAX: 36.6 ?C(Axillary) HR: 98(Monitored) RR: 18 BP: 120/81 SpO2: 97% WT: 130.1 kg General: Alert, calm, NAD Head: Normocephalic/atraumatic Eyes: PERRLA. Intact EOM HEENT: Mucous membrane pink, moist, Normal tongue. Neck: supple, no JVD, no bruit Lungs: Lungs are clear, on 2 L NC, no increased WOB Cardio: Regular S1, S2, no murmur. Good perfusion Pulses: Normal capillary refill Abdomen: Obese, soft, non-distended,mildly-tender, + BS x4 + flatus Musculoskeletal: No deformity or scoliosis noted. Normal ROM for age. Integumentary: Warm, dry, midline incision clean, dry, intact with deshaun in place Extremity: No clubbing, no edema Neurologic: Alert, oriented x 4 follows commands, no obvious focal deficits Mental status: Pleasant & cooperative Tests Performed CT Abdomen/Pelvis w/ Contrast Discharge Plan Patient Discharge Condition Stable, improved Discharge Disposition Discharged to - Home with family care Discharge Medication List Prescriptions albuterol 0.083% Inh Jenn 3 mL, 2.5 mg= 3 mL, Inhalation, q2hr, PRN DuoNeb 2.5 mg-0.5 mg/3 mL Soln-Inh, 3 mL, Inhalation, QID omeprazole 10 mg Cap-EC, 10 mg= 1 cap(s), Oral, Daily Robaxin 500 mg Tab, 500 mg= 1 tab(s), Oral, QID Home acetaminophen, Oral, q6hr Breztri Aerosphere inhalation aerosol, 2 puff(s), Inhalation, BID Centrum Silver Men's, Oral, Daily triamcinolone Top 0.1% Crm 15 gram, 1 mary, Topical, TID Xarelto 20 mg oral tablet Follow-up With When Contact Information trauma clinic 11/29/2023 09:15 AM EDT [address] [facility] [address] floor, [address] [place] [address]- [phone] Additional Instructions: Call to schedule/confirm followup appointment TIARA RODRIGUEZ, JS Wylie Within 3 to 5 days [address] [place] [address]- Additional Instructions: Patient Education Exploratory Laparotomy, Adult, Care After Bowel Obstruction, [id number] [1] Op Note; Payal RODRIGUEZ, Jesica Del Toro 11/16/2023 18:24 EDT [facility] Comment on above: Result Comment: Elec tronically Signed By: Maria M FRANCO, Vilma Diaz\.br\Date and Time Signed: 11/20/23 13:25 EDT\.br\Electronically Co-Signed By: JET RODRIGUEZ, Richard\.br\Date and Time Co-Signed: 11/23/23 08:40 EDT 11-20-2023 Note Progress Note-Physic ralph Basic Information 72-year-old male who presented with bowel obstruction now status post ex lap with resolution of SBO 11/16/23 Subjective No acute events overnight. Patient reports passing a lot of flatus but no BM yet. Was able to eat a muffin this morning. Pain well-controlled. Patient sitting up in chair, expecting take a shower today. Review of Systems All organ systems are reviewed. Pertinent positive and negative findings as mentioned in the HPI. Objective Vitals & Measurements T: 36.6 ?C(Axillary) TMIN: 36.5 ?C(Oral) TMAX: 36.7 ?C(Axillary) HR: 92(Monitored) RR: 18 BP: 125/84 SpO2: 97% WT: 130.1 kg Intake & Output This visit (24 hour periods starting at 07:00 EDT) 11/19/23 * 11/18/23 11/17/23 Total Summary Intake mL 1 201.96 237.35 Output mL -- 350 1,675 Fluid Balance 1 -148.04 -1,437.65 Intake (2) Generic Diluent, acetaminophen mL -- 199.96 235.35 orphenadrine mL 1 2 2 Total 1 201.96 237.35 Output (3) Gastric Tube Output mL -- 350 1,100 Urine Catheter mL -- -- 350 Urine Voided mL -- -- 225 Total -- 350 1,675 Counts (0) * This column has not completed the indicated time period. Physical Exam GENERAL: alert, pleasant, conversational. HEENT: normocephalic. oral mucosa moist. CARDIOVASCULAR: RRR. PULMONARY: CTAB. breathing comfortably on 3 L nasal cannula ABDOMINAL: Abdomen is appropriately tender, midline incision clean, dry, intact with deshaun in place. EXTREMITIES: moves all extremities with equal strength NEUROLOGICAL: AxO x3 Lab Results WBC: 8.6 E9/L (11/19/23 05:56:00) RBC: 4.7 E12/L (11/19/23 05:56:00) HGB: 14.2 gm/dL (11/19/23 05:56:00) Hct: 42.7 % (11/19/23 05:56:00) MCV: 91.5 fL (11/19/23 05:56:00) MCH: 30.4 pg (11/19/23 05:56:00) MCHC: 33.2 gm/dL (11/19/23 05:56:00) RDW: 13.4 % (11/19/23 05:56:00) Platelet: 266 E9/L (11/19/23 05:56:00) MPV: 7.9 fL (11/19/23 05:56:00) Neutro Auto: 71.3 % (11/19/23 05:56:00) Lymph Auto: 14.5 % (11/19/23 05:56:00) [place] Auto: 10.2 % (11/19/23 05:56:00) Eos Auto: 3.7 % (11/19/23 05:56:00) Basophil Auto: 0.3 % (11/19/23 05:56:00) Neutro Absolute: 6.2 E9/L (11/19/23 05:56:00) Lymph Absolute: 1.2 E9/L (11/19/23 05:56:00) [place] Absolute: 0.9 E9/L (11/19/23 05:56:00) Eos Absolute: 0.3 E9/L (11/19/23 05:56:00) Basophil Absolute: 0 E9/L (11/19/23 05:56:00) Glucose Lvl: 89 mg/dL (11/19/23 05:56:00) BUN: 14 mg/dL (11/19/23 05:56:00) Creatinine: 0.7 mg/dL (11/19/23 05:56:00) eGFR: 98 mL/min/1.73 m2 (11/19/23 05:56:00) BUN/Creat Ratio: 20 (11/19/23 05:56:00) Sodium Lvl: 136 mmol/L (11/19/23 05:56:00) Potassium Lvl: 3.8 mmol/L (11/19/23 05:56:00) Chloride: 96 mmol/L Low (11/19/23 05:56:00) CO2: 32 mmol/L High (11/19/23 05:56:00) AGAP: 12 mEq/L (11/19/23 05:56:00) Calcium Lvl: 9.2 mg/dL (11/19/23 05:56:00) Magnesium: 1.6 mg/dL (11/19/23 05:56:00) Assessment/Plan 1. SBO (small bowel obstruction) (K56.609: Unspecified intestinal obstruction, unspecified as to partial versus complete obstruction) 2. Hyponatremia (E87.1: Hypo-osmolality and hyponatremia) 3. Hypoxemia (R09.02: Hypoxemia) 4. History of pulmonary embolism (Z86.711: Personal history of pulmonary embolism) 5. Morbid obesity due to excess calories (E66.01: Morbid (severe) obesity due to excess calories) 6. No contraindication to deep vein thrombosis (DVT) prophylaxis (Z78.9: Other specified health status) 72-year-old male who presented with bowel obstruction now status post ex lap with resolution of SBO 11/16/23 -Patient passing flatus and tolerated well from this morning, if patient is able to tolerate breakfast and lunch without worsening of symptoms including hiccuping, belching, nausea and he is medically cleared for discharge home from surgical standpoint, will follow-up with the surgery team in 2 weeks for staple removal. -Recommend holding home Ozempic for 4 weeks -Remainder of dispo per primary team, patient mentioned a formal oxygen saturation study today Dina Barajas PA-C Trauma Surgery/Surgical Critical Care/Emergency General Surgery *For urgent issues arising after 4PM during the week or on weekends/holiday, please page the trauma/EGS attending child monitor. This patient's plan of care was discussed with Trauma/Emergency General Surgery attending, Dr. Moe Problem List/Past Medical History Ongoing Abdominal pain Acute respiratory failure Black tarry stools Cardiac enzyme or marker above reference range Chronic obstructive lung disease History of pulmonary embolism Indigestion Long-term current use of anticoagulant Morbid obesity Morbid obesity due to excess calories Myocardial infarction Pulmonary embolism Pulmonary hypertension Historical Inguinal hernia Venous thrombosis Medications Inpatient acetaminophen additive + Generic Diluent 100 mL albuterol 0.083% Inh Jenn 3 mL, 2.5 mg= 3 mL, Inhalation, q2h (more content not included)... [facility] Comment on above: Result Comment: Elec tronically Signed By: Dina Barajas PA-C\.br\Date and Time Signed: 11/19/23 10:34 EDT\.br\Electronically Co-Signed By: Jesica Moe MD\.br\Date and Time Co-Signed: 11/20/23 07:29 EDT 11-19-2023 Hospital Discharge instructions Patient Education 11/19/2023 10:37:24 Exploratory Laparotomy, Adult, Care After Exploratory Laparotomy, Adult, Care After The following information offers guidance on how to care for yourself after your procedure. Your health care provider may also give you more specific instructions. If you have problems or questions, contact your health care provider. What can I expect after the procedure? After the procedure, it is common to have: Abdominal soreness. Fatigue. Bloating. Gas. A sore throat from having had a breathing or draining tube in your throat. A lack of appetite. Follow these instructions at home: Medicines Take lmof-jzi-jnfdspd and prescription medicines only as told by your health care provider. If you were prescribed an antibiotic medicine, take it as told by your health care provider. Do not stop taking the antibiotic even if you start to feel better. Ask your health care provider if the medicine prescribed to you: ?Requires you to avoid driving or using machinery. ?Can cause constipation. You may need to take these actions to prevent or treat constipation: ?Drink enough fluid to keep your urine pale yellow. ?Take dgyt-sxj-trmsjps or prescription medicines. Undergoing surgery and taking pain medicines can make constipation worse. ?Eat foods that are high in fiber, such as beans, whole grains, and fresh fruits and vegetables. ?Limit foods that are high in fat and processed sugars, such as fried or sweet foods. Incision care Follow instructions from your health care provider about how to take care of your incision. Make sure you: ?Wash your hands with soap and water for at least 20 seconds before and after you change your bandage (dressing). If soap and water are not available, use hand outpatient dietitian. ?Change your dressing as told by your health care provider. ?Leave stitches (sutures), skin glue, or adhesive strips in place. These skin closures may need to stay in place for 2 weeks or longer. If adhesive strip edges start to loosen and curl up, you may trim the loose edges. Do not remove adhesive strips completely unless your health care provider tells you to do that. If you were sent home with a drain, follow instructions from your health care provider about how to care for it. Check your incision area every day for signs of infection. Check for: ?Redness, swelling, or pain. ?Fluid or blood. ?Warmth. ?Pus or a bad smell. Activity Rest as told by your health care provider. Avoid sitting for a long time without moving. Get up to take short walks every 1 2 hours. This is important to improve blood flow and breathing. Ask for help if you feel weak or unsteady. Do not lift anything that is heavier than 5 lb (2.3 kg), or the limit that you are told, until your health care provider says that it is safe. Return to your normal activities as told by your health care provider. Ask your health care provider what activities are safe for you. Bathing Keep your incision clean and dry. Clean it as often as told by your health care provider. You may be told to: Gently wash the incision with soap and water. Rinse the incision with water to remove all soap. Pat the incision dry with a clean towel. Do not rub the incision. General instructions Do not use any products that contain nicotine or tobacco. These products include cigarettes, chewing tobacco, and vaping devices, such as e-cigarettes. These can delay incision healing after surgery. If you need help quitting, ask your health care provider. Wear compression stockings as told by your health care provider. These stockings help to prevent blood clots and reduce swelling in your legs. Keep all follow-up visits. This is important. Contact a health care provider if: You have a fever or chills. Your pain medicine is not helping. You have constipation or diarrhea. You have nausea or vomiting. You have drainage, redness, swelling, or pain at your incision site. Get help right away if: Your pain is getting worse. You have not had a bowel movement for more than 3 days. You have ongoing (persistent) vomiting. The edges of your incision open up. You have warmth, tenderness, or swelling in your calf. You have trouble breathing. You have chest pain. These symptoms may represent a serious problem that is an emergency. Do not wait to see if the symptoms will go away. Get medical help right away. Call your local emergency services (911 in the [place] Do not drive yourself to the hospital. Summary Abdominal soreness is common after exploratory laparotomy. Take bojd-daw-tazpyfn and prescription medicines only as told by your health care provider. Follow instructions from your health care provider about how to take care of your incision. Do not lift anything that is heavier than 5 lb (2.3 kg), or the limit that you are told, until your health care provider says that it is safe. This information is not intended to replace advice given to you by your health care provider. Make sure you discuss any questions you have with your health care provider. Document Revised: 2020 Document Reviewed: 2020 [employer] Patient Education 2022 [employer]. 11/19/2023 10:37:07 Bowel Obstruction, Jjrq-up-Olyf Bowel Obstruction A bowel obstruction means that something is blocking the small or large bowel. The bowel is also called the intestine. It is the long tube that connects the stomach to the opening of the butt (anus). When something blocks the bowel, food and fluids cannot pass through like normal. This condition needs to be treated. Treatment depends on the cause of the problem and how bad the problem is. What are the causes? Common causes of this condition include: Scar tissue inside the body from past surgery or from high-energy X-rays (radiation). Recent surgery in the belly. This affects how food moves in the bowel. Some diseases, such as: ?Irritation of the lining of the digestive tract (Crohn's disease). ?Irritation of small pouches in the bowel (diverticulitis). Growths or tumors. A bulging organ or tissue (hernia). Twisting of the bowel (volvulus). A swallowed object. Slipping of a part of the bowel into another part (intussusception). What are the signs or symptoms? Symptoms of this condition include: Pain in the belly. Feeling like you may vomit (nauseous). Vomiting. Bloating in the belly. Being unable to pass gas. Trouble pooping (constipation). A lot of belching. Watery poop (diarrhea). How is this treated? Treatment for this condition may include: Fluids and pain medicines that are given through an IV tube. Your doctor may tell you not to eat or drink if you feel like you may vomit or are vomiting. Eating a clear liquid diet for a few days. Putting a small tube (nasogastric tube) through the nose, down the throat, and into the stomach. This will help with pain, discomfort, and the feeling like you may vomit. Surgery. This may be needed if other treatments do not work. Follow these instructions at home: Medicines Take vhif-kvm-ivumewt and prescription medicines only as told by your doctor. If you were prescribed an antibiotic medicine, take it as told by your doctor. Do not stop taking the antibiotic even if you start to feel better. General instructions Follow instructions from your doctor about what you can or cannot eat and drink. You may need to: ?Only drink clear liquids until you start to get better. ?Avoid solid foods. Return to your normal activities when your doctor says that it is safe. Rest as told by your doctor. Get up to take short walks every 1 to 2 hours. Ask for help if you feel weak or unsteady. Keep all follow-up visits. How is this prevented? After having a bowel obstruction, you may be more likely to have another. You can do some things to stop it from happening again. If you have a long-term (chronic) disease, contact your doctor if you see changes or problems. Avoid having trouble pooping. You may need to take these actions to prevent or treat trouble pooping: ?Drink enough fluid to keep your pee (urine) pale yellow. ?Take yivc-ill-xdkmger or prescription medicines. ?Eat foods that are high in fiber. These include beans, whole grains, and fresh fruits and vegetables. ?Limit foods that are high in fat and sugar. These include fried or sweet foods. Stay active. Ask your doctor which exercises are safe for you. Avoid stress. Eat three small meals and three small snacks each day. Work with a diet and nutrition expert (dietitian) to make a meal plan that works for you. Do not smoke or use any products that contain nicotine or tobacco. If you need help quitting, ask your doctor. Contact a doctor if: You have a fever. You have chills. Get help right away if: You have pain or cramps that get worse. You vomit blood. You feel like you may vomit and the feeling lasts a long time. You cannot stop vomiting. You cannot drink fluids. You feel confused. You feel very thirsty (dehydrated). Your belly gets more bloated. You feel weak or you faint. Summary A bowel obstruction means that something is blocking the small or large bowel. Treatment may include IV fluids and pain medicine. You may also have a clear liquid diet, a small tube in your stomach, or surgery. Drink clear liquids and avoid solid foods until you get better, as told by your doctor. This information is not intended to replace advice given to you by your health care provider. Make sure you discuss any questions you have with your health care provider. Document Revised: 05/02/2021 Document Reviewed: 05/02/2021 [employer] Patient Education 2022 [employer] Follow Up Care 11/16/2023 08:11:14 With:JS MENJIVAR MD Address: [address] [place] [id number] When:3 to 5 days With:trauma clinic Address: [address] [place] [address] 3, second floor, [address] [place] [address]- [phone] When:11/29/2023 09:15:00 Comments:Call to schedule/confirm followup appointment [facility] 11-18-2023 Note Progress Note-Physic ralph Basic Information 72 y/o male s/p ex lap for small bowel obstruction on 11/16/2023. Subjective No BM but passing flatus today. Denies nausea or vomiting. Pain controlled. Ready to have NG removed. Objective Vitals & Measurements T: 36.5 ?C(Axillary) TMIN: 36.5 ?C(Axillary) TMAX: 36.8 ?C(Oral) HR: 98(Monitored) RR: 18 BP: 106/70 SpO2: 94% WT: 136.6 kg Intake & Output This visit (24 hour periods starting at 07:00 EDT) 11/18/23 * 11/17/23 11/16/23 Total Summary Intake mL 200.96 237.35 2,159.97 Output mL 350 1,675 1,825 Fluid Balance -149.04 -1,437.65 334.97 Intake (19) Generic Diluent, acetaminophen mL 199.96 235.35 214.77 Lactated Ringers Injection mL -- -- 600 Lactated Ringers Injection 1,000 mL mL -- -- 100 Oral Intake mL -- -- -- Sodium Chloride 0.9% mL -- -- 1,000 Sodium Chloride 0.9%, cefazolin mL -- -- 100 acetaminophen mL -- -- 100 dexamethasone mL -- -- 1 fentanyl mL -- -- 2 hydromorphone mL -- -- 1.2 lidocaine mL -- -- 3 morphine mL -- -- 1 ondansetron mL -- -- 4 orphenadrine mL 1 2 1 phenylephrine mL -- -- 1 propofol mL -- -- 14 rocuronium mL -- -- 5 succinylcholine mL -- -- 10 sugammadex mL -- -- 2 Total 200.96 237.35 2,159.97 Output (5) EBL Surgery mL -- -- 10 Gastric Tube Output mL 350 1,100 1,080 Urine Catheter mL -- 350 665 Urine Count mL -- -- 70 Urine Voided mL -- 225 -- Total 350 1,675 1,825 Counts (1) Urine Count mL -- -- 70 * This column has not completed the indicated time period. Physical Exam Gen: Sitting up in chair, alert and interactive CV: regular rate Pulm: respirations even and unlabored on nasal cannula Abdomen: soft, obese, appropriately tender to palpation in the midline. incision c/d/i with deshaun, no erythema Extremities: no cyanosis or edema Neuro: A&O x3 Lab Results No qualifying data available. Assessment/Plan 1. SBO (small bowel obstruction) (K56.609: Unspecified intestinal obstruction, unspecified as to partial versus complete obstruction) 2. Hyponatremia (E87.1: Hypo-osmolality and hyponatremia) 3. Hypoxemia (R09.02: Hypoxemia) 4. History of pulmonary embolism (Z86.711: Personal history of pulmonary embolism) 5. Morbid obesity due to excess calories (E66.01: Morbid (severe) obesity due to excess calories) 6. No contraindication to deep vein thrombosis (DVT) prophylaxis (Z78.9: Other specified health status) Orders: Basic Metabolic Panel CBC w/ Auto Diff Clear Liquid Diet Magnesium Level 72 y/o male s/p ex lap for bowel obstruction on 11/16/2023. - Passing flatus, NG output minimal. Clamp trial performed today - patient tolerated clears without nausea or vomiting, very little returned from NG tube when placed back to suction - NG tube removed, continue on clear liquid diet today - if tolerates clears, can be advanced to regular diet tomorrow - will continue IV pain medication until certain able to tolerate PO meds - Can have xarelto by mouth - SCDs, encourage ambulation - IS for pulmonary hygiene - No indication for antibiotics - If able to tolerate regular diet, will be ready for discharge from surgery perspective potentially as early as tomorrow afternoon Problem List/Past Medical History Ongoing Abdominal pain Acute respiratory failure Black tarry stools Cardiac enzyme or marker above reference range Chronic obstructive lung disease History of pulmonary embolism Indigestion Long-term current use of anticoagulant Morbid obesity Morbid obesity due to excess calories Myocardial infarction Pulmonary embolism Pulmonary hypertension Historical Inguinal hernia Venous thrombosis Medications Inpatient acetaminophen additive + Generic Diluent 100 mL albuterol 0.083% Inh Jenn 3 mL, 2.5 mg= 3 mL, Inhalation, q2hr, PRN budesonide 0.25 mg/2 mL Inh Susp, 0.25 mg= 2 mL, NEB, BID Dilaudid 1 mg/mL injectable solution, 0.5 mg= 0.5 mL, IV Push, q4hr, PRN DuoNeb 2.5 mg-0.5 mg/3 mL Soln-Inh, 3 mL, Inhalation, QID Lactated Ringers IV Jnen 1000 mL 1,000 mL, 1000 mL, IV orphenadrine 30 mg/mL Inj, 30 mg= 1 mL, IV Push, q12hr Xarelto 20 mg oral tablet, 20 mg= 1 tab(s), NG-Tube, Daily Zofran 4 mg/2 mL Injection, 4 mg= 2 mL, IV Push, q6hr, PRN Home aspirin 81 mg oral tablet, 81 mg= 1 tab(s), Oral, Daily, Not taking: taking Xaerlto Breztri Aerosphere inhalation aerosol, 2 puff(s), Inhalation, BID Centrum Silver Men's, Oral, Daily famotidine 10 mg oral tablet, 10 mg= 1 tab(s), Oral, BID, Not taking: discontinued omeprazole 10 mg Cap-EC, 10 mg= 1 cap(s), Oral, Daily SEMAGLUTIDE 1 MG/ML VIAL, 0, qWeek triamcinolone Top 0.1% Crm 15 gram, 1 mary, Topical, TID Xarelto 20 mg oral tablet [facility] Comment on above: Result Comment: Elec tronically Signed By: Payal RODRIGUEZ, Jesica Gonzales.br\Date and Time Signed: 11/18/23 20:09 EDT 11-18-2023 Note Progress Note-Physic arlph Basic Information 72 y/o male with history of COPD, prior PE on NOAC, and obesity s/p ex lap for SBO Assessment/Plan 1. SBO (small bowel obstruction) (K56.609: Unspecified intestinal obstruction, unspecified as to partial versus complete obstruction) - POD #2 s/p ex lap and relief of obstruction with Dr. Moe of [facility] surgery - management as per surgery - continue NPO, NG tube, pain control ->passing flatus today, await surgical recs for NG - encourage IS 2. Hyponatremia (E87.1: Hypo-osmolality and hyponatremia) Hypovolemic hyponatremia - Na stable, trend BMP 3. Hypoxemia (R09.02: Hypoxemia) Hypoxemia on admission likely secondary to atelectasis, does have hx of COPD, no acute exacerbation ordered -Attempt to wean supplemental o2 to off with ambulation - DuoNeb scheduled and albuterol PRN - encourage IS 4. History of pulmonary embolism (Z86.711: Personal history of pulmonary embolism) -Jayla 5. Morbid obesity due to excess calories (E66.01: Morbid (severe) obesity due to excess calories) -Patient's BMI >30. Lifestyle modifications encouraged. Obesity is a pro-inflammatory state likely affecting above medical processes. Outpatient follow up. 6. No contraindication to deep vein thrombosis (DVT) prophylaxis (Z78.9: Other specified health status) -Xarelto Patient continues to require in-patient status given post operative status with NG to suction in place, awaiting surgical recs FULL CODE Subjective NG in place to suction. Passing flatus. No pain, CP, SOB. No nausea. Review of Systems Additional ROS info: Except as noted in the above Review of Systems and in the History of Present Illness all other systems have been reviewed and are negative or noncontributory Objective Vitals & Measurements T: 36.7 ?C(Axillary) TMIN: 36.5 ?C(Axillary) TMAX: 36.8 ?C(Oral) HR: 93(Monitored) RR: 18 BP: 126/70 SpO2: 94% WT: 136.6 kg Intake & Output This visit (24 hour periods starting at 07:00 EDT) 11/18/23 * 11/17/23 11/16/23 Total Summary Intake mL 1 237.35 2,159.97 Output mL -- 1,675 1,825 Fluid Balance 1 -1,437.65 334.97 Intake (19) Generic Diluent, acetaminophen mL -- 235.35 214.77 Lactated Ringers Injection mL -- -- 600 Lactated Ringers Injection 1,000 mL mL -- -- 100 Oral Intake mL -- -- -- Sodium Chloride 0.9% mL -- -- 1,000 Sodium Chloride 0.9%, cefazolin mL -- -- 100 acetaminophen mL -- -- 100 dexamethasone mL -- -- 1 fentanyl mL -- -- 2 hydromorphone mL -- -- 1.2 lidocaine mL -- -- 3 morphine mL -- -- 1 ondansetron mL -- -- 4 orphenadrine mL 1 2 1 phenylephrine mL -- -- 1 propofol mL -- -- 14 rocuronium mL -- -- 5 succinylcholine mL -- -- 10 sugammadex mL -- -- 2 Total 1 237.35 2,159.97 Output (5) EBL Surgery mL -- -- 10 Gastric Tube Output mL -- 1,100 1,080 Urine Catheter mL -- 350 665 Urine Count mL -- -- 70 Urine Voided mL -- 225 -- Total -- 1,675 1,825 Counts (1) Urine Count mL -- -- 70 * This column has not completed the indicated time period. Physical Exam General: Obese adult male, OOB to chair. Alert, calm, NAD Eyes: PERRLA. HEENT: Mucous membrane pink, moist, Normal tongue. + NG tube to suction Neck: supple, no JVD, no bruit Lungs: Lungs CTA Cardio: Regular S1, S2, no murmur, good perfusion Abdomen: Obese, soft, mildly-tender but reportedly improved, + BS x4 Musculoskeletal: Normal ROM for age. Integumentary: Warm, dry, no issues to surgical sites Extremity: No clubbing, no edema Neurologic: Alert, oriented x 4 follows commands, no obvious focal deficits Mental status: Pleasant & cooperative, normal judgment Lab Results No qualifying data available. Problem List/Past Medical History Ongoing Abdominal pain Acute respiratory failure Black tarry stools Cardiac enzyme or marker above reference range Chronic obstructive lung disease History of pulmonary embolism Indigestion Long-term current use of anticoagulant Morbid obesity Morbid obesity due to excess calories Myocardial infarction Pulmonary embolism Pulmonary hypertension Historical Inguinal hernia Venous thrombosis Medications Inpatient acetaminophen additive + Generic Diluent 100 mL albuterol 0.083% Inh Jenn 3 mL, 2.5 mg= 3 mL, Inhalation, q2hr, PRN budesonide 0.25 mg/2 mL Inh Susp, 0.25 mg= 2 mL, NEB, BID Dilaudid 1 mg/mL injectable solution, 0.5 mg= 0.5 mL, IV Push, q4hr, PRN DuoNeb 2.5 mg-0.5 mg/3 mL Soln-Inh, 3 mL, Inhalation, QID Lactated Ringers IV Jenn 1000 mL 1,000 mL, 1000 mL, IV orphenadrine 30 mg/mL Inj, 30 mg= 1 mL, IV Push, q12hr Xarelto 20 mg oral tablet, 20 mg= 1 tab(s), NG-Tube, Daily Zofran 4 mg/2 mL Injection, 4 mg= 2 mL, IV Push, q6hr, PRN Home aspirin 81 mg oral tablet, 81 mg= 1 tab(s), Or (more content not included)... [facility] Comment on above: Result Comment: Elec tronically Signed By: Vilma Franz CNP\.br\Date and Time Signed: 11/18/23 12:55 EDT\.br\Electronically Co-Signed By: JET RODRIGUEZ, Richard\.br\Date and Time Co-Signed: 11/18/23 14:39 EDT 11-18-2023 Evaluation + Plan note Extrac stevenson from: Title:EGS Progress/SOAP Note Author:Jesica Solis Date:11/18/23 1. SBO (small bowel obstruct ion) (K56.609: Unspecified intestinal obstruction, unspecified as to partial versus complete obstruction) 2. Hyponatremia (E87.1: Hypo-osmolality and hyponatremia) 3. Hypoxemia (R09.02: Hypoxemia) 4. History of pulmonary embolism (Z86.711: Personal history of pulmonary embolism) 5. Morbid obesity due to excess calories (E66.01: Morbid (severe) obesity due to excess calories) 6. No contraindication to deep vein thrombosis (DVT) prophylaxis (Z78.9: Other specified health status) Orders: Basic Metabolic Panel CBC w/ Auto Diff Clear Liquid Diet Magnesium Level 72 y/o male s/p ex lap for bowel obstruction on 11/16/2023. - Passing flatus, NG output minimal. Clamp trial performed today - patient tolerated clears without nausea or vomiting, very little returned from NG tube when placed back to suction - NG tube removed, continue on clear liquid diet today - if tolerates clears, can be advanced to regular diet tomorrow - will continue IV pain medication until certain able to tolerate PO meds - Can have xarelto by mouth - SCDs, encourage ambulation - IS for pulmonary hygiene - No indication for antibiotics - If able to tolerate regular diet, will be ready for discharge from surgery perspective potentially as early as tomorrow afternoon Extracted from: Title:APSO Note Author:Yael Franz CNP Date:11/18/23 1. SBO (small bowel obstruct ion) (K56.609: Unspecified intestinal obstruction, unspecified as to partial versus complete obstruction) - POD #2 s/p ex lap and relief of obstruction with Dr. Moe of [facility] surgery - management as per surgery - continue NPO, NG tube, pain control ->passing flatus today, await surgical recs for NG - encourage IS 2. Hyponatremia (E87.1: Hypo-osmolality and hyponatremia) Hypovolemic hyponatremia - Na stable, trend BMP 3. Hypoxemia (R09.02: Hypoxemia) Hypoxemia on admission likely secondary to atelectasis, does have hx of COPD, no acute exacerbation ordered -Attempt to wean supplemental o2 to off with ambulation - DuoNeb scheduled and albuterol PRN - encourage IS 4. History of pulmonary embolism (Z86.711: Personal history of pulmonary embolism) -Xarelto 5. Morbid obesity due to excess calories (E66.01: Morbid (severe) obesity due to excess calories) -Patient's BMI >30. Lifestyle modifications encouraged. Obesity is a pro- inflammatory state likely affecting above medical processes. Outpatient follow up. 6. No contraindication to deep vein thrombosis (DVT) prophylaxis (Z78.9: Other specified health status) -Xarelto Patient continues to require in-patient status given post operative status with NG to suction in place, awaiting surgical recs FULL CODE Extracted from: Title:EGS Progress/SOAP Note Author:Jesica Solis Date:11/17/23 1. SBO (small bowel obstruct ion) (K56.609: Unspecified intestinal obstruction, unspecified as to partial versus complete obstruction) 2. Hyponatremia (E87.1: Hypo-osmolality and hyponatremia) 3. History of pulmonary embolism (Z86.711: Personal history of pulmonary embolism) 4. Morbid obesity due to excess calories (E66.01: Morbid (severe) obesity due to excess calories) 5. No contraindication to deep vein thrombosis (DVT) prophylaxis (Z78.9: Other specified health status) Orders: acetaminophen + Generic Diluent 100 mL, 1,000 mg = 100 mL, Soln-IV, IV Piggyback, q8hr, Routine, Start date 11/17/23 1:00:00 EDT, 400 mL/hr, Infuse over 15 minute(s) budesonide, 0.25 mg = 2 mL, Susp-Inh, NEB, BID, Routine, Start date 11/16/23 20:00:00 EDT, 11/16/23 18:03:00 EDT cefazolin + Sodium Chloride 0.9% intravenous solution 100 mL, 3 gram = 100 mL, Soln-IV, IV Piggyback, PREOP, Routine, Start date 11/16/23 15:47:00 EDT, 200 mL/hr, Infuse over 30 minute(s) HYDROmorphone, 0.5 mg = 0.5 mL, Injection, IV Push, q4hr PRN Pain, Routine, Start date 11/16/23 18:04:00 EDT, 11/16/23 18:04:00 EDT Lactated Ringers Injection 1,000 mL, 1,000 mL, IV, 10 mL/hr, Routine, Start date 11/16/23 15:43:00 EDT, 100 hour(s), Total volume (mL): 1,000, 132.8 kg, 2.54, m2 orphenadrine, 30 mg = 1 mL, Injection, IV Push, q12hr, Routine, Start date 11/16/23 19:00:00 EDT, 11/16/23 18:05:00 EDT Below the Knee Intermittent Pneumatic Compression Device Communication Order Physician to Nursing Communication Order Physician to Nursing Incentive Spirometry Nasogastric/Orogastric Tube Care Surgical Site Prep Per Protocol Surgical Site Prep Per Protocol Urinalysis with Micro 72 y/o male s/p ex lap for small bowel obstruction. - doing well this morning, continue NG for now until signs of bowel function return - May resume xarelto for hx of DVT/PE - NPO for now, can remove hartman - Encourage ambulation - may clamp NG while ambulating - IS for atelectasis prevention - Pain control with IV meds while NPO Extracted from: Title:APSO Note Author:Devorah BLANCO MD Date: 1. SBO (small bowel obstruct ion) (K56.609: Unspecified intestinal obstruction, unspecified as to partial versus complete obstruction) - POD #1 s/p ex lap and relief of obstruction with Dr. Moe of surgery - management as per surgery - continue NPO, NG tube, pain control - encourage IS 2. history of COPD - stable - ordered duonebs INH and albuterol INH prn - encourage IS - wean O2 - O2 sat 95% on 4L NC Ordered: 2. Hyponatremia (E87.1: Hypo-osmolality and hyponatremia) - hypovolemic hyponatremia - Na stable 3. History of pulmonary embolism (Z86.711: Personal history of pulmonary embolism) - d/w surgery ok to restart xarelto via NG 4. Morbid obesity due to excess calories (E66.01: Morbid (severe) obesity due to excess calories) - BMI over 40 - lifestyle modification, outpatient PCP follow up 5. No contraindication to deep vein thrombosis (DVT) prophylaxis (Z78.9: Other specified health status) - ordered SCDs, ordered xarelto via NG as above Orders: albuterol, 2.5 mg, 3 mL, Soln-Inh, Inhalation, q2hr PRN Shortness of breath or wheezing, Routine, Start date 11/17/23 7:26:00 EDT albuterol-ipratropium, 3 mL, Soln-Inh, Inhalation, QID, Routine, Start date 11/17/23 8:00:00 EDT ondansetron, 4 mg = 2 mL, Injection, IV Push, q6hr PRN Nausea, Routine, Start date 11/16/23 11:30:00 EDT, 11/16/23 11:30:00 EDT rivaroxaban, 20 mg = 1 tab(s), Tab, NG-Tube, Daily, Routine, Start date 11/17/23 9:00:00 EDT, DVT/PE Treatment and CrCl over 30 ml/min: (start AFTER 15 mg dosing x 21 days)., 11/17/23 8:22:00 EDT Ambulate with Assistance Basic Metabolic Panel Below the Knee Intermittent Pneumatic Compression Device CBC w/ Auto Diff eGFR Intake and Output Notify Provider Vital Signs Notify Provider Vital Signs NPO Diet Oxygen Protocol Place in Status Weight Addendum by FRANCIS RODRIGUEZ, Devorah mortensen November 17, 2023 09:21:33 EDT pt with hypoxemia on admission likely secondary to atelctasis, encourage IS Extracted from: Title:ANES Post-operative Note - General Author: Rc Gonsalez Jr., DO Date:11/16/23 Plan Transfer/Discharge: Transfer/Discharge Discharge when meets criteria ( From PACU to Ambulatory Surgery Unit, and To home ). Extracted from: Title:ANES Pre-operative Note - Adult Author:Rc Plummer Jr., DO Date:11/16/23 Plan [place] [employer] (ASA) physical status classification: Class IV, E. Anesthetic Preoperative Plan: Anesthesia General. Extracted from: Title:Admission H & P Author:Devorah BLANCO MD Date :11/16/23 1. SBO (small bowel obstruct ion) (K56.609: Unspecified intestinal obstruction, unspecified as to partial versus complete obstruction) - may be secondary to adhesions, could be secondary to ileus - management as per surgery - ordered NG tube, NPO - ordered IVF NS, pain control 2. Hyponatremia (E87.1: Hypo-osmolality and hyponatremia) - hypovolemic hyponatremia - ordered NS IVF, ordered BMP in AM 3. History of pulmonary embolism (Z86.711: Personal history of pulmonary embolism) - hold PO xarelto while NPO with above 4. Morbid obesity due to excess calories (E66.01: Morbid (severe) obesity due to excess calories) - BMI over 40 - lifestyle modification, outpatient PCP follow up 5. No contraindication to deep vein thrombosis (DVT) prophylaxis (Z78.9: Other specified health status) - ordered SCDs, ordered heparin subcutaneous bid pt will require greater than 2 midnights stay for above Orders: heparin, 5,000 unit(s) = 1 mL, Injection, SubCutaneous, q8hrFT for 30 day(s), Stop date 12/16/23 15:59:00 EDT, Start date 11/16/23 16:00:00 EDT morphine, 2 mg = 1 mL, Injection, IV Push, q4hr PRN Pain for 5 day(s), Stop date 11/21/23 11:29:00 EDT, Routine, Start date 11/16/23 11:30:00 EDT, 11/16/23 11:30:00 EDT ondansetron, 4 mg = 2 mL, Injection, IV Push, q6hr PRN Nausea, Routine, Start date 11/16/23 11:30:00 EDT, 11/16/23 11:30:00 EDT Sodium Chloride 0.9% intravenous solution 1,000 mL, 1,000 mL, IV, 125 mL/hr, Routine, Start date 11/16/23 11:30:00 EDT, 8 hour(s), Total volume (mL): 1,000, 132.8 kg, 2.54, m2 Ambulate with Assistance Basic Metabolic Panel Below the Knee Intermittent Pneumatic Compression Device CBC w/ Auto Diff Incentive Spirometry Intake and Output Notify Provider Vital Signs Notify Provider Vital Signs NPO Diet Oxygen Protocol Place in [facility] 08-16-2024 NoteProgress Note-Physician Basic Information 72 y/o male s/p ex lap for bowel obstruction. Subjective No acute events overnight, has some coughing which he states hurts. Otherwise, no flatus yet but hehas felt grumbling . NG with bilious output. Objective Vitals & Measurements T: 36.6 ?C(Oral) TMIN: 36.3 ?C(Temporal Artery) TMAX: 36.8 ?C(Oral) HR: 100(Monitored) RR: 20 BP: 128/76 SpO2: 97% HT: 175 cm WT: 136.6 kg Intake & Output This visit (24 hour periods starting at 07:00 EDT) 11/17/23 * 11/16/23 11/15/23 Total Summary Intake mL 1 2,139.97 -- Output mL -- 1,825 -- Fluid Balance 1 314.97 -- Intake (19) Generic Diluent, acetaminophen mL -- 194.77 -- Lactated Ringers Injection mL -- 600 -- Lactated Ringers Injection 1,000 mL mL -- 100 -- Oral Intake mL -- -- -- Sodium Chloride 0.9% mL -- 1,000 -- Sodium Chloride 0.9%, cefazolin mL -- 100 -- acetaminophen mL -- 100 -- dexamethasone mL -- 1 -- fentanyl mL -- 2 -- hydromorphone mL -- 1.2 -- lidocaine mL -- 3 -- morphine mL -- 1 -- ondansetron mL -- 4 -- orphenadrine mL 1 1 -- phenylephrine mL -- 1 -- propofol mL -- 14 -- rocuronium mL -- 5 -- succinylcholine mL -- 10 -- sugammadex mL -- 2 -- Total 1 2,139.97 -- Output (4) EBL Surgery mL -- 10 -- Gastric Tube Output mL -- 1,080 -- Urine Catheter mL -- 665 -- Urine Count mL -- 70 -- Total -- 1,825 -- Counts (1) Urine Count mL -- 70 -- * This column has not completed the indicated time period. Physical Exam Gen: awake, alert, interactive CV: regular rate Pulm: respirations unlabored on nasal cannula Abdomen: soft, distended, appropriately tender, incision c/d/i with dressing Extremities: no cyanosis or edema Neuro: a&Ox 3 Lab Results WBC: 12.2 E9/L High (11/17/23 05:42:00) RBC: 4.8 E12/L (11/17/23 05:42:00) HGB: 14.6 gm/dL (11/17/23 05:42:00) Hct: 43 % (11/17/23 05:42:00) MCV: 90.6 fL (11/17/23 05:42:00) MCH: 30.7 pg (11/17/23 05:42:00) MCHC: 33.9 gm/dL (11/17/23 05:42:00) RDW: 13.9 % (11/17/23 05:42:00) Platelet: 310 E9/L (11/17/23 05:42:00) MPV: 7.4 fL (11/17/23 05:42:00) Neutro Auto: 86.3 % High (11/17/23 05:42:00) Lymph Auto: 5.4 % Low (11/17/23 05:42:00) [place] Auto: 8.1 % (11/17/23 05:42:00) Eos Auto: 0.1 % (11/17/23 05:42:00) Basophil Auto: 0.1 % (11/17/23 05:42:00) Neutro Absolute: 10.5 E9/L High (11/17/23 05:42:00) Lymph Absolute: 0.7 E9/L Low (11/17/23 05:42:00) [place] Absolute: 1 E9/L (11/17/23 05:42:00) Eos Absolute: 0 E9/L (11/17/23 05:42:00) Basophil Absolute: 0 E9/L (11/17/23 05:42:00) Glucose Lvl: 125 mg/dL (11/17/23 05:42:00) BUN: 16 mg/dL (11/17/23 05:42:00) Creatinine: 1.1 mg/dL (11/17/23 05:42:00) eGFR: 71 mL/min/1.73 m2 (11/17/23 05:42:00) BUN/Creat Ratio: 14 (11/17/23 05:42:00) Sodium Lvl: 134 mmol/L Low (11/17/23 05:42:00) Potassium Lvl: 4.7 mmol/L (11/17/23 05:42:00) Chloride: 98 mmol/L Low (11/17/23 05:42:00) CO2: 28 mmol/L (11/17/23 05:42:00) AGAP: 13 mEq/L (11/17/23 05:42:00) Calcium Lvl: 9.4 mg/dL (11/17/23 05:42:00) UA Spec Desc: Hartman (11/16/23 16:50:00) UA Color: Yellow (11/16/23 16:50:00) UA Clarity: Clear (11/16/23 16:50:00) UA Spec Grav: OVER (11/16/23 16:50:00) UA pH: 5.5 (11/16/23 16:50:00) UA Protein: Trace Abnormal (11/16/23 16:50:00) UA Glucose: Negat (11/16/23 16:50:00) UA Ketones: Negat (11/16/23 16:50:00) UA Bili: Negat (11/16/23 16:50:00) UA Blood: Negat (11/16/23 16:50:00) UA Nitrite: Negat (11/16/23 16:50:00) UA Urobilinogen: Negat (11/16/23 16:50:00) UA Leuk Est: 25 Allie/uL (11/16/23 16:50:00) UA RBC: 0-3 (11/16/23 16:50:00) UA Squam Epithelial: 0-2 (11/16/23 16:50:00) UA WBC: 0-5 (11/16/23 16:50:00) UA Mucous: 1+ Abnormal (11/16/23 16:50:00) ABO/Rh: A POS (11/16/23 16:29:00) ABSC Gel Interp: Negative (11/16/23 16:29:00) Assessment/Plan 1. SBO (small bowel obstruction) (K56.609: Unspecified intestinal obstruction, unspecified as to partial versus complete obstruction) 2. Hyponatremia (E87.1: Hypo-osmolality and hyponatremia) 3. History of pulmonary embolism (Z86.711: Personal history of pulmonary embolism) 4. Morbid obesity due to excess calories (E66.01: Morbid (severe) obesity due to excess calories) 5. No contraindication to deep vein thrombosis (DVT) prophylaxis (Z78.9: Other specified health status) Orders: acetaminophen + Generic Diluent 100 mL, 1,000 mg = 100 mL, Soln-IV, IV Piggyback, q8hr, Routine, Start date 11/17/23 1:00:00 EDT, 400 mL/hr, Infuse over 15 minute(s) budesonide, 0.25 mg = 2 mL, Susp-Inh, NEB, BID, Routine, Start date 11/16/23 20:00:00 EDT, 11/15/2417:03:00 EDT cefazolin + Sodium Chloride 0.9% intravenous solution 100 mL, 3 gram = 100 mL, Soln-IV, IV Piggyback, PREOP, Routine, Start date 11/16/23 15:47:00 EDT, 200 mL/hr, Infuse over 30 minute(s (more content not included)...[facility]:Result Comment: Electronically Signed By: Payal RODRIGUEZ, Jesica Gonzales.br\Date and Time Signed: 11/17/23 10:17 [id number] NoteProgress Note-Physician Assessment/Plan 1. SBO (small bowel obstruction) (K56.609: Unspecified intestinal obstruction, unspecified as to partial versus complete obstruction) - POD #1 s/p ex lap and relief of obstruction with Dr. Moe of surgery - management as per surgery - continue NPO, NG tube, pain control - encourage IS 2. history of COPD - stable - ordered duonebs INH and albuterol INH prn - encourage IS - wean O2 - O2 sat 95% on 4L NC Ordered: 2. Hyponatremia (E87.1: Hypo-osmolality and hyponatremia) - hypovolemic hyponatremia - Na stable 3. History of pulmonary embolism (Z86.711: Personal history of pulmonary embolism) - d/w surgery ok to restart xarelto via NG 4. Morbid obesity due to excess calories (E66.01: Morbid (severe) obesity due to excess calories) - BMI over 40 - lifestyle modification, outpatient PCP follow up 5. No contraindication to deep vein thrombosis (DVT) prophylaxis (Z78.9: Other specified health status) - ordered SCDs, ordered xarelto via NG as above Orders: albuterol, 2.5 mg, 3 mL, Soln-Inh, Inhalation, q2hr PRN Shortness of breath or wheezing, Routine, Start date 11/17/23 7:26:00 EDT albuterol-ipratropium, 3 mL, Soln-Inh, Inhalation, QID, Routine, Start date 11/17/23 8:00:00 EDT ondansetron, 4 mg = 2 mL, Injection, IV Push, q6hr PRN Nausea, Routine, Start date 11/16/23 11:30:00 EDT, 11/16/23 11:30:00 EDT rivaroxaban, 20 mg = 1 tab(s), Tab, NG-Tube, Daily, Routine, Start date 11/17/23 9:00:00 EDT, DVT/PE Treatment and CrCl over 30 ml/min: (start AFTER 15 mg dosing x 21 days)., 11/17/23 8:22:00 EDT Ambulate with Assistance Basic Metabolic Panel Below the Knee Intermittent Pneumatic Compression Device CBC w/ Auto Diff eGFR Intake and Output Notify Provider Vital Signs Notify Provider Vital Signs NPO Diet Oxygen Protocol Place in Status Weight Subjective Pt denies any chest pain or sob. no nausea or vomiting. Review of Systems Constitutional: No fevers, chills Eye: Negative. Ear/Nose/Mouth/Throat: Negative. Respiratory: Negative Cardiovascular: Negative. Gastrointestinal: Negative. Genitourinary: Negative. Immunologic: Negative. Musculoskeletal: Negative. Integumentary: Negative. Neurologic: Negative. Psychiatric: Negative. All other systems are negative Objective Vitals & Measurements T: 36.6 ?C(Oral) TMIN: 36.3 ?C(Temporal Artery) TMAX: 36.8 ?C(Oral) HR: 91(Monitored) RR: 20 BP: 142/83 SpO2: 95% HT: 175 cm WT: 136.6 kg Intake & Output This visit (24 hour periods starting at 07:00 EDT) 11/17/23 * 11/16/23 11/15/23 Total Summary Intake mL -- 2,139.97 -- Output mL -- 1,825 -- Fluid Balance -- 314.97 -- Intake (19) Generic Diluent, acetaminophen mL -- 194.77 -- Lactated Ringers Injection mL -- 600 -- Lactated Ringers Injection 1,000 mL mL -- 100 -- Oral Intake mL -- -- -- Sodium Chloride 0.9% mL -- 1,000 -- Sodium Chloride 0.9%, cefazolin mL -- 100 -- acetaminophen mL -- 100 -- dexamethasone mL -- 1 -- fentanyl mL -- 2 -- hydromorphone mL -- 1.2 -- lidocaine mL -- 3 -- morphine mL -- 1 -- ondansetron mL -- 4 -- orphenadrine mL -- 1 -- phenylephrine mL -- 1 -- propofol mL -- 14 -- rocuronium mL -- 5 -- succinylcholine mL -- 10 -- sugammadex mL -- 2 -- Total -- 2,139.97 -- Output (4) EBL Surgery mL -- 10 -- Gastric Tube Output mL -- 1,080 -- Urine Catheter mL -- 665 -- Urine Count mL -- 70 -- Total -- 1,825 -- Counts (1) Urine Count mL -- 70 -- * This column has not completed the indicated time period. Physical Exam General: alert, no acute distress ENMT: NG tube oral mucosa moist, no pharyngeal erythema or exudate Cardiovascular: regular rate and rhythm, normal peripheral perfusion Respiratory: Lungs CTA, respirations non labored Abdomen: soft, NTND, dressing c/d/i, no BS Skin: warm, dry, intact Extremities: no deformity, no trauma Neurological: LOC appropriate for age, CN II-XII intact, motor strength equal & normal bilaterally, sensation equal & normal bilaterally, speech normal Lab Results WBC: 12.2 E9/L High (11/17/23 05:42:00) RBC: 4.8 E12/L (11/17/23 05:42:00) HGB: 14.6 gm/dL (11/17/23 05:42:00) Hct: 43 % (11/17/23 05:42:00) MCV: 90.6 fL (11/17/23 05:42:00) MCH: 30.7 pg (11/17/23 05:42:00) MCHC: 33.9 gm/dL (11/17/23 05:42:00) RDW: 13.9 % (11/17/23 05:42:00) Platelet: 310 E9/L (11/17/23 05:42:00) MPV: 7.4 fL (11/17/23 05:42:00) Neutro Auto: 86.3 % High (11/17/23 05:42:00) Lymph Auto: 5.4 % Low (11/17/23 05:42:00) [place] Auto: 8.1 % (11/17/23 05:42:00) Eos Auto: 0.1 % (11/17/23 05:42:00) Basophil Auto: 0.1 % (11/17/23 05:42:00) Neutro Absolute: 10.5 E9/L High (11/17/23 05:42:00) Lymph Absolute: 0.7 E9/L Low (11/17/23 05:42:00) [place] Absolute: (more content not included)...[facility] AndersonComment on above:Result Comment: Electronically Signed By: FRANCIS RODRIGUEZ, Devorah\.br\Date and Time Signed: 11/17/23 09:22 [id number] NoteProgress Note-Physician Patient: YANNICK CARDOSO Age: 72 years Sex: Male : 1950 Associated Diagnoses: None Author: Rc Gonsalez Jr., DO Postoperative Information Postoperative disposition: Postoperative disposition: Home. Optimetrix number: Optimetrix number [id number]. Anesthetic utilized: General. Physical Examination Vital Signs 11/16/2023 19:17 EDT Hourly Rounding Yes Promise to Return Yes 11/16/2023 19:00 EDT Temperature Oral 36.8 DegC Heart Rate Monitored 86 bpm Systolic Blood Pressure 128 mmHg Diastolic Blood Pressure 84 mmHg SpO2 95 % 11/16/2023 18:35 EDT Temperature Temporal Artery 36.4 DegC Heart Rate Monitored 88 bpm Respiratory Rate Monitored 20 br/min Systolic Blood Pressure 136 mmHg Diastolic Blood Pressure 78 mmHg Blood Pressure Location Left arm Mean Arterial Pressure, Cuff 97 mmHg SpO2 97 % 11/16/2023 18:25 EDT Heart Rate Monitored 93 bpm Respiratory Rate Monitored 18 br/min Systolic Blood Pressure 144 mmHg HI Diastolic Blood Pressure 81 mmHg Blood Pressure Location Left arm Mean Arterial Pressure, Cuff 102 mmHg SpO2 98 % 11/16/2023 18:10 EDT Heart Rate Monitored 89 bpm Respiratory Rate Monitored 14 br/min Systolic Blood Pressure 134 mmHg Diastolic Blood Pressure 79 mmHg Blood Pressure Location Left arm Mean Arterial Pressure, Cuff 97 mmHg SpO2 94 % 11/16/2023 17:55 EDT Heart Rate Monitored 96 bpm Respiratory Rate 20 br/min Systolic Blood Pressure 150 mmHg HI Diastolic Blood Pressure 84 mmHg Blood Pressure Location Left arm Mean Arterial Pressure, Cuff 106 mmHg SpO2 99 % 11/16/2023 17:50 EDT Heart Rate Monitored 97 bpm Respiratory Rate Monitored 19 br/min Systolic Blood Pressure 156 mmHg HI Diastolic Blood Pressure 95 mmHg HI Blood Pressure Location Left arm Mean Arterial Pressure, Cuff 115 mmHg SpO2 92 % 11/16/2023 17:45 EDT Heart Rate Monitored 95 bpm Respiratory Rate 20 br/min Systolic Blood Pressure 160 mmHg HI Diastolic Blood Pressure 93 mmHg HI Blood Pressure Location Left arm Mean Arterial Pressure, Cuff 115 mmHg SpO2 96 % 11/16/2023 17:40 EDT Heart Rate Monitored 99 bpm Respiratory Rate Monitored 18 br/min Systolic Blood Pressure 153 mmHg HI Diastolic Blood Pressure 94 mmHg HI Blood Pressure Location Left arm Mean Arterial Pressure, Cuff 114 mmHg SpO2 97 % 11/16/2023 17:36 EDT Temperature Temporal Artery 36.3 DegC Heart Rate Monitored 99 bpm Respiratory Rate 20 br/min Systolic Blood Pressure 166 mmHg HI Diastolic Blood Pressure 104 mmHg HI Blood Pressure Location Left arm Mean Arterial Pressure, Cuff 125 mmHg SpO2 96 % Pain Assessment: Pain Assessment 11/16/2023 12:00 EDT Pain Symptoms Self Report No, able to self report Patient Preferred Pain Tool Numeric rating Numeric Pain Scale 0 = No pain Numeric Pain Score 0 Verbal Descriptor Pain Scale No pain Verbal Descriptor Pain Score 0 . General: Awake, Alert, Appropriate. Respiratory: Adequate air exchange, Non-labored. Cardiovascular: Stable, Normal peripheral perfusion. Neurological: Neurologic exam at baseline. No changes.. Assessment Anesthetic outcome No anesthetic complications noted. No nausea/vomiting. Review / Management Condition: Stable. Plan Transfer/Discharge: Transfer/Discharge Discharge when meets criteria ( From PACU to Ambulatory Surgery Unit, and To home ).[facility] AndersonComment on above:Result Comment: Electronically Signed By: Rc Gonsalez Jr., DO\.br\Date and Time Signed: 11/16/23 19:30 [id number] NoteProgress Note-Physician Patient: YANNICK CARDOSO Age: 72 years Sex: Male : 1950 Associated Diagnoses: None Author: Rc Gonsalez Jr., DO Preoperative Information Anesthesia Preop Info NPO since midnight Anesthesia history: Patient history: No prior anesthetic problems. Informed consent: Signed by patient. Re-evaluation prior to induction: Initial evaluation reviewed: No significant change. Health Status Allergies: Allergic Reactions (Selected) Severity Not Documented Coumadin- Rash. Plavix- Rash., Allergies (2) Active Severity Reaction Coumadin Rash Plavix Rash Current medications: (Selected) Inpatient Medications Ordered NS 1000 mL Soln-IV 1,000 mL: 1,000 mL, IV, 125 mL/hr, Routine, Start date 11/16/23 11:30:00 EDT, 8 hour(s), Total volume (mL): 1,000, 132.8 kg, 2.54, m2 Zofran 4 mg/2 mL Injection: 4 mg = 2 mL, Injection, IV Push, q6hr PRN Nausea, Routine, Start date 11/16/23 11:30:00 EDT, 11/16/23 11:30:00 EDT heparin: 5,000 unit(s) = 1 mL, Injection, SubCutaneous, q8hrFT for 30 day(s), Stop date 12/16/23 15:59:00 EDT, Start date 11/16/23 16:00:00 EDT morphine 2 mg/mL Inj: 2 mg = 1 mL, Injection, IV Push, q4hr PRN Pain for 5 day(s), Stop date 11/21/23 11:29:00 EDT, Routine, Start date 11/16/23 11:30:00 EDT, 11/16/23 11:30:00 EDT Prescriptions Prescribed famotidine 10 mg oral tablet: 10 mg = 1 tab(s), Oral, BID, # 60 tab(s), Refills(s) 0 omeprazole 10 mg Cap-EC: 10 mg = 1 cap(s), Oral, Daily, # 30 cap(s), Refills(s) 0 Documented Medications Documented Breztri Aerosphere inhalation aerosol: 2 puff(s), Inhalation, BID, Refill(s) 0 Centrum Silver Men's: Oral, Daily, 0 SEMAGLUTIDE 1 MG/ML VIAL: SEMAGLUTIDE 1 MG/ML VIAL, qWeek Xarelto 20 mg oral tablet: Oral, 0 Refill(s), Refills(s) 0 aspirin 81 mg oral tablet: 81 mg = 1 tab(s), Oral, Daily, Refills(s) 0 triamcinolone Top 0.1% Crm 15 gram: 1 mary, Topical, TID, 15 gram, Refill(s) 0, Home Medications (8) Active aspirin 81 mg oral tablet 81 mg = 1 tab(s), Oral, Daily Breztri Aerosphere inhalation aerosol 2 puff(s), Inhalation, BID Centrum Silver Men's , Oral, Daily famotidine 10 mg oral tablet 10 mg = 1 tab(s), Oral, BID omeprazole 10 mg Cap-EC 10 mg = 1 cap(s), Oral, Daily SEMAGLUTIDE 1 MG/ML VIAL 0, qWeek triamcinolone Top 0.1% Crm 15 gram 1 mary, Topical, TID Xarelto 20 mg oral tablet , Medications (4) Active Scheduled: (1) heparin 5,000 units/mL Inj [F] 5,000 unit(s) 1 mL, SubCutaneous, q8hrFT Continuous: (1) Sodium Chloride 0.9% 1,000 mL 1,000 mL, IV, 125 mL/hr PRN: (2) morphine 2 mg/mL preservative-free SOLN [F] 2 mg 1 mL, IV Push, q4hr ondansetron 2 mg/mL Inj [F] 4 mg 2 mL, IV Push, q6hr Problem list: All Problems Abdominal pain / SNOMED CT 20768573 / Confirmed Acute respiratory failure / SNOMED CT 654357759 / Confirmed Black tarry stools / SNOMED CT 24296404 / Confirmed Cardiac enzyme or marker above reference range / SNOMED CT 0548847932 / Confirmed Chronic obstructive lung disease / SNOMED CT 91841226 / Confirmed History of pulmonary embolism / SNOMED CT 565528471 / Confirmed Indigestion / SNOMED CT 874051511 / Confirmed Long-term current use of anticoagulant / SNOMED CT 1991845549 / Confirmed Morbid obesity / SNOMED CT 667499083 / Confirmed Morbid obesity due to excess calories / SNOMED CT 421107029 / Confirmed Myocardial infarction / SNOMED CT 68406904 / Confirmed Pulmonary embolism / SNOMED CT 95265526 / Confirmed Pulmonary hypertension / SNOMED CT 731816903 / Confirmed Resolved: Inguinal hernia / SNOMED CT 2658479171 Resolved: Venous thrombosis / SNOMED CT 956660282 Histories Past Medical History: Resolved Venous thrombosis (359997651): Resolved. Inguinal hernia (0796075655): Resolved. Procedure history: Colonoscopy (239293049). Tonsillectomy and adenoidectomy (227754358). Social History Social & Psychosocial Habits Alcohol 06/15/2023 Risk Assessment: Low Risk 06/15/2023 Use: Current Comment: lucy - 04/08/2023 17:40 - Little Bowden RN Comment: denies - 11/16/2023 08:37 - David Hsu RN Substance Abuse 06/15/2023 Risk Assessment: Denies Substance Abuse 06/15/2023 Use: Current Comment: lucy - 04/08/2023 17:41 - Little Bowden RN Comment: denies - 11/16/2023 08:37 - Light RN, David Bowen Tobacco 06/15/2023 Tobacco Use: Current Type: Cigarettes Tobacco use per day: 15 Number of years: 18 Started [age] age: 40.0 Years Previous treatment: Hypnosis, Medications Ready to change: No Concerns about tobacco use in household: No 06/15/2023 Tobacco Use: Former smoker, quit more 11/16/2023 Tobacco Use: Former smoker, quit more . Physical Examination Vital Signs 11/16/2023 14:32 EDT Hourly Rounding Yes Promise to Return Yes 11/16/2023 13:46 EDT Hourly Rounding Yes Promise to Return Yes 11/16/2023 12:00 EDT Hourly Rounding Yes Promise to Return Yes 11/16/2023 11:45 EDT Temperature Oral (more content not included)...[facility] on above:Result Comment: Electronically Signed By: Rc Gonsalez Jr., DO\Date and Time Signed: 11/16/23 17:04 [id number] Note Consultation Note EMERGENCY GENERAL SURGERY CONSULT / H&P Patient Name: YANNICK CARDOSO Admission Date: 11/16/2023 HISTORY OF PRESENT ILLNESS YANNICK CARDOSO is a 72 Years-old Male with a PMHx of PE on xarelto, CAD, pulmonary hypertension andpast surgical history of umbilical hernia repair and inguinal hernia repair who presents to the ER complaining of abdominal pain and diarrhea. Pt states he began having diarrhea 2 days ago, that he had having mild diarrhea that lasted for hours. States he saw his PCP yesterday who started him on Imodium which stopped the diarrhea the patient had more abdominal pain and swelling today so he came to the ER for further evaluation. Patient reports nausea but no vomiting. States he has been passing flatus but also burping. Patient reports that last year he had a similar symptoms, was seen at [facility] and treated nonoperatively for a bowel obstruction with an NG tube. Patient does report starting Ozempic approximately 1 month ago as well for weight loss. Patient's last dose of Xarelto was last night. PAST MEDICAL HISTORY: Venous thrombosis Inguinal hernia PE CAD pulmonary hypertension PAST SURGICAL HISTORY: Tonsillectomy and adenoidectomy Colonoscopy PRE-ADMISSION MEDICATIONS: aspirin: 81 mg = 1 tab(s), Oral, Daily famotidine: 10 mg = 1 tab(s), Oral, BID multivitamin with minerals: Oral, Daily omeprazole: 10 mg = 1 cap(s), Oral, Daily rivaroxaban: Oral, 0 Refill(s) ALLERGIES: Allergies (2) Active Severity Reaction Coumadin Rash Plavix Rash SOCIAL HISTORY: Social & Psychosocial History Social History Alcohol Low Risk Comment: denies (11/16/2023 08:37 David Nieto RN) Current Comment: denies (04/08/2023 17:40 - Little Bowden RN) Substance Abuse Denies Substance Abuse Comment: lucy (11/16/2023 08:37 David Nieto RN) Current Comment: denies (04/08/2023 17:41 - Little Bowden RN) Tobacco Former smoker, quit more than 30 days ago Tobacco Use:. Former smoker, quit more than 30 days ago Tobacco Use:. Current, Cigarettes, 15 per day. 18 year(s). Started age 40.0 Years. Previous treatment: Hypnosis, Medications. Ready to change: No. Household tobacco concerns: No. Psychosocial History No active psychosocial history has been recorded FAMILY HISTORY: No family history recorded. REVIEW OF SYSTEMS All organ systems are reviewed. Pertinent positive and negative findings as mentioned in the HPI. PHYSICAL EXAM General: alert?, no acute? distress Skin: warm?, dry? Head: normocephalic? Eye: normal? conjunctiva, sclera clear? ENMT: oral mucosa moist?, Cardiovascular: regular? rate and rhythm, normal? peripheral perfusion Respiratory: Lungs CTA?,respirations non labored? Chest wall: no? deformity. Oxygenating appropriately on 2 L nasal cannula Gastrointestinal: Abdomen is distended and tympanic but soft. Mild left upper quadrant tenderness without rebound or guarding. Surgical scar noted above the umbilicus. No evidence of peritonitis Back: No? tenderness, Normal? ROM, Normal? alignment. Extremities: no? deformity, no? trauma Neurological: oriented x 4?, LOC appropriate for age?, speech normal? Psychiatric: cooperative?, affect appropriate for age? BASIC LABS Last 24 Hours Basic Metabolic Panel: Hematology: : () HGB: 16.0 (11/16/23) : () : () : () : () : () : () : () : () Creatinine: 1.0 (11/16/23) : () Additional - Last 24 Hours A/G Ratio: 1.2 (11/16/23) AGAP: 13 (11/16/23) Albumin Lvl: 4.4 (11/16/23) Alk Phos: 92 (11/16/23) ALT: 24 (11/16/23) AST: 19 (11/16/23) Basophil Absolute: 0.0 (11/16/23) Basophil Auto: 0.3 (11/16/23) Bili Direct: 0.0 (11/16/23) Bili Indirect: 0.6 (11/16/23) Bili Total: 0.6 (11/16/23) BUN: 13 (11/16/23) BUN/Creat Ratio: 13 (11/16/23) Calcium Lvl: 10.9 (11/16/23) Chloride: 98 (11/16/23) CO2: 27 (11/16/23) eGFR: 80 (11/16/23) Eos Absolute: 0.2 (11/16/23) Eos Auto: 2.3 (11/16/23) Globulin: 3.7 (11/16/23) Glucose Lvl: 161 (11/16/23) Hct: 47.9 (11/16/23) INR: 1.79 (11/16/23) Lipase Lvl: 24 (11/16/23) Lymph Absolute: 1.0 (11/16/23) Lymph Auto: 9.7 (11/16/23) MCH: 30.4 (11/16/23) MCHC: 33.4 (11/16/23) MCV: 91.0 (11/16/23) [place] Absolute: 0.6 (11/16/23) [place] Auto: 5.9 (11/16/23) MPV: 7.5 (11/16/23) Neutro Absolute: 8.0 (11/16/23) Neutro Auto: 81.8 (11/16/23) Platelet: 313.0 (11/16/23) Potassium Lvl: 4.2 (11/16/23) PT: 20.2 (11/16/23) PTT: 48.3 (11/16/23) RBC: 5.3 (11/16/23) RDW: 13.6 (11/16/23) Sodium Lvl: 134 (11/16/23) Total Protein: 8.1 (0 (more content not included)...[facility] Comment on above:Result Comment: Electronically Signed By: Dina Barajas PA-C\.br\Date and Time Signed: 11/16/23 12:04 EDT\.br\Electronically Co-Signed By: Dina Barajas PA-C\.br\Date and Time Co-Signed: 11/16/23 15:22 EDT\.br\Electronically Co-Signed By: Payal RODRIGUEZ, Jesica Del Toro\.br\Date and Time Co-Signed:11/16/23 15:40 [id number] NoteHistory and Physical Basic Information Admit Date/Time:11/16/2023 11:03 Accompanied by: Family member Source of History: Self Present at Bedside: Family member Referral Source: ED History Limitation: None Chief Complaint abdominal pain for 2 days, bloating, is passing gas. nausea due to gas pains but no vomiting. ozempic started 5 weeks ago for weight loss. History of Present Illness Pt is a 72 M PMH chronic GERD, PE (on xarelto), morbid obesity due to excess calories BMI 43 admitted from ED complaining of abdominal pain. pt says started 2 days ago, was having diarrhea. was seen by PCP, started on PO Imodium. pt says abdominal distention increased. Pt has not had a BM since last night, very small per patient. Pt has minimal flatus. Pt has had abdominal surgery in the past forrepair of umbilical hernia. pt with no other complaints. Review of Systems Constitutional: No fevers, chills Eye: Negative. Ear/Nose/Mouth/Throat: Negative. Respiratory: Negative Cardiovascular: Negative. Gastrointestinal: abdominal pain Genitourinary: Negative. Immunologic: Negative. Musculoskeletal: Negative. Integumentary: Negative. Neurologic: Negative. Psychiatric: Negative. All other systems are negative Scoring Espinoza Fall Risk Score: 50 High (11/16/23) Physical Exam Vitals & Measurements T: 36.5 ?C(Oral) TMIN: 36.5 ?C(Oral) TMAX: 37 ?C(Oral) HR: 85(Apical) RR: 16 BP: 137/79 SpO2: 97% HT: 175.26 cm WT: 134.5 kg General: alert, no acute distress ENMT: oral mucosa dry, no pharyngeal erythema or exudate Cardiovascular: regular rate and rhythm, normal peripheral perfusion Respiratory: Lungs CTA, respirations non labored Abdomen: distended, general TTP, no rebound, no guarding, no BS Skin: warm, dry, intact Extremities: no deformity, no trauma Neurological: oriented x 4, LOC appropriate for age, CN II-XII intact, motor strength equal & normal bilaterally, sensation equal & normal bilaterally, speech normal Lab Results WBC: 9.8 E9/L (11/16/23 08:30:00) RBC: 5.3 E12/L (11/16/23 08:30:00) HGB: 16 gm/dL (11/16/23 08:30:00) Hct: 47.9 % (11/16/23 08:30:00) MCV: 91 fL (11/16/23 08:30:00) MCH: 30.4 pg (11/16/23 08:30:00) MCHC: 33.4 gm/dL (11/16/23 08:30:00) RDW: 13.6 % (11/16/23 08:30:00) Platelet: 313 E9/L (11/16/23 08:30:00) MPV: 7.5 fL (11/16/23 08:30:00) Neutro Auto: 81.8 % High (11/16/23 08:30:00) Lymph Auto: 9.7 % Low (11/16/23 08:30:00) [place] Auto: 5.9 % (11/16/23 08:30:00) Eos Auto: 2.3 % (11/16/23 08:30:00) Basophil Auto: 0.3 % (11/16/23 08:30:00) Neutro Absolute: 8 E9/L High (11/16/23 08:30:00) Lymph Absolute: 1 E9/L (11/16/23 08:30:00) [place] Absolute: 0.6 E9/L (11/16/23 08:30:00) Eos Absolute: 0.2 E9/L (11/16/23 08:30:00) Basophil Absolute: 0 E9/L (11/16/23 08:30:00) PT: 20.2 second(s) High (11/16/23 08:30:00) INR: 1.79 (11/16/23 08:30:00) PTT: 48.3 second(s) High (11/16/23 08:30:00) Glucose Lvl: 161 mg/dL (11/16/23 08:30:00) BUN: 13 mg/dL (11/16/23 08:30:00) Creatinine: 1 mg/dL (11/16/23 08:30:00) eGFR: 80 mL/min/1.73 m2 (11/16/23 08:30:00) BUN/Creat Ratio: 13 (11/16/23 08:30:00) Sodium Lvl: 134 mmol/L Low (11/16/23 08:30:00) Potassium Lvl: 4.2 mmol/L (11/16/23 08:30:00) Chloride: 98 mmol/L Low (11/16/23 08:30:00) CO2: 27 mmol/L (11/16/23 08:30:00) AGAP: 13 mEq/L (11/16/23 08:30:00) Calcium Lvl: 10.9 mg/dL (11/16/23 08:30:00) Alk Phos: 92 Int._Unit/L (11/16/23 08:30:00) ALT: 24 Int._Unit/L (11/16/23 08:30:00) AST: 19 Int._Unit/L (11/16/23 08:30:00) Total Protein: 8.1 gm/dL High (11/16/23 08:30:00) Albumin Lvl: 4.4 gm/dL (11/16/23 08:30:00) Globulin: 3.7 gm/dL (11/16/23 08:30:00) A/G Ratio: 1.2 (11/16/23 08:30:00) Bili Total: 0.6 mg/dL (11/16/23 08:30:00) Bili Direct: 0 mg/dL (11/16/23 08:30:00) Bili Indirect: 0.6 mg/dL (11/16/23 08:30:00) Lipase Lvl: 24 unit/L (11/16/23 08:30:00) UA Spec Desc: Clean Catch (11/16/23 09:39:00) UA Color: Yellow (11/16/23 09:39:00) UA Clarity: Clear (11/16/23 09:39:00) UA Spec Grav: 1.046 (11/16/23 09:39:00) UA pH: 5.5 (11/16/23 09:39:00) UA Protein: 1+ Abnormal (11/16/23 09:39:00) UA Glucose: Negat (11/16/23 09:39:00) UA Ketones: Negat (11/16/23 09:39:00) UA Bili: Negat (11/16/23 09:39:00) UA Blood: Negat (11/16/23 09:39:00) UA Nitrite: Negat (11/16/23 09:39:00) UA Urobilinogen: Negat (11/16/23 09:39:00) UA Leuk Est: 25 Allie/uL (11/16/23 09:39:00) UA RBC: 0-3 (11/16/23 09:39:00) UA Squam Epithelial: 3-4 (11/16/23 09:39:00) UA WBC: 6-15 Abnormal (11/16/23 09:39:00) UA Hyal Cast: 4-10 Abnormal (11/16/23 09:39:00) UA Mucous: 2+ Abnormal (11/16/23 09:39:00) Images CT abd/pelvis IMPRESSION: Findings concerning for high-grade small bowel obstruction as discussed. No associated pneumatosis or pneumoperitoneum. Assessment/Plan 1. SBO (small bowel obstruction) (K56.609: Unspecified intestinal obstruction, unspecified as to partial versus complete obstruction) - may be secondary to adhesions, coul (more content not included)...[facility]Result Comment: Electronically Signed By: FRANCIS RODRIGUEZ, Devorah\.br\Date and Time Signed: 11/16/23 12:04 [id number] NoteGetWell Learning Participants Patient Melanie Understands Education Yes Melanie Education Video Avoiding Infections in the [facility]01-06-2024 Hospital Discharge instructions Patient Education 04/08/2023 21:05:23 Indigestion Indigestion Indigestion is a feeling of pain, discomfort, burning, or fullness in the upper part of your abdomen. It can come and go. It may occur frequently or rarely. Indigestion tends to occur while you are eating or right after you have finished eating. It may be worse at night and while bending over or lying down. Indigestion may be a symptom of an underlying digestive condition. Follow these instructions at home: Eating and drinking Follow an eating plan as recommended by your health care provider. Avoid certain foods and drinks as told by your health care provider. This may include: ?Chocolate and cocoa. ?Peppermint and mint flavorings. ?Garlic and onions. ?Horseradish. ?Spicy and acidic foods, including peppers, chili powder, meraz powder, vinegar, hot sauces, and barbecue sauce. ?[place] fruits, such as oranges, yaya, and limes. ?Tomato-based foods, such as red sauce, chili, salsa, and pizza with red sauce. ?Fried and fatty foods, such as donuts, czech fries, potato chips, and high-fat dressings. ?High-fat meats, such as hot dogs and fatty cuts of red and white meats, such as rib eye steak, sausage, ham, and winn. ?High-fat dairy items, such as whole milk, butter, and cream cheese. ?Coffee and tea, with or without caffeine. ?Drinks that contain alcohol. ?Energy drinks and sports drinks. ?Carbonated drinks or sodas. ?[place] fruit juices. Eat small, frequent meals instead of large meals. Avoid drinking large amounts of liquid with your meals. Avoid eating meals during the 2 3 hours before bedtime. Avoid lying down right after you eat. Avoid exercise for 2 hours after you eat. Lifestyle Maintain a healthy weight. Ask your health care provider what weight is healthy for you. If you need to lose weight, work with your health care provider to do so safely. Exercise for at least 30 minutes on 5 or more days each week, or as told by your health care provider. Avoid exercises that include bending forward. This can make your symptoms worse. Wear loose-fitting clothing. Do not wear anything tight around your waist that causes pressure on your abdomen. Do not use any products that contain nicotine or tobacco. These products include cigarettes, chewing tobacco, and vaping devices, such as e-cigarettes. These can make symptoms worse. If you need helpquitting, ask your health care provider. Raise (elevate) the head of your bed about 6 inches (15 cm) when you sleep. You can use a wedge to do this. Try to reduce your stress, such as with yoga or meditation. If you need help reducing stress, ask your health care provider. General instructions Take jtzq-orz-lotgbho and prescription medicines only as told by your health care provider. Do not take aspirin or NSAIDs, such as ibuprofen, unless your health care provider told you to takethem. Pay attention to any changes in your symptoms. Keep all follow-up visits. This is important. Contact a health care provider if: You have new symptoms. You have unexplained weight loss. You have difficulty swallowing, or it hurts to swallow. Your symptoms do not improve with treatment. Your symptoms last for more than 2 days. You have a fever. You vomit. Get help right away if: You suddenly have pain in your arms, neck, jaw, teeth, or back. You suddenly feel sweaty, dizzy, or light-headed. You faint. You have chest pain or shortness of breath. You cannot stop vomiting, or you vomit blood. Your stool is bloody or black. You have severe pain in your abdomen. These symptoms may represent a serious problem that is an emergency. Do not wait to see if the symptoms will go away. Get medical help right away. Call your local emergency services (911 in the [place] Do not drive yourself to the hospital. Summary Indigestion is a feeling of pain, discomfort, burning, or fullness in the upper part of your abdomen. It tends to occur while you are eating or right after you have finished eating. Follow an eating plan and other lifestyle changes as told by your health care provider. Take rjrx-jkg-rehcidi and prescription medicines only as told by your health care provider. Do not take aspirin or NSAIDs, such as ibuprofen, unless your health care provider told you to do so. Contact your health care provider if your symptoms do not get better or they get worse. Some symptoms may represent a serious problem that is an emergency. Do not wait to see if the symptoms will go away. Get medical help right away. This information is not intended to replace advice given to you by your health care provider. Make sure you discuss any questions you have with your health care provider. Document Revised: 09/23/2020 Document Reviewed: 09/23/2020 [employer] Patient Education 2022 [employer]. Follow Up Care 04/08/2023 17:09:10 With:Radha Roche Address: [facility] Oneal Johnson, [address] [address]- [phone] Business (1) When:04/11/2023 21:05:02 Comments:Follow-up for ongoing issues with indigestion as well as dark stool in the context of Xarelto With:JS MENJIVAR Address: [address] [place] [address] [place] [address]- Business (1) When:04/11/2023 21:04:55 Comments:Call the office of your primary care doctor to arrange for follow-up within the above-stated timeframe. Follow-up with your primary care doctor about this ED visit. You should review your labs, imaging, and diagnoses from this ED visit with your primary care physician. If you were prescribed medications you should discuss possible side-effects and drug interactions with your pharmacist. Call 911 or go to the nearest Emergency Department if you develop any new or worsening symptoms. [facility]12-13-2023 Evaluation + Plan note* Assessment & Plan Note - FORTINO Benavidez - 03/15/2023 3:22 PM ESTAssociated Problem(s): BMI 40.0-44.9, adult ([facility]) Reviewed the merits of healthy lifestyle choices on overall cardiovascular health. 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 Compliant Denies bleeding diathesis * Assessment & Plan Note - FORTINO Benavidez - 03/15/2023 3:20 PM EST Associated Problem(s): Pulmonary emboli (CMS/HCC) Feb 13, 2023 Moderate right pulmonary thrombus extending RML & RLL No indication for EKOS/thrombolytic + bilateral DVT Has IVC filter since 2008 Presented off anticoagulation and ASA TTE: RV moderate dilated with moderate dysfunction Denies prior hematology follow up * Assessment & Plan Note - FORTINO Benavidez - 03/15/2023 3:20 PM EST Associated Problem(s): Abnormal echocardiogram Feb 2023 TTE EF 60-65% LVH mild RV moderate dilated RV moderate dysfunction RVSP 48mmHG * Assessment & Plan Note - FORTINO Benavidez - 03/15/2023 3:19 PM EST Associated Problem(s): Pulmonary hypertension (CMS/HCC) Feb 2023 TTE RVSP 48mmHG Quit smoking > 3.5 years ago Has COPD documented in this [facility] Work Phone: [phone]) 467-966212-13-2023 Evaluation + Plan note* Assessment & Plan Note - FORTINO Benavidez - 03/15/2023 3:20 PM ESTAssociated Problem(s): Pulmonary emboli (CMS/HCC) Feb 13, 2023 Moderate right pulmonary thrombus extending RML & RLL No indication for EKOS/thrombolytic + bilateral DVT Has IVC filter since 2008 Presented off anticoagulation and ASA TTE: RV moderate dilated with moderate dysfunction Denies prior hematology follow up [facility] Work Phone: [phone]) 342-238812-13-2023 Evaluation + Plan note* Assessment & Plan Note - FORTINO Benavidez - 03/15/2023 3:20 PM ESTAssociated Problem(s): Abnormal echocardiogram Feb 2023 TTE EF 60-65% LVH mild RV moderate dilated RV moderate dysfunction RVSP 48mmHG [facility] Work Phone: [phone]) 618-699912-13-2023 Evaluation + Plan note* Assessment & Plan Note - FORTINO Benavidez - 03/15/2023 3:19 PM ESTAssociated Problem(s): Pulmonary hypertension (CMS/HCC) Feb 2023 TTE RVSP 48mmHG Quit smoking > 3.5 years ago Has COPD [facility] Work Phone: [phone] 398-949212-13-2023 History of Present illness Narrative* FORTINO Benavidez - 03/15/2023 3:00 PM EST Chief Complaint No complaints Reason for Visit Patient presents to the office today for outpatient follow-up for hospital follow up. Feb 2023: Patient was recently hospitalized at [facility]. The patient was seen in Cardiology consult with subsequent cardiovascular management by [facility] Hospitalization records have been reviewed. Reason for Cardiology Consultation: Pulmonary embolism Consulting Sheep Clipper: Dr. Tovar Cardiovascular testing: Echocardiogram Changes to cardiovascular medical regimen at time of discharge: Xarelto PE dosing Discharge disposition: Home This initial in clinic evaluation at [facility]. Presents today ambulatory with cane and steady gait. Accompanied by family members. History of Present Illness Patient is a pleasant 72-year-old gentleman who presents to the office today for follow-up. He remains compliant with Xarelto, reinforced importance of of lifelong anticoagulation. He does report an IVC filter implanted approximately 2008, family member is fairly certain it was looked at during hospitalization ; remain unclear as to recurrent PE and DVT. He had been off of anticoagulation and also aspirin. He declines being seen by hematology, is reluctant for referral. Also is not interested in colonoscopy, unclear if has had lung scan due to prior smoking. He has some atypical complaints of dizziness, seem to occur while he is playing games on his phone or looking at the computer. Very brief and fleeting without associated palpitations, no near syncope. No worsening with movement of head, not consistent with vertigo. Echocardiogram with moderate RV dysfunction -currently without evidence of overt right-sided heart failure, denies early satiety or change in appetite. Reports chronic left lower extremity edema due to DVT. Does not follow weight at home. He denies any type of shortness of breath. No prior ischemic workup. Lifestyle is fairly sedentary. Recent echo without evidence of wall motion abnormality and normal LVEF. Patient reports that overall has no complaint(s) of chest pain, claudication, fatigue, irregular heart beat, palpitations, and syncope Review of Systems Cardiovascular: Negative for chest pain, dyspnea on exertion, irregular heartbeat, leg swelling, near-syncope, orthopnea, palpitations, paroxysmal nocturnal dyspnea and syncope. Neurological: Positive for dizziness. Visit Vitals BP 112/68 (BP Location: Left arm, Patient Position: Sitting) Pulse 88 Ht 1.778 m (5' 10 ) Wt 133 kg (294 lb) BMI 42.18 kg/m Smoking Status Former BSA 2.56 m Physical Exam Vitals and nursing note reviewed. Constitutional: Appearance: Normal appearance. He is obese. Cardiovascular: Rate and Rhythm: Normal rate and regular rhythm. Heart sounds: Normal heart sounds. Pulmonary: Effort: Pulmonary effort is normal. Breath sounds: Examination of the right-lower field reveals decreased breath sounds. Examination ofthe left-lower field reveals decreased breath sounds. Decreased breath sounds present. Musculoskeletal: Cervical back: Full passive range of motion without pain. Right lower leg: No edema. Left lower leg: No edema. Skin: General: Skin is cool. Neurological: Mental Status: He is alert and oriented to person, place, and time. Psychiatric: Attention and Perception: Attention normal. Mood and Affect: Mood normal. Behavior: Behavior is cooperative. Allergies Allergen Reactions Banana Rash Famotidine Rash Current Outpatient Medications Medication Instructions albuterol 90 mcg/actuation inhaler 2 puffs, inhalation, Every 4 hours PRN ziujuyokqi-dcoptqnv-uthzwugrrz (Breztri Aerosphere) 160-9-4.8 mcg/actuation HFA aerosol inhaler 2 puffs, inhalation, 2 times daily RT multivitamin tablet 1 tablet, oral, Daily omeprazole (PRILOSEC) 20 mg, oral, Daily before breakfast, Do not crush or chew. rivaroxaban (XARELTO) 20 mg, oral, Daily with evening meal, Take with food. 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 Plan: Through informed decision making process incorporating patients unique circumstances, the followingtreatment plan will be initiated: 1. Prescription drug management of cardiovascular medication for efficacy, adherence to treatment, side effect assessment and polypharmacy. Current treatment clinically warranted and to continue without modifications. 2. Return for follow-up; in the interim, contact the office if new symptoms arise. Dr. Tovar 9 months Chandrika Leary MSN, SPORTS MARKETING SPECIALIST-CATAPULT AND ARRESTING GEAR OFFICER, PMHNP-BC [facility] Please excuse any errors in grammar or translation related to this dictation. Voice recognition software was utilized to prepare this document. [facility] Work Phone: [phone]) 883-601312-13-2023 Instructions* Patient Instructions* FORTINO Benavidez - 03/15/2023 3:00 PM EST Please bring all medicines, vitamins, and herbal supplements with you when you come to the office. Prescriptions will not be filled unless you are compliant with your follow up appointments or have a follow up appointment scheduled as per instruction of your physician. Refills should be requested at the time of your visit. PLAN: Through informed decision making process incorporating patients unique circumstances, the followingtreatment plan will be initiated: 1. Prescription drug management of cardiovascular medication for efficacy, adherence to treatment, side effect assessment and polypharmacy. Current treatment clinically warranted and to continue without modifications. 2. Return for follow-up; in the interim, contact the office if new symptoms arise. Dr. Tovar 9 months documented in this encounterMc[facility] Hospital Work Phone: 1(615) 420-505111-14-2023 Progress note Author W Guy [facility] February 14, 2023 1:00pm Note Date/Time February 14, 2023 1:00pm [facility] [address] [place] [address] Cardiology Progress Note Signed Patient: Yannick Cardoso MR#: [id number] : 1950 Acct:[id number] Age/Sex: 72 / M Adm Date: 3 Loc: Room: [address] [place] [address] Type: ADM IN Attending Dr: Tobias James DO Copies to: ~ Date of Service: 02/14/2023 Subjective Principal diagnosis: Subsegmental and segmental PE, chronic cor pulmonale Interval history: Mr. Cardoso is a 72 year old male seen in interventional cardiology consultation atrequest of hospitalist and in conjunction with fourth-year medical student Dr. Escoto, we have interviewed, discussed and examined the patient concurrently and I agree with his evaluation and management. Patient presents with a history of COPD, previous DVT, and IVC filter placement who presented to the emergency department for shortness of breath and was found to have a bilateral pulmonary embolism. Patient reports that 1 day prior to arrival he woke up not feeling well and had pain in his bilateral calfs while hewas shopping. Patient reports that after shopping he had an episode of shortnessof breath, dizziness, and near syncope which prompted him to go to the emergencydepartment. Patient denies any chest pain during this episode or at this time. In the emergency department patient was put on 5 L nasal cannula of oxygen and was found to have bilateral PE with suspected right heart strain and an elevatedtroponin at 649. Patient reports that his previous episode of DVT took place in 2011 when he underwent IVC filter placement. He was anticoagulated with DOAC therapy for about 1 year and then transition to a baby aspirin. Today during my examination patient is saturating at 99% on 4 L of oxygen. He denies any shortness of breath, cough, or chest pain at this time. Patient reports that he has been comfortable since being admitted yesterday and has noticed mild improvement in his symptoms. Attending note: Patient is currently hemodynamically stable, heart rate is in the 70s, sitting in a chair comfortable on [address] images from [place] were not sent with the patient and therefore we obtain CT images from [place] and uploaded to our PACS; I have personally reviewed the CT images, andechocardiogram. There is evidence of moderate right pulmonary artery thrombus primarily extending into the right middle lobe and right lower lobe subsegmentally (not the right mainstem); left side is minimally involved, the right ventricle is dilated mildly, however he has a history of previous PE and COPD (quit smoking 3 years ago) Venous duplex ultrasonography does reveal bilateral lower extremity DVTs as well Presently there is no indication for aggressive interventional measures given his clinical stability that is clearly improved over the weekend. I would simply recommend proceeding with Xarelto PE dosing, and to maintain Xarelto lifelong; will overlap heparin for 6 hours after the first dose. Patient should theoretically have hypercoagulable screening, including oncologicscreening. Interim evaluation 02/14/2023: Patient is stable, in chair on 2 L of oxygen. I was told earlier that at night without his oxygen he desaturated to 70%. Supposedly has a history of obstructive sleep apnea and refuses to wear BiPAP. He is currently on appropriate Xarelto PE dosing and will maintain Xarelto for life or other DOAC depending on affordability. He can follow-up with Dr. Bloom nurse practitioner Yazmin in the outpatient setting, cardiology is availablefor any future cardiovascular issues on out pt basis Exam Physical Exam Vital Signs: Temp Pulse Resp BP Pulse Ox O2 Del Method O2 Flow Rate 98.2 F 72 18 126/76 98 Nasal Cannula 2 02/14/23 04:00 02/14/23 08:12 02/14/23 08:12 02/14/23 08:12 02/14/23 08:12 02/14/23 08:15 02/14/23 08:15 Objective Labs 02/14/23 04:44 02/13/23 04:48 Labs: Laboratory Results - last 24 hr 02/13/23 02/14/23 02/14/23 15:58 04:44 04:44 Corrected WBC 5.8 Uncorrected WBC Count 5.8 RBC 4.29 Hgb 13.0 Hct 39.5 MCV 92.1 MCH 30.2 MCHC 32.8 RDW 13.6 Plt Count 143 L MPV 8.1 Neut % (Auto) 65.3 Lymph % (Auto) 20.0 [place] % (Auto) 11.9 Eos % (Auto) 2.1 Baso % (Auto) 0.7 Nucleat RBC Rel Count 0.1 Neut # (Auto) 3.8 Lymph # (Auto) 1.2 [place] # (Auto) 0.7 Eos # (Auto) 0.1 Baso # (Auto) 0.0 PT 16.5 H INR 1.4 APTT 69.8 H 31.2 A&P - Cardiology (1) Bilateral pulmonary embolism: Code(s): I26.99 - Other pulmonary embolism without acute cor pulmonale Status: Acute (2) Morbid obesity due to excess calories: Code(s): E66.01 - Morbid (severe) obesity due to excess calories Status: Acute (3) Elevated troponin: Code(s): R79.89 - Other specified abnormal findings of blood chemistry Status: Acute Plan 72-year-old male with a history of IVC filter placement, DVT, and previous pulmonary embolism being consulted for a new bilateral pulmonary embolism with suspected right heart strain. Patient presented to the [place] emergency department over the weekend after having an episode of shortness of breath whileshopping with his . Patient was found to have bilateral pulmonary embolism at [place] and bilateral DVTs and a venous duplex which was done here. As of note, the patient's scans were done at an outside hospital and have not been pushed over to our system so we have not reviewed the actual films at this time. Patient did have a LEO done at our facility which showed an ejection fraction of 60 to 65% and right ventricular dilation. During my examination the patient is hemodynamically stable and in no acute distress whatsoever. A plan of conservative management was discussed with the patient due to improvement in hissymptoms with heparin, clinical stable status, and due to the added complicationof the patient having an IVC filter in place. It was discussed with the patient that if we would need to convert to a percutaneous option over the next few days, these options are still available to him. Patient expressed understanding and agreement with this plan. Documented By: Sophie Tovar DO 02/14/23 1256 Signed By: <Electronically signed by Sophie Tovar DO> 02/14/23 1300 [facility] Work Phone: 1([phone]) 569-506811-13-2023 Progress note Author Tobias James [facility] February 13, 2023 4:04pm Note Date/Time February 13, 2023 3:58pm [facility] [address] [place] [address] Hospitalist Progress Note Signed Patient: Yannick Cardoso MR#: [id number] : 1950 Acct:[id number] Age/Sex: 72 / M Adm Date: 3 Loc: Room: [address] [place] [address] Type: ADM IN Attending Dr: Tobias Jmaes DO Copies to: ~ Date of Service: 02/13/2023 Subjective Subjective Narrative: Pt seen and examined. Feels improved today. Still on nasal cannula and heparin drip. Cardiology opting for conservative management and starting NOAC today withintent to discontinue heparin drip. Exam Physical Exam Vital Signs: Temp Pulse Resp BP Pulse Ox O2 Del Method O2 Flow Rate 98.0 F 84 16 113/57 L 97 Nasal Cannula 3 02/13/23 15:39 02/13/23 15:39 02/13/23 15:39 02/13/23 15:39 02/13/23 15:39 02/13/23 15:39 02/13/23 15:39 Narrative: General: Awake and alert. Sitting in chair comfortably HEENT: Normocephalic, atraumatic, trachea midline, nasal cannula Respiratory: good inspiratory effort, no wheeze, no rhonchi, no crackles Cardiovascular: RRR, normal S1 and S2 Abdominal: soft, non-distended Skin: warm, dry MSK: no edema Neurologic: No focal deficits Psych: appropriate affect Objective Lab Results 02/13/23 04:48 02/13/23 04:48 Meds Allergies and Active Meds Allergies No Known Allergies Allergy (Verified 02/11/23 05:51) Active Meds: Active Medications Generic Name Dose Route Start Last Admin Trade Name Freq PRN Reason Stop Dose Admin Acetaminophen 650 mg 02/11/23 05:50 Acetaminophen 325 Mg Tablet PO 02/11/24 05:49 Q6HR PRN Pain Scale 1 - 3 or fever Albuterol 2 puff 02/11/23 05:52 Albuterol Hfa 60 Puff/8 Gram Inhaler INHALATION 02/11/24 05:51 Q4H PRN Shortness Of Breath Or Wheezing Fluticasone Propionate 1 spray 02/12/23 21:30 02/13/23 09:04 Fluticasone Propionate Dunnell 120 Dunnell/16 Gm Bottle NARES-BOTH 02/12/24 21:29 1 spray DAILY ELO Administration Heparin Sodium (Porcine) 7,700 unit 02/11/23 05:50 02/11/23 07:20 Heparin *Protocol Bolus* 5,000 Unit/Ml Vial IV-PUSH 02/11/24 05:49 7,700 unit PROTOCOL PRN Administration PTT < 45 Heparin Sodium (Porcine) 3,800 unit 02/11/23 05:50 02/11/23 23:39 Heparin *Protocol Bolus* 5,000 Unit/Ml Vial IV-PUSH 02/11/24 05:49 3,800 unit PROTOCOL PRN Administration PTT 45-59 Heparin Sodium/Sodium Chloride 25,000 unit in 250 mls @ 17 mls/hr 02/11/23 06:00 02/13/23 13:38 Heparin IV 02/13/23 23:00 16 mls/hr .[id number] LEO 16 mls/hr Administration Protocol Magnesium Sulfate 2 gm in 50 mls @ 25 mls/hr 02/11/23 13:26 Magnesium Sulf 2gm-*Swfi* IV 02/11/24 13:25 DAILY PRN Magnesium Level < 1.7 Ondansetron HCl 4 mg 02/11/23 13:26 Ondansetron 4 Mg/2 Ml Vial IV-PUSH 02/11/24 13:25 Q8H PRN Nausea And Vomiting Pantoprazole Sodium 40 mg 02/11/23 09:00 02/13/23 09:04 Pantoprazole 40 Mg Tablet.Dr PO 02/11/24 08:59 40 mg DAILY LEO Administration Potassium Chloride 40 meq 02/11/23 13:26 Potassium Chloride Er 20 Meq Tab.Er.Prt PO 02/11/24 13:25 DAILY PRN Hypokalemia Rivaroxaban 15 mg 02/13/23 17:00 Rivaroxaban 15 Mg Tablet PO 02/13/24 16:59 BID.WITH.MEALS [facility] A&P - Hospitalist Assessment/Plan (1) Bilateral pulmonary embolism: (2) Elevated troponin: (3) COPD (chronic obstructive pulmonary disease): (4) Acute respiratory failure with hypoxia: (5) Morbid obesity due to excess calories: Plan Bilateral pulmonary embolism with evidence of right heart strain Bilateral lower extremity DVT Status post IVC filter Acute hypoxic respiratory failure Stable clinically. CT imaging of the abdomen and pelvis does not demonstrate any area of clot surrounding the IVC filter. He does remain hemodynamically stable, but blood pressures are mildly decreased when compared to yesterday. Hehas been weaned down to 5 L nasal cannula oxygen. -Interventional cardiology planning to treat medically at this time and transition from heparin drip to NOAC -Plan for oral anticoagulation for life given second episode of large bilateral PE -Wean O2 as tolerated Acute Kidney Injury Creatinine trend: 2.0--> 1.31--> 0.94. -Monitor BMP daily -Maintain MAP greater than 65 Other chronic medical conditions noted below, continue home regimens unless otherwise specified: COPD Obesity GERD Likely MELANIE-patient will need sleep study as an outpatient CODE STATUS: Full code Disposition: Plan is now to transition to NOAC. Continue to wean O2. Will likelyneed home O2 at discharge, possibly tomorrow if ok from cardiology stand. Time Spent With Patient (min): 45 Documented By: Tobias James DO 02/13/23 155 4 Signed By: <Electronically signed by Tobias James DO> 02/13/23 1604 [facility] Work Phone: 1([phone]) 373-512211-13-2023 Consult note Author Sophie Tovar [facility] February 13, 2023 11:07am Note Date/Time February 13, 2023 10:20am [facility] [address] [place] [address] Cardiology Consult Note Signed Patient: Yannick Cardoso MR#: [id number] : 1950 Acct:[id number] Age/Sex: 72 / M Adm Date: 3 Loc: Room: [address] [place] [address] Type: ADM IN Attending Dr: Tobias James DO Copies to: JORGE Hobbs DO W Scott Sheldon, DO~ Cardiology HPI History of Present Illness Consult Date: 02/13/23 Reason for Consult: Bilateral pulmonary embolism with right heart strain, evaluation for EKOS HPI: Mr. Cardoso is a 72 year old male seen in interventional cardiology consultation atrequest of hospitalist and in conjunction with fourth-year medical student Dr. Escoto, we have interviewed, discussed and examined the patient concurrently and I agree with his evaluation and management. Patient presents with a history of COPD, previous DVT, and IVC filter placement who presented to the emergency department for shortness of breath and was found to have a bilateral pulmonary embolism. Patient reports that 1 day prior to arrival he woke up not feeling well and had pain in his bilateral calfs while hewas shopping. Patient reports that after shopping he had an episode of shortnessof breath, dizziness, and near syncope which prompted him to go to the emergencydepartment. Patient denies any chest pain during this episode or at this time. In the emergency department patient was put on 5 L nasal cannula of oxygen and was found to have bilateral PE with suspected right heart strain and an elevatedtroponin at 649. Patient reports that his previous episode of DVT took place in 2011 when he underwent IVC filter placement. He was anticoagulated with DOAC therapy for about 1 year and then transition to a baby aspirin. Today during my examination patient is saturating at 99% on 4 L of oxygen. He denies any shortness of breath, cough, or chest pain at this time. Patient reports that he has been comfortable since being admitted yesterday and has noticed mild improvement in his symptoms. Attending note: Patient is currently hemodynamically stable, heart rate is in the 70s, sitting in a chair comfortable on [address] images from [place] were not sent with the patient and therefore we obtain CT images from [place] and uploaded to our PACS; I have personally reviewed the CT images, andechocardiogram. There is evidence of moderate right pulmonary artery thrombus primarily extending into the right middle lobe and right lower lobe subsegmentally (not the right mainstem); left side is minimally involved, the right ventricle is dilated mildly, however he has a history of previous PE and COPD (quit smoking 3 years ago) Venous duplex ultrasonography does reveal bilateral lower extremity DVTs as well Presently there is no indication for aggressive interventional measures given his clinical stability that is clearly improved over the weekend. I would simply recommend proceeding with Xarelto PE dosing, and to maintain Xarelto lifelong; will overlap heparin for 6 hours after the first dose. Patient should theoretically have hypercoagulable screening, including oncologicscreening. Review of Systems Review of Systems All other systems reviewed & are negative unless noted below or in HPI [facility] Medical History (Updated 02/13/23 @ 09:52 by Shantelle Real RN) COPD (chronic obstructive pulmonary disease) DVT (deep venous thrombosis) Left leg Presence of IVC filter Pulmonary embolism Social History Smoking Status: Former smoker Meds Medications and Allergies Allergies No Known Allergies Allergy (Verified 02/11/23 05:51) Home Medications omeprazole 20 mg capsule,delayed release 20 mg PO DAILY 02/11/23 [History Confirmed 02/11/23] Exam Physical Exam Vital Signs: Temp Pulse Resp BP Pulse Ox O2 Del Method O2 Flow Rate 97.8 F 73 18 112/76 99 Nasal Cannula 4 02/13/23 08:55 02/13/23 08:55 02/13/23 08:55 02/13/23 08:55 02/13/23 08:55 02/13/23 08:55 02/13/23 08:55 Const General: cooperative, comfortable and no acute distress HEENT Head: normocephalic and atraumatic Resp Effort & Inspection: normal respiratory effort and able to speak in complete sentences Auscultation: clear to auscultation bilaterally, no rales, no rhonchi and no wheezes Cardio Rate: regular rate Rhythm: regular rhythm Heart Sounds: S1 normal and S2 normal Neuro General: patient alert and patient awake Results Labs 02/13/23 04:48 02/13/23 04:48 Lab results: CBC 02/13/23 Range/Units 04:48 RBC 4.38 (3.90-5.60) X10E6/uL Hgb 13.3 (13.0-17.0) g/dL Hct 40.5 (38.8-50.0) % Plt Count 131 L (150-450) x10E3/uL Neut # (Auto) 3.9 (1.8-7.7) x10E3/uL Lymph # (Auto) 1.5 (1.00-4.8) x10E3/uL [place] # (Auto) 0.6 (0.0-0.8) x10E3/uL Eos # (Auto) 0.2 (0.0-0.45) x10E3/uL Baso # (Auto) 0.0 (0.0-0.2) x10E3/uL Comprehensive Metabolic Panel 02/13/23 Range/Units 04:48 Sodium 140 (136-145) mmol/L Potassium 4.2 (3.5-5.1) mmol/L Chloride 103 (98-107) mmol/L Carbon Dioxide 29.8 (21.0-31.0) mmol/L BUN 19 (7-25) mg/dL Creatinine 0.84 (0.70-1.30) mg/dL Glucose 99 (70-100) mg/dL Calcium 9.2 (8.6-10.3) mg/dL Intake and Output 02/12/23 02/13/23 02/13/23 23:59 07:59 15:59 Intake Total 550 / 1450 250 / 250 Output Total 550 / 1850 375 / 375 Balance 0 / -400 -125 / -125 Intake: IV 250 / 250 Heparin 25,000Unit-*0.45 NaCl* 250 / 250 25,000 unit In 250 ml @ 17 mls/ hr IV .[id number] [facility] Rx#:[id number] Oral 300 / 1200 250 / 250 Output: Urine 550 / 1850 375 / 375 Other: Weight 136.1 kg Date of Last Bowel Movement 02/12/23 Patient Weight 02/13/23 23:59 Weight 136.1 kg Lab 02/11/23 02/11/23 02/11/23 06:13 13:32 15:39 PT 13.5 H INR 1.1 APTT 35.0 113.3 H* 66.2 H 02/11/23 02/12/23 02/12/23 22:37 05:49 12:31 PT 12.7 INR 1.1 APTT 52.9 H 88.0 H 64.6 H 02/13/23 04:48 PT 12.3 INR 1.0 APTT 100.2 H* A&P - Cardiology (1) Bilateral pulmonary embolism: Code(s): I26.99 - Other pulmonary embolism without acute cor pulmonale (2) Morbid obesity due to excess calories: Code(s): E66.01 - Morbid (severe) obesity due to excess calories (3) Elevated troponin: Code(s): R79.89 - Other specified abnormal findings of blood chemistry Plan 72-year-old male with a history of IVC filter placement, DVT, and previous pulmonary embolism being consulted for a new bilateral pulmonary embolism with suspected right heart strain. Patient presented to the [place] emergency department over the weekend after having an episode of shortness of breath whileshopping with his . Patient was found to have bilateral pulmonary embolism at [place] and bilateral DVTs and a venous duplex which was done here. As of note, the patient's scans were done at an outside hospital and have not been pushed over to our system so we have not reviewed the actual films at this time. Patient did have a LEO done at our facility which showed an ejection fraction of 60 to 65% and right ventricular dilation. During my examination the patient is hemodynamically stable and in no acute distress whatsoever. A plan of conservative management was discussed with the patient due to improvement in hissymptoms with heparin, clinical stable status, and due to the added complicationof the patient having an IVC filter in place. It was discussed with the patient that if we would need to convert to a percutaneous option over the next few days, these options are still available to him. Patient expressed understanding and agreement with this plan. Documented By: Sophie Tovar DO 02/13/23 0946 Signed By: <Electronically signed by Sophie Tovar DO> 02/13/23 0298 [facility] Work Phone: 1([phone]) 339-186411-12-2023 Progress note Author Cornelio Padilla [facility] February 12, 2023 1:41pm Note Date/Time February 12, 2023 1:20pm [facility] [address] [place] [address] Hospitalist Progress Note Signed Patient: Yannick Cardoso MR#: [id number] : 1950 Acct:[id number] Age/Sex: 72 / M Adm Date: 3 Loc: Room: [address] [place] [address] Type: ADM IN Attending Dr: Cornelio Padilla MD Copies to: ~ Date of Service: 02/12/2023 Subjective Subjective Narrative: Patient seen and assessed at bedside today. He is doing well overall. Denies any fever/chill, chest pain, nausea/vomiting or other symptoms at this time. Exam Physical Exam Vital Signs: Temp Pulse Resp BP Pulse Ox O2 Del Method O2 Flow Rate 97.4 F L 65 18 95/57 L 98 Nasal Cannula 2 02/12/23 11:20 02/12/23 11:20 02/12/23 11:20 02/12/23 11:20 02/12/23 11:20 02/12/23 11:20 02/12/23 11:20 Narrative: Constitutional: Obese, elderly WM, resting in bed in no acute distress HEENT: Moist mucous membranes, neck supple, no JVD Cardiovascular: RRR, no M/R/G, normal S1 and S2 Respiratory: Diminished throughout, patient without increased work of breathing GI: Mildly firm, obese abdomen, NABS : Deferred Extremities: No clubbing, cyanosis or edema Neuro: AAOx3, no focal deficits. Strength is 5/5 throughout Skin: No rashes or lesions noted upon anterior inspection Psych: Calm, cooperative and conversant Objective Lab Results 02/12/23 05:49 02/12/23 05:49 Meds Allergies and Active Meds Allergies No Known Allergies Allergy (Verified 02/11/23 05:51) Active Meds: Active Medications Generic Name Dose Route Start Last Admin Trade Name Freq PRN Reason Stop Dose Admin Acetaminophen 650 mg 02/11/23 05:50 Acetaminophen 325 Mg Tablet PO 02/11/24 05:49 Q6HR PRN Pain Scale 1 - 3 or fever Albuterol 2 puff 02/11/23 05:52 Albuterol Hfa 60 Puff/8 Gram Inhaler INHALATION 02/11/24 05:51 Q4H PRN Shortness Of Breath Or Wheezing Heparin Sodium (Porcine) 7,700 unit 02/11/23 05:50 02/11/23 07:20 Heparin *Protocol Bolus* 5,000 Unit/Ml Vial IV-PUSH 02/11/24 05:49 7,700 unit PROTOCOL PRN Administration PTT < 45 Heparin Sodium (Porcine) 3,800 unit 02/11/23 05:50 02/11/23 23:39 Heparin *Protocol Bolus* 5,000 Unit/Ml Vial IV-PUSH 02/11/24 05:49 3,800 unit PROTOCOL PRN Administration PTT 45-59 Heparin Sodium/Sodium Chloride 25,000 unit in 250 mls @ 17 mls/hr 02/11/23 06:00 02/12/23 03:26 Heparin IV 02/11/24 05:59 16 mls/hr .[id number] LEO 16 mls/hr Administration Protocol Magnesium Sulfate 2 gm in 50 mls @ 25 mls/hr 02/11/23 13:26 Magnesium Sulf 2gm-*Swfi* IV 02/11/24 13:25 DAILY PRN Magnesium Level < 1.7 Ondansetron HCl 4 mg 02/11/23 13:26 Ondansetron 4 Mg/2 Ml Vial IV-PUSH 02/11/24 13:25 Q8H PRN Nausea And Vomiting Pantoprazole Sodium 40 mg 02/11/23 09:00 02/12/23 09:12 Pantoprazole 40 Mg Tablet.Dr PO 02/11/24 08:59 40 mg DAILY LEO Administration Potassium Chloride 40 meq 02/11/23 13:26 Potassium Chloride Er 20 Meq Tab.Er.Prt PO 02/11/24 13:25 DAILY PRN Hypokalemia A&P - Hospitalist Assessment/Plan (1) Bilateral pulmonary embolism: (2) Elevated troponin: (3) COPD (chronic obstructive pulmonary disease): (4) Acute respiratory failure with hypoxia: (5) Morbid obesity due to excess calories: Plan Bilateral pulmonary embolism with evidence of right heart strain Bilateral lower extremity DVT Status post IVC filter Acute hypoxic respiratory failure Stable clinically. CT imaging of the abdomen and pelvis does not demonstrate any area of clot surrounding the IVC filter. He does remain hemodynamically stable, but blood pressures are mildly decreased when compared to yesterday. Hehas been weaned down to 5 L nasal cannula oxygen. -Interventional cardiology to likely perform EKOS likely early next week -Plan for oral anticoagulation for life given second episode of large bilateral PE -Wean O2 as tolerated Acute Kidney Injury Creatinine trend: 2.0--> 1.31--> 0.94. -Monitor BMP daily -Maintain MAP greater than 65 Other chronic medical conditions noted below, continue home regimens unless otherwise specified: COPD Obesity GERD Likely MELANIE-patient will need sleep study as an outpatient CODE STATUS: Full code Documented By: Cornelio Padilla MD 3 [id number] Signed By: <Electronically signed by Cornelio Padilla MD> 02/12/23 1341 [facility] Work Phone: 1(655) 127-974111-11-2023 Progress note Author Cornelio Padilla [facility] February 11, 2023 1:30pm Note Date/Time February 11, 2023 12:37pm [facility] [address] [place] [address] Hospitalist Progress Note Signed Patient: Yannick Cardoso MR#: [id number] : 1950 Acct:[id number] Age/Sex: 72 / M Adm Date: 3 Loc: 4 Room: 2S9802-6 Type: ADM IN Attending Dr: Cornelio Padilla MD Copies to: ~ Date of Service: 02/11/2023 Subjective Subjective Narrative: Patient seen and assessed at bedside today. He is breathing comfortably on 5 L nasal cannula. He was weaned down from high flow nasal cannula. I did discuss case with Dr. Tovar of interventional cardiology given that patient has evidence of right heart strain on echocardiogram and even on the CT of his chestfrom outside hospital. Patient himself has very minimal complaints and is breathing comfortably. Exam Physical Exam Vital Signs: Temp Pulse Resp BP Pulse Ox O2 Del Method O2 Flow Rate 97.6 F 83 20 102/64 95 Nasal Cannula 5 02/11/23 11:20 02/11/23 11:20 02/11/23 11:20 02/11/23 11:20 02/11/23 11:20 02/11/23 11:20 02/11/23 07:27 Narrative: Constitutional: Obese, elderly WM, resting in bed in no acute distress HEENT: Moist mucous membranes, neck supple, no JVD Cardiovascular: RRR, no M/R/G, normal S1 and S2 Respiratory: Diminished throughout, patient without increased work of breathing GI: Mildly firm, obese abdomen, NABS : Deferred Extremities: No clubbing, cyanosis or edema Neuro: AAOx3, no focal deficits. Strength is 5/5 throughout Skin: No rashes or lesions noted upon anterior inspection Psych: Calm, cooperative and conversant Objective Lab Results 02/11/23 06:13 02/11/23 06:13 Meds Allergies and Active Meds Allergies No Known Allergies Allergy (Verified 02/11/23 05:51) Active Meds: Active Medications Generic Name Dose Route Start Last Admin Trade Name Freq PRN Reason Stop Dose Admin Acetaminophen 650 mg 02/11/23 05:50 Acetaminophen 325 Mg Tablet PO 02/11/24 05:49 Q6HR PRN Pain Scale 1 - 3 or fever Albuterol 2 puff 02/11/23 05:52 Albuterol Hfa 60 Puff/8 Gram Inhaler INHALATION 02/11/24 05:51 Q4H PRN Shortness Of Breath Or Wheezing Heparin Sodium (Porcine) 7,700 unit 02/11/23 05:50 02/11/23 07:20 Heparin *Protocol Bolus* 5,000 Unit/Ml Vial IV-PUSH 02/11/24 05:49 7,700 unit PROTOCOL PRN Administration PTT < 45 Heparin Sodium (Porcine) 3,800 unit 02/11/23 05:50 Heparin *Protocol Bolus* 5,000 Unit/Ml Vial IV-PUSH 02/11/24 05:49 PROTOCOL PRN PTT 45-59 Heparin Sodium/Sodium Chloride 25,000 unit in 250 mls @ 17 mls/hr 02/11/23 06:00 02/11/23 07:19 Heparin IV 02/11/24 05:59 1,700 mls/hr .[id number] LEO 1,700 mls/hr Administration Protocol Pantoprazole Sodium 40 mg 02/11/23 09:00 02/11/23 10:33 Pantoprazole 40 Mg Tablet.Dr DANIEL 02/11/24 08:59 Not Given DAILY LEO A&P - Hospitalist Assessment/Plan (1) Bilateral pulmonary embolism: (2) Elevated troponin: (3) COPD (chronic obstructive pulmonary disease): (4) Acute respiratory failure with hypoxia: (5) Morbid obesity due to excess calories: Plan Bilateral pulmonary embolism with evidence of right heart strain Bilateral lower extremity DVT Status post IVC filter Acute hypoxic respiratory failure Remains hemodynamically stable. Patient has been weaned down from high flow nasal cannula to 5 L nasal cannula. CTA of the chest is noteworthy for bilateral PE in the distal main pulmonary arteries. Evidence of right heart strain on CT of the chest yesterday and echocardiogram. Case was discussed withDr. Tovar who recommended further imaging to see if IVC filter has any clot onthe device itself. After discussion with radiology, they recommend CT abdomen pelvis with contrast, which I will perform tomorrow a.m. given patient's elevated creatinine and recent CTA yesterday. -CT of the abdomen and pelvis with contrast IV in the a.m. to assess for IVC filter clot -Interventional cardiology to likely perform EKOS early next week -Check other cardiac risk factors including lipid panel and A1c -Plan for oral anticoagulation for life given second episode of large bilateral PE -Wean O2 as tolerated Acute kidney injury [facility] noted creatinine of 2.0, patient is 1.36 today. Unclear if this is patient's chronic kidney disease or ARSALAN. -Monitor BMP daily -Maintain MAP greater than 65 Other chronic medical conditions noted below, continue home regimens unless otherwise specified: COPD Obesity GERD Likely MELANIE-patient will need sleep study as an outpatient CODE STATUS: Full code Documented By: Cornelio Padilla MD 3 [id number] Signed By: <Electronically signed by Cornelio Padilla MD> 02/11/23 [address] [facility] Work Phone: 1(249) 109-989911-11-2023 History and physical note Author Melissa Tjeeda [facility] February 11, 2023 6:42am Note Date/Time February 11, 2023 6:34am [facility] [address] [place], [place] [id number] Hospitalist H&P Signed Patient: Yannick Cardoso MR#: [id number] : 1950 Acct:[id number] Age/Sex: 72 / M Adm Date: 3 Loc: Room: [address] [place] [address] Type: ADM IN Attending Dr: Melissa Tejeda MD Copies to: JORGE Hobbs MD~ HPI DATE OF EXAMINATION: 02/11/23 CHIEF COMPLAINT: Bilateral PE. HISTORY OF PRESENT ILLNESS: Patient is a pleasant 72-year-old male with past medical history of COPD, morbidobesity, DVT and PE status post IVC filter placement. He has been transferred from [facility] ER and presented with complaint of shortness of breath onminimal exertion and leg pain. While in the ER his labs showed increase in troponin from 64 to 649. EKG showed incomplete right bundle branch block CTA chest showing bilateral PE with questionable right heart strain. Patient mentioned yesterday he woke up not feeling well and did not feel like eating. He went out for shopping and while walking he felt pain on both posterior thigh area. He was able to drive but continues to have significant pain. Afterward he became significant short of breath while taking few steps along with dizziness and near syncopal episode. Denies chest pain, fever, chills, cough, nausea, vomiting or recent infection. He denies recent travel history. He doeshave history of DVT in 2011 and underwent IVC filter placement and was also toldto have PE. He was on warfarin initially and then switched to DOAC and has beentransitioned to aspirin. Apparently at [place] [facility] he was placed on high flow oxygen initially. On arrival patient is on 5 L oxygen with pulse ox above 95%. Blood pressure in 160s systolic and atient currently denies having chest pain. Review of Systems Review of Systems All other systems reviewed & are negative unless noted below or in HPI [facility] Medical History (Updated 02/11/23 @ 06:40 by Melissa Tejeda MD) COPD (chronic obstructive pulmonary disease) Social History Smoking Status: Former smoker Meds Medications and Allergies Allergies No Known Allergies Allergy (Verified 02/11/23 05:51) Home Medications omeprazole 20 mg capsule,delayed release 20 mg PO DAILY 02/11/23 [History Confirmed 02/11/23] Exam Physical Exam Vital Signs: Temp Pulse Resp BP Pulse Ox O2 Del Method O2 Flow Rate 97.9 F 104 H 22 143/83 H 94 L Nasal Cannula 5 02/11/23 05:41 02/11/23 05:41 02/11/23 05:41 02/11/23 05:41 02/11/23 05:41 02/11/23 05:55 02/11/23 05:55 Const General: cooperative Orientation: alert, awake and oriented x3 HEENT Head: normal to inspection, no palpable skull fracture, normocephalic and atraumatic Eyes Pupils: PERRL EOM: EOM intact bilaterally and No nystagmus Neck Neck: normal visual inspection and full ROM Resp Effort & Inspection: normal respiratory effort and able to speak in complete sentences Auscultation: no rales, no rhonchi and no wheezes Cardio Rate: regular rate Rhythm: regular rhythm Heart Sounds: S1 normal and S2 normal GI Palpation: soft, not firm, no guarding and nontender Neuro General: patient alert, patient awake, patient oriented x3, moves all extremities, no focal motor deficits and CN's II-XI intact bilaterally Cognition: normal cognition Speech: speech normal Motor: muscle tone normal throughout and strength 5/5 throughout Sensory Exam: no sensory deficits noted Extrem General: no clubbing, cyanosis or edema and no calf tenderness Assessment & Plan Assessment/Plan (1) Bilateral pulmonary embolism: (2) Elevated troponin: (3) COPD (chronic obstructive pulmonary disease): (4) Acute respiratory failure with hypoxia: (5) Morbid obesity due to excess calories: Plan Patient with history of COPD and DVT/PE has been transferred [facility] due to hypoxic respiratory failure from bilateral PE. He does have risk factorsof sedentary lifestyle with morbid obesity and prior history of DVT and PE. Apparently he also has IVC filter placed. Given his recurrent PE he will likelyrequire lifelong anticoagulation. Will obtain 2D echocardiogram to assess for right heart strain and need for EKOS. Check troponin and BNP. Patient currently on 5 L oxygen with stable vitals. On examination no signs of COPD exacerbation. We will also obtain venous duplex. IP vs OBS Justification Based on differential dx, clinical care plan, and risk of adverse events, if untreated, in my clinical judgement this patient requires an acute care setting as: INPATIENT because of an expectation of an over 2 midnight stay. Estimated length of stay (# of days): 3 Documented By: Melissa Tejeda MD 02/11/23 0631 Signed By: <Electronically signed by Melissa Tejeda MD> 02/11/23 [address] [facility] Work Phone: Evaluation + Plan note No data available for this section [facility] Diagnosis Onset Date Resolution Status Acute respiratory failure with hypoxia acute Bilateral pulmonary embolism acute COPD (chronic obstructive pulmonary disease) acute Elevated troponin acute Morbid obesity due to excess calories acute [facility] Work Phone: Evaluation note* Diagnosis custodial current use of anticoagulant therapy- Primary Pulmonary embolism, unspecified chronicity, unspecified pulmonary embolism type, unspecified whether acute cor pulmonale present (CMS/HCC) Pulmonary hypertension (CMS/HCC) Other chronic pulmonary heart diseases Abnormal echocardiogram Nonspecific (abnormal) findings on radiological and other examination of other intrathoracic organs BMI 40.0-44.9, adult (CMS/HCC) documented in this encounter [facility] Work Phone: Evaluation note* Diagnosis Medicare annual wellness visit, subsequent- Primary ACP (advance care planning) Other specified counseling Former smoker Personal history of tobacco use, presenting hazards to health Fatty liver Other chronic nonalcoholic liver disease Hypertriglyceridemia (CMS/HCC) 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 Screening for malignant neoplasm of prostate Skin sensation disturbance Disturbance of skin sensation Chronic obstructive pulmonary disease, unspecified COPD type (CMS/HCC) Snoring Other dyspnea and respiratory abnormality Witnessed episode of apnea Chronic pulmonary embolism without acute cor pulmonale, unspecified pulmonary embolism type (CMS/HCC) Calculus of gallbladder without cholecystitis without obstruction Diverticular disease of colon Diverticulosis of colon (without mention of hemorrhage) Gastroesophageal reflux disease without esophagitis Esophageal reflux Nodular adrenal cortex (CMS/HCC) Other specified disorders of adrenal glands Arthritis of left knee BMI 40.0-44.9, adult (CMS/HCC) Morbid obesity due to excess calories (CMS/HCC) Atopic dermatitis, unspecified type Abnormal echocardiogram Nonspecific (abnormal) findings on radiological and other examination of other intrathoracic organs Anxiety Anxiety state, unspecified History of DVT (deep vein thrombosis) Reactive depression (CMS/HCC) documented in this encounter [facility] HealthcareEvaluation note* 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- Primary Pulmonary embolism, unspecified chronicity, unspecified pulmonary embolism type, unspecified whether acute cor pulmonale present (Multi) Pulmonary hypertension (Multi) Other chronic pulmonary heart diseases Abnormal echocardiogram Nonspecific (abnormal) findings on radiological and other examination of other intrathoracic organs BMI 40.0-44.9, adult (Multi) Pulmonary embolism, unspecified chronicity, unspecified pulmonary embolism type, unspecified whether acute cor pulmonale present (Multi) History of DVT (deep vein thrombosis) custodial current use of anticoagulant therapy BMI 40.0-44.9, adult (Multi) documented in this encounter [facility] Work Phone: Evaluation note* Diagnosis Internal hernia- Primary Hernia of other specified sites of abdominal cavity without mention of obstruction or gangrene Hyponatremia Hyposmolality and/or hyponatremia [facility] No data available for this section [facility] Progress note No data available for this section [facility] (narrative)* Consultation (Routine) - Authorized Specialty Diagnoses / Procedures Referred By Rosaura fernandez Referred To Contact Cardiology Diagnoses Pulmonary embolism, unspecified chronicity, unspecified pulmonary embolism type, unspecified whether acute cor pulmonale present (CMS/HCC) Procedures Follow Up In Cardiology Chandrika Leary APRN-CNP [address] [facility], [address] [address] Bradley Tovar DO [address] [facility], [address] [place] [address] Referral ID Status Reason Start Date Expiration Date V isits Requested Visits Authorized [id number] Authorized 03/15/2023 03/14/2024 1 1 [facility] Work Phone: Summary Purpose Family History No Family History Records FoundNo Family History Records FoundNo Family History Records Found No data available for this section No data available for this section No Family History Records FoundNo Family History Records FoundNo Family History Records FoundNo Family History Records FoundNo Family History Records FoundNo Family History Records FoundNo Family History Records FoundNo Family History Records FoundNo Family History Records FoundNo Family History Records FoundNo Family History Records FoundNo Family History Records FoundNo Family History Records FoundNo Family History Records FoundNo Family History Records FoundNo Family History Records Found No data available for this section No Family History Records FoundNo Family History Records FoundNo Family History Records FoundNo Family History Records Found No data available for this section No Family History Records FoundNo Family History Records FoundNo Family History Records Found Advance Directives Advance Directive Response Recorded Date/ Time Advance Directives No February 3:18am Chief Complaint and Reason for Visit Chief Complaint NSTEMI,COPD Exacerba tion Reason for Visit Acute respiratory fa ilure with hypoxia Bilateral pulmonary embolism COPD (chronic obstructive pulmonary disease) Elevated troponin Morbid obesity due to excess calories Additional Source Comments (unrecognized sect ion and content) No Status Records FoundNo Status Records FoundNo Status Records FoundNo Status Records FoundNo Status Records FoundNo Status Records FoundNo Status Records FoundNo Status Records FoundNo Status Records FoundNo Status Records FoundNo Status Records FoundNo Status Records FoundNo Status Records FoundNo Status Records FoundNo Status Records FoundNo Status Records FoundNo Status Records FoundNo Status Records FoundNo Status Records FoundNo Status Records FoundNo Status Records FoundNo Status Records FoundNo Status Records FoundNo Status Records FoundNo Status Records FoundNo Status Records Found INFORMATION SOURCE (unrecogn ized section and content) DATE CREATED AUTHOR 04/24/2021 [facility] dical Specialist DATE CREATED AUTHOR AUTHOR'S ORGANIZ ATION 11/12/2021 [facility] DATE CREATED AUTHOR AUTHOR'S ORGANIZ ATION 02/23/2023 [facility] DATE CREATED AUTHOR AUTHOR'S ORGANIZ ATION 11/17/2023 [facility] DATE CREATED AUTHOR AUTHOR'S ORGANIZ ATION 11/18/2023 [facility] DATE CREATED AUTHOR AUTHOR'S ORGANIZ ATION 11/19/2023 [facility] DATE CREATED AUTHOR AUTHOR'S ORGANIZ ATION 11/20/2023 [facility] DATE CREATED AUTHOR AUTHOR'S ORGANIZ ATION 01/19/2024 [facility] dical Specialists EPIC DATE CREATED AUTHOR AUTHOR'S ORGANIZ ATION 02/18/2024 [facility] DATE CREATED AUTHOR AUTHOR'S ORGANIZ ATION 03/21/2024 [facility] Care Teams (unrecognized sec tion and content) Team Status: Active Member Role Status Dates CATARINA Brady Primary Care Provider Active Team Status: Inactive Member Role Status Dates Melissa Tejeda MD Admit Provider Active CATARINA Brady Primary Care Provider Active Sophie Tovar , DO Other Provider Active Tobias James , DO Attending Provider Active Insurance Producer Relationship Specialty Start Date End Date Chloé Moya PA-C [address] [facility] [address] [place] [address] PCP - General Internal Medicine 03/15/23 Insurance Producer Relationship Specialty Start Date End Date Js Menjivar MD [address] [facility] [address] [place] [address] PCP - Nahomy BELL 04/03/21 Js Menjivar MD [address] [facility] [address] [place] [address] PCP - General Family Medicine 09/19/22 Insurance Producer Relationship Specialty Start Date End Date Js Menjivar MD [address] [place] [address] PCP - Nahomy BELL 04/03/21 Js Menjivar MD [address] [facility] [address] [place] [address] PCP - General Family Medicine 09/19/22 Insurance Producer Relationship Specialty Start Date End Date Chloé Moya PA-C [address] [facility] [address] [place] [address] PCP - General Internal Medicine 03/15/23 Insurance Producer Relationship Specialty Start Date End Date Js Menjivar MD [address] [facility] [address] [place] [address] PCP - Nahomy BELL 04/03/21 Js Menjivar MD [address] [facility] [address] [place] [address] PCP - General Family Medicine 09/19/22 Insurance Producer Relationship Specialty Start Date End Date sJ Menjivar MD [address] [facility] [address] [place] [address] PCP - Nahomy BELL 04/03/21 Js Menjivar MD [address] [facility] [address] [place] [address] PCP - General Family Medicine 09/19/22 Reason for Visit (unrecogniz ed section and content) Reason Comments Hospital Follow[place] [facility] [place] Specialty Diagnoses / Procedures Referred By Contac t Referred To Contact Cardiology Diagnoses Pulmonary embolism, unspecified chronicity, unspecified pulmonary embolism type, unspecified whether acute cor pulmonale present ([facility]) Procedures Follow Up In Cardiology Bradley Tovar, DO [address] [facility] [address], [address] [address] Chandrika Leary, SPORTS MARKETING SPECIALIST-CATAPULT AND ARRESTING GEAR OFFICER [address] [facility], [facility] [address] [place] [address] Referral ID Status Reason Start Date Expiration Date V isits Requested Visits Authorized [id number] Authorized 02/14/2023 02/14/2024 1 1 Reason Comments Follow-up 9 months Specialty Diagnoses / Procedures Referred By Contac t Referred To Contact Cardiology Diagnoses Pulmonary embolism, unspecified chronicity, unspecified pulmonary embolism type, unspecified whether acute cor pulmonale present (Multi) Procedures Follow Up In Cardiology Chandrika Leary, SPORTS MARKETING SPECIALIST-CATAPULT AND ARRESTING GEAR OFFICER [address] [facility], [facility] [address] [place] [address] Bradley Tovar, DO [address] [facility] [place] [address] Referral ID Status Reason Start Date Expiration Date V isits Requested Visits Authorized [id number] Authorized 03/15/2023 03/14/2024 1 1 FOR RECORDS PERTAINING TO PATIENTS WHO ARE OR HAVE BEEN ENROLLED IN A CHEMICAL DEPENDENCY/SUBSTANCEABUSE PROGRAM, SOME INFORMATION MAY BE OMITTED. This clinical summary was aggregated from multiple sources. Caution should be exercised in using it in the provision of clinical care. This summary normalizes information from multiple sources, and as a consequence, information in this document may materially change the coding, format and clinical context of patient data. In addition, data may be omitted in some cases. CLINICAL DECISIONS SHOULD BE BASED ON THE PRIMARY CLINICAL RECORDS. [facility]. provides no warranty or guarantee of the accuracy or completeness of information in this document.
== END 2024-06-21 12:11 | disposition home or self-care (01) ==
PROVIDERS: PCP Family Medicine; Visit Provider Physician Assistant
DX: R10.10 Upper abdominal pain, unspecified (principal); R19.8 Other specified symptoms and signs involving the digestive system and abdomen
CPT/HCPCS: 76705